=== PATIENT | female | born 1950 | race African-American/Black ===

== ENCOUNTER 2017-03-14 07:26 | Day surgery (SDC) | payer MEDICARE ==
--- NOTE | 2017-03-07 22:51 | HP ---
CC: Umang Marr MD; Melissa Bernard MD; Jas Butler MD; Kiel Nguyen MD ADMISSION HISTORY AND PHYSICAL: DATE OF ADMISSION: 03/14/17 ATTENDING SURGEON: Lianne Charles MD CHIEF COMPLAINT: Right breast cancer. HISTORY OF PRESENT ILLNESS: This is a 67-year-old female with multiple medical pro blems who noted a right breast mass, maybe in the mid summer last year. This was located in the lat eral portion of the breast and she states has not really changed much since she first noticed it. S he did undergo a mammogram in June which was apparently unremarkable, but with recommendation for followup in 6 months. A followup mammogram with ultrasound on 01/29/17 showed a new right upper out er quadrant mass in the right breast. By ultrasound, there were noted to be 2 lesions at the 10 o'c lock position of the right breast, one measuring 8 x 11 x 9 mm, the other 6 x 7 x 6 mm, the first lo cated 10 cm from the nipple, the other 8 cm. In addition, there were 2 lesions located at the 9 o'c lock position, one measuring 8 x 4 x 7 mm, the other 12 x 8 x 9 mm, the former being consistent with a lymph node and the latter being consistent with a cyst. A biopsy was performed on 02/10/17 of th e suspicious lesions at the 10 o'clock position with pathology revealing invasive ductal carcinoma w ith DCIS (see separate report), ER and NE were positive, and HER-2/neil was equivocal. The patient w as apparently sent for an MRI, but this was technically not feasible based on her body habitus. She has seen Dr. Bernard in consult. She was seen in our office by Dr. Charles on 02/27/17 (see below for exam). Her family history is positive for 2 maternal cousins with breast cancer, one diagnosed in her 60s, the other of a disease in her 70s. There is no family history of ovarian cancer. Dr. Charles has discussed with her the options for surgery. After review of the indications, risks, benefits, and alternatives including the potential need for additional surgery, the patient would li ke to proceed as scheduled with excision of right breast cancer (after needle localization) and sent inel node biopsy. PAST MEDICAL HISTORY: 1. Morbid obesity. 2. Type 2 diabetes. 3. Chronic atrial fibrillation (on chronic anticoagulation). 4. Obstructive sleep apnea (uses CPAP). 5. Rheumatic mitral stenosis with regurgitation (see below). 6. Peripheral edema. 7. Hypertension. 8. Congestive heart failure. 9. Pulmonary hypertension. 10. Systemic lupus erythematosus. 11. Nephrolithiasis. 12. Depression. 13. Qhgo-os-gotriqpz renal insufficiency. PREVIOUS SURGERIES: Include: 1. Total abdominal hysterectomy with BSO for benign disease. 2. ORIF of the right ankle fracture. 3. x2. 4. Tubal ligation. 5. Tonsillectomy. No report of surgical or anesthesia problems. CURRENT MEDICATIONS: 1. Carvedilol 12.5 mg b.i.d. 2. Klor-Con 20 mEq t.i.d. 3. Torsemide 10 mg 1 to 2 tablets every other day as needed for peripheral edema or weight increase . 4. Metolazone 5 mg 30 minutes prior to torsemide if weight is up 5 pounds over previous 24 to 48 ho urs. 5. Vitamin C 500 mg once daily. 6. Coumadin 6 mg once daily (the patient instructed to hold after her 03/08/17 dose). 7. Diltiazem ER 120 mg once daily. 8. Allopurinol 300 mg every day (takes for her hyperuricemia and kidney stones). 9. Loratadine 10 mg once daily p.r.n. 10. Valacyclovir 1 g 2 tablets q.12 hours p.r.n. for onset of cold sores. 11. Lantus 35 units once daily in the morning. 12. Vitamin B12 1000 mcg once daily. 13. Magnesium oxide 400 mg once daily. 14. Vitamin D3 10,000 IU once daily during winter months. 15. Albuterol MDI 90 mcg per activation 2 puffs p.r.n. (uses infrequently). DRUG ALLERGIES: None known (her record lists ATENOLOL with side effect of fatigue, DIGOXIN with eff ect of myalgias, and LISINOPRIL with GI cramps). MYCOPHENOLATE was also listed with renal insuffici ency. FAMILY HISTORY: Breast cancer as noted above. No known family history of anesthesia problems, blee ding, or clotting disorders. SOCIAL HISTORY: The patient is . 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 She is a former smok er of up to one-half pack per day for 30 years, but quit about 25 years ago. She drinks on an avera ge 1 drink each day in the evening, usually beer. She denies use of other recreational drugs. REVIEW OF SYSTEMS: General: No recent constitutional symptoms or acute illnesses. Cardiovascular: She underwent echocardiogram on 02/26/17, which was notable for normal left ventricular function wi th an EF of 55% to 60%. She had biatrial dilation and low normal right ventricular function. Alyssa l valve was noted to have moderate stenosis with bawb-tv-ewjcenny regurgitation. Because of some te chnical difficulties, she is scheduled for a repeat transthoracic echo on 03/11/17. Respiratory: No recent exacerbations of her asthma. She uses CPAP for RAJNI. GI: No problems reported. Colonoscopy done within the past 5 years, normal by her report. : She is followed by Dr. Stanton for her kidn ey stone, which is apparently stable and nonobstructing. She has clhd-pl-mdoqyjeg renal insufficien cy, but this is apparently stable over the past couple of years. Endocrine: Diabetes. She states t hat her morning fingersticks run between 90s and 120 and that her last A1c was around 6. Musculoske letal: She manifested lupus in terms of muscle and joint aches. She was on hydroxychloroquine for a period of time, but stopped it because of visual changes. She has not yet discussed that with her tank maker wood in [place]. PHYSICAL EXAMINATION GENERAL: A well-nourished, morbidly obese female, in no acute distress. VITAL SIGNS: Height 67 inches, weight 349 pounds, BMI 54.7, blood pressure 128/80, pulse 80, and re spirations 18. HEENT: Pupils equal, round, and reactive. EOMs intact. No conjunctival pallor. Oropharynx: She h as partial upper and lower dentures. Remaining teeth in good repair. No intraoral lesions. NECK: No lymphadenopathy, thyromegaly, or masses. LUNGS: Clear to auscultation. No rales or wheezes. HEART: Distant heart sounds. Irregularly irregular consistent with known atrial fibrillation. I d id not appreciate any murmur. BREASTS: Not reexamined today. Per Dr. Charles's exam, left breast is diffusely nodular, but withou t dominant masses. Right breast is notable for nodularity in the upper inner quadrant and post biop sy changes in the lateral breast. No palpable axillary, supraclavicular, or cervical adenopathy. ABDOMEN: Soft and nontender to palpation. No palpable masses or organomegaly though exam is limite d by body habitus. EXTREMITIES: She has skin thickening and some hyperpigmentation consistent with chronic venous insu fficiency. There were no open lesions or evidence of infection. I did not check peripheral pulses t luis. GENITALIA AND RECTAL: Not done. BACK: No spinous process or CVA tenderness. NEUROLOGICAL: Grossly intact. SKIN: Warm and dry. No suspicious rashes or lesions noted. IMPRESSION: Right breast cancer. PLAN: Excision, right breast cancer (after needle localization); sentinel lymph node biopsy. DIANA POWELL [id number]/[facility] #: [id number]
[~2017-03-14 07:26] MED LIST: Buffered Lidocaine 1% SYRIN* 3 ML/SYR SYRINGE INTRADERM ONE; Famotidine IV* 10 MG/ML 2 ML (20 mg) IV ONE; Lidocaine 2.5%/Prilocain 2.5%* 5 GM TUBE ONE; Metoclopramide IV* 5 MG/ML 2 ML VIAL IV SLOW PU ONE
--- NOTE | 2017-03-14 09:04 | RAD ---
INDICATION: Right breast needle localization. COMPARISON: Correlation is made with prior mammograms and a right breast ultrasound from January 29, 2017. TECHNIQUE: The benefits and risks of the procedure were explained to the patient. The patient consented to the exam. A timeout was performed before beginning the procedure. Multiple images of the right breast were obtained. Again note is made of a 2 solid masses in the upper outer quadrant of the right breast approximately at the 10:00 position. The patient was prepped and draped in the usual sterile fashion. The right breast was anesthetized with 1% lidocaine. Using ultrasound guidance a needle was placed extending through both lesions. This was exchanged for a Gorman type wire. A postprocedure ultrasound demonstrates that the wire extending through both lesions. A postprocedure mammogram was obtained including craniocaudad and mediolateral views of the right breast. The wire is noted adjacent to both tissue marking clips extending through the smaller lesion along the superior aspect of the larger lesion. The patient tolerated procedure well without incident. IMPRESSION: SUCCESSFUL ULTRASOUND-GUIDED RIGHT BREAST NEEDLE LOCALIZATION.
[2017-03-14] MEDS ORDERED: Methylene Blue 0.5 %* 50 MG/10 ML AMP IV ONE (09:07)
[2017-03-14] MEDS ORDERED: Bupivacaine 0.25% SDV* 30 ML ONE (09:07)
[2017-03-14] MEDS ORDERED: Bupivacaine 0.5% SDV PF* 30 ML VIAL ONE (09:07)
[2017-03-14] MEDS ORDERED: Bupivacaine 0.5% W/EPI SDV* 30 ML VIAL ONE (09:07)
[2017-03-14] MEDS ORDERED: Bupivacaine 0.25% EPI 200,000* 30 ML SDV ONE (09:07)
[2017-03-14] MEDS ORDERED: Lidocaine 1% INJ* 10 MG/ML 30 ML SDV ONE (09:07)
[2017-03-14] MEDS ORDERED: Heparin VIAL(*) 5000 UNITS/ML VIAL (FIVE THOUSAND) ONE (10:25)
[2017-03-14] MEDS ORDERED: ceFAZolin 2 GM PREMIX(*) 2 GM/50 ML BAG IVPB ONE (10:25)
[2017-03-14] MEDS ORDERED: ceFAZolin 1 GM in Dextrose (*) 1 GM/50 ML BAG IVPB ONE (10:25)
[2017-03-14] MEDS ORDERED: Metoclopramide IV* 5 MG/ML 2 ML VIAL ONE (10:30)
[2017-03-14] MEDS ORDERED: Famotidine IV* 10 MG/ML 2 ML (20 mg) ONE (10:30)
--- NOTE | 2017-03-14 10:32 | RAD ---
INDICATION: Right breast carcinoma. Comparison: Correlation is made with prior mammograms and a right breast ultrasound from January 29, 2017. Technique: The benefits and risks of the procedure were explained to the patient. The patient consented to the exam. A timeout was performed before beginning the procedure. 0.3 mCi of technetium 99m filtered sulfur colloid were injected in a nathan-areolar location. Four intradermal injections were made. The patient tolerated the procedure well without incident. Multiple images of the chest and right axilla were obtained in the frontal, oblique and lateral projections. FINDINGS: The images demonstrate 3 sentinel lymph nodes nodes. One is located in the right breast approximately at the 9 to 10:00 position and appears to correlate with an intramammary lymph node noted on the prior ultrasound study. This lymph node has the most activity. In addition there are 2 sentinel nodes located immediately adjacent to each other in the right axilla. The location of the nodes were marked on the patient's skin. IMPRESSION: 3 SENTINEL NODES DESCRIBED.
[2017-03-14] MEDS ORDERED: Dextrose 50% Syringe 50 ML* 25 GM/50 ML SYRINGE ONE (11:25)
[2017-03-14] MEDS ORDERED: fentaNYL* 50 MCG/ML 2 ML VIAL (100 MCG VIAL) ONE ×3 (11:41→14:02)
[2017-03-14] MEDS ORDERED: Midazolam* 1 MG/ML 5 ML VIAL (5 MG) ONE (11:41)
[2017-03-14] MEDS ORDERED: Midazolam* 1 MG/ML 2 ML VIAL (2 MG) ONE ×3 (12:24→13:48)
[2017-03-14] MEDS ORDERED: KETAMINE HCL* 50 MG/ML 10 ML VIAL ONE (12:27)
[2017-03-14] MEDS ORDERED: Ondansetron INJ* 2 MG/ML VIAL ONE (13:41)
[2017-03-14] MEDS ORDERED: HYDROcodone/ACETAMIN 5-325 MG* 1 TAB PO PRN (14:32)
--- NOTE | 2017-03-14 14:39 | SURGPN ---
Brief Operative Note - Surgery Procedures: Procedures COLONOSCOPY (12/23/13) DX ULTRASOUND-HEART (12/16/14) OTHER ESOPHAGOSCOPY (06/24/01) OTHER SLEEP DISORDER FUNCTION TESTS (08/17/01) POLYSOMNOGRAM (06/07/01) 03/14/17 Op Note Pre-op dx: right breast cancer Post-op dx: same Procedure: needle localization excision of right breast cancer and sentinel lymph node biopsy Surgeon: Melvin Asst: Pepper Holden Anesth: local-MAC EBL: 25 cc Complications: none SCDs on during surgery Abx: given pre-op Pt. tolerated procedure well and was transferred to in a stable condition. CLFoster
[2017-03-14 15:01] VITALS: BP 102/71
--- NOTE | 2017-03-15 07:46 | OP ---
DATE OF OPERATION: 03/14/17 [facility] DATE OF : 48 SURGEON: Lianne Charles MD. ASSISTANTS: DIANA Marcelo, and MS Ara. PRE-OP DIAGNOSIS: Right breast cancer. POST-OP DIAGNOSIS: Right breast cancer. OPERATIVE PROCEDURES: Needle localization, excision of right breast cancer, and sentinel lymph node biopsy. INDICATIONS: Ms. Anand is a 67-year-old female who presented to the office with a recent diagnosis of breast cancer, prompting the plan for surgical intervention. DESCRIPTION OF PROCEDURE: On the morning of the surgery, she underwent needle localization without difficulty and sentinel lymph node localization, which identified three sentinel nodes, one in the breast itself. She was then brought to the operating room, placed on the OR table in a supine position and given IV sedation. The right breast was prepped and draped in usual sterile fashion, taking care not to dislodge the localizing wire. After infiltrating local anesthetic, a curvilinear elliptical incision encompassing the wire was made. Subcutaneous tissue was divided with electrocautery to excise the massive tissue from around the wire. In the process of doing this, it was recognized that a firm mass had been transected, so once the specimen was marked and handed off and sent to Radiology, a second specimen was removed from posterolateral to the first. This was also marked and handed off as a specimen. Both specimens sent to Radiology where the report eventually confirmed that the two specimens contained the two known abnormalities of the breast. Hemostasis was assured with electrocautery and then closure was accomplished. Prior to completing the closure, clips were placed in the cavity to orquidea its confines. It should be mentioned that the cavity was irrigated with water on account of transecting the tumor. In addition, prior to closing, a re-search was made for sentinel nodes through the breast incision; however, it was recognized that it was too deep to pursue satisfactory localization of the sentinel nodes, so this incision was closed with 3-0 Polysorb in the subcutaneous layer. The skin was closed with 4-0 Surgipro in subcuticular fashion and then a curvilinear incision was made in the axilla. Subcutaneous tissue was divided with electrocautery down to the level of the axillary fat pad and then using the navigator, three sentinel nodes were identified. It was initially thought that the first one was an axillary node, but when two axillary nodes were later identified, it was recognized that the first specimen was most likely a mammary node. The initial counts for the first specimen were 434 in situ and ex vivo 432. The first axillary sentinel node had in situ counts of 2006 and ex vivo counts of 3663. The second axillary sentinel node had in situ counts of 1970 and ex vivo counts of 2183. Because of the difficulty in isolating especially the third sentinel node, there were some additional axillary contents which were sent and identified as such. Once the hemostasis was adequate in the axillary bed, closure was accomplished. This was done with 3-0 Polysorb in a subcutaneous layer and the skin was closed with 4-0 Surgipro in a subcuticular fashion. Steri-Strips and dry sterile dressings were placed on both incisions. All sponge and instrument counts were correct. The patient tolerated the procedure well and was transferred to Recovery in a stable condition. CC: [facility]; Umang Marr MD; [facility]; Dr. Silas Everett* [id number]/[facility] [place] #: [id number] [facility] HOSPITALIssa
== END 2017-03-14 15:28 | disposition home or self-care (01) ==
LOC: SDS 07:26
PROVIDERS: ATTEND Surgery
DX: C50.411 Malignant neoplasm of upper-outer quadrant of right female breast (principal); C77.3 Secondary and unspecified malignant neoplasm of axilla and upper limb lymph nodes; E11.8 Type 2 diabetes mellitus with unspecified complications; Z79.4 Long term (current) use of insulin; Z79.01 Long term (current) use of anticoagulants; I48.2 Chronic atrial fibrillation; G47.33 Obstructive sleep apnea (adult) (pediatric); I05.2 Rheumatic mitral stenosis with insufficiency; I50.9 Heart failure, unspecified; I27.2 Other secondary pulmonary hypertension; N18.9 Chronic kidney disease, unspecified
CPT/HCPCS: 19286; 78195; 88305; 88307; 88341; 88342; A9270-GY; A9541; G0206-RT; J0690; J1644; J2001; J2250; J2405; J3010

== ENCOUNTER 2017-03-24 14:00 | Emergency (ER) | payer MEDICARE ==
[2017-03-24] MEDS ORDERED: NS 0.9% 1000 ML* 1,000 ML IV ONE (16:53)
[2017-03-24 18:08] LABS: Hematocrit 41 % (35-47); Hemoglobin 12.8 g/dl (12.0-16.0); Mean Corpuscular HGB Conc 31 g/dl (31-36); Mean Corpuscular Hemoglobin 28 pg (27-31); Mean Corpuscular Volume 91 fL (80-97); Mean Platelet Volume 9 um3 (7.4-10.4); Red Blood Count 4.53 10^6/ul (4.0-5.4); Red Cell Distribution Width 17 % (10.5-15); White Blood Count 12.4 10^3/ul (3.5-10.8)
--- NOTE | 2017-03-24 18:08 | RAD ---
HISTORY: Right leg swelling COMPARISONS: None relevant TECHNIQUE: Multiple transverse and longitudinal ultrasound images were obtained of the right lower extremity from the level of the common femoral vein inferiorly through to the infrapopliteal veins using grayscale, color Doppler, and spectral Doppler imaging with and without compression and with augmentation. Comparison images were obtained of the contralateral common femoral vein. FINDINGS: The study is limited by patient body habitus. VEINS: One of the branches of the right peroneal vein is not well visualized which may be an artifact of body habitus. The remainder of the venous system of the right lower extremity is compressible throughout its course, with normal flow on color Doppler imaging and normal response to augmentation on spectral Doppler imaging. SOFT TISSUES: Unremarkable. OTHER FINDINGS: None. IMPRESSION: THERE IS NONVISUALIZATION OF ONE CALF VEIN WHICH MAY BE AN ARTIFACT OF BODY HABITUS. THERE IS NO RIGHT POPLITEAL OR SUPRAPOPLITEIAL DEEP VEIN THROMBOSIS
[2017-03-24 18:25] LABS: ALT 32 U/L (7-52); Albumin 4.1 g/dL (3.2-5.2); Alkaline Phosphatase 72 U/L (34-104); Blood Urea Nitrogen 24 mg/dL (6-24); CO2 Carbon Dioxide 28 mmol/L (22-32); Calcium 11.3 mg/dL (8.6-10.3); Chloride 100 mmol/L (101-111); EGFR Non-African American 39.7 (>60); Globulin 3.6 g/dL (2-4); Glucose 80 mg/dL (70-100); Sodium 136 mmol/L (133-145); Total Protein 7.7 g/dL (6.4-8.9)
[2017-03-24 18:26] LABS: Troponin I 0.01 ng/mL (<0.04)
[2017-03-24] MEDS ORDERED: Iodixanol* (CONTRAST) 320 MG/ML 100 ML SDV IV ONE (18:30)
--- NOTE | 2017-03-24 19:21 | RAD ---
HISTORY: Shortness of breath, recent surgery COMPARISONS: None TECHNIQUE: Multiple contiguous axial CT scans of the chest were obtained after the administration of nonionic intravenous contrast, timed to the pulmonary arterial phase of contrast enhancement.. Coronal and sagittal multiplanar reformations are also submitted for review. FINDINGS: Evaluation is limited by suboptimal contrast opacification of the main pulmonary artery, which measures less than 250 Hounsfield units. This study is considered a borderline but diagnostic quality. Evaluation is also limited by patient breathing motion artifact NECK AND THYROID: The lower neck and thyroid are unremarkable. CHEST WALL: There is post surgical change to the right breast HEART AND PERICARDIUM: The heart is unremarkable. AORTA AND PULMONARY VASCULATURE: There is no pulmonary arterial filling defect to suggest pulmonary embolism. There is no linear filling defect within the aorta to suggest aortic dissection. MEDIASTINUM: There is no mediastinal lymphadenopathy by size criteria. ROSENDO: There is no hilar lymphadenopathy by size criteria. AIRWAY AND ESOPHAGUS: The airway is unremarkable, without endobronchial filling defect. The esophagus is grossly normal. LUNG PARENCHYMA: The lungs are clear. PLEURA: There is a small left pleural effusion UPPER ABDOMEN: The upper abdomen is unremarkable. BONES AND SOFT TISSUES: Degenerative changes are noted of the spine OTHER: None. IMPRESSION: 1. LIMITED STUDY. 2. NO PULMONARY ARTERIAL FILLING DEFECT TO SUGGEST PULMONARY EMBOLISM. 3. SMALL LEFT PLEURAL EFFUSION
[2017-03-24 19:26] VITALS: BP 113/79
--- NOTE | 2017-03-24 20:49 | ED ---
Lula Villeda Auryana, scribed for Ozzy Valderrama MD on 03/24/17 at 1805 . Shortness of Breath - HPI Summary HPI Summary: 67 year old female presents to the ED with worsening SOB s/p lumpectomy Friday ( 04/20/16) by Dr. Charles. She reports that she has had lower right leg spasms with muscle soreness and increase edema in the RLE (more than normal). She states that the SOB is improved with rest and the edema is improved with elevation of the leg. She denies chest pressure with SOB, cough, N/V, diaphoresis, or any pain with inspiration. Patient is on Coumadin (recent bridging with Lovanox s/p surgery) and states recent weight loss. PMHx is significant for SLE, A-FIB, DM II-well controlled with Lantis- chronic SOB, breast cancer with recent lumpectomy - Dr. Charles- on potassium replacement, and rheumatic fever. No formal Dx of CHF but states "leaky valve". She denies thrombosis, any cardiac catherization in the past, or any recent stress test. She cardiologists are Dr. Nguyen and Dr. Arellano - recent Echo with Dr. Nguyen prior to surgery Friday. No FMHx of breast CA. - History of Current Complaint Chief Complaint: EDShortnessOfBreath Time Seen by Provider: 03/24/17 16:13 Hx Obtained From: Patient Onset/Duration: Gradual Onset - s/p surgery, Still Present Timing: Constant Current Severity: Mild Dyspnea At: Rest Aggrevating Factors: Movement Alleviating Factors: Upright Position - rest Associated Signs & Symptoms: Calf Pain/Swelling, Edema Related History: Similar Episode - SEE HPI - Allergy/Home Medications Allergies/Adverse Reactions: Allergies Allergy/AdvReac Type Severity Reaction Status Date / Time No Known Allergies Allergy Verified 03/14/17 07:56 PMH/Surg Hx/FS Hx/Imm Hx Endocrine/Hematology History: Reports: Hx Diabetes - TYPE II- ON INSULIN FOR Cardiovascular History: Reports: Hx Rheumatic Fever - A CHILD, Hx Valvular Heart Disease - MITRAL VALVE- DR. NGUYEN FOLLOWS, Other Cardiovascular Problems/ Disorders - IRREGULAR HEART BEAT Denies: Hx Hypertension, Hx Pacemaker/ICD Respiratory History: Reports: Hx Sleep Apnea History: Reports: Hx Kidney Stones - KIDNEY STONE CURRENTLY Denies: Hx Renal Disease - KIDNEY STONE AT PRESENT TIME Sensory History: Reports: Hx Contacts or Glasses - GLASSES Denies: Hx Hearing Aid Opthamlomology History: Reports: Hx Contacts or Glasses - GLASSES Psychiatric History: Denies: Hx Panic Disorder - Cancer History Cancer Type, Location and Year: RIGHT BREAST Hx Chemotherapy: No Hx Radiation Therapy: No - Surgical History Surgery Procedure, Year, and Place: 2 C-SECTIONS. HYSTERECTOMY. TUBAL LIGATION. REPAIR OF FRACTURED ANKLE. ALL DONE AT [facility] – [place] Hx Anesthesia Reactions: Yes - [id number]- VERY SLEEPY FOR DAYS Infectious Disease History: No Infectious Disease History: Denies: Traveled Outside the [place] in Last 30 Days - Family History Known Family History: Positive: Other - no family history of breast cancer - Social History Occupation: Retired Lives: With Family Alcohol Use: Daily Alcohol Amount: 1 /day Substance Use Type: Reports: None Smoking Status (MU): Former Smoker Amount Used/How Often: 1/2 PPD X 30 YEARS Have You Smoked in the Last Year: No Review of Systems Constitutional: Negative Eyes: Negative ENT: Negative Cardiovascular: Negative Positive: Shortness Of Breath Gastrointestinal: Negative Genitourinary: Negative Positive: Myalgia - calf pain, Edema Skin: Negative Neurological: Negative Psychological: Normal All Other Systems Reviewed And Are Negative: Yes Physical Exam - Summary Physical Exam Summary: The patient is well-nourished, obese, in no acute distress and in no acute pain. The skin is warm and dry and skin color reflects adequate perfusion. HEENT: The head is normocephalic and atraumatic. The pupils are equal and reactive. The conjunctivae are clear and without drainage. Nares are patent and without drainage. Mouth reveals moist mucous membranes and the throat is without erythema and exudate. The external ears are intact. The ear canals are patent and without drainage. The tympanic membranes are intact. Neck is supple with full range of motion and non-tender. There are no carotid bruits. There is no neck vein distension. Respiratory: Chest is non-tender. Lungs are clear to auscultation. Breathe sounds diminished in the right base. No wheezing. Cardiovascular: Heart has an irregular rate and rhythm. There is no murmur or rub auscultated. pulses are symmetrical and equal. Brachycardia. Abdomen: The abdomen is soft and non-tender. There are normal bowel sounds heard in all four quadrants and there is no organomegaly palpated. Musculoskeletal: There is no back pain noted. Extremities are with full range of motion. There is good capillary refill and good pulses. There is marked swelling in the bilateral lower extremities, L>R. There is right calf tenderness elicited. Neurological: Patient is alert and oriented to person, place and time. The patient has symmetrical motor strength in all four extremities. Cranial nerves are grossly intact. Deep tendon reflexes are symmetrical and equal in all four extremities. Psychiatric: The patient has an appropriate affect and does not exhibit any anxiety or depression. Triage Information Reviewed: Yes Vital Signs On Initial Exam: Initial Vitals Temp Pulse Resp BP Pulse Ox 97.4 F 56 20 131/58 98 03/24/17 14:18 03/24/17 14:18 03/24/17 14:18 03/24/17 14:18 03/24/17 14:18 Vital Signs Reviewed: Yes - [place] Coma Scale Coma Scale Total: 15 Diagnostics - Vital Signs Vital Signs Temp Pulse Resp BP Pulse Ox 03/24/17 16:07 63 17 97 03/24/17 16:05 122/69 03/24/17 14:21 97.8 F 95 20 131/58 98 03/24/17 14:18 97.4 F 56 20 131/58 98 - Laboratory Lab Results: Lab Results 03/24/17 03/24/17 03/24/17 Range/Units 18:00 18:00 18:00 WBC 12.4 H (3.5-10.8) 10^3/ul RBC 4.53 (4.0-5.4) 10^6/ul Hgb 12.8 (12.0-16.0) g/dl Hct 41 (35-47) % MCV 91 (80-97) fL MCH 28 (27-31) pg MCHC 31 (31-36) g/dl RDW 17 H (10.5-15) % Plt Count 290 (150-450) 10^3/ul MPV 9 (7.4-10.4) um3 Neut % (Auto) 68.5 (38-83) % Lymph % (Auto) 21.3 L (25-47) % [place] % (Auto) 7.7 (1-9) % Eos % (Auto) 1.7 (0-6) % Baso % (Auto) 0.8 (0-2) % Absolute Neuts (auto) 8.5 H (1.5-7.7) 10^3/ul Absolute Lymphs (auto) 2.6 (1.0-4.8) 10^3/ul Absolute Monos (auto) 0.9 H (0-0.8) 10^3/ul Absolute Eos (auto) 0.2 (0-0.6) 10^3/ul Absolute Basos (auto) 0.1 (0-0.2) 10^3/ul Absolute Nucleated RBC 0 10^3/ul Nucleated RBC % 0 Sodium 136 (133-145) mmol/L Potassium TNP Chloride 100 L (101-111) mmol/L Carbon Dioxide 28 (22-32) mmol/L Anion Gap TNP BUN 24 (6-24) mg/dL Creatinine 1.33 H (0.51-0.95) mg/dL Est GFR ( Amer) 51.0 (>60) Est GFR (Non-Af Amer) 39.7 (>60) BUN/Creatinine Ratio 18.0 (8-20) Glucose 80 (70-100) mg/dL Lactic Acid 1.9 (0.5-2.0) mmol/L Calcium 11.3 H (8.6-10.3) mg/dL Total Bilirubin 0.60 (0.2-1.0) mg/dL AST TNP ALT 32 (7-52) U/L Alkaline Phosphatase 72 (34-104) U/L Troponin I 0.01 (<0.04) ng/mL B-Natriuretic Peptide ( - 100) pg/mL Total Protein 7.7 (6.4-8.9) g/dL Albumin 4.1 (3.2-5.2) g/dL Globulin 3.6 (2-4) g/dL Albumin/Globulin Ratio 1.1 (1-3) 03/24/17 03/24/17 Range/Units 18:00 18:40 WBC (3.5-10.8) 10^3/ul RBC (4.0-5.4) 10^6/ul Hgb (12.0-16.0) g/dl Hct (35-47) % MCV (80-97) fL MCH (27-31) pg MCHC (31-36) g/dl RDW (10.5-15) % Plt Count (150-450) 10^3/ul MPV (7.4-10.4) um3 Neut % (Auto) (38-83) % Lymph % (Auto) (25-47) % [place] % (Auto) (1-9) % Eos % (Auto) (0-6) % Baso % (Auto) (0-2) % Absolute Neuts (auto) (1.5-7.7) 10^3/ul Absolute Lymphs (auto) (1.0-4.8) 10^3/ul Absolute Monos (auto) (0-0.8) 10^3/ul Absolute Eos (auto) (0-0.6) 10^3/ul Absolute Basos (auto) (0-0.2) 10^3/ul Absolute Nucleated RBC 10^3/ul Nucleated RBC % Sodium (133-145) mmol/L Potassium 4.4 Chloride (101-111) mmol/L Carbon Dioxide (22-32) mmol/L Anion Gap BUN (6-24) mg/dL Creatinine (0.51-0.95) mg/dL Est GFR ( Amer) (>60) Est GFR (Non-Af Amer) (>60) BUN/Creatinine Ratio (8-20) Glucose (70-100) mg/dL Lactic Acid (0.5-2.0) mmol/L Calcium (8.6-10.3) mg/dL Total Bilirubin (0.2-1.0) mg/dL AST 21 ALT (7-52) U/L Alkaline Phosphatase (34-104) U/L Troponin I (<0.04) ng/mL B-Natriuretic Peptide 73 ( - 100) pg/mL Total Protein (6.4-8.9) g/dL Albumin (3.2-5.2) g/dL Globulin (2-4) g/dL Albumin/Globulin Ratio (1-3) Result Diagrams: 03/24/17 18:00 03/24/17 18:40 Lab Statement: Any lab studies that have been ordered have been reviewed, and results considered in the medical decision making process. - CT CTA CHEST CT Interpretation: No Acute Changes - IMPRESSION: 1. LIMITED STUDY. 2. NO PULMONARY ARTERIAL FILLING DEFECT TO SUGGEST PULMONARY EMBOLISM. 3. SMALL LEFT PLEURAL EFFUSION CT Interpretation Completed By: Radiologist - EKG 14:27 EKG Interpretation: A-fib, bradycardia, No ST elevation, NML axis - Additional Comments Diagnostic Additional Comments: Right lower EXT - venous doppler US: IMPRESSION: THERE IS NONVISUALIZATION OF ONE CALF VEIN WHICH MAY BE AN ARTIFACT OF BODY HABITUS. THERE IS NO RIGHT POPLITEAL OR SUPRAPOPLITEIAL DEEP VEIN THROMBOSIS Re-Evaluation - Re-Evaluation First Eval Re-Evaluation Time: 19:25 - discussed labs, imaging, and Change: Improved Comment: discharge with follow and outpatient stress test Course/Dx - Diagnoses Differential Diagnosis/HQI/PQRI: Positive: CHF, RI, Pulmonary Embolism, Other - dvt,angina, deconditioning, obesity, Provider Diagnoses: Dyspnea on exertion Discharge - Discharge Plan Condition: Stable Disposition: HOME Patient Education Materials: Dyspnea (ED) Referrals: Umang Marr MD [Primary Care Provider] - Kiel Nguyen MD [Medical Doctor] - 2 Days The documentation as recorded by the Lula dias Auryana accurately reflects the service I personally performed and the decisions made by me, Ozzy Valderrama MD.
== END 2017-03-24 19:57 | disposition home or self-care (01) ==
LOC: ED 14:00
DX: R06.00 Dyspnea, unspecified (principal)
CPT/HCPCS: 36415; 71275; 80053; 83605; 83880; 84484; 85025; 93005; 99283; Q9967

== ENCOUNTER 2017-04-18 07:31 | Observation (INO) | payer MEDICARE ==
[~2017-04-18 07:31] MED LIST changes: -Buffered Lidocaine 1% SYRIN* 3 ML/SYR SYRINGE INTRADERM ONE; +Buffered Lidocaine 1% SYRIN* 5 ML/SYR SYRINGE ONE; -Famotidine IV* 10 MG/ML 2 ML (20 mg) IV ONE; +Heparin VIAL(*) 5000 UNITS/ML VIAL (FIVE THOUSAND) ONE; -Lidocaine 2.5%/Prilocain 2.5%* 5 GM TUBE ONE; -Metoclopramide IV* 5 MG/ML 2 ML VIAL IV SLOW PU ONE; +NS 0.9% 1000 ML* 1,000 ML IV SCH; +ceFAZolin 2 GM PREMIX(*) 2 GM/50 ML BAG IVPB ONE
[2017-04-18] MEDS ORDERED: Midazolam* 1 MG/ML 2 ML VIAL (2 MG) ONE (08:20)
[2017-04-18 08:43] LABS: Hematocrit 40 % (35-47); Mean Corpuscular HGB Conc 32 g/dl (31-36); Mean Corpuscular Hemoglobin 29 pg (27-31); Mean Corpuscular Volume 90 fL (80-97); Mean Platelet Volume 9 um3 (7.4-10.4); Red Cell Distribution Width 17 % (10.5-15); White Blood Count 10.8 10^3/ul (3.5-10.8)
[2017-04-18] MEDS ORDERED: Lidocaine 2% PF * 5 ML VIAL ONE (09:15)
[2017-04-18] MEDS ORDERED: Famotidine IV* 10 MG/ML 2 ML (20 mg) ONE (09:15)
[2017-04-18] MEDS ORDERED: Propofol* 10 MG/ML 20 ML BTL IV PUSH ONE (09:15)
[2017-04-18] MEDS ORDERED: Dexamethasone IV* 4 MG/ML 1 ML (4 MG) ONE (09:15)
[2017-04-18] MEDS ORDERED: Rocuronium* 10 MG/ML VIAL ONE (09:15)
[2017-04-18] MEDS ORDERED: Succinylcholine* 20 MG/ML 10 ML VIAL ONE (09:15)
[2017-04-18] MEDS ORDERED: Midazolam* 1 MG/ML 5 ML VIAL (5 MG) ONE (09:16)
[2017-04-18] MEDS ORDERED: KETAMINE HCL* 50 MG/ML 10 ML VIAL ONE (09:27)
[2017-04-18] MEDS ORDERED: EPHEDrine (Pressors)* 50 MG/ML VIAL ONE (09:43)
[2017-04-18] MEDS ORDERED: fentaNYL* 50 MCG/ML 2 ML VIAL (100 MCG VIAL) ONE (09:46)
[2017-04-18] MEDS ORDERED: Bupivacaine 0.5% W/EPI SDV* 30 ML VIAL ONE (10:16)
[2017-04-18] MEDS ORDERED: HYDROmorphone* 1 MG/ML 1 ML SYR ONE (10:43)
[2017-04-18] MEDS ORDERED: Ondansetron INJ* 2 MG/ML VIAL ONE (10:59)
[2017-04-18] MEDS ORDERED: Acetaminophen TAB* 325 MG PO PRN ×2 (11:14→11:41)
[2017-04-18] MEDS ORDERED: Docusate CAP* 100 MG PO PRN (11:14)
[2017-04-18] MEDS ORDERED: HYDROmorphone* 1 MG/ML 1 ML SYR IV PRN ×2 (11:14→11:41)
[2017-04-18] MEDS ORDERED: Ondansetron INJ* 2 MG/ML VIAL IV PRN (11:14)
[2017-04-18] MEDS ORDERED: oxyCODONE/Acetamin 5/325 MG* TAB PO PRN (11:17)
[2017-04-18] MEDS ORDERED: Torsemide TAB* 20 MG PO PRN (11:18)
[2017-04-18] MEDS ORDERED: Albuterol HFA INHALER* 8 gm MDI INH PRN (11:18)
[2017-04-18] MEDS ORDERED: Dextrose 50% Syringe 50 ML* 25 GM/50 ML SYRINGE IV PUSH PRN (11:22)
--- NOTE | 2017-04-18 11:30 | PN ---
Progress Note - Progress Note Note: Brief surgical note: Pre-op: Right breast CA Post-op; same Procedure: Right mastectomy Surgeon: Lianne Charles MD Data Security Analyst: Vernon Maria Zoey: HOANG EBL: 100 cc Fluids: LR 2000 cc Drains: AARON vac to self suction Catheters: none Specimen: Right breast Findings: See dictated op note
[2017-04-18] MEDS ORDERED: PROCHLORPERAZINE INJ 5 MG/ML 2 ML VIAL IV PRN (11:41)
[2017-04-18] MEDS ORDERED: DiMENhydriNATE IV* 50 MG/ML VIAL IV PUSH PRN (11:41)
[2017-04-18] MEDS: Insulin LISPRO* 1 UNITS UNIT SUBCUT SCH ×3 (14:06→21:16)
[2017-04-18] MEDS: Heparin VIAL(*) 5000 UNITS/ML VIAL (FIVE THOUSAND) SUBCUT SCH ×2 (16:15→23:23)
[2017-04-18] MEDS: Potassium Chlor TAB* 20 MEQ TAB.ER PO SCH ×2 (16:16→21:17)
[2017-04-18] MEDS ORDERED: Carvedilol TAB* 6.25 MG PO SCH (21:00)
[2017-04-18] MEDS ORDERED: Magnesium Oxide TAB* 400 MG PO SCH (21:00)
[2017-04-18] MEDS ORDERED: Diltiazem CD CAP* 120 MG PO SCH (21:00)
--- NOTE | 2017-04-19 03:04 | OP ---
CC: [facility], Melissa Bernard MD; Umang Marr MD OPERATIVE REPORT: DATE OF PROCEDURE: 04/18/17 DATE OF : 48 SURGEON: Lianne Charles MD ASSISTANTS: Yasemin and Roberto Holden. PRE-OP DIAGNOSIS: Right breast cancer. POST-OP DIAGNOSIS: Right breast cancer. PROCEDURE: Right mastectomy. INDICATIONS: Ms. Anand is a 67-year-old woman with a known diagnosis of breast cancer, who has undergone a lumpectomy, which showed extensive DCIS prompting the plan for wider excision through a mastectomy. DESCRIPTION OF PROCEDURE: She was brought to the operating room and placed on the OR table in a supine position and given general anesthesia. The breast was prepped and draped in the usual sterile fashion. Then, an incision was made in the superior aspect of the breast following alignment had been marked preoperatively. Subcutaneous tissue was divided with electrocautery to create flap that extended from the sternum medially to the clavicle superiorly to the latissimus dorsi muscle laterally. Then, another incision was made in the inferior breast creating an ellipse around the nipple areolar complex in the 2 previous scars. Subcutaneous tissue was divided with electrocautery to create flaps, again that extended from the sternum medially to the rectus muscle inferiorly and the latissimus dorsi muscle laterally. The breast was then elevated off the chest wall using electrocautery and electrocautery was used to maintain hemostasis during this procedure. Once the breast was off the chest wall, it was marked in usual fashion and handed off as a specimen. The wound was inspected for hemostasis, which was achieved with electrocautery, the wound was irrigated copiously with saline and then AARON drain was placed through a small stab wound and anterior axillary line inferiorly and that was done after infiltrating with local anesthetic, drain was placed under the mastectomy flaps and then closure of the incision was accomplished with 2-0 Polysorb interrupted tissues in the subcutaneous layer and the skin was closed with 4-0 Polysorb in a subcuticular fashion. Steri- Strips and a dry fluffy dressings were applied. All sponge and instrument counts were correct, the patient tolerated the procedure well and was transferred to Recovery in a stable condition. [id number]/[facility] #: [id number] [facility]
--- NOTE | 2017-04-19 07:34 | PN ---
Progress Note - Progress Note Note: Surgery Ms. Anand reports she feels "great". She has "little twinges" of pain, but nothing unmanageable. Vital Signs 04/18/17 04/18/17 04/18/17 08:36 11:24 11:30 Temperature 97.5 F 96.8 F Pulse Rate 73 79 68 Respiratory 16 20 14 Rate Blood Pressure 104/45 120/73 106/78 (mmHg) O2 Sat by Pulse 97 94 94 Oximetry 04/18/17 04/18/17 04/18/17 11:35 11:45 12:00 Temperature Pulse Rate 67 68 71 Respiratory 14 16 16 Rate Blood Pressure 101/65 111/71 116/68 (mmHg) O2 Sat by Pulse 94 96 96 Oximetry 04/18/17 04/18/17 04/18/17 12:15 12:30 12:45 Temperature 96.8 F Pulse Rate 65 62 62 Respiratory 16 18 18 Rate Blood Pressure 105/44 120/73 115/72 (mmHg) O2 Sat by Pulse 96 97 96 Oximetry 04/18/17 04/18/17 04/18/17 13:00 13:15 13:39 Temperature 96.4 F Pulse Rate 66 64 51 Respiratory 14 16 16 Rate Blood Pressure 116/76 127/75 122/64 (mmHg) O2 Sat by Pulse 94 93 93 Oximetry 04/18/17 04/18/17 04/18/17 13:54 14:00 15:06 Temperature 96.3 F Pulse Rate 59 57 Respiratory 16 16 20 Rate Blood Pressure 122/64 109/54 (mmHg) O2 Sat by Pulse 93 96 Oximetry 04/18/17 04/18/17 04/18/17 16:10 16:21 16:27 Temperature 95.7 F Pulse Rate 63 Respiratory 18 Rate Blood Pressure 99/36 (mmHg) O2 Sat by Pulse 97 97 Oximetry 04/18/17 04/18/17 04/18/17 18:12 19:25 19:43 Temperature 97.6 F 97.7 F Pulse Rate 65 68 Respiratory 18 20 18 Rate Blood Pressure 110/57 108/66 (mmHg) O2 Sat by Pulse 98 97 Oximetry 04/18/17 04/18/17 04/19/17 21:14 23:21 03:17 Temperature 97.5 F 97.2 F 98.3 F Pulse Rate 62 52 71 Respiratory 18 18 16 Rate Blood Pressure 131/60 123/57 118/63 (mmHg) O2 Sat by Pulse 99 95 98 Oximetry Mastectomy site: clean and dry, no signs infection, flaps viable. There is an extra dogear medially that may require trimming at some point in the future. AARON: serosanguinous fluid Intake & Output 04/18/17 04/19/17 04/19/17 22:59 06:59 14:59 Intake Total 1000 909 Output Total 830 405 Balance 170 504 Intake: IV Fluids 909 LR 909 Oral 1000 Output: AARON #1 130 55 Urine 700 350 Other: # Bowel Movements 0 POD#1 s/p right mastectomy; doing well. Can go home with drain. CLFoster
[2017-04-19] MEDS: Insulin LISPRO* 1 UNITS UNIT SUBCUT SCH (08:03)
[2017-04-19] MEDS: Heparin VIAL(*) 5000 UNITS/ML VIAL (FIVE THOUSAND) SUBCUT SCH (08:04)
[2017-04-19 08:12] VITALS: BP 122/67
[2017-04-19] MEDS ORDERED: Allopurinol TAB* 300 MG PO SCH (09:00)
[2017-04-20] MEDS ORDERED: Spironolactone TAB* 25 MG PO SCH (09:00)
== END 2017-04-19 09:30 | disposition home or self-care (01) ==
LOC: OR 07:31 → SSU 15:23
PROVIDERS: ADMIT Surgery; ATTEND Surgery
PROC: 0HTT0ZZ Resection of Right Breast, Open Approach (ICD-10-PCS; principal; 2017-04-18 08:45)
DX: C50.411 Malignant neoplasm of upper-outer quadrant of right female breast (principal); I48.91 Unspecified atrial fibrillation; Z87.891 Personal history of nicotine dependence; Z79.899 Other long term (current) drug therapy
CPT/HCPCS: 36415; 85025; 85610; 88307; 88341; 88342; 96374; A9270-GY; G0378; J0330; J0690; J1100; J1170; J1644; J2250; J2405; J2704; J3010

== ENCOUNTER 2017-05-12 16:23 | Inpatient (IN) | payer MEDICARE ==
[2017-05-12 18:44] LABS: Hematocrit 41 % (35-47); Hemoglobin 12.9 g/dl (12.0-16.0); Mean Corpuscular HGB Conc 32 g/dl (31-36); Mean Corpuscular Hemoglobin 29 pg (27-31); Mean Corpuscular Volume 90 fL (80-97); Mean Platelet Volume 10 um3 (7.4-10.4); Red Blood Count 4.51 10^6/ul (4.0-5.4); Red Cell Distribution Width 17 % (10.5-15); White Blood Count 14.4 10^3/ul (3.5-10.8)
[2017-05-12 18:55] LABS: Albumin 3.9 g/dL (3.2-5.2); BUN/Creatinine Ratio 18.5 (8-20); Calcium 10.3 mg/dL (8.6-10.3); EGFR African American 44.1 (>60); EGFR Non-African American 34.3 (>60); Globulin 3.1 g/dL (2-4); Potassium 3.9 mmol/L (3.5-5.0); Total Bilirubin 0.8 mg/dL (0.2-1.0)
[2017-05-12 19:01] LABS: Urine Bacteria 3+ (Absent); Urine Bilirubin Negative (Negative); Urine Glucose Negative (Negative); Urine Nitrite Negative (Negative)
[2017-05-12] MEDS ORDERED: Ondansetron INJ* 2 MG/ML VIAL IV ONE (19:50)
[2017-05-12] MEDS ORDERED: NS 0.9% 1000 ML* 2,000 ML IV ONE (19:50)
[2017-05-12] MEDS ORDERED: NS 0.9% 1000 ML* 1,000 ML IV ONE (20:11)
[2017-05-12] MEDS ORDERED: Piperacillin/Tazobac (*) 3.375 GM ADDV.VIAL ONE (21:01)
[2017-05-12] MEDS ORDERED: Albuterol 2.5 MG/3 ML NEB.SOL* (0.083%) INH PRN (21:07)
[2017-05-12] MEDS ORDERED: Acetaminophen TAB* 325 MG PO PRN (21:07)
[2017-05-12] MEDS ORDERED: Ondansetron INJ* 2 MG/ML VIAL IV PRN (21:08)
[2017-05-12] MEDS ORDERED: Melatonin (NF) 3 MG TAB PO PRN (21:08)
--- NOTE | 2017-05-12 21:12 | ED ---
Alexander Villeda Rebecca, scribed for Leigh Melgar MD on 05/12/17 at 1917 . Abdominal Pain/Female - HPI Summary HPI Summary: Pt is a 67 y/o F who presents to ED c/o abd pain. Pain began 1 week ago and has been intermittent since onset. Reports she "hears a gurgling," then experiences a sharp, cramping pain in the LLQ. Currently, she is not in any pain. Sx aggravated and alleviated by nothing. Additionally c/o dark brown urine, vomiting and fever. Unsure how long her fever has been present. Denies dysuria and flank pain. Pt was referred to the ED today by her oncologist, Dr. Bernard , who sent her after a CT of the abdomen. Recent Dx of breast CA, for which she had both a lumpectomy, then a mastectomy on April 18 of this year. She has not undergone any chemotherapy or radiation therapy. - History of Current Complaint Chief Complaint: EDAbdPain Stated Complaint: BROWN URINE,HIGH FEVER Hx Obtained From: Patient Timing: Intermittent Episode Lasting Severity Currently: None Pain Intensity: 0 Pain Scale Used: 0-10 Numeric Location: Discrete At: LLQ Radiates: No Character: Sharp, Cramping Aggravating Factor(s): Nothing Alleviating Factor(s): Nothing Associated Signs and Symptoms: Positive: Fever, Urinary Symptoms - Dark brown urine; Denies dysuria and flank pain, Vomiting Allergies/Adverse Reactions: Allergies Allergy/AdvReac Type Severity Reaction Status Date / Time No Known Allergies Allergy Verified 04/18/17 07:55 PMH/Surg Hx/FS Hx/Imm Hx Endocrine/Hematology History: Reports: Hx Diabetes - TYPE II- ON INSULIN FOR Cardiovascular History: Reports: Hx Congestive Heart Failure, Hx Rheumatic Fever - A CHILD, Hx Valvular Heart Disease - MITRAL VALVE- DR. ZAMORA FOLLOWS , Other Cardiovascular Problems/Disorders - IRREGULAR HEART BEAT Denies: Hx Hypertension, Hx Pacemaker/ICD Respiratory History: Reports: Hx Sleep Apnea GI History: Denies: Other GI Disorders History: Reports: Hx Kidney Stones - KIDNEY STONE CURRENTLY Denies: Hx Renal Disease - KIDNEY STONE AT PRESENT TIME, Other Problems/ Disorders Musculoskeletal History: Reports: Other Musculoskeletal History - joint pain with lupus Sensory History: Reports: Hx Contacts or Glasses - GLASSES Denies: Hx Hearing Aid Opthamlomology History: Reports: Hx Contacts or Glasses - GLASSES Neurological History: Denies: Other Neuro Impairments/Disorders Psychiatric History: Denies: Hx Panic Disorder - Cancer History Cancer Type, Location and Year: RIGHT BREAST Hx Chemotherapy: No Hx Radiation Therapy: No - Surgical History Surgery Procedure, Year, and Place: 2 C-SECTIONS. HYSTERECTOMY. TUBAL LIGATION. REPAIR OF FRACTUR[place] [facility] [place] Anesthesia Reactions: Yes - [id number]- VERY SLEEPY FOR DAYS Infectious Disease History: No Infectious Disease History: Denies: Traveled Outside the [place] in Last 30 Days - Family History Known Family History: Positive: Other - no family history of breast cancer - Social History Lives: With Family Alcohol Use: Daily Alcohol Amount: 1 /day Substance Use Type: Reports: None Smoking Status (MU): Former Smoker Amount Used/How Often: 1/2 PPD X 30 YEARS Have You Smoked in the Last Year: No Review of Systems Positive: Fever Positive: Abdominal Pain - LLQ, Vomiting Positive: other - Darn brown urine. Negative: dysuria, flank pain All Other Systems Reviewed And Are Negative: Yes Physical Exam - Summary Physical Exam Summary: General: Well appearing, no pain distress Skin: Warm, Skin Color Reflects Adequate Perfusion, Dry. Her wound is clean, dry and intact but has fluid fluctuance to it. Eyes: EOMI, JOSE ENT: Pharynx normal, TMs normal Neck: Supple, nontender Respiratory: CTA, breath sounds present, no rhonchi, no wheezes, no rales Cardiovascular: RRR, no murmur, no rub, no gallop Abdomen: Soft, Non-distended, no guarding, no rebound. Tender to palpation in the LLQ. Bowel: Hypreactive. Musculoskeletal: EM, No edema Neuro: Sensory/motor intact, A&Ox3, CN intact 2-12 Psych: Affect/mood appropriate Triage Information Reviewed: Yes Vital Signs On Initial Exam: Initial Vitals Temp Pulse Resp BP Pulse Ox 97.5 F 95 19 103/54 96 05/12/17 16:50 05/12/17 16:50 05/12/17 16:50 05/12/17 16:50 05/12/17 16:50 Vital Signs Reviewed: Yes - [place] Coma Scale Coma Scale Total: 15 Diagnostics - Vital Signs Vital Signs Temp Pulse Resp BP Pulse Ox 05/12/17 18:44 104 134/68 88 05/12/17 17:45 98 F 91 17 112/58 100 05/12/17 16:50 97.5 F 95 19 103/54 96 - Laboratory Lab Results: Lab Results 05/12/17 05/12/17 05/12/17 Range/Units 18:39 18:39 18:40 WBC 14.4 H (3.5-10.8) 10^3/ul RBC 4.51 (4.0-5.4) 10^6/ul Hgb 12.9 (12.0-16.0) g/dl Hct 41 (35-47) % MCV 90 (80-97) fL MCH 29 (27-31) pg MCHC 32 (31-36) g/dl RDW 17 H (10.5-15) % Plt Count 213 (150-450) 10^3/ul MPV 10 (7.4-10.4) um3 Neut % (Auto) 69.7 (38-83) % Lymph % (Auto) 19.9 L (25-47) % [place] % (Auto) 8.9 (1-9) % Eos % (Auto) 0.9 (0-6) % Baso % (Auto) 0.6 (0-2) % Absolute Neuts (auto) 10.0 H (1.5-7.7) 10^3/ul Absolute Lymphs (auto) 2.9 (1.0-4.8) 10^3/ul Absolute Monos (auto) 1.3 H (0-0.8) 10^3/ul Absolute Eos (auto) 0.1 (0-0.6) 10^3/ul Absolute Basos (auto) 0.1 (0-0.2) 10^3/ul Absolute Nucleated RBC 0 10^3/ul Nucleated RBC % 0 Sodium 131 L (133-145) mmol/L Potassium 3.9 (3.5-5.0) mmol/L Chloride 97 L (101-111) mmol/L Carbon Dioxide 25 (22-32) mmol/L Anion Gap 9 (2-11) mmol/L BUN 28 H (6-24) mg/dL Creatinine 1.51 H (0.51-0.95) mg/dL Est GFR ( Amer) 44.1 (>60) Est GFR (Non-Af Amer) 34.3 (>60) BUN/Creatinine Ratio 18.5 (8-20) Glucose 83 (70-100) mg/dL Calcium 10.3 (8.6-10.3) mg/dL Total Bilirubin 0.80 (0.2-1.0) mg/dL AST 19 (13-39) U/L ALT 17 (7-52) U/L Alkaline Phosphatase 61 (34-104) U/L Total Protein 7.0 (6.4-8.9) g/dL Albumin 3.9 (3.2-5.2) g/dL Globulin 3.1 (2-4) g/dL Albumin/Globulin Ratio 1.3 (1-3) Urine Color Yellow Urine Appearance Cloudy Urine pH 5.0 (5-9) Ur Specific [place] 1.032 H (1.010-1.030) Urine Protein Negative (Negative) Urine Ketones Trace H (Negative) Urine Blood 2+ H (Negative) Urine Nitrate Negative (Negative) Urine Bilirubin Negative (Negative) Urine Urobilinogen Positive H (Negative) Ur Leukocyte Esterase 3+ H (Negative) Urine WBC (Auto) 3+(>20/hpf) H (Absent) Urine RBC (Auto) 2+(6-10/hpf) H (Absent) Ur Squamous Epith Cells Present H (Absent) Urine Bacteria 3+ H (Absent) Urine Glucose Negative (Negative) Result Diagrams: 05/12/17 18:39 05/12/17 18:39 Lab Statement: Any lab studies that have been ordered have been reviewed, and results considered in the medical decision making process. Re-Evaluation - Re-Evaluation First Eval Re-Evaluation Time: 19:58 Change: Unchanged Comment: Discussed current plan to talk to the hospitalist about admission. Second Eval Re-Evaluation Time: 20:57 Change: Improved Comment: Patient is doing well, put in IV access. Abdominal Pain Fem Course/Dx - Course Course Of Treatment: Medical Recards reveal that the CT Abd/Pel/Chest from earlier today had the impression of: 1. NO EVIDENCE FOR METASTATIC DISEASE. 2. STATUS POST RIGHT LUMPECTOMY LARGE SEROMA WITHIN THE RIGHT BREAST. 3. FINDINGS SUGGESTIVE OF AN EVOLVING INFARCT IN THE MEDIAL SUPERIOR ASPECT OF THE SPLEEN. 4. INFLAMMATORY CHANGE IN THE DISTAL DESCENDING AND PROXIMAL SIGMOID COLON MOST CONSISTENT. 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 5. NONOBSTRUCTING RIGHT RENAL CALCULUS. 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 Pt being started on zosyn case discussed with both Dr. Hankins and Dr. Wong, with Dr. Hankins is admitting the patient - Diagnoses Provider Diagnoses: UTI (urinary tract infection), Diverticulitis, Splenic infarct, Enterovascular fistula - Provider Notifications Discussed Care Of Patient With: Damon Sy Time Discussed With Above Provider: 20:00 Instructed by Provider To: Other - Advised a consult with Dr. Wong to see if the pt is more appropriate as a surgical admission. Discussed care of patient with Dr. Valeriy Wong at 2007 who stated he would consult with Dr. Sy. Discussed care of patient with Dr. Sy again at 2039 who accepts the patient for admission. Discharge - Discharge Plan Condition: Good Disposition: ADMITTED TO [facility] Referrals: Umang Marr MD [Primary Care Provider] - The documentation as recorded by the Alexander dias Rebecca accurately reflects the service I personally performed and the decisions made by me, Leigh Melgar MD.
--- NOTE | 2017-05-12 23:40 | CONS ---
CONSULTATION REPORT: DATE OF CONSULT: 05/12/17 LOCATION: The patient was seen in the emergency room. REFERRING PROVIDERS: Dr. Leigh Melgar, emergency room physician; Dr. Damon Sy, hospitalist. REASON FOR CONSULT: Lower quadrant abdominal pain. HISTORY OF PRESENT ILLNESS: Ms. Silvia Anand is a very pleasant 67-year-old woman with multiple medical issues, recently diagnosed with a right-sided breast cancer, who had undergone initially a lumpectomy with subsequent mastectomy by Dr. Lianne Charles about a month and half ago for a newly diagnosed right-sided breast cancer. She is under the care of Dr. Melissa Bernard and plans are for chemotherapy. Ms. Anand says that over the past several weeks, she has had some lower abdominal discomfort as well as constipation. Her bowels have been working every couple of days but she had not been eating as well. She has had no fevers , shakes, or chills. Several days ago, she noted that her urine was somewhat more cloudy and darker, although she has been passing no air per her bladder. She has had no bleeding, bright red or melenic stools. She has known diverticular disease, having had a colonoscopy in the past. Coincidentally, Dr. Bernard sent her for both a chest, abdomen, and pelvis for workup of her malignancy and this showed an evolving but known splenic infarct. 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 In the emergency room, she was noted to be afebrile with a heart rate of 81, blood pressure of 122/77. Laboratory workup showed a white blood cell count of 14,000. Her lactic acid was 0.6, and a BUN and creatinine of 28 and 1.51 which are slightly elevated from recent studies. Urinalysis showed 3+ urobilinogen and 3+ leukocyte esterase with white blood cells and red cells as well as bacteria noted in the specimen. Cultures are pending. I did review the images of the CAT scan as above. There does appear to be a significant amount of air in the bladder, although the bladder does not appear to have a thickened wall. There is appearance of some mild stranding in the sigmoid colon area as well as descending colon. There appears to be no extraluminal abscess or air or fluid or other acute findings other than the subacute finding of the resolving splenic infarct. She will be admitted to the hospitalist service with surgical consultation. PAST MEDICAL HISTORY: 1. Morbid obesity. 2. Type 2 diabetes. 3. Chronic atrial fibrillation. 4. Obstructive sleep apnea. 5. Rheumatic mitral stenosis. 6. Peripheral edema. 7. Hypertension. 8. Congestive heart failure. 9. Pulmonary hypertension. 10. Lupus. 11. History of nephrolithiasis. 12. Depression. 13. Mild renal insufficiency. PAST SURGICAL HISTORY: 1. Total abdominal hysterectomy with bilateral ovary removal. 2. ORIF of the right ankle fracture. 3. section x2. 4. Tubal ligation. 5. Tonsillectomy. MEDICATIONS: On admission included: 1. Warfarin. 2. Carvedilol. 3. Allopurinol. 4. Albuterol. 5. Diltiazem. 6. Insulin. 7. Torsemide. 8. Spironolactone. 9. Potassium. 10. Magnesium oxide. 11. Oxycodone. ALLERGIES: To ATENOLOL, DIGOXIN, LISINOPRIL, and MYCOPHENOLATE. SOCIAL HISTORY: She is . 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 She is a former smoker, but quit about 25 years ago. She drinks a small amount of alcohol each day and denies other use of recreational drugs. PHYSICAL EXAM: She is afebrile, pulse 81, blood pressure 122/70. In general, she is a morbidly obese female who is very pleasant, awake, and alert, in no apparent distress. Oral mucosa is slightly dry. Her lungs with diminished breath sounds throughout. She has a well-healing right mastectomy scar. Heart is irregularly irregular. Her abdomen is obese, but soft. She had diminished bowel sounds throughout. She has a well-healed low transverse incision from her hysterectomy. She has some mild tenderness in her lower abdomen without rebound, guarding, or peritoneal irritation. IMPRESSION: 1. Lower quadrant abdominal pain for several weeks with known diverticular disease and findings on the CT scan done today worrisome for a colovesical fistula. This includes air in the bladder with some pericolonic stranding. There is no bladder wall thickening, abscess, or extraluminal air. Urinalysis is very worrisome for urinary tract infection and her urine has been described as cloudy and somewhat brown in the last several days. 2. Recently diagnosed right-sided breast cancer. According to her, the plan will be to be starting chemotherapy, although this has not been started yet. 3. Multiple medical issues as described above. PLAN: 1. The patient will be admitted to the medical service, started on IV Zosyn, and continued on IV fluids. 2. There will be consultation with oncology service, Dr. Bernard, regarding optimal management of both her colovesical fistula as well as her breast cancer. She is obviously at high risk for any surgical intervention with her medical issues as well as her size, but this possible fistula will probably require attention prior to any consideration of any chemotherapy. 3. I discussed her care with Dr. Lianne Charles, her breast surgeon, who will become involved with her care and we will follow Cheng closely with you. [id number]/CPS #: [id number]
[2017-05-13] MEDS ORDERED: Torsemide TAB* 20 MG PO PRN (03:08)
--- NOTE | 2017-05-13 03:16 | HP ---
H&P (Free Text) History and Physical: PCP: Dee Marr MD Date/Time of Evaluation: 05/13/2017 2100 CC: abdominal pain HPI: Mrs Anand is a 67YO female HX breast CA, AFIB, DM2, CHF, pHTN, & SLE who presents with 2 weeks of mild intermittent abdominal pain without F/C, but occasionally having sweats. 2 days ago she developed brown colored urine without B/U/F. She denies changes in bowels, SOB, or other issues. She recently underwent mastectomy for breast CA with plans to start chemo-/radio-TX soon. Maria T Wong MD surgery evaluated her in ED & will follow. PMedHx super morbid obesity DM2 AFIB, chronic RAJNI on CPAP rheumatic mitral disease w/ mod MR/mod MS chronic peripheral edema HTN pHTN CHF SLE CKD stg 3a urolithiasis Ambulatory Orders Allopurinol TAB* [Zyloprim TAB*] 300 mg PO DAILY 12/21/13 Ascorbic Acid TAB* [Vitamin C TAB*] 500 mg PO DAILY 12/21/13 Carvedilol TAB* [Coreg TAB*] 12.5 mg PO BID 12/21/13 Magnesium Oxide TAB* [MagOx 400 TAB*] 400 mg PO BID 12/21/13 Potassium Chlor TAB* [Klor Con ER TAB*] 20 meq PO TID 12/21/13 Torsemide TAB* [Demadex*] 20 mg PO DAILY PRN 12/21/13 Warfarin TAB(*) [Coumadin TAB(*)] 6 mg PO 1700 12/21/13 Cholecalciferol [Vitamin D] 5,000 mg PO DAILY 12/16/14 Spironolactone TAB* [Aldactone TAB 25 MG*] 25 mg PO EVERY OTHER DAY 12/16/14 Cyanocobalamin [B12] 600 mcg PO DAILY 01/30/17 Diltiazem HCl [Diltiazem HCl ER] 120 mg PO BID 01/30/17 Insulin GLARGINE(*) [Lantus(*)] 35 units SUBCUT QAM 02/10/17 Albuterol HFA INHALER* [Ventolin HFA Inhaler*] 2 puff INH QID PRN 03/10/17 oxyCODONE/Acetamin 5/325 MG* [Percocet 5/325 TAB*] 1 tab PO Q4H PRN #30 tab MDD 10 04/19/17 Allergies No Known Allergies Allergy (Verified 04/18/17 07:55) PSurgHx R mastectomy hysterectomy section x2 tonsilectomy SocHx: former light smoker, 1 alcoholic drink daily, no recreational drugs; lives with her ; full code status FamHx: positive for breast CA ROS: as above, otherwise reviewed and all were negative Constitutional: NAD, normally developed, super morbidly obese black female vitals: Vital Signs Temp 36.9 C 05/12/17 23:59 Pulse 92 05/12/17 23:59 Resp 20 05/12/17 23:59 BP 110/41 05/12/17 23:59 Pulse Ox 100 05/12/17 23:59 Intake & Output 05/12/17 05/12/17 05/13/17 11:59 23:59 11:59 Intake Total 100 100 Output Total 500 350 Balance -400 -250 Weight 150.593 kg Intake: IV Fluids 100 Oral 100 Output: Urine 500 350 HEENM: atraumatic; sclera/conjunctiva: non-icteric/clear ; hearing: clinically intact; oropharynx: clear, mucosa moist Neck: soft tissue: non-tender; thyroid: normal Pulmonary: clear to auscultation bilaterally, good aeration, no accessory muscle use CV: RR/RR, normal S1S2, no carotid bruit, no jugular venous distention, 2+ B DP/ PT, 3+ BLE chronic appearing edema Abdominal: soft, non-distended, non-tender, no rebound/guarding/rigidity, normoactive bowel sounds, no hepatosplenomegaly or masses, no costovertebral angle tenderness Musculoskeletal: general: grossly intact; gait: stable Integumental: ichthyosis BLE Psychiatric orientation: AA&O to PPS affect: calm mood: cooperative eye contact: good content: reliable responses: timely insight: good Testing: Lab Results 05/12/17 05/12/17 05/12/17 Range/Units 18:00 18:39 18:39 WBC 14.4 H (3.5-10.8) 10^3/ul RBC 4.51 (4.0-5.4) 10^6/ul Hgb 12.9 (12.0-16.0) g/dl Hct 41 (35-47) % MCV 90 (80-97) fL MCH 29 (27-31) pg MCHC 32 (31-36) g/dl RDW 17 H (10.5-15) % Plt Count 213 (150-450) 10^3/ul MPV 10 (7.4-10.4) um3 Neut % (Auto) 69.7 (38-83) % Lymph % (Auto) 19.9 L (25-47) % [place] % (Auto) 8.9 (1-9) % Eos % (Auto) 0.9 (0-6) % Baso % (Auto) 0.6 (0-2) % Absolute Neuts (auto) 10.0 H (1.5-7.7) 10^3/ul Absolute Lymphs (auto) 2.9 (1.0-4.8) 10^3/ul Absolute Monos (auto) 1.3 H (0-0.8) 10^3/ul Absolute Eos (auto) 0.1 (0-0.6) 10^3/ul Absolute Basos (auto) 0.1 (0-0.2) 10^3/ul Absolute Nucleated RBC 0 10^3/ul Nucleated RBC % 0 INR (Anticoag Therapy) 2.81 H (0.89-1.11) Sodium 131 L (133-145) mmol/L Potassium 3.9 (3.5-5.0) mmol/L Chloride 97 L (101-111) mmol/L Carbon Dioxide 25 (22-32) mmol/L Anion Gap 9 (2-11) mmol/L BUN 28 H (6-24) mg/dL Creatinine 1.51 H (0.51-0.95) mg/dL Est GFR ( Amer) 44.1 (>60) Est GFR (Non-Af Amer) 34.3 (>60) BUN/Creatinine Ratio 18.5 (8-20) Glucose 83 (70-100) mg/dL Lactic Acid (0.5-2.0) mmol/L Calcium 10.3 (8.6-10.3) mg/dL Total Bilirubin 0.80 (0.2-1.0) mg/dL AST 19 (13-39) U/L ALT 17 (7-52) U/L Alkaline Phosphatase 61 (34-104) U/L Total Protein 7.0 (6.4-8.9) g/dL Albumin 3.9 (3.2-5.2) g/dL Globulin 3.1 (2-4) g/dL Albumin/Globulin Ratio 1.3 (1-3) Urine Color Urine Appearance Urine pH (5-9) Ur Specific [place] (1.010-1.030) Urine Protein (Negative) Urine Ketones (Negative) Urine Blood (Negative) Urine Nitrate (Negative) Urine Bilirubin (Negative) Urine Urobilinogen (Negative) Ur Leukocyte Esterase (Negative) Urine WBC (Auto) (Absent) Urine RBC (Auto) (Absent) Ur Squamous Epith Cells (Absent) Urine Bacteria (Absent) Urine Glucose (Negative) 05/12/17 05/12/17 Range/Units 18:40 21:20 WBC (3.5-10.8) 10^3/ul RBC (4.0-5.4) 10^6/ul Hgb (12.0-16.0) g/dl Hct (35-47) % MCV (80-97) fL MCH (27-31) pg MCHC (31-36) g/dl RDW (10.5-15) % Plt Count (150-450) 10^3/ul MPV (7.4-10.4) um3 Neut % (Auto) (38-83) % Lymph % (Auto) (25-47) % [place] % (Auto) (1-9) % Eos % (Auto) (0-6) % Baso % (Auto) (0-2) % Absolute Neuts (auto) (1.5-7.7) 10^3/ul Absolute Lymphs (auto) (1.0-4.8) 10^3/ul Absolute Monos (auto) (0-0.8) 10^3/ul Absolute Eos (auto) (0-0.6) 10^3/ul Absolute Basos (auto) (0-0.2) 10^3/ul Absolute Nucleated RBC 10^3/ul Nucleated RBC % INR (Anticoag Therapy) (0.89-1.11) Sodium (133-145) mmol/L Potassium (3.5-5.0) mmol/L Chloride (101-111) mmol/L Carbon Dioxide (22-32) mmol/L Anion Gap (2-11) mmol/L BUN (6-24) mg/dL Creatinine (0.51-0.95) mg/dL Est GFR ( Amer) (>60) Est GFR (Non-Af Amer) (>60) BUN/Creatinine Ratio (8-20) Glucose (70-100) mg/dL Lactic Acid 0.6 (0.5-2.0) mmol/L Calcium (8.6-10.3) mg/dL Total Bilirubin (0.2-1.0) mg/dL AST (13-39) U/L ALT (7-52) U/L Alkaline Phosphatase (34-104) U/L Total Protein (6.4-8.9) g/dL Albumin (3.2-5.2) g/dL Globulin (2-4) g/dL Albumin/Globulin Ratio (1-3) Urine Color Yellow Urine Appearance Cloudy Urine pH 5.0 (5-9) Ur Specific [place] 1.032 H (1.010-1.030) Urine Protein Negative (Negative) Urine Ketones Trace H (Negative) Urine Blood 2+ H (Negative) Urine Nitrate Negative (Negative) Urine Bilirubin Negative (Negative) Urine Urobilinogen Positive H (Negative) Ur Leukocyte Esterase 3+ H (Negative) Urine WBC (Auto) 3+(>20/hpf) H (Absent) Urine RBC (Auto) 2+(6-10/hpf) H (Absent) Ur Squamous Epith Cells Present H (Absent) Urine Bacteria 3+ H (Absent) Urine Glucose Negative (Negative) CT c/a/p W, personally reviewed: IMPRESSION: 1. NO EVIDENCE FOR METASTATIC DISEASE. 2. STATUS POST RIGHT LUMPECTOMY LARGE SEROMA WITHIN THE RIGHT BREAST. 3. FINDINGS SUGGESTIVE OF AN EVOLVING INFARCT IN THE MEDIAL SUPERIOR ASPECT OF THE SPLEEN. 4. INFLAMMATORY CHANGE IN THE DISTAL DESCENDING AND PROXIMAL SIGMOID COLON MOST CONSISTENT WITH SUBACUTE DIVERTICULITIS WITH A LIKELY FISTULA TO THE URINARY BLADDER. 5. NONOBSTRUCTING RIGHT RENAL CALCULUS. bone scan: IMPRESSION: No scintigraphic evidence for bone metastasis. 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 : IV piperacillin/tazobactam : blood & urine CXs : Maria T Wong MD surgery evaluated in ED, will arrange to have followed : supportive care breast CA : per oncology Secondary super morbid obesity : no acute issues DM2 : insulin carb ratio diet : basal/bolus/correctional insulin : check A1c AFIB, chronic : hold warfarin for now anticipating possible surgical need : start heparin GTT once INR is <1.6 RAJNI : continue CPAP rheumatic mitral disease w/ mod MR/mod MS : no acute issues HTN : review meds once reconciled pHTN : review meds once reconciled CHF : review meds once reconciled SLE : review meds once reconciled CKD stg 3a : no acute issues gout : continue allopurinol once reconciled Admission Rational: inpatient for IV ABX & IVFs & surgical evaluation and management of suspected colo-vessicle fistula DVTp: warfarin currently, transition to heparin GTT once INR <1.6 Code Status: full HCP:
[2017-05-13] MEDS: NS 0.9% 1000 ML* 1,000 ML IV SCH ×2 (05:42→16:01)
[2017-05-13] MEDS: Omeprazole CAP* 20 MG PO SCH (05:49)
[2017-05-13 07:31] LABS: Hematocrit 37 % (35-47); Hemoglobin 11.7 g/dl (12.0-16.0); Mean Corpuscular HGB Conc 32 g/dl (31-36); Mean Corpuscular Hemoglobin 29 pg (27-31); Mean Corpuscular Volume 90 fL (80-97); Mean Platelet Volume 9 um3 (7.4-10.4); Red Blood Count 4.07 10^6/ul (4.0-5.4); Red Cell Distribution Width 16 % (10.5-15); White Blood Count 11.1 10^3/ul (3.5-10.8)
[2017-05-13 08:00] LABS: BUN/Creatinine Ratio 19.2 (8-20); Calcium 9.4 mg/dL (8.6-10.3); EGFR African American 54.8 (>60); EGFR Non-African American 42.6 (>60); Potassium 3.4 mmol/L (3.5-5.0)
[2017-05-13] MEDS: Insulin LISPRO* 1 UNITS UNIT SUBCUT SCH ×7 (08:37→21:15)
[2017-05-13] MEDS ORDERED: Spironolactone TAB* 25 MG PO SCH (09:00)
--- NOTE | 2017-05-13 09:02 | PN ---
Progress Note - Progress Note Note: Surgery Ms. Anand is sitting up eating. I did not examine. She has had a CT scan showing probable colovesical fistula, confirmed with report of symptoms including brown urine. Ideally she will require surgery to divert then to resect and repair the fistula. However given her medical problems she will need optimization and clearance before even considering operative intervention. For now agree with abx and decompression of bladder. All
[2017-05-13] MEDS: Allopurinol TAB* 300 MG PO SCH (10:12)
[2017-05-13] MEDS: Magnesium Oxide TAB* 400 MG PO SCH ×2 (10:12→21:11)
[2017-05-13] MEDS: Carvedilol TAB* 6.25 MG PO SCH ×2 (10:12→21:10)
[2017-05-13] MEDS: Docusate CAP* 100 MG PO SCH ×2 (10:12→21:10)
[2017-05-13] MEDS: Potassium Chlor TAB* 20 MEQ TAB.ER PO SCH ×3 (10:12→21:10)
[2017-05-13] MEDS: Diltiazem CD CAP* 120 MG PO SCH ×2 (10:13→21:11)
--- NOTE | 2017-05-13 14:07 | PN ---
Subjective Date of Service: 05/13/17 Interval History: HOSPITALIST PROGRESS NOTE Patient seen and examined at bedside. She feels better this AM, denies abdominal pain, N/V, chills. Family History: Unchanged from Admission Social History: Unchanged from Admission Past Medical History: Unchanged from Admission Objective Active Medications: Acetaminophen (Tylenol Tab*) 650 mg PO Q6H PRN PRN Reason: FEVER/PAIN Albuterol (Ventolin 2.5 Mg/3 Ml Neb.Nicolette*) 2.5 mg INH Q2H PRN PRN Reason: SOB/WHEEZING Allopurinol (Zyloprim Tab*) 300 mg PO DAILY [facility] Last Admin: 05/13/17 10:12 Dose: 300 mg Carvedilol (Coreg Tab*) 12.5 mg PO BID [facility] Last Admin: 05/13/17 10:12 Dose: 12.5 mg Diltiazem HCl (Cardizem Cd Cap*) 120 mg PO BID [facility] Last Admin: 05/13/17 10:13 Dose: 120 mg Docusate Sodium (Colace Cap*) 200 mg PO BID [facility] Last Admin: 05/13/17 10:12 Dose: 200 mg Sodium Chloride (Ns 0.9% 1000 Ml*) 1,000 mls @ 100 mls/hr IV PER RATE [facility] Last Admin: 05/13/17 05:42 Dose: 100 mls/hr Piperacillin Sod/Tazobactam (Sod 3.375 gm/ Sodium Chloride) 100 mls @ 25 mls/ hr IVPB Q8H [facility] Last Admin: 05/13/17 10:41 Dose: 25 mls/hr Insulin Glargine (Lantus(*)) 36 units SUBCUT 2100 [facility] Stop: 05/14/17 20:00 Insulin Human Lispro (Humalog*) 0 units SUBCUT AC [facility] PRN Reason: Protocol Last Admin: 05/13/17 13:47 Dose: 1 unit Insulin Human Lispro (Humalog*) 0 units SUBCUT ACHS [facility] PRN Reason: Protocol Last Admin: 05/13/17 13:48 Dose: Not Given Magnesium Oxide (Magox 400 Tab*) 400 mg PO BID [facility] Last Admin: 05/13/17 10:12 Dose: 400 mg Melatonin (Melatonin (Nf)) 3 mg PO BEDTIME PRN; Protocol PRN Reason: Sleep Omeprazole (Prilosec Cap*) 20 mg PO DAILY@0600 [facility] Last Admin: 05/13/17 05:49 Dose: 20 mg Ondansetron HCl (Zofran Inj*) 4 mg IV Q6H PRN PRN Reason: NAUSEA Potassium Chloride (Klor Con Er Tab*) 20 meq PO TID [facility] Last Admin: 05/13/17 13:46 Dose: 20 meq Spironolactone (Aldactone Tab*) 25 mg PO EVERY OTHER DAY [facility] Last Admin: 05/13/17 10:12 Dose: 25 mg Torsemide (Demadex*) 20 mg PO DAILY PRN PRN Reason: ANKLE SWELLING Warfarin Sodium (Coumadin Tab(*)) 6 mg PO DAILY@1700 [facility] PRN Reason: Protocol Vital Signs 05/13/17 11:40 Temperature 98.0 F Pulse Rate 81 Respiratory 21 Rate Blood Pressure 103/56 (mmHg) O2 Sat by Pulse 98 Oximetry Oxygen Devices in Use Now: None Appearance: Morbid obese lady lying in bed in [facility]. Eyes: No Scleral Icterus Ears/Nose/Mouth/Throat: Mucous Membranes Moist Neck: Trachea Midline Respiratory: Symmetrical Chest Expansion and Respiratory Effort, Clear to Auscultation Cardiovascular: RRR - Normal S1 and S2 Abdominal: - - Obese, soft, NT, BS+ Skin: - - Dry skin Neurological: Alert and Oriented x 3, NL Muscle Strength and Tone Lines/Tubes/Other Access: Clean, Dry and Intact Peripheral IV Nutrition: Taking PO's Result Diagrams: 05/13/17 06:55 05/13/17 06:55 Assess/Plan/Problems-Billing Assessment: Mrs. Anand is a 67yo F with PMH of morbid obesity with BMI 51, breast CA s/p right mastectomy 04/09, type 2 DM, Afib, RAJNI on CPAP, HTN, pulmonary HTN, diastolic CHF, SLE, CKD stage 3, admitted with abdominal pain, fever, sweats, found to have an UTI and colovesical fistula. - Patient Problems (1) Diverticulitis Comment: - CT abdome showed inflammatory changes to descending and proximal sigmoid colon suggestive of subacute diverticulitis with likely colo-vesical fistula. - Continue Zosyn. - Surgery follow up. - Plan to treat infection at this time, but she's a very poor surgical candidate due to multiple comorbidities. (2) E. coli UTI Comment: - Likely associated with colo-vesical fistula. - Continue Zosyn. (3) Afib Comment: - Continue Warfarin, Diltiazem and Coreg. (4) Type 2 diabetes mellitus Comment: - Continue Lantus and Lispro SS. (5) HTN (hypertension) Comment: - Controlled. - Continue Diltiazem and Coreg. (6) CKD stage 3 secondary to diabetes Comment: - Renal function is stable. (7) DVT prophylaxis Comment: - Warfarin. (8) Full code status Status and Disposition: Inpatient.
[2017-05-13] MEDS: Warfarin TAB(*) 6 MG PO SCH (17:36)
[2017-05-13] MEDS ORDERED: Insulin GLARGINE(*) 1 UNITS UNIT SUBCUT SCH (21:00)
[2017-05-14] MEDS: NS 0.9% 1000 ML* 1,000 ML IV SCH (00:07)
[2017-05-14] MEDS: Omeprazole CAP* 20 MG PO SCH (05:59)
[2017-05-14 06:04] LABS: Hematocrit 35 % (35-47); Hemoglobin 11.1 g/dl (12.0-16.0); Mean Corpuscular HGB Conc 32 g/dl (31-36); Mean Corpuscular Hemoglobin 29 pg (27-31); Mean Corpuscular Volume 89 fL (80-97); Mean Platelet Volume 9 um3 (7.4-10.4); Red Blood Count 3.88 10^6/ul (4.0-5.4); Red Cell Distribution Width 17 % (10.5-15); White Blood Count 11.2 10^3/ul (3.5-10.8)
[2017-05-14 06:28] LABS: BUN/Creatinine Ratio 17.3 (8-20); C Reactive Protein 98.03 mg/L (< 5.00); Calcium 9.2 mg/dL (8.6-10.3); EGFR Non-African American 39.7 (>60); Potassium 3.7 mmol/L (3.5-5.0)
[2017-05-14 06:57] LABS: Erythrocyte Sed Rate 60 mm/Hr (0-40)
[2017-05-14] MEDS: Insulin LISPRO* 1 UNITS UNIT SUBCUT SCH ×6 (07:31→18:15)
--- NOTE | 2017-05-14 08:20 | PN ---
Subjective Date of Service: 05/14/17 Interval History: HOSPITALIST PROGRESS NOTE Patient seen and examined at bedside. She feels better today. Only "twinges" of abdominal pain. Appetite is good, tolerating diet well, no N/V. She thinks she's passing gas after she urinates. She denies CP, palpitations, any changes on her usual DOUGLASS. Seen by Dr. Nguyen last week and told "everything is okay". Family History: Unchanged from Admission Social History: Unchanged from Admission Past Medical History: Unchanged from Admission Objective Active Medications: Acetaminophen (Tylenol Tab*) 650 mg PO Q6H PRN PRN Reason: FEVER/PAIN Last Admin: 05/14/17 00:10 Dose: 650 mg Albuterol (Ventolin 2.5 Mg/3 Ml Neb.Nicolette*) 2.5 mg INH Q2H PRN PRN Reason: SOB/WHEEZING Allopurinol (Zyloprim Tab*) 300 mg PO DAILY COUNTS INCLUDE 234 BEDS AT THE [facility] Last Admin: 05/13/17 10:12 Dose: 300 mg Carvedilol (Coreg Tab*) 12.5 mg PO BID COUNTS INCLUDE 234 BEDS AT THE [facility] Last Admin: 05/13/17 21:10 Dose: 12.5 mg Diltiazem HCl (Cardizem Cd Cap*) 120 mg PO BID COUNTS INCLUDE 234 BEDS AT THE [facility] Last Admin: 05/13/17 21:11 Dose: 120 mg Docusate Sodium (Colace Cap*) 200 mg PO BID COUNTS INCLUDE 234 BEDS AT THE [facility] Last Admin: 05/13/17 21:10 Dose: 200 mg Sodium Chloride (Ns 0.9% 1000 Ml*) 1,000 mls @ 100 mls/hr IV PER RATE COUNTS INCLUDE 234 BEDS AT THE [facility] Last Admin: 05/14/17 00:07 Dose: 100 mls/hr Piperacillin Sod/Tazobactam (Sod 3.375 gm/ Sodium Chloride) 100 mls @ 25 mls/ hr IVPB Q8H COUNTS INCLUDE 234 BEDS AT THE [facility] Last Admin: 05/14/17 01:06 Dose: 25 mls/hr Insulin Glargine (Lantus(*)) 36 units SUBCUT 2100 COUNTS INCLUDE 234 BEDS AT THE [facility] Stop: 05/14/17 20:00 Last Admin: 05/13/17 21:18 Dose: 36 units Insulin Human Lispro (Humalog*) 0 units SUBCUT AC ROSSY PRN Reason: Protocol Last Admin: 05/13/17 18:15 Dose: 4 unit Insulin Human Lispro (Humalog*) 0 units SUBCUT ACHS COUNTS INCLUDE 234 BEDS AT THE [facility] PRN Reason: Protocol Last Admin: 05/14/17 07:31 Dose: Not Given Magnesium Oxide (Magox 400 Tab*) 400 mg PO BID COUNTS INCLUDE 234 BEDS AT THE [facility] Last Admin: 05/13/17 21:11 Dose: 400 mg Melatonin (Melatonin (Nf)) 3 mg PO BEDTIME PRN; Protocol PRN Reason: Sleep Omeprazole (Prilosec Cap*) 20 mg PO DAILY@0600 COUNTS INCLUDE 234 BEDS AT THE [facility] Last Admin: 05/14/17 05:59 Dose: 20 mg Ondansetron HCl (Zofran Inj*) 4 mg IV Q6H PRN PRN Reason: NAUSEA Potassium Chloride (Klor Con Er Tab*) 20 meq PO TID COUNTS INCLUDE 234 BEDS AT THE [facility] Last Admin: 05/13/17 21:10 Dose: 20 meq Spironolactone (Aldactone Tab*) 25 mg PO EVERY OTHER DAY COUNTS INCLUDE 234 BEDS AT THE [facility] Last Admin: 05/13/17 10:12 Dose: 25 mg Torsemide (Demadex*) 20 mg PO DAILY PRN PRN Reason: ANKLE SWELLING Warfarin Sodium (Coumadin Tab(*)) 6 mg PO DAILY@1700 COUNTS INCLUDE 234 BEDS AT THE [facility] PRN Reason: Protocol Last Admin: 05/13/17 17:36 Dose: 6 mg Vital Signs 05/13/17 05/13/17 05/13/17 08:40 09:26 11:40 Temperature 98.1 F 98.0 F Pulse Rate 88 81 Respiratory 16 21 Rate Blood Pressure 103/56 (mmHg) O2 Sat by Pulse 97 98 Oximetry 05/13/17 05/13/17 05/13/17 15:37 16:50 16:51 Temperature 97.8 F Pulse Rate 74 74 Respiratory 16 16 Rate Blood Pressure 99/53 (mmHg) O2 Sat by Pulse 100 100 100 Oximetry 05/13/17 05/13/17 05/13/17 19:28 19:30 19:52 Temperature 97.5 F Pulse Rate 79 Respiratory 16 16 17 Rate Blood Pressure 109/54 (mmHg) O2 Sat by Pulse 99 Oximetry 05/13/17 05/14/17 05/14/17 23:40 03:53 07:32 Temperature 98.2 F 97.6 F Pulse Rate 71 77 Respiratory 18 18 18 Rate Blood Pressure 129/60 94/79 (mmHg) O2 Sat by Pulse 95 97 Oximetry Oxygen Devices in Use Now: None Result Diagrams: 05/14/17 05:25 05/14/17 05:25 Additional Lab and Data: Lab Results 05/12/17 05/12/17 05/12/17 Range/Units 18:39 18:39 18:40 WBC 14.4 H (3.5-10.8) 10^3/ul RBC 4.51 (4.0-5.4) 10^6/ul Hgb 12.9 (12.0-16.0) g/dl Hct 41 (35-47) % MCV 90 (80-97) fL MCH 29 (27-31) pg MCHC 32 (31-36) g/dl RDW 17 H (10.5-15) % Plt Count 213 (150-450) 10^3/ul MPV 10 (7.4-10.4) um3 Neut % (Auto) 69.7 (38-83) % Lymph % (Auto) 19.9 L (25-47) % [place] % (Auto) 8.9 (1-9) % Eos % (Auto) 0.9 (0-6) % Baso % (Auto) 0.6 (0-2) % Absolute Neuts (auto) 10.0 H (1.5-7.7) 10^3/ul Absolute Lymphs (auto) 2.9 (1.0-4.8) 10^3/ul Absolute Monos (auto) 1.3 H (0-0.8) 10^3/ul Absolute Eos (auto) 0.1 (0-0.6) 10^3/ul Absolute Basos (auto) 0.1 (0-0.2) 10^3/ul Absolute Nucleated RBC 0 10^3/ul Nucleated RBC % 0 Sodium 131 L (133-145) mmol/L Potassium 3.9 (3.5-5.0) mmol/L Chloride 97 L (101-111) mmol/L Carbon Dioxide 25 (22-32) mmol/L Anion Gap 9 (2-11) mmol/L BUN 28 H (6-24) mg/dL Creatinine 1.51 H (0.51-0.95) mg/dL Est GFR ( Amer) 44.1 (>60) Est GFR (Non-Af Amer) 34.3 (>60) BUN/Creatinine Ratio 18.5 (8-20) Glucose 83 (70-100) mg/dL Calcium 10.3 (8.6-10.3) mg/dL Total Bilirubin 0.80 (0.2-1.0) mg/dL AST 19 (13-39) U/L ALT 17 (7-52) U/L Alkaline Phosphatase 61 (34-104) U/L Total Protein 7.0 (6.4-8.9) g/dL Albumin 3.9 (3.2-5.2) g/dL Globulin 3.1 (2-4) g/dL Albumin/Globulin Ratio 1.3 (1-3) Urine Color Yellow Urine Appearance Cloudy Urine pH 5.0 (5-9) Ur Specific [place] 1.032 H (1.010-1.030) Urine Protein Negative (Negative) Urine Ketones Trace H (Negative) Urine Blood 2+ H (Negative) Urine Nitrate Negative (Negative) Urine Bilirubin Negative (Negative) Urine Urobilinogen Positive H (Negative) Ur Leukocyte Esterase 3+ H (Negative) Urine WBC (Auto) 3+(>20/hpf) H (Absent) Urine RBC (Auto) 2+(6-10/hpf) H (Absent) Ur Squamous Epith Cells Present H (Absent) Urine Bacteria 3+ H (Absent) Urine Glucose Negative (Negative) Microbiology and Other Data: Microbiology 05/12/17 21:20 Aerobic Blood Culture - Preliminary Blood Line No Growth Day 1 Anaerobic Blood Culture - Preliminary No Growth Day 1 Assess/Plan/Problems-Billing Assessment: Mrs. Anand is a 67yo F with PMH of morbid obesity with BMI 51, breast CA s/p right mastectomy 04/09, type 2 DM, Afib, RAJNI on CPAP, HTN, pulmonary HTN, diastolic CHF, SLE, CKD stage 3, admitted with abdominal pain, fever, sweats, found to have an UTI and colovesical fistula. - Patient Problems (1) Diverticulitis Comment: - CT abdome showed inflammatory changes to descending and proximal sigmoid colon suggestive of subacute diverticulitis with likely colo-vesical fistula. - Continue Zosyn. - Surgery follow up. - Plan to treat infection at this time, but she's a very poor surgical candidate due to multiple comorbidities. (2) E. coli UTI Comment: - Likely associated with colo-vesical fistula. - Continue Zosyn. (3) Afib Comment: - Continue Warfarin, Diltiazem and Coreg. (4) Type 2 diabetes mellitus Comment: - Continue Lantus and Lispro SS. (5) HTN (hypertension) Comment: - Controlled. - Continue Diltiazem and Coreg. (6) CKD stage 3 secondary to diabetes Comment: - Renal function is stable. (7) DVT prophylaxis Comment: - Warfarin. (8) Full code status Status and Disposition: Inpatient.
[2017-05-14] MEDS: Docusate CAP* 100 MG PO SCH (08:37)
[2017-05-14] MEDS: Magnesium Oxide TAB* 400 MG PO SCH (08:38)
[2017-05-14] MEDS: Potassium Chlor TAB* 20 MEQ TAB.ER PO SCH ×2 (08:38→14:11)
[2017-05-14] MEDS: Allopurinol TAB* 300 MG PO SCH (08:38)
[2017-05-14] MEDS: Diltiazem CD CAP* 120 MG PO SCH (08:38)
[2017-05-14] MEDS: Carvedilol TAB* 6.25 MG PO SCH (08:38)
[2017-05-14] MEDS ORDERED: Polyethylene Glycol 3350* 17 GM PACKET PO SCH (09:00)
--- NOTE | 2017-05-14 09:07 | PN ---
Progress Note - Progress Note Note: Surgery Ms. 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 Then she would return for any therapy needed. Once clear from cardiac and pulmonary standpoint, could consider diverting loop or end transverse colostomy. From a surgical standpoint, as long as infection is controlled, i.e. bladder decompressed, surgery could happen in a semi- elective fashion. However, any surgical intervention depends on medical clearance. All
--- NOTE | 2017-05-14 11:56 | PN ---
Progress Note - Progress Note SOAP: imaging reviewed extensively with radiology and with Silvia. Fortunately there is no evidence of metastatic disease, however there IS a new colono- vesicular fistula. She is having fevers, abdominal discomfort, constipation and brown, stool like, urine. We discussed that I can NOT proceed with adjuvant chemotherapy with this underlying infection risk. If she will be delayed significantly I would start an aromatase inhibitor. 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 I would not start the AI until postop and taking POs. If she heals in a reasonable time course we will stop this and start TC chemotherapy. She and her express understanding of this.
[2017-05-14] MEDS ORDERED: metroNIDAZOLE IV 500 MG/100ML* 500 MG/100 ML BAG IVPB SCH (13:00)
--- NOTE | 2017-05-14 13:04 | CONS ---
CONSULTATION REPORT: DATE OF CONSULTATION: 05/14/17 REQUESTING PHYSICIAN: Janet Bettencourt MD. CONSULTING SERVICE: Infectious Disease. REASON FOR CONSULTATION: Colovesicular fistula. IMPRESSION: 1. Incidental finding of diverticulitis and colovesicular fistula on a cancer staging CT scan from the . She does report left lower quadrant crampiness for the past 10 days as well as constipation, but is passing gas. She has noticed a darker urine and was collected in the hat here, she notices fiber strands and sediment there. She is not clear if she passes air when she urinates. CT scan was done that showed air in the bladder, no recent instrumentation and inflammatory change of the distal, descending, and proximal sigmoid colon. 2. CT scan that shows a splenic infarct, no left upper quadrant pain. 3. Morbid obesity. 4. Breast cancer, status post right lumpectomy with impending chemotherapy. RECOMMENDATIONS: We will change her Zosyn to ceftriaxone and Flagyl. She can continue that while she is here. She is going to have surgical repair of the fistula by Dr. Charles and be discharged to get her affairs in order before coming back for that. When she goes, she could go on ciprofloxacin and Flagyl. We will obviously need to hold on chemotherapy pending resolution of her fistula. HISTORY OF PRESENT ILLNESS: This is a 67-year-old woman with obesity and right - sided breast cancer, recent lumpectomy, admitted with abnormal CT findings as stated above. She has noted left lower quadrant pain for 10 days, she has had constipation during that time and indeed while she has been there, though, she is passing gas. Her last bowel movement was Friday. She has had no blood in the stool. She does endorse sediment in the urine and brownish discoloration of the urine for the past few days. She is seen by General Surgery and initially Dr. Wong and then Dr. Charles saw her today and is planning on repair of the fistula. No fevers, chills or sweats. She is tolerating antibiotics well. She has not had hospitalization for infection in the past. PAST MEDICAL HISTORY: 1. Obesity. 2. Right breast cancer, status post lumpectomy, staging did not reveal distant disease. 3. Diabetes. 4. Atrial fibrillation. 5. Obstructive sleep apnea. 6. Hypertension. 7. Congestive heart failure. 8. Pulmonary hypertension. 9. Lupus. 10. Stage 3 chronic kidney disease. 11. Urolithiasis. 12. Rheumatic heart disease, moderate mitral regurg, moderate mitral stenosis. 13. Status post right mastectomy. 14. Status post hysterectomy. 15. Status post x2. 16. Status post tonsillectomy. ALLERGIES: No known drug allergies. MEDICATIONS: 1. Tylenol. 2. Albuterol. 3. Allopurinol. 4. Diltiazem. 5. Carvedilol. 6. Insulin glargine. 7. Magnesium oxide. 8. Melatonin. 9. Omeprazole. 10. Zosyn 3.375 g IV every 8 hours by extended infusion. 11. Spironolactone. 12. Torsemide. 13. Warfarin. SOCIAL HISTORY: She lives in [place] with her . 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 FAMILY HISTORY: No recurrent infection. There is a history of breast cancer. REVIEW OF SYSTEMS: All negative to full review of systems except as noted above. PHYSICAL EXAMINATION: Vital Signs: Temperature is 36.7, heart rate 70, respiratory rate 16, blood pressure 101/52, O2 sat 99% on room air. In general , she is awake, not in distress. HEENT: There is no conjunctival hemorrhage. Oropharynx without lesions. Neck is supple without nuchal rigidity. Lymph Nodes: There is no cervical, supraclavicular, or epitrochlear lymphadenopathy. Heart has regular rate and rhythm without murmurs, rubs, or gallops. Lungs are clear to auscultation bilaterally. Abdomen is soft, obese, nontender, nondistended. There are bowel sounds. Skin: There is no rash or splinter hemorrhages. Musculoskeletal: There is no spine tenderness to palpation. Chest : There is a right breast incision, which is intact without erythema or drainage. DIAGNOSTIC STUDIES/LAB DATA: White blood cell count is 11, down from 14, hemoglobin 11, platelets 228. Creatinine is 1.3. Urinalysis showed ketones, blood, urobilinogen, leukocyte esterase, white cells, red cells, and bacteria. Please see impressions and recommendations as outlined above, which I have discussed with Dr. Bernard and Dr. Bettencourt. Thanks for asking me to see Ms. Anand in consultation. [id number]/[facility] #: [id number] [facility]
[2017-05-14 15:45] VITALS: BP 107/49
[2017-05-14] MEDS: Warfarin TAB(*) 6 MG PO SCH (16:38)
--- NOTE | 2017-05-15 09:04 | DS ---
DISCHARGE SUMMARY:* ADDENDUM: DISCHARGE DIAGNOSIS: Incidental finding of spleen infarct. MEDICATION LIST: Warfarin 6 mg p.o. daily, to be discontinued on May 15 ( last dose on May 15) in preparation for surgery on May 20. HOSPITAL COURSE: Ms. Anand is a 67-year-old lady with a past medical history as stated above that presented to the emergency room on May 12 with complaints of abdominal pain, fever, and sweats. For more details about her presentation, I refer you to her history and physical. As outpatient, the patient had a CT of the chest, abdomen, and pelvis that showed inflammatory change in the distal descending and proximal sigmoid colon most consistent with subacute diverticulitis with a likely fistula to the urinary bladder and incidental finding of an involving infarct in the medial superior aspect of the spleen. No evidence of metastatic disease. The patient was admitted and started on antibiotics therapy. She was also found to have an E. coli urinary tract infection. She was seen in consultation by General Surgery (Dr. Wong and Dr. Charles) and their recommendation was to keep her bladder decompressed with a Kulkarni catheter, to continue antibiotics, and to optimize the patient for surgical procedure. Dr. Charles is considering a diverting loop or/and transverse colostomy. She failed from a surgical standpoint. As long as the patient's infection is controlled, her bladder is decompressed, surgery could happen in a semi- elective fashion. So, the patient will be discharged home today and the plan is for her to return on May 20 for her procedure. As the patient has a complex cardiac history, she will be seen in consultation by Cardiology (Dr. Orozco) before her discharge to make sure she is optimized from a cardiological point of view. The patient was advised to stop her warfarin with the last dose on May 15 in preparation for surgery on May 20. The operating room nurse will call her on May 14 to tell her when to stop eating and drinking and when the patient is admitted on May 20, the hospitalist service should be consulted as this patient has a very complex medical history. As per Dr. Bernard's note, she reviewed the patient's CAT scan with Radiology and there is no evidence of metastatic disease and she cannot proceed with adjuvant chemotherapy with this underlying infection risk. Her plan is to start on aromatase inhibitor if the patient's surgery will be delayed significantly, but otherwise if she heals in a reasonable time course, she would pursue chemotherapy. The patient remains afebrile with stable vital signs. She is tolerating an oral diet well and had improvement of her abdominal pain. She was seen in consultation by Infectious Disease (Dr. Flores) and his recommendation was for the patient to be discharged on ciprofloxacin and metronidazole to be continued until her surgery is performed. The patient is medically stable for discharge today. She will return for admission on May 20. PHYSICAL EXAMINATION: Vital Signs: Temperature 97.7, heart rate is 78, respiratory rate is 18, oxygen saturation is 100% on room air, blood pressure is 105/61. General: The patient is a morbidly obese lady, sitting up in bed in no acute distress. CVS: Normal S1, S2. Irregularly irregular with a systolic murmur. Chest: Breath sounds present bilaterally with no added sounds. Abdomen: Soft, nontender, nondistended. Bowel sounds are present. Extremities: There is bilateral chronic lymphedema. The patient is status post right mastectomy. Neuro: She is alert, awake, oriented x3. Able to move all 4 extremities. DIET: Heart-healthy, consistent carb diet. ACTIVITY: As tolerated. DISPOSITION: To home. STATUS WHILE IN THE HOSPITAL: Inpatient. The patient is aware of her diagnosis of atrial fibrillation and she understands that stopping her warfarin will increase her risk of an embolic phenomenon, but considering that she needs to have this surgery performed not only for the fistula per se, but also the infection and the fact that she needs to have her chemotherapy for her breast cancer. So, she is willing to accept the risk of blood clots but knowing the benefit of having the surgery performed. All her questions were answered. Please keep in mind that this is a summarized version of this patient's hospital stay. If you need more information, please feel free to call me at or please obtain the full medical record. TIME SPENT: Approximately 50 minutes was spent to complete this discharge. [id number]/[facility] #: [id number] MTDD
--- NOTE | 2017-05-15 09:04 | DS ---
CONTINUATION ADDENDUM NOW INCLUDED ON THIS REPORT CC: Dr. Marr; Dr. Orozco; Dr. Bernard; Dr. Charles * DISCHARGE SUMMARY: DATE OF ADMISSION: 05/12/17 DATE OF DISCHARGE: 05/14/17 PRIMARY CARE PROVIDER: Dr. Marr. CONSULTING CHIEF LIBRARIAN WORK WITH BLIND: Dr. Orozco. ONCOLOGIST: Dr. Bernard. SURGEON: Dr. Charles. DISCHARGE DIAGNOSES: 1. Diverticulitis. 2. Colovesical fistula. 3. Escherichia coli urinary tract infection. 4. Incidental finding of spleen infarct. SECONDARY DIAGNOSES: 1. Morbid obesity with a BMI of 53. 2. Type 2 diabetes. 3. Atrial fibrillation. 4. Obstructive sleep apnea, on CPAP. 5. Rheumatic valve disease with moderate mitral stenosis. 6. Chronic lymphedema. 7. Hypertension. 8. Pulmonary hypertension. 9. Diastolic congestive heart failure. 10. Lupus. 11. Chronic kidney disease, stage 3. 12. Nephrolithiasis. 13. Breast cancer, status post right mastectomy, March 2017. MEDICATION LIST: 1. Albuterol HFA 2 puffs inhaled 4 times a day as needed for shortness of breath. 2. Allopurinol 300 mg p.o. daily. 3. Vitamin C 500 mg p.o. daily. 4. Coreg 12.5 mg p.o. b.i.d. 5. Cholecalciferol 5000 mg p.o. daily. 6. Cyanocobalamin 600 mcg p.o. daily. 7. Cardizem ER 120 mg p.o. b.i.d. 8. Lantus 35 units subcutaneously q.a.m. 9. Magnesium oxide 400 mg p.o. b.i.d. 10. Oxycodone 5/325 one tablet p.o. q.4 hours p.r.n. pain. 11. Potassium chloride 20 mEq p.o. t.i.d. 12. Aldactone 25 mg p.o. every other day. 13. Torsemide 10 mg p.o. daily as needed for edema. 14. Warfarin 6 mg p.o. daily, last dose on May 15. NEW MEDICATIONS: 1. Ciprofloxacin 500 mg p.o. b.i.d. 2. Metronidazole 500 mg p.o. t.i.d. 3. Colace 200 mg p.o. b.i.d. 4. MiraLAX 17 g p.o. b.i.d. HOSPITAL COURSE: Ms. Anand is a 67-year-old lady with a past medical history as stated above that presented to the emergency room on May 12 with complaints of abdominal pain, fever, and sweats. For more details about her presentation, I refer you to her history and physical. As outpatient, the patient had a CT of the chest, abdomen, and pelvis that showed inflammatory change in the distal descending and proximal sigmoid colon most consistent with subacute diverticulitis with a likely fistula to the urinary bladder and incidental finding of an involving infarct in the medial superior aspect of the spleen. No evidence of metastatic disease. The patient was admitted and started on antibiotics therapy. She was also found to have an E. coli urinary tract infection. She was seen in consultation by General Surgery (Dr. Wong and Dr. Charles) and their recommendation was to keep her bladder decompressed with a Kulkarni catheter, to continue antibiotics, and to optimize the patient for surgical procedure. Dr. Charles is considering a diverting loop or/and transverse colostomy. She failed from a surgical standpoint. As long as the patient's infection is controlled, her bladder is decompressed, surgery could happen in a semi- elective fashion. So, the patient will be discharged home today and the plan is for her to return on May 20 for her procedure. As the patient has a complex cardiac history, she will be seen in consultation by Cardiology (Dr. Orozco) before her discharge to make sure she is optimized from a cardiological point of view. The patient was advised to stop her warfarin with the last dose on May 15 in preparation for surgery on May 20. The operating room nurse will call her on May 14 to tell her when to stop eating and drinking and when the patient is admitted on May 20, the hospitalist service should be consulted as this patient has a very complex medical history. As per Dr. Bernard's note, she reviewed the patient's CAT scan with Radiology and there is no evidence of metastatic disease and she cannot proceed with adjuvant chemotherapy with this underlying infection risk. Her plan is to start on aromatase inhibitor if the patient's surgery will be delayed significantly, but otherwise if she heals in a reasonable time course, she would pursue chemotherapy. The patient remains afebrile with stable vital signs. She is tolerating an oral diet well and had improvement of her abdominal pain. She was seen in consultation by Infectious Disease (Dr. Flores) and his recommendation was for the patient to be discharged on ciprofloxacin and metronidazole to be continued until her surgery is performed. The patient is medically stable for discharge today. She will return for admission on May 20. PHYSICAL EXAMINATION: Vital Signs: Temperature 97.7, heart rate is 78, respiratory rate is 18, oxygen saturation is 100% on room air, blood pressure is 105/61. General: The patient is a morbidly obese lady, sitting up in bed in no acute distress. CVS: Normal S1, S2. Irregularly irregular with a systolic murmur. Chest: Breath sounds present bilaterally with no added sounds. Abdomen: Soft, nontender, nondistended. Bowel sounds are present. Extremities: There is bilateral chronic lymphedema. The patient is status post right mastectomy. Neuro: She is alert, awake, oriented x3. Able to move all 4 extremities. DIET: Heart-healthy, consistent carb diet. ACTIVITY: As tolerated. DISPOSITION: To home. STATUS WHILE IN THE HOSPITAL: Inpatient. The patient is aware of her diagnosis of atrial fibrillation and she understands that stopping her warfarin will increase her risk of an embolic phenomenon, but considering that she needs to have this surgery performed not only for the fistula per se, but also the infection and the fact that she needs to have her chemotherapy for her breast cancer. So, she is willing to accept the risk of blood clots but knowing the benefit of having the surgery performed. All her questions were answered. Please keep in mind that this is a summarized version of this patient's hospital stay. If you need more information, please feel free to call me at [phone] or please obtain the full medical record. TIME SPENT: Approximately 50 minutes was spent to complete this discharge. [id number]/[facility] #: [id number] #: [id number]
--- NOTE | 2017-05-16 09:55 | CONS ---
CC: Dr. Lianne Charles; Dr. Kiel Nguyen; Dr. Melissa Bernard; Dr. Umang Marr CARDIOLOGY CONSULTATION: DATE OF CONSULT: 05/14/17 REASON FOR CONSULT: Preoperative evaluation for anticipated abdominal surgery for diverticulitis. HISTORY OF PRESENT ILLNESS: Silvia Anand is a very pleasant 67-year-old woman followed by Dr. Jovita Nguyen for rheumatic mitral valve disease and atrial fibrillation. The patient presented to the emergency department, May 12, with history of progressive abdominal discomfort and constipation that has been progressive. She had been anorexic, had trouble with cons tipation. Her urine was getting cloudy and dark. This progressed to the point where her stomach wa s gurgling a lot. She developed abdominal discomfort and fevers. In the emergency department, her urine was suggestive of urinary tract infection and she subsequently grew E. coli. CT scan revealed air in the bladder and stranding in the sigmoid and descending colon suggestive of diverticulitis. The combined picture was suggestive of colovesical fistula and surgery was recommen ded in addition to medical management with antibiotics. The CT scan also revealed evidence of a spl enic infarct. The patient received IV antibiotics with improvement of her symptoms and at the time I saw her, she was able to eat again and she had a bowel movement. Dr. Wong and Dr. Charles had seen the patient and felt that she would ideally be getting a diverted loop or transverse colostomy . The patient had preferred to be discharged home and return for elective surgery after additional oral antibiotics and this was felt to be safe. I saw the patient prior to discharge. As above, she said her symptoms have improved. Appetite has improved. She has had one bowel movement and pain s ignificantly improved and the gurgling she described improved. PAST MEDICAL HISTORY: Includes rheumatic heart disease as a young child with mitral stenosis and mi tral insufficiency (echocardiogram from February of 2017 shows ejection fraction of 55% to 60%, moderat e left atrial enlargement, poec-[id number] mitral insufficiency, moderate mitral stenosis, normal r ight ventricular function. PA pressure estimated at 34 mmHg). She has a history of coronary artery disease, cardiac catheterization at [facility], 2007, showed 30% occlusion of LAD and 30% occ lusion of the right coronary artery with lkhdrdkj-qf-zbllhb mitral stenosis, ejection fraction at at time 45%. Paroxysmal atrial fibrillation, diabetes, lupus, obstructive sleep apnea, morbid obesi ty, asthma, distant smoking stopped 1996, congestive heart failure, nephrolithiasis, venous insuffic iency, breast cancer recently diagnosed followed by Dr. Bernard. Right breast invasive ductal carc inoma, the patient now stage II, ER positive, CO positive, HER equivocal, status post lumpectomy and mastectomy, April 17, with plans for adjuvant chemotherapy prior to her recent diverticulitis and f istula diagnosis. Type 2 diabetes and obstructive sleep apnea. PAST SURGICAL HISTORY: Includes mastectomy, March 2017; hysterectomy, 1982; ankle surgery for fractur e in 1978; section, 1996 and 1980; tubal ligation, 1981; tonsillectomy, age 11. MEDICATIONS AT DISCHARGE: Include: 1. Albuterol inhaler 2 puffs four times a day. 2. Allopurinol 300 mg a day. 3. Vitamin C. 4. Coreg 12.5 mg b.i.d. 5. Cholecalciferol 5000 mg a day. 6. Cyanocobalamin 600 mcg a day. 7. Cardizem ER 120 mg a day. 8. Lantus insulin 35 units subcu q.a.m. 9. Magnesium oxide 400 mg b.i.d. 10. Oxycodone 5/325 one tablet q.4 hours p.r.n. 11. Potassium chloride 60 mEq a day. 12. Aldactone 25 mg every other day. 13. Torsemide 10 mg a day (p.r.n.). 14. Coumadin 6 mg a day, stopped May 15. 15. Ciprofloxacin 500 mg b.i.d. 16. Flagyl 500 mg t.i.d. 17. Colace 400 mg a day. 18. MiraLAX 17 g b.i.d. ALLERGIES: She has no known drug allergies. FAMILY HISTORY: Positive for breast cancer. SOCIAL HISTORY: The patient works as a seamstress. Lives with her , has a son in the area. Distant smoker. Active within her house, climbs stairs, does her job as a seamstress without juárez e in exercise ability over the last year. REVIEW OF SYSTEMS: As above, recent constipation; anorexia; gurgling in the stomach; abdominal pain , improved with antibiotics and hydration; stable exercise ability. She denies orthopnea, PND, ches t pain, pressure, heaviness. Other review of systems is unremarkable. PHYSICAL EXAM: The patient's blood pressure was 107/49, pulse was 66, respiratory rate was 18, oxyg en saturation on room air 99% to 100%. She was afebrile at the time I saw her. T-max over the last 24 hours 98.5 temperature and no documented fever during admission. The patient is a morbidly obes e woman, seated dressed, waiting to leave, in no acute distress. Psychologically, calm, cooperative , pleasant. Neurologically, smiling, awake, alert, and oriented to person, place and time. Cranial nerves II through XII intact. Grossly normal sensory and motor function appropriate for her growth and age. HEENT: Pupils are equal and round. Mucous membranes moist. Tongue midline. Neck withou t increased JVP appreciated, although her neck is thick. Breath sounds were clear with good effort. No wheezes, rales, or rhonchi. Coronary: S1, S2. Regular with soft systolic murmur, but no ceron tolic murmurs appreciated in any position including the apex. Abdomen: Overweight and firm, active bowel sounds noted. Nominal discomfort with mild palpation, full comprehensive abdominal exam was n ot done. Lower extremities showed evidence of chronic venous stasis but only mild edema at the time I saw her. DIAGNOSTIC STUDIES/LAB DATA: White count on admission, May 12, 14.4, on May 14 was 11.2; hemo globin 11.1; hematocrit 35; platelets 228; increased monos. Sed rate of 60. INR on admission 2.81, at the time of discharge, May 14, 2.33. Sodium 135, potassium 3.7, chloride 103, bicarb 24, BUN 23, creatinine 1.33, glucose ranging 79 to 128. C-reactive protein 98. Urinalysis: Specific gravi ty 1.032, trace ketones, 2+ blood, urobilinogen positive, 3+ leukocyte esterase, nitrite negative. Microbiology: Blood cultures no growth. Urine culture: Positive for E. coli. CT of the abdomen and pelvis from 05/12/17 showed no evidence of metastatic disease, status post rig ht lumpectomy with large seroma of the right breast, evolving infarct in the spleen, inflammatory ch anges in the distal and proximal sigmoid colon consistent with subacute diverticulosis and likely fi stula to the urinary bladder. Renal calculi non-obstruction noted. Bone scan from 05/12/17 showed no bony mets. The most recent ECG at [facility] is from 03/24/17 showing atrial fibrillation with ventr icular rate of 63 beats per minute, QRS axis +30, normal intraventricular conduction times and oswald l STs. The most recent ECG from Dr. Nguyen was 05/01/17, also showing atrial fibrillation with vent ricular rate of 61 beats per minute, QRS axis +45, normal intraventricular conduction times, normal STs. The patient's most recent stress test was 12/29/14, which was nondiagnostic. Stress echo, target hea rt rate not achieved. IMPRESSION AND PLAN: In summary, Silvia Anand is a very nice 67-year-old woman with rheumatic he art disease involving the mitral valve with moderate mitral insufficiency and moderate mitral stenos is as per her echo above with preserved left ventricular systolic function, normal PA pressure, and stable functionality. The patient also has chronic atrial fibrillation, on chronic anticoagulation, stable functionality. Recently, she has been diagnosed with breast cancer on the right breast as above status post mastect tiffanie and tolerated the mastectomy surgery well from hemodynamic since. 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 The patient is clinically improved with antibiotics but does need surgery. The patient is going to be discharged to home and brought in electively in a week. In terms of the patient's surgery, I do not feel she needs additional cardiac testing. Her function al ability has been stable over the last year, so although the patient does have coronary disease, s o I do not feel she needs an updated stress test. In terms of her rheumatic valvular disease, this puts her at risk for congestive heart failure and t he mitral stenosis combined with atrial fibrillation does put her at increased risk for embolic phen omena and the splenic infarct on anticoagulation certainly illustrates at this point and points to i ncreased embolic risk currently. I recommend the patient to undergo Lovenox bridging unless contraindicated with her diverticular dis ease and this can be held 24 hours prior to her scheduled surgery. I would continue the patient on her outpatient medications but her diuretics could be held periopera tively if preferred by Surgery and the Anesthesia to allow for optimal expected blood pressure drop with anesthesia. Silvia is at high risk for congestive heart failure and has some risk for perioperative ischemia, a lthough again she did well with recent mastectomy. I would continue the patient's rate lowering age nts if able perioperatively to minimize the risk of rapid ventricular response perioperatively but h er diltiazem is needed to be held. She could recently receive p.r.n. calcium channel blockers or be ta blockers. Postoperatively, I would place Silvia in a situation where her hemodynamics can be monitored carefu lly and Cardiology can follow her with Surgery if contacted the day of surgery. I would minimize the patient's time off anticoagulants as her embolic risk is much higher with combi nation of mitral stenosis and atrial fibrillation, that would be for atrial fibrillation alone. Thank you for allowing me to assist in this very pleasant woman's care. [id number]/[facility] #: [id number]
== END 2017-05-14 19:45 | disposition home or self-care (01) | DRG 690 ==
LOC: ED 16:23 → SSU 21:06
PROVIDERS: ADMIT Hospitalist; ATTEND Internal Medicine
DX: N39.0 Urinary tract infection, site not specified (principal); M32.9 Systemic lupus erythematosus, unspecified; E11.22 Type 2 diabetes mellitus with diabetic chronic kidney disease; I09.81 Rheumatic heart failure; K57.32 Diverticulitis of large intestine without perforation or abscess without bleeding; I27.2 Other secondary pulmonary hypertension; N18.3 Chronic kidney disease, stage 3 (moderate); I50.32 Chronic diastolic (congestive) heart failure; N32.1 Vesicointestinal fistula; I13.0 Hypertensive heart and chronic kidney disease with heart failure and stage 1 through stage 4 chronic kidney disease, or unspecified chronic kidney disease; Z68.43 Body mass index [BMI] 50.0-59.9, adult; Z85.3 Personal history of malignant neoplasm of breast; Z98.51 Tubal ligation status; Z87.891 Personal history of nicotine dependence; R40.2412 Glasgow coma scale score 13-15, at arrival to emergency department; D73.5 Infarction of spleen; E66.01 Morbid (severe) obesity due to excess calories; G47.33 Obstructive sleep apnea (adult) (pediatric); I05.9 Rheumatic mitral valve disease, unspecified; R60.9 Edema, unspecified; Z80.3 Family history of malignant neoplasm of breast; I48.2 Chronic atrial fibrillation; M10.9 Gout, unspecified; B96.20 Unspecified Escherichia coli [E. coli] as the cause of diseases classified elsewhere; K59.00 Constipation, unspecified; J45.909 Unspecified asthma, uncomplicated; F32.9 Major depressive disorder, single episode, unspecified; Z88.8 Allergy status to other drugs, medicaments and biological substances; N20.0 Calculus of kidney
CPT/HCPCS: 36415; 71260; 74177; 78306; 80048; 80053; 81003; 81015; 83036; 83605; 85025; 85610; 85652; 86140; 87040; 87077; 87086; 87186; 94760; A9270-GY; A9503; J0696; J2405; J2543; Q9967

== ENCOUNTER 2017-05-20 14:31 | Inpatient (IN) | payer MEDICARE ==
[~2017-05-20 14:31] MED LIST changes: +Buffered Lidocaine 0.9% SYRIN* 5 ML/SYR SYRINGE INTRADERM ONE; +Buffered Lidocaine 0.9% SYRIN* 5 ML/SYR SYRINGE ONE; -Buffered Lidocaine 1% SYRIN* 5 ML/SYR SYRINGE ONE; +Dexamethasone IV* 4 MG/ML 1 ML (4 MG) IV SLOW PU SCH; +Famotidine IV* 10 MG/ML 2 ML (20 mg) IV ONE; +Famotidine IV* 10 MG/ML 2 ML (20 mg) ONE; -Heparin VIAL(*) 5000 UNITS/ML VIAL (FIVE THOUSAND) ONE; +Metoclopramide TAB* 10 MG ONE; +Metoclopramide TAB* 10 MG PO ONE; -NS 0.9% 1000 ML* 1,000 ML IV SCH; -ceFAZolin 2 GM PREMIX(*) 2 GM/50 ML BAG IVPB ONE; +fentaNYL* 50 MCG/ML 2 ML VIAL (100 MCG VIAL) IV SCH
[2017-05-20] MEDS ORDERED: Ertapenem* 1 GM in NS 0.9% 50 ML* 50 ML IVPB ONE (16:00)
[2017-05-20] MEDS ORDERED: Lidocaine 1% INJ* 10 MG/ML 30 ML SDV ONE (16:36)
--- NOTE | 2017-05-20 17:24 | PN ---
Progress Note - Progress Note Date of Service: 05/20/17 Note: Surgery Procedure note Under sterile conditions, using 1% Lidocaine, multiple attempts at left IJ and left subclavian central line were made without success. Pt. tolerated procedure well, CXR pnd. Without line pt. cannot have surgery. Will admit overnight for planned surgery tomorrow after PICC placement. I explained to Ms. Anand and family. They understand and agree with the plan.
--- NOTE | 2017-05-20 18:18 | RAD ---
Indication: Post attempted central line placement. Assess for pneumothorax. Atrial fibrillation. Pulmonary hypertension, mitral valve insufficiency. Obstructive lung disease. Comparison: May 12, 2017 CT. Technique: Upright AP 1743 hours Report: Negative for pneumothorax. Mild prominence of the interstitial markings. Grossly clear pleural spaces. Cardiomegaly. Mild cephalization of the central pulmonary vasculature. IMPRESSION: 1. Negative for pneumothorax. 2. Mild pulmonary vascular congestion and interstitial edema.
[2017-05-20] MEDS ORDERED: Torsemide TAB* 20 MG PO PRN (18:56)
[2017-05-20] MEDS ORDERED: Albuterol HFA INHALER* 8 gm MDI INH PRN (19:00)
[2017-05-20] MEDS ORDERED: Dextrose 50% Syringe 50 ML* 25 GM/50 ML SYRINGE IV PUSH PRN (19:55)
[2017-05-20] MEDS ORDERED: Insulin GLARGINE(*) 1 UNITS UNIT SUBCUT SCH (20:00)
[2017-05-20] MEDS: Polyethylene Glycol 3350* 17 GM PACKET PO SCH (21:17)
[2017-05-20] MEDS: Carvedilol TAB* 6.25 MG PO SCH (21:18)
[2017-05-20] MEDS: metroNIDAZOLE TAB* 250 MG PO SCH (21:18)
[2017-05-20] MEDS: Potassium Chlor TAB* 20 MEQ TAB.ER PO SCH (21:19)
[2017-05-20] MEDS: Ciprofloxacin TAB* 500 MG PO SCH (21:19)
[2017-05-20] MEDS: Spironolactone TAB* 25 MG PO SCH (21:19)
[2017-05-20] MEDS: Docusate CAP* 100 MG PO SCH (21:19)
[2017-05-21] MEDS: Magnesium Oxide TAB* 400 MG PO SCH ×3 (01:27→21:54)
--- NOTE | 2017-05-21 05:32 | CONS ---
CC: Dr. Charles; Dr. Marr * CONSULTATION REPORT: DATE OF CONSULT: 05/20/17 REQUESTING PHYSICIAN FOR CONSULT: Dr. Lianne Charles. PRIMARY CARE PROVIDER: Dr. Marr. REASON FOR MEDICAL CONSULT: Medical evaluation and management of comorbid medical conditions. HISTORY OF PRESENT ILLNESS: Ms. Anand is a 67-year-old female patient with multiple medical problems. She has a history of breast cancer, AFib, diabetes, CHF, hypertension, lupus, RAJNI. She has a history of moderate mitral regurgitation, moderate mitral stenosis, rheumatic heart disease. She has a history of a colovesical fistula and a history of a recent splenic infarct. She comes to surgical services today after she was here about a week ago. She was admitted for diverticulitis and UTI, and ultimately found to have colovesical fistula. She came back today, was supposed to undergo surgery. Unfortunately, they were unable to obtain IV access. Despite Dr. Charles trying for a central access, she could not obtain. So, surgery was canceled for tomorrow and she was planning on getting it fixed. However, the patient has multiple medical problems and we were asked to evaluate in consult. On evaluation, the patient says that she currently is not having any chest pain or shortness of breath, says she is able to walk up a flight of stairs. She has 14 steps to get into her house and she does this with ease usually with no chest pain or shortness of breath. She denies any abdominal pain. Currently, she did state that when she came in, she was having left lower quadrant abdominal pain. She is still complaining of having some dysuria at times. She denies having any recent fevers or chills, but she does admit to having some sweats at night. She denied any nausea or vomiting and she does state that she has been having some diarrhea. She presented to surgical services today for a colostomy. Again, the case was unfortunately unable to proceed because of lack of vascular access. Because of this, we were asked to evaluate in consult because of her medical problems. PAST MEDICAL HISTORY: Significant for: 1. Breast cancer. 2. AFib. 3. Diabetes. 4. CHF. 5. Hypertension. 6. Lupus. 7. RAJNI. 8. Moderate mitral regurg. 9. Moderate mitral stenosis. 10. Rheumatic heart disease. 11. Colovesical fistula. 12. Splenic infarct. PAST SURGICAL HISTORY: She has had: 1. Mastectomy. 2. x2. 3. Hysterectomy. 4. Tonsillectomy. 5. Ankle ORIF. MEDICATIONS: Her home medications include: 1. Percocet 1 tablet every 4 hours as needed. 2. Warfarin 6 mg p.o. daily. 3. Demadex 20 mg daily as needed. 4. Aldactone 25 mg p.o. every other day. 5. Potassium chloride 20 mEq p.o. t.i.d. 6. MiraLAX 17 g p.o. twice a day. 7. Flagyl 500 mg p.o. t.i.d. 8. Magnesium 400 mg p.o. b.i.d. 9. Lantus 35 units subcu in the morning. 10. Colace 200mg p.o. b.i.d. 12. Diltiazem 120 mg p.o. twice a day. 13. B12 600 mcg daily. 14. Cipro 500 mg p.o. b.i.d. 15. Vitamin D 5000 units p.o. daily. 16. Coreg 12.5 mg p.o. b.i.d. 17. Vitamin C 500 mg p.o. daily. 18. Allopurinol 300 mg p.o. q.a.m. 19. Ventolin 2 puffs inhaled four times a day as needed. 20. Tylenol 650 mg every 6 hours as needed. ALLERGIES TO MEDICATIONS: SEASONAL allergies. FAMILY HISTORY: Father had a history of lung cancer. Mother had a history of lupus and she had intracranial hemorrhage. SOCIAL HISTORY: She is a former smoker. She does drink a beer with dinner. Surrogate decision maker is her . REVIEW OF SYSTEMS: There is no documented fever. She denied having any significant weight change. There was no double vision. She denies having any ear discharge. There was no rhinorrhea. No sore throat. No thyroid enlargement. She denied having any chest pain. There was no orthopnea. No nocturnal dyspnea. There was no abdominal pain. There was no diarrhea. No nausea, no vomiting. There was dysuria. There is no frequency. No seizure, no loss of consciousness. No pruritus and no skin ulcerations. Review of 14 systems completed, all others negative. PHYSICAL EXAM: Reveals vital signs, blood pressure 115/65, pulse 76, respirations 18, and temperature 97.9. General, at this time, Ms. Anand is a 67-year-old female patient. She is morbidly obese. She is sitting in the hospital bed and does not appear to be in any acute distress. HEENT: Head: Atraumatic and normocephalic. Eyes: EOMs are intact. Sclerae anicteric and not pale. Throat: Oral mucosa appears to be moist. No oropharyngeal erythema. Neck: Supple. Heart: Sounds S1, S2. Regular rate and rhythm. No murmurs, rubs, or gallops. Lungs: Clear to auscultation bilaterally. No wheezes, rales , or rhonchi. Abdomen: Soft, flat, nontender. At this point, bowel sounds present. Extremities: Pulses 2+ throughout. She is able to move all 4 extremities with 5/5 strength. Neurologically, the patient is awake, she is alert, she is oriented x3. No gross focal deficits. The skin is grossly intact. DIAGNOSTIC STUDIES/LAB DATA: From revealed WBC of 11.2, RBC of 3.8, hemoglobin 11.1, hematocrit of 35, and a platelet count of 228. INR was 2.33 on the . Her sodium 135, potassium 3.7, chloride 103, bicarb 23, BUN 23, creatinine of 1.33. She did have a chest x-ray obtained today which revealed negative for pneumothorax, mild pulmonary vascular congestion, and interstitial edema. Old medical records were reviewed. ASSESSMENT AND PLAN: Ms. Anand is a 67-year-old female patient coming in to the surgical services today for a colostomy secondary to a colovesical fistula. Unfortunately, IV access was unable to be obtained. The case was delayed until tomorrow where she can have a PICC line. We were asked to evaluate in consult. Recommendations at this point are: 1. Colovesical fistula: Defer the management to Dr. Charles and her team. The patient underwent Cardiology evaluation for risk stratification and at this point, there is no further cardiac testing needed according to that consult, I refer you to that, it was dictated on . 2. Atrial fibrillation: I will try to get her back on as soon as possible anticoagulation as she certainly has risk for infarction. She has already shown as a splenic infarct and I did explain to the patient that she is at high risk for cerebrovascular accident. When deemed safe by Surgery, I would restart her anticoagulation. 3. Diabetes: I will continue her Lantus. I am going to give her half dose tonight depending on her blood sugar. We will go ahead and put her on sliding scale. 4. Congestive heart failure: We will diurese her as needed. She certainly at this point appears to be euvolemic. She is not complaining of any shortness of breath. We will again diurese as needed. 5. Hypertension: Continue meds as prescribed. 6. Lupus: Can follow with her primary. 7. Breast cancer: Again, follow with Dr. Garcia. 8. Obstructive sleep apnea: Her CPAP has been ordered. 9. Moderate mitral regurgitation and moderate mitral stenosis: At this point, they appear to be stable. She is asymptomatic. We will follow and again, we will diurese as needed. 10. History of splenic infarct: Again, supportive care currently and we will try to get her back on her blood thinners as soon as possible. I would recommend postoperatively heparin as the safest choice and then bridging her back on to Coumadin when that is deemed appropriate with Surgery. 12. Fluids, electrolytes, and nutrition: I would recommend a consistent carb diet postop when she is able to take p.o. for surgery. 13. Code status: Full code. TIME SPENT: On the consult was 60 minutes; greater than half the time was spent [id number] with the patient obtaining my history and physical, other half the time spent going over the plan of care with the patient and implementing plan of care. I did discuss the plan of care with my attending, Dr. Parker; he is in agreement. RAJANI AMBROSE, LOIDA [id number]/[facility] #: [id number] LYNDSEY
[2017-05-21] MEDS ORDERED: Famotidine IV* 10 MG/ML 2 ML (20 mg) IV SLOW PU ONE (06:00)
[2017-05-21 07:23] LABS: Hematocrit 37 % (35-47); Hemoglobin 11.9 g/dl (12.0-16.0); Mean Corpuscular HGB Conc 32 g/dl (31-36); Mean Corpuscular Hemoglobin 30 pg (27-31); Mean Corpuscular Volume 92 fL (80-97); Mean Platelet Volume 8 um3 (7.4-10.4); Red Blood Count 3.98 10^6/ul (4.0-5.4); Red Cell Distribution Width 17 % (10.5-15)
[2017-05-21 07:34] LABS: BUN/Creatinine Ratio 11.7 (8-20); Calcium 9.5 mg/dL (8.6-10.3); EGFR African American 62.9 (>60); EGFR Non-African American 48.9 (>60); Potassium 3.8 mmol/L (3.5-5.0)
[2017-05-21] MEDS: Carvedilol TAB* 6.25 MG PO SCH ×2 (07:45→21:52)
[2017-05-21] MEDS ORDERED: Famotidine IV* 10 MG/ML 2 ML (20 mg) ONE (08:22)
[2017-05-21] MEDS ORDERED: Ertapenem* 1 GM in NS 0.9% 50 ML* 50 ML IVPB ONE (09:00)
[2017-05-21] MEDS ORDERED: Midazolam* 1 MG/ML 5 ML VIAL (5 MG) ONE (09:17)
[2017-05-21] MEDS ORDERED: KETAMINE HCL* 50 MG/ML 10 ML VIAL ONE (09:17)
[2017-05-21] MEDS ORDERED: fentaNYL* 50 MCG/ML 5 ML VIAL (250 MCG VIAL) ONE (09:17)
[2017-05-21] MEDS ORDERED: Bupivacaine 0.25% EPI 200,000* 30 ML SDV ONE (10:52)
[2017-05-21] MEDS ORDERED: Phenylephrine INJ* 10 MG/ML 1 ML VIAL (10 MG) ONE (10:56)
[2017-05-21] MEDS ORDERED: PROCHLORPERAZINE INJ 5 MG/ML 2 ML VIAL ONE (11:02)
[2017-05-21] MEDS ORDERED: Glycopyrrolate IV* 0.2 MG/ML 1 ML VIAL ONE (11:02)
[2017-05-21] MEDS ORDERED: Neostigmine Methylsulfate* 2 MG/2 ML SYRINGE ONE (11:02)
[2017-05-21] MEDS ORDERED: Propofol* 10 MG/ML 20 ML BTL IV PUSH ONE (11:02)
[2017-05-21] MEDS ORDERED: Ondansetron INJ* 2 MG/ML VIAL ONE (11:02)
[2017-05-21] MEDS ORDERED: Lidocaine 2% PF * 5 ML VIAL ONE (11:02)
[2017-05-21] MEDS ORDERED: Morphine INJ* 10 MG/ML 1 ML SYRINGE ONE ×2 (11:44→13:27)
[2017-05-21] MEDS ORDERED: Metoprolol Tartrate IV* 1 MG/ML 5 ML VIAL ONE (11:53)
[2017-05-21] MEDS ORDERED: Morphine INJ* 2 MG/ML 1 ML SYRINGE IV PRN (12:44)
[2017-05-21] MEDS ORDERED: fentaNYL* 50 MCG/ML 2 ML VIAL (100 MCG VIAL) IV PRN (12:44)
[2017-05-21] MEDS ORDERED: PROCHLORPERAZINE INJ 5 MG/ML 2 ML VIAL IV PRN (12:44)
[2017-05-21] MEDS ORDERED: hydrALAZINE IV* 20 MG/ML VIAL ONE (13:02)
--- NOTE | 2017-05-21 13:14 | SURGPN ---
Brief Operative Note - Surgery Procedures: Procedures COLONOSCOPY (12/23/13) DX ULTRASOUND-HEART (12/16/14) OTHER ESOPHAGOSCOPY (06/24/01) OTHER SLEEP DISORDER FUNCTION TESTS (08/17/01) POLYSOMNOGRAM (06/07/01) RESECTION OF RIGHT BREAST, OPEN APPROACH (04/18/17) 05/21/2017 Op Note Pre-op dx: diverticulitis with colovesical fistula; mastectomy site seroma Post-op dx: same Procedure: diverting loop transverse colostomy;aspiration of mastectomy site seroma Surgeon: Melvin Asst: Tricia EBL: 50 cc Complications: none Abx: given pre-op SCDs: on during surgery Pt. tolerated procedure well and was transferred to in a stable condition. CLFoster
[2017-05-21] MEDS: Insulin LISPRO* 1 UNITS UNIT SUBCUT SCH ×2 (16:20→17:04)
[2017-05-21] MEDS: Cholecalciferol TAB* 1000 UNITS PO SCH (16:21)
[2017-05-21] MEDS: Diltiazem CD CAP* 240 MG PO SCH (16:21)
[2017-05-21] MEDS: Ascorbic Acid TAB* 500 MG PO SCH (16:21)
[2017-05-21] MEDS: Docusate CAP* 100 MG PO SCH ×2 (16:21→21:52)
[2017-05-21] MEDS: Allopurinol TAB* 300 MG PO SCH (16:21)
[2017-05-21] MEDS: Polyethylene Glycol 3350* 17 GM PACKET PO SCH ×2 (16:21→21:51)
[2017-05-21] MEDS: Ciprofloxacin TAB* 500 MG PO SCH ×2 (16:21→21:54)
[2017-05-21] MEDS: metroNIDAZOLE TAB* 250 MG PO SCH ×2 (16:22→21:51)
[2017-05-21] MEDS: Potassium Chlor TAB* 20 MEQ TAB.ER PO SCH ×2 (16:22→21:52)
[2017-05-21] MEDS: CYANOCOBALAMIN PO SCH (16:22)
--- NOTE | 2017-05-21 18:09 | CONSULT ---
Subjective Date of Service: 05/21/17 Interval History: Seen and examined after procedure Has no complaints Review of Systems - Measurements Intake and Output: Intake and Output Last 24 Hours 05/19/17 05/20/17 05/21/17 05/22/17 11:59 11:59 11:59 11:59 Intake Total 1010 1500 Output Total 1075 250 Balance -65 1250 Weight 151.953 kg 155.537 kg Intake: IV Fluids 50 1500 D5LR 500 ERTAPENEM 1 GM 50 LR 1000 Oral 960 Output: Kulkarni 625 100 Liquid Stool 450 Colostomy 150 Other: Date of Last Bowel 05/21/17 Movement # Bowel Movements 1 Objective Active Medications: Acetaminophen (Tylenol Tab*) 650 mg PO Q6H PRN PRN Reason: PAIN Albuterol (Ventolin Hfa Inhaler*) 2 puff INH QID PRN PRN Reason: SOB/WHEEZING Allopurinol (Zyloprim Tab*) 300 mg PO QAM [facility] Last Admin: 05/21/17 16:21 Dose: Not Given Ascorbic Acid (Vitamin C Tab*) 500 mg PO DAILY [facility] Last Admin: 05/21/17 16:21 Dose: Not Given Carvedilol (Coreg Tab*) 12.5 mg PO BID [facility] Last Admin: 05/21/17 07:45 Dose: 12.5 mg Cholecalciferol (Vitamin D Tab*) 5,000 units PO QAM [facility] Last Admin: 05/21/17 16:21 Dose: Not Given Ciprofloxacin (Cipro Tab*) 500 mg PO BID [facility] Last Admin: 05/21/17 16:21 Dose: Not Given Dextrose (D50w Syringe 50 Ml*) 12.5 gm IV PUSH .FOR FS < 60 - SS PRN PRN Reason: FS < 60 Diltiazem HCl (Cardizem Cd Cap*) 240 mg PO DAILY [facility] Last Admin: 05/21/17 16:21 Dose: Not Given Docusate Sodium (Colace Cap*) 200 mg PO BID [facility] Last Admin: 05/21/17 16:21 Dose: Not Given Heparin Sodium (Porcine) (Heparin Flush Picc/Ml/Cvc(*)) 0 ml IV FLUSH 0600, 1800 [facility] PRN Reason: Protocol Lactated Ringer's (Lactated Ringers 1000 Ml Bag*) 1,000 mls @ 60 mls/hr IV PER RATE [facility] Last Admin: 05/21/17 08:32 Dose: 60 mls/hr Insulin Glargine (Lantus(*)) 15 units SUBCUT Q24H [facility] Last Admin: 05/20/17 21:25 Dose: 15 units Insulin Human Lispro (Humalog*) 0 units SUBCUT AC [facility] PRN Reason: Protocol Last Admin: 05/21/17 17:04 Dose: Not Given Magnesium Oxide (Magox 400 Tab*) 400 mg PO 1100,2300 [facility] Last Admin: 05/21/17 16:22 Dose: Not Given Metronidazole (Flagyl Tab*) 500 mg PO TID [facility] Last Admin: 05/21/17 16:22 Dose: Not Given Non-Formulary Medication (Non Formulary Med(Nf)) 1 dose PO QAM [facility] Last Admin: 05/21/17 16:22 Dose: Not Given Oxycodone/Acetaminophen (Percocet 5/325 Tab*) 1 tab PO Q4H PRN PRN Reason: PAIN Polyethylene Glycol/Electrolytes (Miralax*) 17 gm PO 0800,2100 [facility] Last Admin: 05/21/17 16:21 Dose: Not Given Potassium Chloride (Klor Con Er Tab*) 20 meq PO TID [facility] Last Admin: 05/21/17 16:22 Dose: Not Given Spironolactone (Aldactone Tab*) 25 mg PO Q48HR [facility] Last Admin: 05/20/17 21:19 Dose: 25 mg Torsemide (Demadex*) 20 mg PO DAILY PRN PRN Reason: ANKLE SWELLING Vital Signs 05/20/17 05/20/17 05/20/17 18:24 18:25 18:29 Temperature 97.9 F 97.9 F Pulse Rate 76 76 Respiratory 18 18 18 Rate Blood Pressure 115/60 115/60 (mmHg) O2 Sat by Pulse 96 96 Oximetry 05/20/17 05/20/17 05/20/17 20:19 21:40 23:33 Temperature 97.3 F 97.6 F Pulse Rate 77 67 Respiratory 18 18 14 Rate Blood Pressure 116/49 113/65 (mmHg) O2 Sat by Pulse 98 90 Oximetry 05/21/17 05/21/17 05/21/17 03:48 07:30 07:32 Temperature 97.8 F 97.3 F Pulse Rate 67 91 Respiratory 14 18 18 Rate Blood Pressure 130/70 135/87 (mmHg) O2 Sat by Pulse 100 100 Oximetry 05/21/17 05/21/17 05/21/17 12:43 12:45 12:50 Temperature 97.2 F Pulse Rate 73 100 78 Respiratory 18 18 18 Rate Blood Pressure 138/111 138/111 145/99 (mmHg) O2 Sat by Pulse 95 100 98 Oximetry 05/21/17 05/21/17 05/21/17 12:55 13:00 13:15 Temperature Pulse Rate 97 94 87 Respiratory 18 16 16 Rate Blood Pressure 147/100 142/99 134/90 (mmHg) O2 Sat by Pulse 97 99 96 Oximetry 05/21/17 05/21/17 05/21/17 13:30 13:45 14:00 Temperature Pulse Rate 76 84 81 Respiratory 16 16 16 Rate Blood Pressure 135/92 123/83 115/79 (mmHg) O2 Sat by Pulse 98 99 99 Oximetry 05/21/17 05/21/17 05/21/17 14:15 14:30 14:45 Temperature Pulse Rate 76 83 82 Respiratory 16 16 16 Rate Blood Pressure 120/83 124/86 (mmHg) O2 Sat by Pulse 98 99 98 Oximetry 05/21/17 05/21/17 05/21/17 15:00 15:15 15:49 Temperature 97.4 F Pulse Rate 82 82 120 Respiratory 16 16 20 Rate Blood Pressure 129/73 126/89 126/84 (mmHg) O2 Sat by Pulse 99 100 93 Oximetry 05/21/17 05/21/17 16:48 17:36 Temperature 97.9 F 97.8 F Pulse Rate 112 99 Respiratory 20 17 Rate Blood Pressure 128/63 118/71 (mmHg) O2 Sat by Pulse 95 95 Oximetry Oxygen Devices in Use Now: Nasal Cannula Appearance: sitting in chair, NAD Eyes: No Scleral Icterus, PERRLA Ears/Nose/Mouth/Throat: Clear Oropharnyx, Mucous Membranes Moist Neck: NL Appearance and Movements; NL JVP, Trachea Midline Respiratory: Symmetrical Chest Expansion and Respiratory Effort, Clear to Auscultation Cardiovascular: RRR, - - 2/6 EMRE Abdominal: NL Sounds; No Tenderness; No Distention, No Hepatosplenomegaly Lymphatic: No Cervical Adenopathy Extremities: No Edema Neurological: Alert and Oriented x 3 Result Diagrams: 05/21/17 07:05 05/21/17 07:05 Assessment/Plan - Billing 67 F POD 0 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
[2017-05-21] MEDS: oxyCODONE/Acetamin 5/325 MG* TAB PO PRN (21:53)
[2017-05-21] MEDS: Insulin GLARGINE(*) 1 UNITS UNIT SUBCUT SCH (22:01)
[2017-05-22] MEDS: Acetaminophen TAB* 325 MG PO PRN ×2 (01:12→10:13)
[2017-05-22] MEDS: oxyCODONE/Acetamin 5/325 MG* TAB PO PRN ×4 (06:04→18:02)
--- NOTE | 2017-05-22 07:09 | PN ---
Progress Note - Progress Note Date of Service: 05/22/17 Note: Surgery Appreciate hospitalist input. Ms. Anand is now s/p diverting loop colostomy. Ms. Anand c/o pain in abd. when getting out of bed, but does ok with walking and sitting. She is tolerating clear sips, and denies nausea. Vital Signs 05/21/17 05/21/17 05/21/17 07:30 07:32 12:43 Temperature 97.3 F 97.2 F Pulse Rate 91 73 Respiratory 18 18 18 Rate Blood Pressure 135/87 138/111 (mmHg) O2 Sat by Pulse 100 95 Oximetry 05/21/17 05/21/17 05/21/17 12:45 12:50 12:55 Temperature Pulse Rate 100 78 97 Respiratory 18 18 18 Rate Blood Pressure 138/111 145/99 147/100 (mmHg) O2 Sat by Pulse 100 98 97 Oximetry 05/21/17 05/21/17 05/21/17 13:00 13:15 13:30 Temperature Pulse Rate 94 87 76 Respiratory 16 16 16 Rate Blood Pressure 142/99 134/90 135/92 (mmHg) O2 Sat by Pulse 99 96 98 Oximetry 05/21/17 05/21/17 05/21/17 13:45 14:00 14:15 Temperature Pulse Rate 84 81 76 Respiratory 16 16 16 Rate Blood Pressure 123/83 115/79 120/83 (mmHg) O2 Sat by Pulse 99 99 98 Oximetry 05/21/17 05/21/17 05/21/17 14:30 14:45 15:00 Temperature Pulse Rate 83 82 82 Respiratory 16 16 16 Rate Blood Pressure 124/86 129/73 (mmHg) O2 Sat by Pulse 99 98 99 Oximetry 05/21/17 05/21/17 05/21/17 15:15 15:49 16:48 Temperature 97.4 F 97.9 F Pulse Rate 82 120 112 Respiratory 16 20 20 Rate Blood Pressure 126/89 126/84 128/63 (mmHg) O2 Sat by Pulse 100 93 95 Oximetry 05/21/17 05/21/17 05/21/17 17:36 19:32 20:26 Temperature 97.8 F 98.2 F Pulse Rate 99 103 Respiratory 17 18 Rate Blood Pressure 118/71 111/66 (mmHg) O2 Sat by Pulse 95 100 96 Oximetry 05/21/17 05/21/17 05/21/17 21:40 21:45 21:53 Temperature 98.8 F Pulse Rate 114 Respiratory 20 12 18 Rate Blood Pressure 126/72 (mmHg) O2 Sat by Pulse 99 Oximetry 05/21/17 05/21/17 05/22/17 23:34 23:53 03:35 Temperature 98.0 F 98.1 F Pulse Rate 102 100 Respiratory 16 14 16 Rate Blood Pressure 124/62 110/54 (mmHg) O2 Sat by Pulse 100 100 Oximetry 05/22/17 06:04 Temperature Pulse Rate Respiratory 22 Rate Blood Pressure (mmHg) O2 Sat by Pulse Oximetry Abd: good BS, soft, tender near incision. Incision: dressing intact with small amt. of serosanguinous drainage on dressing. Stoma: viable, functioning. Intake & Output 05/21/17 05/22/17 05/22/17 22:59 06:59 14:59 Intake Total 560 200 Output Total 750 650 Balance -190 -450 Weight 338 lb 1.6 oz Intake: IV Fluids 500 LR 500 Oral 60 200 Output: Cisneros 400 500 Colostomy 350 150 Ileostomy 0 Other: Date of Last Bowel 05/22/17 Movement Laboratory Results - last 24 hr 05/21/17 05/21/17 05/21/17 07:05 07:05 07:05 WBC 10.0 RBC 3.98 L Hgb 11.9 L Hct 37 MCV 92 MCH 30 MCHC 32 RDW 17 H Plt Count 287 MPV 8 Neut % (Auto) 66.9 Lymph % (Auto) 21.7 L Jay % (Auto) 8.4 Eos % (Auto) 2.0 Baso % (Auto) 1.0 Absolute Neuts (auto) 6.7 Absolute Lymphs (auto) 2.2 Absolute Monos (auto) 0.8 Absolute Eos (auto) 0.2 Absolute Basos (auto) 0.1 Absolute Nucleated RBC 0 Nucleated RBC % 0 INR (Anticoag Therapy) 1.75 H Sodium 135 Potassium 3.8 Chloride 109 Carbon Dioxide 22 Anion Gap 4 BUN 13 Creatinine 1.11 H Est GFR ( Amer) 62.9 Est GFR (Non-Af Amer) 48.9 BUN/Creatinine Ratio 11.7 Glucose 90 POC Glucose (mg/dL) Calcium 9.5 Blood Type Antibody Screen 05/21/17 05/21/17 05/21/17 07:05 08:30 11:11 WBC RBC Hgb Hct MCV MCH MCHC RDW Plt Count MPV Neut % (Auto) Lymph % (Auto) Jay % (Auto) Eos % (Auto) Baso % (Auto) Absolute Neuts (auto) Absolute Lymphs (auto) Absolute Monos (auto) Absolute Eos (auto) Absolute Basos (auto) Absolute Nucleated RBC Nucleated RBC % INR (Anticoag Therapy) Sodium Potassium Chloride Carbon Dioxide Anion Gap BUN Creatinine Est GFR ( Amer) Est GFR (Non-Af Amer) BUN/Creatinine Ratio Glucose POC Glucose (mg/dL) 79 144 H Calcium Blood Type O Positive Antibody Screen Negative 05/21/17 05/21/17 12:49 16:52 WBC RBC Hgb Hct MCV MCH MCHC RDW Plt Count MPV Neut % (Auto) Lymph % (Auto) Jay % (Auto) Eos % (Auto) Baso % (Auto) Absolute Neuts (auto) Absolute Lymphs (auto) Absolute Monos (auto) Absolute Eos (auto) Absolute Basos (auto) Absolute Nucleated RBC Nucleated RBC % INR (Anticoag Therapy) Sodium Potassium Chloride Carbon Dioxide Anion Gap BUN Creatinine Est GFR ( Amer) Est GFR (Non-Af Amer) BUN/Creatinine Ratio Glucose POC Glucose (mg/dL) 109 H 110 H Calcium Blood Type Antibody Screen A/P: POD#1 s/p diverting loop colostomy. Will advance to full liquids as tolerated. Will check labs and urine. Once signs of infection gone and urine cleared, will be safe for removing cisneros and considering start of chemo. CLFoster
[2017-05-22] MEDS: Polyethylene Glycol 3350* 17 GM PACKET PO SCH ×2 (08:11→20:54)
[2017-05-22] MEDS: Docusate CAP* 100 MG PO SCH ×2 (08:12→20:49)
[2017-05-22] MEDS: CYANOCOBALAMIN PO SCH (08:14)
[2017-05-22] MEDS: metroNIDAZOLE TAB* 250 MG PO SCH ×3 (08:26→20:49)
[2017-05-22] MEDS: Potassium Chlor TAB* 20 MEQ TAB.ER PO SCH ×3 (08:26→20:49)
[2017-05-22] MEDS: Ciprofloxacin TAB* 500 MG PO SCH ×2 (08:26→20:49)
[2017-05-22] MEDS: Allopurinol TAB* 300 MG PO SCH (08:26)
[2017-05-22] MEDS: Ascorbic Acid TAB* 500 MG PO SCH (08:27)
[2017-05-22] MEDS: Cholecalciferol TAB* 1000 UNITS PO SCH (08:27)
[2017-05-22] MEDS: Carvedilol TAB* 6.25 MG PO SCH ×2 (08:28→20:50)
[2017-05-22] MEDS: Spironolactone TAB* 25 MG PO SCH (08:28)
[2017-05-22] MEDS: Diltiazem CD CAP* 240 MG PO SCH (08:28)
[2017-05-22 08:31] LABS: Comments Flag Yes; Hematocrit 40 % (35-47); Hemoglobin 12.4 g/dl (12.0-16.0); Mean Corpuscular HGB Conc 31 g/dl (31-36); Mean Corpuscular Hemoglobin 29 pg (27-31); Mean Corpuscular Volume 93 fL (80-97); Mean Platelet Volume 9 um3 (7.4-10.4); Red Blood Count 4.28 10^6/ul (4.0-5.4); Red Cell Distribution Width 17 % (10.5-15); White Blood Count 17.7 10^3/ul (3.5-10.8)
[2017-05-22 08:46] LABS: C Reactive Protein 102.83 mg/L (< 5.00)
[2017-05-22] MEDS: Insulin LISPRO* 1 UNITS UNIT SUBCUT SCH ×3 (08:56→17:05)
--- NOTE | 2017-05-22 09:14 | OP ---
CC: Dr. Melissa Bernard; Dr. Umang Marr * DATE OF OPERATION: 05/21/17 - ROOM #338 DATE OF : 48 SURGEON: Lianne Charles MD ELECTRICAL POWER STATION TECHNICIAN: Silas Clarke MD ANESTHESIOLOGIST: Marquis Vasquez MD ANESTHESIA: General PRE-OP DIAGNOSIS: Diverticulitis with colovesical fistula. POST-OP DIAGNOSIS: Diverticulitis with colovesical fistula. OPERATIVE PROCEDURE: Diverting loop colostomy. INDICATIONS: Ms. Anand is a 67-year-old woman with recent diagnosis of breast cancer who was also found to have a colovesical fistula associated with diverticular disease. It was recommended that she would need diverting loop colostomy before beginning chemotherapy. In addition, she had developed large seroma of the right mastectomy site at the same time as the diverting loop colostomy was planned and aspiration of the seroma was planned. DESCRIPTION OF PROCEDURE: She was brought to the operating room, placed on the OR table in the supine and given general anesthesia. The abdomen and the right breast were prepped and draped in the usual sterile fashion. First step was to drain the seroma and a large-guage needle was inserted into the seroma cavity and approximately 1800 cc of primarily serous fluid was drained. She tolerated that well. Then following the images and location of the transverse colon on her anterior abdominal wall based on the images, an incision was made in the upper midline. Subcutaneous tissue was divided with electrocautery down to the level of the fascia, which was incised. It should be mentioned that during this procedure, the incision had to be extended slightly inferiorly. The transverse colon was identified and noted to be densely adherent to the anterior abdominal wall along the low midline and in the pelvis. Blunt manual dissection was used to separate the adhesions and then ultimately this mobilized the transverse colon adequately to be able to bring somehow to the anterior abdominal wall site that had been marked preoperatively. The site chosen was a right mid abdominal site and disc of skin was excised from this area and subcutaneous tissue was taken along with a disc of skin down to the level of the fascia. A cruciate incision was made in the fascia and the abdomen was entered with some difficulty. The colon was brought out to the anterior abdominal wall through the colostomy site and this in fact was accomplished by placing the bridge consisting of a red rubber catheter through the mesentery of the colon at the chosen site. This allowed traction on the colon to be used to pull it up to the anterior abdominal wall. The abdomen was then copiously irrigated with saline and then closed, #1 Biosyn was used to close the midline incision, and then the skin was closed with javier. A dry sterile dressing was applied here. The colostomy was then matured using 2-0 Polysorb stitches to lorraine the edges after cautery was used to make an opening in the colostomy. It should be mentioned there was moderate amount of stool that was suctioned out of both limbs of the colon. The appliance was placed and all sponge and instrument counts were correct. The patient tolerated the procedure well and was transferred to Recovery in a stable condition. [id number]/CPS #: [id number] MTDD
[2017-05-22 09:46] LABS: Urine Bacteria Absent (Absent); Urine Bilirubin Negative (Negative); Urine Glucose Negative (Negative); Urine Nitrite Negative (Negative)
[2017-05-22] MEDS: Magnesium Oxide TAB* 400 MG PO SCH ×2 (10:17→23:01)
--- NOTE | 2017-05-22 11:54 | PN ---
Subjective Date of Service: 05/22/17 Interval History: Pt is feeling ok. She states her pain is under fair control. She just finished doing 2 laps around the floor. She denies any CP or SOB. She is having output into her colostomy. Objective Active Medications: Acetaminophen (Tylenol Tab*) 650 mg PO Q6H PRN PRN Reason: PAIN Last Admin: 05/22/17 10:13 Dose: 325 mg Albuterol (Ventolin Hfa Inhaler*) 2 puff INH QID PRN PRN Reason: SOB/WHEEZING Allopurinol (Zyloprim Tab*) 300 mg PO QAM [facility] Last Admin: 05/22/17 08:26 Dose: 300 mg Ascorbic Acid (Vitamin C Tab*) 500 mg PO DAILY [facility] Last Admin: 05/22/17 08:27 Dose: 500 mg Carvedilol (Coreg Tab*) 12.5 mg PO BID [facility] Last Admin: 05/22/17 08:28 Dose: 12.5 mg Cholecalciferol (Vitamin D Tab*) 5,000 units PO QAM [facility] Last Admin: 05/22/17 08:27 Dose: 5,000 units Ciprofloxacin (Cipro Tab*) 500 mg PO BID [facility] Last Admin: 05/22/17 08:26 Dose: 500 mg Dextrose (D50w Syringe 50 Ml*) 12.5 gm IV PUSH .FOR FS < 60 - SS PRN PRN Reason: FS < 60 Diltiazem HCl (Cardizem Cd Cap*) 240 mg PO DAILY [facility] Last Admin: 05/22/17 08:28 Dose: 240 mg Docusate Sodium (Colace Cap*) 200 mg PO BID [facility] Last Admin: 05/22/17 08:12 Dose: Not Given Heparin Sodium (Porcine) (Heparin Flush Picc/Ml/Cvc(*)) 0 ml IV FLUSH 0600, 1800 [facility] PRN Reason: Protocol Last Admin: 05/22/17 05:47 Dose: Not Given Lactated Ringer's (Lactated Ringers 1000 Ml Bag*) 1,000 mls @ 60 mls/hr IV PER RATE [facility] Last Admin: 05/22/17 11:08 Dose: 60 mls/hr Insulin Glargine (Lantus(*)) 10 units SUBCUT Q24H [facility] Last Admin: 05/21/17 22:01 Dose: 10 units Insulin Human Lispro (Humalog*) 0 units SUBCUT AC [facility] PRN Reason: Protocol Last Admin: 05/22/17 08:56 Dose: Not Given Magnesium Oxide (Magox 400 Tab*) 400 mg PO 1100,2300 [facility] Last Admin: 05/22/17 10:17 Dose: 400 mg Metronidazole (Flagyl Tab*) 500 mg PO TID [facility] Last Admin: 05/22/17 08:26 Dose: 500 mg Non-Formulary Medication (Non Formulary Med(Nf)) 1 dose PO QAM [facility] Last Admin: 05/22/17 08:14 Dose: Not Given Oxycodone/Acetaminophen (Percocet 5/325 Tab*) 1 tab PO Q4H PRN PRN Reason: PAIN Last Admin: 05/22/17 10:13 Dose: 1 tab Polyethylene Glycol/Electrolytes (Miralax*) 17 gm PO 0800,2100 [facility] Last Admin: 05/22/17 08:11 Dose: Not Given Potassium Chloride (Klor Con Er Tab*) 20 meq PO TID [facility] Last Admin: 05/22/17 08:26 Dose: 20 meq Spironolactone (Aldactone Tab*) 25 mg PO Q48HR [facility] Last Admin: 05/22/17 08:28 Dose: 25 mg Torsemide (Demadex*) 20 mg PO DAILY PRN PRN Reason: ANKLE SWELLING Vital Signs 05/21/17 05/21/17 05/21/17 12:43 12:45 12:50 Temperature 97.2 F Pulse Rate 73 100 78 Respiratory 18 18 18 Rate Blood Pressure 138/111 138/111 145/99 (mmHg) O2 Sat by Pulse 95 100 98 Oximetry 05/21/17 05/21/17 05/21/17 12:55 13:00 13:15 Temperature Pulse Rate 97 94 87 Respiratory 18 16 16 Rate Blood Pressure 147/100 142/99 134/90 (mmHg) O2 Sat by Pulse 97 99 96 Oximetry 05/21/17 05/21/17 05/21/17 13:30 13:45 14:00 Temperature Pulse Rate 76 84 81 Respiratory 16 16 16 Rate Blood Pressure 135/92 123/83 115/79 (mmHg) O2 Sat by Pulse 98 99 99 Oximetry 05/21/17 05/21/17 05/21/17 14:15 14:30 14:45 Temperature Pulse Rate 76 83 82 Respiratory 16 16 16 Rate Blood Pressure 120/83 124/86 (mmHg) O2 Sat by Pulse 98 99 98 Oximetry 05/21/17 05/21/17 05/21/17 15:00 15:15 15:49 Temperature 97.4 F Pulse Rate 82 82 120 Respiratory 16 16 20 Rate Blood Pressure 129/73 126/89 126/84 (mmHg) O2 Sat by Pulse 99 100 93 Oximetry 05/21/17 05/21/17 05/21/17 16:48 17:36 19:32 Temperature 97.9 F 97.8 F 98.2 F Pulse Rate 112 99 103 Respiratory 20 17 18 Rate Blood Pressure 128/63 118/71 111/66 (mmHg) O2 Sat by Pulse 95 95 100 Oximetry 05/21/17 05/21/17 05/21/17 20:26 21:40 21:45 Temperature 98.8 F Pulse Rate 114 Respiratory 20 12 Rate Blood Pressure 126/72 (mmHg) O2 Sat by Pulse 96 99 Oximetry 05/21/17 05/21/17 05/21/17 21:53 23:34 23:53 Temperature 98.0 F Pulse Rate 102 Respiratory 18 16 14 Rate Blood Pressure 124/62 (mmHg) O2 Sat by Pulse 100 Oximetry 05/22/17 05/22/17 05/22/17 03:35 06:04 07:33 Temperature 98.1 F 98.6 F Pulse Rate 100 109 Respiratory 16 22 Rate Blood Pressure 110/54 109/57 (mmHg) O2 Sat by Pulse 100 97 Oximetry 05/22/17 05/22/17 05/22/17 07:39 08:00 08:04 Temperature Pulse Rate Respiratory 16 16 16 Rate Blood Pressure (mmHg) O2 Sat by Pulse Oximetry 05/22/17 05/22/17 10:13 11:43 Temperature 98.2 F Pulse Rate 83 Respiratory 16 18 Rate Blood Pressure 101/54 (mmHg) O2 Sat by Pulse 87 Oximetry Oxygen Devices in Use Now: None Appearance: Middle aged morbidly obese female sitting in a chair, NAD Eyes: No Scleral Icterus Ears/Nose/Mouth/Throat: Mucous Membranes Moist Respiratory: Symmetrical Chest Expansion and Respiratory Effort, Clear to Auscultation Cardiovascular: NL Sounds; No Murmurs; No JVD, RRR, No Edema Abdominal: NL Sounds; No Tenderness; No Distention, - - colostomy on R side of abdomen Extremities: No Clubbing, Cyanosis Skin: No Rash or Ulcers, No Nodules or Sclerosis Neurological: Alert and Oriented x 3 Result Diagrams: 05/22/17 08:08 05/21/17 07:05 Assess/Plan/Problems-Billing Ms Anand is a 67yo F who has a h/o breast cancer, type II DM, afib, CHF, HTN, lupus and RAJNI who is now diverting loop colectomy secondary to colovesicular fistula. - Patient Problems (1) Colovesical fistula Current Visit: Yes Status: Acute Code(s): N32.1 - VESICOINTESTINAL FISTULA SNOMED Code(s): 98319918 Comment: Post op day #1. Pt is doing well. Management per general surgery. (2) Type 2 diabetes mellitus Current Visit: Yes Status: Acute Comment: Sugars have fluctuated quite a bit. Continue 10 units of lantus for now as her sugars have been low intermittently. As she starts to eat more will increase the lantus as needed. (3) Afib Current Visit: Yes Status: Acute Code(s): I48.91 - UNSPECIFIED ATRIAL FIBRILLATION SNOMED Code(s): 02634583 Comment: Pt is currently off her anticoagulation. Will check with surgery about when she can be restarted on her coumadin with bridging with lovenox. Continue diltiazem CD-HR is controlled. (4) HTN (hypertension) Current Visit: Yes Status: Acute Code(s): I10 - ESSENTIAL (PRIMARY) HYPERTENSION SNOMED Code(s): 03223057 Comment: BP is under good control on current regimen. Continue to monitor. (5) CKD stage 3 secondary to diabetes Current Visit: Yes Status: Acute Code(s): E11.22 - TYPE 2 DIABETES MELLITUS W DIABETIC CHRONIC KIDNEY DISEASE; N18.3 - CHRONIC KIDNEY DISEASE, STAGE 3 ( MODERATE) SNOMED Code(s): 172805822 Comment: Creatinine is at baseline. Continue to follow intermittently. (6) DVT prophylaxis Current Visit: Yes Status: Acute Code(s): OPH1203 - SNOMED Code(s): 034142480 Comment: SCDs (hopeful to start lovenox tonight) (7) Full code status Current Visit: Yes Status: Acute Code(s): Z78.9 - OTHER SPECIFIED HEALTH STATUS SNOMED Code(s): 909077457
[2017-05-22] MEDS: Insulin GLARGINE(*) 1 UNITS UNIT SUBCUT SCH (20:51)
[2017-05-23] MEDS: oxyCODONE/Acetamin 5/325 MG* TAB PO PRN ×4 (06:26→21:31)
[2017-05-23] MEDS ORDERED: Heparin VIAL(*) 5000 UNITS/ML VIAL (FIVE THOUSAND) IV SCH (08:00)
[2017-05-23] MEDS ORDERED: Heparin DRIP 25,000 UNITS(*) 25,000 UNITS/500 ML BAG IVPB SCH (08:00)
[2017-05-23] MEDS: Insulin LISPRO* 1 UNITS UNIT SUBCUT SCH ×3 (08:24→17:09)
[2017-05-23] MEDS: Docusate CAP* 100 MG PO SCH ×2 (08:48→21:29)
[2017-05-23] MEDS: Polyethylene Glycol 3350* 17 GM PACKET PO SCH ×2 (08:48→21:25)
[2017-05-23] MEDS: Ascorbic Acid TAB* 500 MG PO SCH (08:48)
[2017-05-23] MEDS: Carvedilol TAB* 6.25 MG PO SCH ×2 (08:48→21:30)
[2017-05-23] MEDS: metroNIDAZOLE TAB* 250 MG PO SCH ×3 (08:48→21:30)
[2017-05-23] MEDS: Potassium Chlor TAB* 20 MEQ TAB.ER PO SCH ×3 (08:49→21:30)
[2017-05-23] MEDS: Cholecalciferol TAB* 1000 UNITS PO SCH (08:49)
[2017-05-23] MEDS: Diltiazem CD CAP* 240 MG PO SCH (08:50)
[2017-05-23] MEDS: Allopurinol TAB* 300 MG PO SCH (08:51)
[2017-05-23] MEDS: Ciprofloxacin TAB* 500 MG PO SCH ×2 (08:59→21:30)
--- NOTE | 2017-05-23 09:09 | PN ---
Progress Note - Progress Note Date of Service: 05/23/17 Note: Surgery Ms. Anand says pain is better, she still has some trouble getting out of the chair. She tolerated full liquids without problems. Vital Signs 05/22/17 05/22/17 05/22/17 10:13 11:43 12:02 Temperature 98.2 F Pulse Rate 83 Respiratory 16 18 Rate Blood Pressure 101/54 (mmHg) O2 Sat by Pulse 87 96 Oximetry 05/22/17 05/22/17 05/22/17 12:13 14:02 15:20 Temperature 98.1 F Pulse Rate 83 Respiratory 16 16 18 Rate Blood Pressure 116/48 (mmHg) O2 Sat by Pulse 92 Oximetry 05/22/17 05/22/17 05/22/17 15:34 16:00 18:02 Temperature Pulse Rate Respiratory 16 16 Rate Blood Pressure (mmHg) O2 Sat by Pulse 92 Oximetry 05/22/17 05/22/17 05/22/17 20:00 20:02 23:20 Temperature 98.1 F Pulse Rate 85 Respiratory 17 17 16 Rate Blood Pressure 100/56 (mmHg) O2 Sat by Pulse 93 Oximetry 05/23/17 05/23/17 05/23/17 03:21 05:28 06:26 Temperature 98.1 F 97.8 F Pulse Rate 80 86 Respiratory 16 16 16 Rate Blood Pressure 102/63 116/76 (mmHg) O2 Sat by Pulse 93 97 Oximetry 05/23/17 05/23/17 07:15 08:24 Temperature 98.1 F Pulse Rate 84 Respiratory 16 Rate Blood Pressure 109/59 (mmHg) O2 Sat by Pulse 98 Oximetry Abd: good BS, soft, mildly tender near incision Incision: clean and dry Stoma: viable, functioning. Intake & Output 05/22/17 05/23/17 05/23/17 22:59 06:59 14:59 Intake Total 3322 1088 Output Total 300 900 Balance 3022 188 Intake: IV Fluids 1832 428 LR 1832 428 Oral 1490 660 Output: Cisneros 650 Ileostomy 300 250 Laboratory Results - last 24 hr 05/22/17 05/22/17 05/22/17 09:00 12:33 17:04 POC Glucose (mg/dL) 123 H 114 H Urine Color Rupal Urine Appearance Cloudy Urine pH 5.0 Ur Specific Greer 1.019 Urine Protein 1+(30 mg/dl) H Urine Ketones Negative Urine Blood 3+ H Urine Nitrate Negative Urine Bilirubin Negative Urine Urobilinogen Negative Ur Leukocyte Esterase 3+ H Urine WBC (Auto) 3+(>20/hpf) H Urine RBC (Auto) 3+(>10/hpf) H Ur Squamous Epith Cells Present H Urine Bacteria Absent Hyaline Casts Present H Urine Glucose Negative 05/23/ 07:44 POC Glucose (mg/dL) 110 H Urine Color Urine Appearance Urine pH Ur Specific Greer Urine Protein Urine Ketones Urine Blood Urine Nitrate Urine Bilirubin Urine Urobilinogen Ur Leukocyte Esterase Urine WBC (Auto) Urine RBC (Auto) Ur Squamous Epith Cells Urine Bacteria Hyaline Casts Urine Glucose POD#2 s/p diverting loop colostomy, still with signs inflammation. Continue bladder drainage with cisneros and abx for now. She may go home with cisneros.
--- NOTE | 2017-05-23 10:37 | PN ---
Subjective Date of Service: 05/23/17 Interval History: Pt is feeling well. Mild abdominal tenderness. She has been having stool in her colostomy. No SOB or CP. She ate regular food for breakfast. Objective Active Medications: Acetaminophen (Tylenol Tab*) 650 mg PO Q6H PRN PRN Reason: PAIN Last Admin: 05/22/17 10:13 Dose: 325 mg Albuterol (Ventolin Hfa Inhaler*) 2 puff INH QID PRN PRN Reason: SOB/WHEEZING Allopurinol (Zyloprim Tab*) 300 mg PO QAM [facility] Last Admin: 05/23/17 08:51 Dose: 300 mg Ascorbic Acid (Vitamin C Tab*) 500 mg PO DAILY [facility] Last Admin: 05/23/17 08:48 Dose: 500 mg Carvedilol (Coreg Tab*) 12.5 mg PO BID [facility] Last Admin: 05/23/17 08:48 Dose: 12.5 mg Cholecalciferol (Vitamin D Tab*) 5,000 units PO QAM [facility] Last Admin: 05/23/17 08:49 Dose: 5,000 units Ciprofloxacin (Cipro Tab*) 500 mg PO BID [facility] Last Admin: 05/23/17 08:59 Dose: 500 mg Dextrose (D50w Syringe 50 Ml*) 12.5 gm IV PUSH .FOR FS < 60 - SS PRN PRN Reason: FS < 60 Diltiazem HCl (Cardizem Cd Cap*) 240 mg PO DAILY [facility] Last Admin: 05/23/17 08:50 Dose: 240 mg Docusate Sodium (Colace Cap*) 200 mg PO BID [facility] Last Admin: 05/23/17 08:48 Dose: 200 mg Enoxaparin Sodium (Lovenox(*)) 150 mg SUBCUT BID [facility] Heparin Sodium (Porcine) (Heparin Flush Picc/Ml/Cvc(*)) 0 ml IV FLUSH 0600, 1800 [facility] PRN Reason: Protocol Last Admin: 05/23/17 05:31 Dose: Not Given Lactated Ringer's (Lactated Ringers 1000 Ml Bag*) 1,000 mls @ 60 mls/hr IV PER RATE [facility] Last Admin: 05/23/17 03:20 Dose: 60 mls/hr Insulin Glargine (Lantus(*)) 10 units SUBCUT Q24H [facility] Last Admin: 05/22/17 20:51 Dose: 10 units Insulin Human Lispro (Humalog*) 0 units SUBCUT AC [facility] PRN Reason: Protocol Last Admin: 05/23/17 08:24 Dose: Not Given Magnesium Oxide (Magox 400 Tab*) 400 mg PO 1100,2300 [facility] Last Admin: 05/22/17 23:01 Dose: 400 mg Metronidazole (Flagyl Tab*) 500 mg PO TID [facility] Last Admin: 05/23/17 08:48 Dose: 500 mg Oxycodone/Acetaminophen (Percocet 5/325 Tab*) 1 tab PO Q4H PRN PRN Reason: PAIN Last Admin: 05/23/17 06:26 Dose: 1 tab Polyethylene Glycol/Electrolytes (Miralax*) 17 gm PO 0800,2100 [facility] Last Admin: 05/23/17 08:48 Dose: 17 gm Potassium Chloride (Klor Con Er Tab*) 20 meq PO TID [facility] Last Admin: 05/23/17 08:49 Dose: 20 meq Spironolactone (Aldactone Tab*) 25 mg PO Q48HR [facility] Last Admin: 05/22/17 08:28 Dose: 25 mg Torsemide (Demadex*) 20 mg PO DAILY PRN PRN Reason: ANKLE SWELLING Warfarin Sodium (Coumadin Tab(*)) 6 mg PO DAILY@1700 [facility] PRN Reason: Protocol Vital Signs 05/22/17 05/22/17 05/22/17 11:43 12:02 12:13 Temperature 98.2 F Pulse Rate 83 Respiratory 18 16 Rate Blood Pressure 101/54 (mmHg) O2 Sat by Pulse 87 96 Oximetry 05/22/17 05/22/17 05/22/17 14:02 15:20 15:34 Temperature 98.1 F Pulse Rate 83 Respiratory 16 18 16 Rate Blood Pressure 116/48 (mmHg) O2 Sat by Pulse 92 Oximetry 05/22/17 05/22/17 05/22/17 16:00 18:02 20:00 Temperature Pulse Rate Respiratory 16 17 Rate Blood Pressure (mmHg) O2 Sat by Pulse 92 Oximetry 05/22/17 05/22/17 05/23/17 20:02 23:20 03:21 Temperature 98.1 F 98.1 F Pulse Rate 85 80 Respiratory 17 16 16 Rate Blood Pressure 100/56 102/63 (mmHg) O2 Sat by Pulse 93 93 Oximetry 05/23/17 05/23/17 05/23/17 05:28 06:26 07:15 Temperature 97.8 F 98.1 F Pulse Rate 86 84 Respiratory 16 16 Rate Blood Pressure 116/76 109/59 (mmHg) O2 Sat by Pulse 97 98 Oximetry 05/23/17 08:24 Temperature Pulse Rate Respiratory 16 Rate Blood Pressure (mmHg) O2 Sat by Pulse Oximetry Oxygen Devices in Use Now: None Appearance: Middle aged obese female sitting on the edge of the bed, NAD Eyes: No Scleral Icterus Ears/Nose/Mouth/Throat: Mucous Membranes Moist Respiratory: Symmetrical Chest Expansion and Respiratory Effort, Clear to Auscultation Cardiovascular: NL Sounds; No Murmurs; No JVD, RRR, - - 2+LE edema-unchanged from prior Abdominal: NL Sounds; No Tenderness; No Distention, - - + ostomy on R side of abdomen Extremities: No Clubbing, Cyanosis Skin: No Rash or Ulcers, No Nodules or Sclerosis Neurological: Alert and Oriented x 3 Result Diagrams: 05/22/17 08:08 05/21/17 07:05 Assess/Plan/Problems-Billing Ms Anand is a 67yo F who has a h/o breast cancer, type II DM, afib, CHF, HTN, lupus and RAJNI who is now diverting loop colectomy secondary to colovesicular fistula. - Patient Problems (1) Colovesical fistula Status: Acute Code(s): N32.1 - VESICOINTESTINAL FISTULA SNOMED Code(s): 20328836 Comment: Post op day #2. Pt is doing well. Management per general surgery. (2) Type 2 diabetes mellitus Status: Acute Comment: Sugars appear to be under good control on 10 units of lantus. As she eats more she will need more lantus. (3) Afib Status: Acute Code(s): I48.91 - UNSPECIFIED ATRIAL FIBRILLATION SNOMED Code( s): 10181400 Comment: Resume coumadin and bridge with lovenox to a therapeutic INR. Continue diltiazem CD. (4) HTN (hypertension) Status: Acute Code(s): I10 - ESSENTIAL (PRIMARY) HYPERTENSION SNOMED Code(s) : 17425483 Comment: BP is under good control on current regimen. Continue to monitor. (5) CKD stage 3 secondary to diabetes Status: Acute Code(s): E11.22 - TYPE 2 DIABETES MELLITUS W DIABETIC CHRONIC KIDNEY DISEASE; N18.3 - CHRONIC KIDNEY DISEASE, STAGE 3 (MODERATE) SNOMED Code (s): 808539926 Comment: Creatinine is at baseline. Continue to follow intermittently. (6) DVT prophylaxis Status: Acute Code(s): KZY0501 - SNOMED Code(s): 381295154 Comment: SCDs/lovenox (7) Full code status Status: Acute Code(s): Z78.9 - OTHER SPECIFIED HEALTH STATUS SNOMED Code(s) : 932921560
[2017-05-23] MEDS: Magnesium Oxide TAB* 400 MG PO SCH ×2 (11:41→22:35)
[2017-05-23] MEDS: Enoxaparin(*) 150 MG/ML 1 ML SYRINGE SUBCUT SCH ×2 (12:00→21:20)
[2017-05-23] MEDS: Calcium Carbonate CHEW TAB* 500 MG (TUMS) PO PRN ×2 (14:18→21:31)
[2017-05-23] MEDS ORDERED: Warfarin TAB(*) 6 MG PO SCH (17:00)
[2017-05-23] MEDS: Insulin GLARGINE(*) 1 UNITS UNIT SUBCUT SCH (21:23)
[2017-05-24 08:15] VITALS: BP 109/49
--- NOTE | 2017-05-24 08:15 | PN ---
Progress Note - Progress Note Date of Service: 05/24/17 Note: Surgery Ms. Anand is feeling ready to go home; she is willing to go home with a leg bag for her urine. She reports she is tolerating some food. She is comfortable with managing the bag. Vital Signs 05/23/17 05/23/17 05/23/17 08:24 11:41 12:32 Temperature 98.0 F Pulse Rate 88 Respiratory 16 16 15 Rate Blood Pressure 133/81 (mmHg) O2 Sat by Pulse 97 Oximetry 05/23/17 05/23/17 05/23/17 13:41 15:53 16:00 Temperature 97.7 F Pulse Rate 89 Respiratory 18 16 Rate Blood Pressure 126/62 (mmHg) O2 Sat by Pulse 99 99 Oximetry 05/23/17 05/23/17 05/23/17 17:30 19:30 19:39 Temperature Pulse Rate Respiratory 20 16 16 Rate Blood Pressure (mmHg) O2 Sat by Pulse Oximetry 05/23/17 05/23/17 05/23/17 19:44 20:01 21:31 Temperature 98.0 F Pulse Rate 82 Respiratory 16 20 16 Rate Blood Pressure 123/75 (mmHg) O2 Sat by Pulse 97 Oximetry 05/23/17 05/23/17 05/24/17 23:26 23:31 00:00 Temperature 99.2 F Pulse Rate 87 Respiratory 16 18 Rate Blood Pressure 121/69 (mmHg) O2 Sat by Pulse 98 98 Oximetry 05/24/17 05/24/17 03:23 07:45 Temperature 99.7 F 98.6 F Pulse Rate 70 85 Respiratory 16 18 Rate Blood Pressure 112/56 109/49 (mmHg) O2 Sat by Pulse 97 100 Oximetry Sitting up in bed without difficulty. Intake & Output 05/23/17 05/24/17 05/24/17 22:59 06:59 14:59 Intake Total 2685 500 Output Total 825 575 Balance 1860 -75 Weight 348 lb Intake: Oral 2685 500 Output: Urine 250 Cisneros 425 Colostomy 575 150 Laboratory Results - last 24 hr 05/23/17 05/23/17 05/23/17 08:35 11:27 16:41 INR (Anticoag Therapy) APTT 33.5 POC Glucose (mg/dL) 124 H 118 H 05/24/17 06:50 INR (Anticoag Therapy) 1.52 H APTT POC Glucose (mg/dL) A/P: POD#3 s/p diverting loop colostomy; doing well. Can go home; will d/c cisneros cath when urine somewhat clearer.
[2017-05-24] MEDS: Insulin LISPRO* 1 UNITS UNIT SUBCUT SCH (08:59)
[2017-05-24] MEDS: Polyethylene Glycol 3350* 17 GM PACKET PO SCH (09:05)
[2017-05-24] MEDS: Cholecalciferol TAB* 1000 UNITS PO SCH (09:06)
[2017-05-24] MEDS: metroNIDAZOLE TAB* 250 MG PO SCH (09:06)
[2017-05-24] MEDS: Carvedilol TAB* 6.25 MG PO SCH (09:06)
[2017-05-24] MEDS: Potassium Chlor TAB* 20 MEQ TAB.ER PO SCH (09:06)
[2017-05-24] MEDS: Spironolactone TAB* 25 MG PO SCH (09:06)
[2017-05-24] MEDS: Diltiazem CD CAP* 240 MG PO SCH (09:07)
[2017-05-24] MEDS: Docusate CAP* 100 MG PO SCH (09:07)
[2017-05-24] MEDS: Allopurinol TAB* 300 MG PO SCH (09:07)
[2017-05-24] MEDS: Ciprofloxacin TAB* 500 MG PO SCH (09:07)
[2017-05-24] MEDS: Ascorbic Acid TAB* 500 MG PO SCH (09:07)
[2017-05-24] MEDS: Enoxaparin(*) 150 MG/ML 1 ML SYRINGE SUBCUT SCH (09:08)
[2017-05-24] MEDS: oxyCODONE/Acetamin 5/325 MG* TAB PO PRN (11:28)
[2017-05-24] MEDS: Magnesium Oxide TAB* 400 MG PO SCH (11:28)
--- NOTE | 2017-05-25 08:57 | DS ---
CC: [facility] DISCHARGE SUMMARY: DATE OF ADMISSION: 05/20/17 DATE OF DISCHARGE: 05/24/17 ADMISSION DIAGNOSIS: Colovesical fistula. DISCHARGE DIAGNOSIS: Colovesical fistula. PROCEDURE: Diverting loop colostomy done on 05/21/17. HOSPITAL COURSE: Ms. Anand is a 67-year-old woman admitted to the hospital on the day of the originally planned surgery, which was 05/20. After many unsuccessful attempts at placing an IV the surgery was canceled and she was admitted. The next day, she was able to have a PICC line placed and surgery proceeded as planned. She underwent diverting loop colostomy without difficulty. Postoperatively, she had a routine course marked by steady progression to tolerating a diet and early function of the colostomy. The colostomy was noted to be viable. At the time of discharge, she is able to ambulate, tolerating a diet, and will go home with the colostomy and urinary leg bag, which will be discontinued when her urine is a little more clear. She is also to continue antibiotics as well as her other usual medications. She is discharged to home with instructions to followup as an outpatient. [id number]/[facility] #: [id number] MTDD
== END 2017-05-24 12:25 | disposition home or self-care (01) | DRG 330 ==
LOC: AA 14:31 → SSU 17:15
PROVIDERS: ADMIT Surgery; ATTEND Surgery
PROC: 0H95XZX Drainage of Chest Skin, External Approach, Diagnostic (ICD-10-PCS; 2017-05-21)
PROC: 0D1L0Z4 Bypass Transverse Colon to Cutaneous, Open Approach (ICD-10-PCS; principal; 2017-05-21 09:45)
DX: K57.32 Diverticulitis of large intestine without perforation or abscess without bleeding (principal); N32.1 Vesicointestinal fistula; M32.9 Systemic lupus erythematosus, unspecified; I27.2 Other secondary pulmonary hypertension; E11.22 Type 2 diabetes mellitus with diabetic chronic kidney disease; I13.0 Hypertensive heart and chronic kidney disease with heart failure and stage 1 through stage 4 chronic kidney disease, or unspecified chronic kidney disease; I50.9 Heart failure, unspecified; N18.3 Chronic kidney disease, stage 3 (moderate); L76.34 Postprocedural seroma of skin and subcutaneous tissue following other procedure; C50.911 Malignant neoplasm of unspecified site of right female breast; K59.00 Constipation, unspecified; D73.5 Infarction of spleen; E66.01 Morbid (severe) obesity due to excess calories; I48.2 Chronic atrial fibrillation; G47.33 Obstructive sleep apnea (adult) (pediatric); F32.9 Major depressive disorder, single episode, unspecified; Z90.710 Acquired absence of both cervix and uterus; Z98.51 Tubal ligation status; Z88.8 Allergy status to other drugs, medicaments and biological substances; Z87.891 Personal history of nicotine dependence; Z72.89 Other problems related to lifestyle; Z80.1 Family history of malignant neoplasm of trachea, bronchus and lung; I34.0 Nonrheumatic mitral (valve) insufficiency; Y83.6 Removal of other organ (partial) (total) as the cause of abnormal reaction of the patient, or of later complication, without mention of misadventure at the time of the procedure
CPT/HCPCS: 36415; 71010; 80048; 81003; 81015; 82947; 85025; 85610; 85730; 86140; 86850; 86900; 86901; 87086; 94760; A9270-GY; J0360; J0780; J1100; J1335; J1650; J2001; J2250; J2270; J2405; J2704; J3010

== ENCOUNTER 2017-05-27 17:07 | Emergency (ER) | payer MEDICARE ==
[2017-05-27] MEDS ORDERED: NS 0.9% 1000 ML* 1,000 ML IV SCH (18:15)
--- NOTE | 2017-05-27 19:35 | ED ---
Alexander Villeda Rebecca, scribed for David Mckeon MD on 05/27/17 at 1827 . GI/ HPI - HPI Summary HPI Summary: Pt is a 67 y/o F who presents to ED c/o ostomy bag leaking. Pt reports that she did not have an ostomy bag to replace her current one, so now it is leaking and needs to be changed. Associated pain is currently moderate, ranked 4/10. Sx aggravated and alleviated by nothing. - History of Current Complaint Chief Complaint: EDGIBleed Time Seen by Provider: 05/27/17 18:21 Stated Complaint: LEAKING COLOSPY BAG Hx Obtained From: Patient Onset/Duration: Still Present Current Severity: Moderate Pain Intensity: 4 - Ostomy bag Associated Signs and Symptoms: Positive: Other: - Leaking ostomy bag Aggravating Factor(s): Nothing Alleviating Factor(s): Nothing - Additional Pertinent History Primary Care Physician: DAVY - Allergy/Home Medications Allergies/Adverse Reactions: Allergies Allergy/AdvReac Type Severity Reaction Status Date / Time No Known Drug Allergy Allergy See Comment Verified 05/23/17 14:12 SEASONAL Allergy Sneezing Uncoded 05/20/17 14:41 PMH/Surg Hx/FS Hx/Imm Hx Endocrine/Hematology History: Reports: Hx Diabetes - TYPE II, CONTROLLED WITH MEDICAITON/DIET, Hx Systemic Lupus Erythematosus Denies: Hx Blood Disorders, Hx Blood Transfusions, Hx Bone Marrow Disease, Hx Sickle Cell Disease, Hx Thyroid Disease, Hx Anemia, Hx Unexplained Bleeding Cardiovascular History: Reports: Hx Congestive Heart Failure, Hx Rheumatic Fever - A CHILD, Hx Valvular Heart Disease - mitral valve prolaspe, taking medication, Other Cardiovascular Problems/Disorders - A-fib; PULMONARY HTN; LEAKING MITRAL VALVE. Denies: Hx Aneurysm, Hx Angina, Hx Angioplasty, Hx Auto Implanted Cardiovert Defib, Hx Cardiac Arrest, Hx Deep Vein Thrombosis, Hx Embolism, Hx Hypotension, Hx Hypertension, Hx Pacemaker/ICD, Hx Syncope Respiratory History: Reports: Hx Asthma - COLD RELATED, Hx Pneumonia, Hx Seasonal Allergies, Hx Sleep Apnea Denies: Hx Chronic Obstructive Pulmonary Disease (COPD), Hx Cystic Fibrosis, Hx Lung Cancer, Hx Pleural Effusion, Hx Pulmonary Edema, Hx Pulmonary Embolism GI History: Reports: Hx Diverticulosis Denies: Hx Cirrhosis, Hx Crohn's Disease, Hx Gall Bladder Disease, Hx Gastroesophageal Reflux Disease, Hx Gastrointestinal Bleed, Hx Hiatal Hernia, Hx Irritable Bowel, Hx Jaundice, Hx Obstructive Bowel, Hx Ileostomy, Hx Pyloric Stenosis, Hx Ulcer, Other GI Disorders History: Reports: Hx Kidney Stones - KIDNEY STONE CURRENTLY Denies: Hx Acute Renal Failure, Hx Benign Prostatic Hyperplasia, Hx Chronic Renal Failure, Hx Dialysis, Hx Renal Disease - KIDNEY STONE AT PRESENT TIME, Other Problems/Disorders Musculoskeletal History: Reports: Hx Arthritis, Hx Scoliosis, Other Musculoskeletal History - joint pain with lupus Denies: Hx Fibromyalgia, Hx Gout, Hx Orthopedic Injury, Hx Osteoporosis, Hx Tendonitis Sensory History: Reports: Hx Contacts or Glasses - WEARS GLASSES Denies: Hx Legally Blind, Hx Hearing Aid Opthamlomology History: Reports: Hx Contacts or Glasses - WEARS GLASSES Denies: Hx Legally Blind Neurological History: Denies: Hx Dementia, Hx Developmental Delay, Hx Headaches, Hx Migraine, Hx Nerve Disease, Hx Seizures, Hx Spinal Cord Injury, Hx Transient Ischemic Attacks (TIA), Other Neuro Impairments/Disorders Psychiatric History: Denies: Hx Anxiety, Hx Attention Deficit Hyperactivity Disorder, Hx Eating Disorder, Hx Depression, Hx Panic Disorder, Hx Post Traumatic Stress Disorder, Hx Community Mental Health Tx, Hx Schizophrenia, Hx Bipolar Disorder, Hx Suicide Attempt, Hx of Violent Episodes Against Others, Hx Substance Abuse, Other Psychiatric Issues/Disorders - Cancer History Cancer Type, Location and Year: RIGHT BREAST Hx Chemotherapy: No - has not started yet Hx Radiation Therapy: No - Surgical History Surgery Procedure, Year, and Place: 2 C-SECTIONS. HYSTERECTOMY. TUBAL LIGATION. [place]PA[place]RACT[place] [facility] [place] Anesthesia Reactions: Yes - [id number]- VERY SLEEPY FOR DAYS Infectious Disease History: No Infectious Disease History: Denies: Hx Hepatitis, Hx Tuberculosis, Traveled Outside the [place] in Last 30 Days - Family History Known Family History: Positive: Other - no family history of breast cancer - Social History Alcohol Use: None Substance Use Type: Reports: None Smoking Status (MU): Former Smoker Amount Used/How Often: ON/OFF 25 YEARS, 1/2 PPD Have You Smoked in the Last Year: No Review of Systems Negative: Fever Positive: other - Leaking ostomy bag All Other Systems Reviewed And Are Negative: Yes Physical Exam - Summary Physical Exam Summary: General: well-appearing, no pain distress Skin: warm, skin color reflects adequate perfusion, dry Head: normal Eyes: EOMI, JOSE ENT: normal Neck: supple, nontender Respiratory: CTA, breath sounds present Cardiovascular: RRR Abdomen: soft, nontender. Ostomy bag with some blood and debris in it that is leaking around the bottom part. Bowel: present Musculoskeletal: normal, strength/ROM intact Neuro: normal, sensory/motor intact, A&O x3 Psych: affect/mood appropriate Triage Information Reviewed: Yes Vital Signs On Initial Exam: Initial Vitals Temp Pulse Resp BP Pulse Ox 97.7 F 97 18 140/88 98 05/27/17 17:11 05/27/17 17:11 05/27/17 17:11 05/27/17 17:11 05/27/17 17:11 Vital Signs Reviewed: Yes Diagnostics - Vital Signs Vital Signs Temp Pulse Resp BP Pulse Ox 05/27/17 17:11 97.7 F 97 18 140/88 98 - Laboratory Lab Statement: Any lab studies that have been ordered have been reviewed, and results considered in the medical decision making process. GIGU Course/Dx - Course Course Of Treatment: NO CRITICAL CARE TIME. COLOSTOMY BAG CHANGED IN THE ED. DISCHARGE HOME STABLE. - Diagnoses Provider Diagnoses: Colostomy malfunction Discharge - Discharge Plan Condition: Stable Disposition: HOME Patient Education Materials: Colostomy Care (ED) Referrals: Umang Marr MD [Primary Care Provider] - Additional Instructions: FOLLOW UP WITH YOUR DOCTOR. RETURN TO THE EMERGENCY DEPARTMENT FOR ANY WORSENING OF YOUR CONDITION OR QUESTIONS OR CONCERNS. The documentation as recorded by the Alexander dias Rebecca accurately reflects the service I personally performed and the decisions made by me, David Mckeon MD.
[2017-05-27 19:42] VITALS: BP 103/70
== END 2017-05-27 19:44 | disposition home or self-care (01) ==
LOC: ED 17:07
DX: K94.03 Colostomy malfunction (principal); Y83.3 Surgical operation with formation of external stoma as the cause of abnormal reaction of the patient, or of later complication, without mention of misadventure at the time of the procedure; I34.1 Nonrheumatic mitral (valve) prolapse; I48.91 Unspecified atrial fibrillation; I27.2 Other secondary pulmonary hypertension; Z87.891 Personal history of nicotine dependence; E11.9 Type 2 diabetes mellitus without complications
CPT/HCPCS: 99282

== ENCOUNTER 2017-06-15 09:56 | Inpatient (IN) | payer MEDICARE ==
[2017-06-15 10:49] LABS: Urine Bacteria Absent (Absent); Urine Bilirubin Negative (Negative); Urine Glucose Negative (Negative); Urine Nitrite Negative (Negative)
[2017-06-15] MEDS ORDERED: Morphine INJ* 2 MG/ML 1 ML SYRINGE IV ONE (11:48)
[2017-06-15] MEDS ORDERED: NS 0.9% 1000 ML* 1,000 ML IV ONE (12:03)
--- NOTE | 2017-06-15 12:33 | RAD ---
INDICATION: Right flank pain with fever. COMPARISON: Comparison is made with a prior CT of the abdomen and pelvis from May 12, 2017. TECHNIQUE: A CT scan of the abdomen and pelvis was performed without intravenous or oral contrast. Contiguous axial sections were obtained from the lung bases through the symphysis pubis. Images were reconstructed in the coronal and sagittal planes. FINDINGS: The lung bases are clear. No pleural effusion is present. The liver is normal in size. There is a small fluid density lesion present in the superior portion of the right left hepatic lobe measuring 0.7 cm in size unchanged from the prior CT study likely representing a small cyst. No calcified gallstones are seen. The spleen and pancreas appear to be within normal limits on this noncontrast study. The adrenal glands appear to be within normal limits. The right kidney is enlarged with perinephric stranding. There is dilatation of the right renal calyces and pelvis to the level of a calculus at the ureteropelvic junction. This measures 1.0 cm in size and is causing moderate to severe hydronephrosis. No additional ureteral or bladder calculi are seen. The left kidney appears to be within normal limits. The aorta is normal in caliber with mild calcific plaque present. No significant enlarged retroperitoneal lymph nodes are seen. There is a colostomy in the right upper quadrant. There is mild stranding in the adjacent subcutaneous and mesenteric fat adjacent to the colostomy suggesting localized inflammatory change. The stomach, small and large bowel appear nondistended. There is stranding adjacent to the proximal sigmoid colon which is improved from the prior exam most consistent with a resolving diverticulitis. There is a soft tissue tract extending from the sigmoid colon to the top of the urinary bladder on the left side with tethering to the adjacent bladder. The air noted in the urinary bladder on the prior study is no longer present. The patient is status post hysterectomy. No free intraperitoneal air or fluid is seen. No significant focal osseous abnormality is seen. There are superficial subcutaneous nodule in the lower anterior abdominal wall on the left side possibly representing injection sites although nonspecific. IMPRESSION: 1. THERE IS A 1 CM CALCULUS AT THE RIGHT URETEROPELVIC JUNCTION CAUSING MODERATE TO SEVERE RIGHT HYDRONEPHROSIS. 2. THERE IS A COLOSTOMY IN THE RIGHT UPPER QUADRANT. THERE IS STRANDING AROUND THE BOWEL AT THE COLOSTOMY SITE SUGGESTING LOCALIZED INFLAMMATION. 3. RESOLVING INFLAMMATORY CHANGE SURROUNDING THE PROXIMAL SIGMOID COLON. THERE IS TETHERING OF THE ADJACENT URINARY BLADDER WITH THE SIGMOID COLON POSSIBLY REPRESENTING A FISTULA. THE AIR NOTED WITHIN THE URINARY BLADDER ON THE PRIOR STUDY IS NO LONGER PRESENT POSSIBLY INDICATING HEALING OF THE FISTULA. 4. SMALL SUBCUTANEOUS NODULES IN THE LOWER ANTERIOR ABDOMINAL WALL ON THE LEFT SIDE NEW FROM THE PRIOR EXAM POSSIBLY REPRESENTING INJECTION SITES ALTHOUGH NONSPECIFIC. RECOMMEND CLINICAL CORRELATION.
[2017-06-15 13:15] LABS: Hematocrit 40 % (35-47); Hemoglobin 12.7 g/dl (12.0-16.0); Mean Corpuscular HGB Conc 32 g/dl (31-36); Mean Corpuscular Hemoglobin 29 pg (27-31); Mean Corpuscular Volume 92 fL (80-97); Mean Platelet Volume 9 um3 (7.4-10.4); Red Blood Count 4.35 10^6/ul (4.0-5.4); Red Cell Distribution Width 17 % (10.5-15); White Blood Count 18.5 10^3/ul (3.5-10.8)
[2017-06-15 13:16] LABS: Add Diff/Slide Review? Manual Diff Added; Comments Flag Yes
[2017-06-15 13:17] LABS: Add Path Review? YES
[2017-06-15 13:31] LABS: ALT 11 U/L (7-52); AST 13 U/L (13-39); Albumin 3.7 g/dL (3.2-5.2); Alkaline Phosphatase 56 U/L (34-104); Anion Gap 8 mmol/L (2-11); BUN/Creatinine Ratio 7.9 (8-20); Blood Urea Nitrogen 14 mg/dL (6-24); C Reactive Protein 140.62 mg/L (< 5.00); CO2 Carbon Dioxide 23 mmol/L (22-32); Calcium 10.2 mg/dL (8.6-10.3); Chloride 101 mmol/L (101-111); Creatine Kinase 102 U/L (10-223); EGFR African American 36.5 (>60); EGFR Non-African American 28.3 (>60); Globulin 2.8 g/dL (2-4); Glucose 108 mg/dL (70-100); Lipase < 10 U/L (11.0-82.0); Magnesium 1.1 mg/dL (1.9-2.7); Potassium 3.9 mmol/L (3.5-5.0); Sodium 132 mmol/L (133-145); Total Protein 6.5 g/dL (6.4-8.9)
[2017-06-15] MEDS ORDERED: Iohexol 180 (CONTRAST) 10 ML SDV IV ONE (14:17)
[2017-06-15 14:26] LABS: Immature Granulocytes 1 % (0-9); Neutrophil % 83 % (38-83)
[2017-06-15 14:27] LABS: RBC Morphology Normal (Normal)
[2017-06-15] MEDS ORDERED: fentaNYL* 50 MCG/ML 2 ML VIAL (100 MCG VIAL) ONE (15:01)
[2017-06-15] MEDS ORDERED: KETAMINE HCL* 50 MG/ML 10 ML VIAL ONE (15:01)
[2017-06-15] MEDS ORDERED: Midazolam* 1 MG/ML 5 ML VIAL (5 MG) ONE (15:02)
[2017-06-15] MEDS ORDERED: Gentamicin ADULT (*) 40 MG/ML VIAL ONE (15:12)
[2017-06-15] MEDS ORDERED: Phenylephrine INJ* 10 MG/ML 1 ML VIAL (10 MG) ONE (15:57)
[2017-06-15] MEDS ORDERED: Diltiazem IV* 5 MG/ML 5 ML VIAL (for loading dose/IV Push) (25 MG) ONE (15:57)
[2017-06-15] MEDS ORDERED: Metoprolol Tartrate IV* 1 MG/ML 5 ML VIAL ONE (15:57)
[2017-06-15] MEDS ORDERED: Famotidine IV* 10 MG/ML 2 ML (20 mg) ONE (15:57)
[2017-06-15] MEDS ORDERED: Lidocaine 2% PF * 5 ML VIAL ONE (15:57)
[2017-06-15] MEDS ORDERED: Flumazenil* 0.1 MG/ML 5 ML MDV ONE (15:59)
[2017-06-15] MEDS ORDERED: fentaNYL* 50 MCG/ML 2 ML VIAL (100 MCG VIAL) IV PRN (16:23)
[2017-06-15] MEDS ORDERED: PROCHLORPERAZINE INJ 5 MG/ML 2 ML VIAL IV PRN (16:23)
[2017-06-15] MEDS ORDERED: Ondansetron INJ* 2 MG/ML VIAL IV PRN ×2 (16:23→17:11)
--- NOTE | 2017-06-15 16:31 | RAD ---
INDICATION: Ureteral stent placement. COMPARISON: Comparison is made with a prior CT of the abdomen and pelvis from June 15, 2017. TECHNIQUE: 26 seconds of intermittent fluoroscopic guidance were provided and 6 spot films of the abdomen were centered on the right side. FINDINGS: There is partial opacification of the right renal collecting system. Subsequently there is placement of a double-J stent catheter on the right side. IMPRESSION: INTRAOPERATIVE CONTROL FILMS. CPT II Codes: 6045F
[2017-06-15] MEDS ORDERED: oxyCODONE/Acetamin 5/325 MG* TAB PO PRN (17:11)
[2017-06-15] MEDS ORDERED: Acetaminophen TAB* 325 MG PO PRN (17:11)
[2017-06-15] MEDS ORDERED: Morphine INJ* 2 MG/ML 1 ML SYRINGE IV PRN (17:11)
[2017-06-15] MEDS ORDERED: Dextrose 50% Syringe 50 ML* 25 GM/50 ML SYRINGE IV PUSH PRN (17:16)
[2017-06-15] MEDS ORDERED: Albuterol HFA INHALER* 8 gm MDI INH PRN (17:46)
--- NOTE | 2017-06-15 17:47 | ED ---
Abdominal Pain/Female - HPI Summary HPI Summary: Patient with a complicated history presents to ED with CC of right flank pain, fevers, chills and sweats. She denies fever currently. Pain is 8/10, discretely located over the right flank and radiates to the right lower quadrant and right groin. Denies urinary symptoms. She is followed by Dr. Stanton. She is also followed by Dr. 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 She has been seen here before for sepsis and has been inpatient several times. She is obese, diabetic , a-fib is currently on blood thinners and multiple medications. Denies chest pain, SOB. Denies abdominal pain, but endorses distension. She has a colostomy placement from surgery for diverticulitis. Vitals are stable at arrival. - History of Current Complaint Chief Complaint: EDFlankPain Stated Complaint: RIGHT FLANK PAIN,FEVER Time Seen by Provider: 06/15/17 11:16 Hx Obtained From: Patient ?: No Onset/Duration: Sudden Onset Timing: Constant Severity Initially: Moderate Severity Currently: Moderate Pain Intensity: 8 Pain Scale Used: 0-10 Numeric Location: Discrete At: LLQ, Flank Radiates: Yes Radiates to: Inguinal Character: Cramping, Colicy Aggravating Factor(s): Nothing Alleviating Factor(s): Position Associated Signs and Symptoms: Positive: Negative - Risk Factors Ectopic Risk Factor: Negative Ovarian Torsion Risk Factor: Negative Allergies/Adverse Reactions: Allergies Allergy/AdvReac Type Severity Reaction Status Date / Time No Known Drug Allergy Allergy See Comment Verified 05/23/17 14:12 SEASONAL Allergy Sneezing Uncoded 05/20/17 14:41 Home Medications: Home Medications Anastrozole [Anastrozole] 1 mg PO DAILY 06/15/17 [History Confirmed 06/15/17] PMH/Surg Hx/FS Hx/Imm Hx Previously Healthy: No - see below Endocrine/Hematology History: Reports: Hx Diabetes - TYPE II, CONTROLLED WITH MEDICAITON/DIET, Hx Systemic Lupus Erythematosus Denies: Hx Blood Disorders, Hx Blood Transfusions, Hx Bone Marrow Disease, Hx Sickle Cell Disease, Hx Thyroid Disease, Hx Anemia, Hx Unexplained Bleeding Cardiovascular History: Reports: Hx Congestive Heart Failure, Hx Rheumatic Fever - A CHILD, Hx Valvular Heart Disease - mitral valve prolaspe, taking medication, Other Cardiovascular Problems/Disorders - A-fib; PULMONARY HTN; LEAKING MITRAL VALVE. Denies: Hx Aneurysm, Hx Angina, Hx Angioplasty, Hx Auto Implanted Cardiovert Defib, Hx Cardiac Arrest, Hx Deep Vein Thrombosis, Hx Embolism, Hx Hypotension, Hx Hypertension, Hx Pacemaker/ICD, Hx Syncope Respiratory History: Reports: Hx Asthma - COLD RELATED, Hx Pneumonia, Hx Seasonal Allergies, Hx Sleep Apnea Denies: Hx Chronic Obstructive Pulmonary Disease (COPD), Hx Cystic Fibrosis, Hx Lung Cancer, Hx Pleural Effusion, Hx Pulmonary Edema, Hx Pulmonary Embolism GI History: Reports: Hx Diverticulosis Denies: Hx Cirrhosis, Hx Crohn's Disease, Hx Gall Bladder Disease, Hx Gastroesophageal Reflux Disease, Hx Gastrointestinal Bleed, Hx Hiatal Hernia, Hx Irritable Bowel, Hx Jaundice, Hx Obstructive Bowel, Hx Ileostomy, Hx Pyloric Stenosis, Hx Ulcer, Other GI Disorders History: Reports: Hx Kidney Stones Denies: Hx Acute Renal Failure, Hx Benign Prostatic Hyperplasia, Hx Chronic Renal Failure, Hx Dialysis, Hx Renal Disease - KIDNEY STONE AT PRESENT TIME, Other Problems/Disorders Musculoskeletal History: Reports: Hx Arthritis, Hx Scoliosis, Other Musculoskeletal History - joint pain with lupus Denies: Hx Fibromyalgia, Hx Gout, Hx Orthopedic Injury, Hx Osteoporosis, Hx Tendonitis Sensory History: Reports: Hx Contacts or Glasses - WEARS GLASSES Denies: Hx Legally Blind, Hx Hearing Aid Opthamlomology History: Reports: Hx Contacts or Glasses - WEARS GLASSES Denies: Hx Legally Blind Neurological History: Denies: Hx Dementia, Hx Developmental Delay, Hx Headaches, Hx Migraine, Hx Nerve Disease, Hx Seizures, Hx Spinal Cord Injury, Hx Transient Ischemic Attacks (TIA), Other Neuro Impairments/Disorders Psychiatric History: Denies: Hx Anxiety, Hx Attention Deficit Hyperactivity Disorder, Hx Eating Disorder, Hx Depression, Hx Panic Disorder, Hx Post Traumatic Stress Disorder, Hx Community Mental Health Tx, Hx Schizophrenia, Hx Bipolar Disorder, Hx Suicide Attempt, Hx of Violent Episodes Against Others, Hx Substance Abuse, Other Psychiatric Issues/Disorders - Cancer History Cancer Type, Location and Year: RIGHT BREAST Hx Chemotherapy: No - has not started yet Hx Radiation Therapy: No - Surgical History Surgery Procedure, Year, and Place: 2 C-SECTIONS. HYSTERECTOMY. TUBAL LIGATION. REPAIR OF FRACTURED ANKLE. ALL DONE AT [facility] [place] Anesthesia Reactions: Yes - [id number]- VERY SLEEPY FOR DAYS - Immunization History Hx Pertussis Vaccination: No Immunizations Up to Date: Unable to Obtain/Confirm Infectious Disease History: No Infectious Disease History: Denies: Hx Hepatitis, Hx Tuberculosis, Traveled Outside the [place] in Last 30 Days - Family History Known Family History: Positive: Other - no family history of breast cancer - Social History Occupation: Unemployed Lives: With Family Alcohol Use: None Alcohol Amount: NOT CURRENTLY, BUT IN THE PAST, HAS HAD A BEER A NIGHT Hx Substance Use: No Substance Use Type: Reports: None Hx Tobacco Use: No Smoking Status (MU): Former Smoker Amount Used/How Often: ON/OFF 25 YEARS, 1/2 PPD Have You Smoked in the Last Year: No Review of Systems Positive: Fever, Skin Diaphoresis Eyes: Negative ENT: Negative Cardiovascular: Negative Respiratory: Negative Positive: Abdominal Pain Positive: flank pain Positive: Arthralgia, Myalgia Skin: Negative Neurological: Negative Psychological: Normal All Other Systems Reviewed And Are Negative: Yes Physical Exam Triage Information Reviewed: Yes Vital Signs On Initial Exam: Initial Vitals Temp Pulse Resp BP Pulse Ox 98.3 F 100 19 114/87 96 06/15/17 09:57 06/15/17 09:57 06/15/17 09:57 06/15/17 09:57 06/15/17 09:57 Vital Signs Reviewed: Yes Appearance: Positive: Well-Appearing, Well-Nourished Skin: Positive: Warm, Skin Color Reflects Adequate Perfusion Head/Face: Positive: Normal Head/Face Inspection Eyes: Positive: EOMI, JOSE, Conjunctiva Clear Neck: Positive: Supple, No Lymphadenopathy Respiratory/Lung Sounds: Positive: Breath Sounds Present Cardiovascular: Positive: Normal, Pulses are Symmetrical in both Upper and Lower Extremities, IRR Musculoskeletal: Positive: Strength/ROM Intact, Pain @ - right flank pain Neurological: Positive: Sensory/Motor Intact, Alert, Oriented to Person Place, Time Psychiatric: Positive: Normal AVPU Assessment: Alert - [place] Coma Scale Coma Scale Total: 15 Diagnostics - Vital Signs Vital Signs Temp Pulse Resp BP Pulse Ox 06/15/17 17:00 98.6 F 100 20 138/79 100 06/15/17 16:45 109 22 142/74 98 06/15/17 16:30 99 24 132/72 99 06/15/17 16:15 104 24 151/88 97 06/15/17 16:10 104 22 136/72 97 06/15/17 16:05 104 20 136/72 96 07/23/17 16:03 99.3 F 106 28 138/82 94 06/15/17 14:11 74 18 151/77 98 06/15/17 13:30 99.1 F 112 18 143/59 98 06/15/17 13:18 18 06/15/17 09:57 98.3 F 100 19 114/87 96 - Laboratory Lab Results: Lab Results 06/15/17 06/15/17 06/15/17 Range/Units 10:17 13:00 13:00 WBC 18.5 H (3.5-10.8) 10^3/ul RBC 4.35 (4.0-5.4) 10^6/ul Hgb 12.7 (12.0-16.0) g/dl Hct 40 (35-47) % MCV 92 (80-97) fL MCH 29 (27-31) pg MCHC 32 (31-36) g/dl RDW 17 H (10.5-15) % Plt Count 208 (150-450) 10^3/ul MPV 9 (7.4-10.4) um3 Immature Gran % (Auto) 1 (0-9) % Absolute Neuts (auto) 16.4 H (1.5-7.7) 10^3/ul Absolute Lymphs (auto) 0.8 L (1.0-4.8) 10^3/ul Absolute Monos (auto) 1.2 H (0-0.8) 10^3/ul Absolute Eos (auto) 0 (0-0.6) 10^3/ul Absolute Basos (auto) 0.1 (0-0.2) 10^3/ul Absolute Nucleated RBC 0 10^3/ul Neutrophils % 83 (38-83) % Band Neutrophils % 1 (0-8) % Lymphocytes % 7 L (25-47) % Monocytes % 9 (0-13) % Normal RBC Morphology Normal (Normal) Hem Pathologist Commnt Pending Sodium 132 L (133-145) mmol/L Potassium 3.9 (3.5-5.0) mmol/L Chloride 101 (101-111) mmol/L Carbon Dioxide 23 (22-32) mmol/L Anion Gap 8 (2-11) mmol/L BUN 14 (6-24) mg/dL Creatinine 1.78 H (0.51-0.95) mg/dL Est GFR ( Amer) 36.5 (>60) Est GFR (Non-Af Amer) 28.3 (>60) BUN/Creatinine Ratio 7.9 L (8-20) Glucose 108 H (70-100) mg/dL POC Glucose (mg/dL) (74-106) mg/dL Lactic Acid (0.5-2.0) mmol/L Calcium 10.2 (8.6-10.3) mg/dL Magnesium 1.1 L (1.9-2.7) mg/dL Total Bilirubin 1.00 (0.2-1.0) mg/dL AST 13 (13-39) U/L ALT 11 (7-52) U/L Alkaline Phosphatase 56 (34-104) U/L Total Creatine Kinase 102 (10-223) U/L C-Reactive Protein 140.62 H (< 5.00) mg/L Total Protein 6.5 (6.4-8.9) g/dL Albumin 3.7 (3.2-5.2) g/dL Globulin 2.8 (2-4) g/dL Albumin/Globulin Ratio 1.3 (1-3) Lipase < 10 L (11.0-82.0) U/L Urine Color Yellow Urine Appearance Cloudy Urine pH 5.0 (5-9) Ur Specific [place] 1.019 (1.010-1.030) Urine Protein Negative (Negative) Urine Ketones Negative (Negative) Urine Blood 1+ H (Negative) Urine Nitrate Negative (Negative) Urine Bilirubin Negative (Negative) Urine Urobilinogen Negative (Negative) Ur Leukocyte Esterase 3+ H (Negative) Urine WBC (Auto) 3+(>20/hpf) H (Absent) Urine RBC (Auto) 3+(>10/hpf) H (Absent) Ur Squamous Epith Cells Present H (Absent) Urine Bacteria Absent (Absent) Urine Glucose Negative (Negative) 06/15/17 06/15/17 Range/Units 13:00 16:11 WBC (3.5-10.8) 10^3/ul RBC (4.0-5.4) 10^6/ul Hgb (12.0-16.0) g/dl Hct (35-47) % MCV (80-97) fL MCH (27-31) pg MCHC (31-36) g/dl RDW (10.5-15) % Plt Count (150-450) 10^3/ul MPV (7.4-10.4) um3 Immature Gran % (Auto) (0-9) % Absolute Neuts (auto) (1.5-7.7) 10^3/ul Absolute Lymphs (auto) (1.0-4.8) 10^3/ul Absolute Monos (auto) (0-0.8) 10^3/ul Absolute Eos (auto) (0-0.6) 10^3/ul Absolute Basos (auto) (0-0.2) 10^3/ul Absolute Nucleated RBC 10^3/ul Neutrophils % (38-83) % Band Neutrophils % (0-8) % Lymphocytes % (25-47) % Monocytes % (0-13) % Normal RBC Morphology (Normal) Hem Pathologist Commnt Sodium (133-145) mmol/L Potassium (3.5-5.0) mmol/L Chloride (101-111) mmol/L Carbon Dioxide (22-32) mmol/L Anion Gap (2-11) mmol/L BUN (6-24) mg/dL Creatinine (0.51-0.95) mg/dL Est GFR ( Amer) (>60) Est GFR (Non-Af Amer) (>60) BUN/Creatinine Ratio (8-20) Glucose (70-100) mg/dL POC Glucose (mg/dL) 69 L (74-106) mg/dL Lactic Acid 1.3 (0.5-2.0) mmol/L Calcium (8.6-10.3) mg/dL Magnesium (1.9-2.7) mg/dL Total Bilirubin (0.2-1.0) mg/dL AST (13-39) U/L ALT (7-52) U/L Alkaline Phosphatase (34-104) U/L Total Creatine Kinase (10-223) U/L C-Reactive Protein (< 5.00) mg/L Total Protein (6.4-8.9) g/dL Albumin (3.2-5.2) g/dL Globulin (2-4) g/dL Albumin/Globulin Ratio (1-3) Lipase (11.0-82.0) U/L Urine Color Urine Appearance Urine pH (5-9) Ur Specific [place] (1.010-1.030) Urine Protein (Negative) Urine Ketones (Negative) Urine Blood (Negative) Urine Nitrate (Negative) Urine Bilirubin (Negative) Urine Urobilinogen (Negative) Ur Leukocyte Esterase (Negative) Urine WBC (Auto) (Absent) Urine RBC (Auto) (Absent) Ur Squamous Epith Cells (Absent) Urine Bacteria (Absent) Urine Glucose (Negative) Result Diagrams: 06/15/17 13:00 06/15/17 13:00 Lab Statement: Any lab studies that have been ordered have been reviewed, and results considered in the medical decision making process. Abdominal Pain Fem Course/Dx - Course Course Of Treatment: Patient given IV fluids, CT scan of abdomen shows: IMPRESSION: 1. THERE IS A 1 CM CALCULUS AT THE RIGHT URETEROPELVIC JUNCTION CAUSING MODERATE TO SEVERE. RIGHT HYDRONEPHROSIS. 2. THERE IS A COLOSTOMY IN THE RIGHT UPPER QUADRANT. THERE IS STRANDING AROUND THE BOWEL. AT THE COLOSTOMY SITE SUGGESTING LOCALIZED INFLAMMATION. 3. RESOLVING INFLAMMATORY CHANGE SURROUNDING THE PROXIMAL SIGMOID COLON. THERE IS. TETHERING OF THE ADJACENT URINARY BLADDER WITH THE SIGMOID COLON POSSIBLY REPRESENTING A. FISTULA. THE AIR NOTED WITHIN THE URINARY BLADDER ON THE PRIOR STUDY IS NO LONGER PRESENT. POSSIBLY INDICATING HEALING OF THE FISTULA. 4. SMALL SUBCUTANEOUS NODULES IN THE LOWER ANTERIOR ABDOMINAL WALL ON THE LEFT SIDE NEW. FROM THE PRIOR EXAM POSSIBLY REPRESENTING INJECTION SITES ALTHOUGH NONSPECIFIC. RECOMMEND. CLINICAL CORRELATION. Called Dr. South who accepted patient for stent placement. Attempted to call Dr. Stanton but no answer. Taken to OR. Gentamycin 160mg and Rocephin 2mg given prior to arrival. Blood cultures and urine cultures sent prior to abx start. WBC 18.5. - Diagnoses Differential Diagnosis: Positive: Bowel Obstruction, Diverticulitis, Renal Colic Provider Diagnoses: Ureteral stone with hydronephrosis Discharge - Discharge Plan Condition: Stable Disposition: ADMITTED TO [facility]
--- NOTE | 2017-06-15 18:44 | RAD ---
INDICATION: Right kidney stone evaluate ureteral stent placement. COMPARISON: Comparison is made with a prior CT of the abdomen and pelvis of the same day from approximately 6 hours earlier. TECHNIQUE: A CT scan of the abdomen and pelvis was performed without intravenous or oral contrast. Contiguous axial sections were obtained from the lung bases through the symphysis pubis. Images were reconstructed in the coronal and sagittal planes. FINDINGS: There are small patchy infiltrates at both lung bases which appear new from the prior exam. No pleural effusion is seen. There is a seroma present within the right breast which is partially visualized on this study. This was more completely evaluated on the prior CT study from May 12, 2017. The patient is status post placement of a ureteral stent on the right side. The proximal portion of the stent catheter appears to be in an upper pole calyx and the distal portion of the stent is within the urinary bladder. The calculus which was located at the ureteropelvic junction has been pushed back into the renal pelvis and measures 1.2 x 0.8 cm in size. There has been interval resolution of the previously noted hydronephrosis. There is a Kulkarni catheter and air within the urinary bladder. There is otherwise no change from the prior CT of the abdomen and pelvis obtained earlier today. See that report for more comprehensive information. No free intraperitoneal air or fluid is seen. IMPRESSION: 1. THERE ARE PATCHY INFILTRATES AT BOTH LUNG BASES WHICH ARE NEW FROM THE PRIOR STUDY. 2. STATUS POST PLACEMENT OF A URETERAL STENT CATHETER ON THE RIGHT SIDE AND INTERVAL RESOLUTION OF THE PREVIOUSLY NOTED HYDRONEPHROSIS. THERE IS A CALCULUS WITHIN THE RIGHT RENAL PELVIS DESCRIBED. THERE IS OTHERWISE NO SIGNIFICANT CHANGE FROM THE PRIOR CT OBTAINED EARLIER TODAY.
[2017-06-15] MEDS: NS 0.9% 1000 ML* 1,000 ML IV SCH ×2 (18:58→21:22)
[2017-06-15] MEDS ORDERED: D5W 1/2 NS 1000 ML BAG* 1,000 ML IV SCH (19:00)
[2017-06-15] MEDS: Carvedilol TAB* 6.25 MG PO SCH ×2 (19:05→21:00)
[2017-06-15] MEDS: Diltiazem CD CAP* 240 MG PO SCH (19:05)
[2017-06-15] MEDS: Insulin LISPRO* 1 UNITS UNIT SUBCUT SCH (21:23)
[2017-06-15] MEDS: Docusate CAP* 100 MG PO SCH (21:25)
[2017-06-15] MEDS: Polyethylene Glycol 3350* 17 GM PACKET PO SCH (21:25)
[2017-06-15] MEDS: Potassium Chlor TAB* 20 MEQ TAB.ER PO SCH (21:25)
[2017-06-15] MEDS: Insulin GLARGINE(*) 1 UNITS UNIT SUBCUT SCH (21:28)
[2017-06-15] MEDS: Magnesium Oxide TAB* 400 MG PO SCH (22:27)
--- NOTE | 2017-06-16 05:14 | HP ---
CC: Dr. Marr; Dr. Bernard; Dr. South * ADMISSION HISTORY AND PHYSICAL: DATE OF ADMISSION: 06/15/17 PRIMARY CARE PROVIDER: Dr. Marr. CONSULTING UROLOGIST: Dr. South. PRIMARY ONCOLOGIST: Dr. Bernard. ADMITTING PROVIDER: DIANA Olmstead SUPERVISING PHYSICIAN: Apolinar Guzman MD * (dictated by DIANA Olmstead) CHIEF COMPLAINT: Right flank pain with fever and chills. HISTORY OF PRESENT ILLNESS: This is a 67-year-old female, who has had a complicated and unfortunate last couple of months including rather recent diagnosis of breast cancer as well as diverticulitis with a colovesicular fistula, status post colostomy, who presented to the emergency department with complaints of right flank pain today. The patient was evaluated status post retrograde pyelogram with stent placement in the PACU and she is still fairly sedated from her general anesthesia, so her history is gleaned mostly from emergency department provider and record review. CT of the abdomen and pelvis completed in the emergency department demonstrated a 1 cm stone at the level of the UPJ with [id number] hydronephrosis. Urinalysis was suggestive of infection. The patient's urologist, Dr. South was contacted, who came into the hospital to perform retrograde pyelogram with stent placement. The patient had a leukocytosis and significantly elevated CRP as well as mild tachycardia in the emergency department. No measured fevers. Dr. South stated that he had some difficulty with stent placement due to a tortuous ureter and radiolucency of the stone and for that reason is requested a repeat CT scan later this evening. Hospitalist group has been asked to admit due to her multiple medical problems for further observation overnight. In regards to her medical history as mentioned above, the patient had a relatively recent diagnosis of breast cancer and is now status post mastectomy. She has had a port placed, but chemotherapy has been delayed due to multiple hospitalizations and complications surrounding diverticulitis with colovesicular fistula. The patient underwent diverting loop colostomy on with Dr. Charles for treatment of her colovesicular fistula and previous to that had been treated with prolonged antibiotics for her diverticulitis. The patient was discharged with the Kulkarni catheter in place on 05/24/17 with plans to remove when her urine appeared to be more clear. Per surgical nurse, the patient did not arrive with the catheter in place, unsure of when that was removed. The patient has been started on an aromatase inhibitor by Oncology due to the delay in her chemotherapy. Unsure of what future oncologic plans look like for her. The patient is able to state that she did not take any of her home medications this morning before reaching the emergency department. PAST MEDICAL HISTORY: 1. Recent diverticulitis with colovesicular fistula, now status post diverting loop colostomy. 2. Atrial fibrillation - anticoagulated with Coumadin. 3. Insulin dependent diabetes. 4. Breast cancer, status post mastectomy awaiting chemotherapy. 5. Hypertension. 6. Lupus - unsure of whether her Plaquenil seen on previous medication list is active. 7. Obstructive sleep apnea with CPAP at home and intermittent use. 8. Rheumatic heart disease with mitral stenosis and mitral insufficiency. 9. Recent splenic infarct. 10. Morbid obesity with a BMI of 49. 11. Stage 3 chronic kidney disease. PAST SURGICAL HISTORY: 1. Mastectomy. 2. . 3. Hysterectomy. 4. Tonsillectomy. 5. Ankle ORIF. HOME MEDICATIONS: (The patient is unable to confirm her medication list at this time and this list is based on her discharge from earlier this month). 1. Acetaminophen 650 mg p.o. q.6 hours p.r.n. pain or fever. 2. Albuterol inhaler 2 puffs inhaled 4 times a day as needed for shortness of breath. 3. Allopurinol 300 mg p.o. daily. 4. Anastrozole 1 mg p.o. daily. 5. Vitamin C 500 mg p.o. daily. 6. Carvedilol 12.5 mg p.o. b.i.d. 7. Vitamin D 5000 units p.o. daily. 8. Diltiazem 240 mg p.o. daily. 9. Docusate 200 mg p.o. b.i.d. 10. Lantus 10 units subcu daily. 11. Humalog on a sliding scale with meal time. 12. Mag oxide 400 mg p.o. twice daily. 13. MiraLAX 17g p.o. twice daily. 14. Potassium chloride 20 mEq p.o. 3 times daily. 15. Spironolactone 25 mg p.o. every other day. 16. Torsemide 20 mg p.o. daily. 17. Coumadin 6 mg p.o. daily. 18. Percocet 5/325 mg one tablet p.o. q.4 hours as needed for pain. SOCIAL HISTORY: The patient quit smoking in 1996 and lives at home with her . REVIEW OF SYSTEMS: Unable to obtain full review of systems due to patient's lethargy, please see HPI for details. PHYSICAL EXAMINATION VITAL SIGNS: Temperature 98.4 degrees Fahrenheit, pulse 105 beats per minute, respiratory rate 20 per minute, oxygen saturation 99% on 3 L, and blood pressure 131/78 mmHg. General: Lethargic obese female in NAD. Opens eyes with conversation, but falls asleep easily. Smiles, in NAD. Examined in PACU HEENT: Head NCAT, MMM CV: Heart has a RRR, no m/r/g Resp: Lung clear to auscultation, no w/c/r Abd: Abd soft, NTTP, colostomy in place with minimal drainage Extremities: Limited edema Skin: No concerning rashes or lesions DIAGNOSTIC STUDIES/LAB DATA: CBC shows a white blood cell count of 18,500, hemoglobin of 12.7 g/dL, and platelet count of 208,000. Comprehensive metabolic panel shows sodium of 132 mmol/L, potassium 3.9, BUN 14, creatinine 1.78, random glucose of 108 mg/dL. Lactic acid 1.3. Transaminases and total bilirubin within normal limits. CRP 140. Lipase is negative, listed as less than 10. Urinalysis shows 1+ blood, 3+ leuk esterase, nitrates negative, 3+ red blood cells. IMAGIN. CT of the abdomen and pelvis shows right UPJ stone measuring 1 cm with [id number] right hydronephrosis and a colostomy in place. 2. Rhythm strip demonstrates atrial fibrillation with rate in the low 100s. ASSESSMENT AND PLAN: This is a 67-year-old female with a complicated medical history including recent diagnosis of breast cancer, status post mastectomy following admission for diverticulitis with colovesicular fistula, now status post colostomy with atrial fibrillation, insulin dependent diabetes, stage 3 chronic kidney disease, hypertension, lupus, obstructive sleep apnea, rheumatic heart disease, recent splenic infarct and morbid obesity who presents with an obstructing right ureteral stone in the setting of infected urine now status post retrograde pyelogram with right ureteral stent placement by Dr. South earlier today. 1. Obstructing right ureteral stone with associated infection - the patient is status post retrograde pyelogram with ureteral stent placement. Dr. South reported that he had some difficulty confirming stent placement during the procedure due to radiolucency of the stone and for this reason, a repeat CT scan has been ordered for later today to confirm appropriate placement and improvement in her hydronephrosis. She remains afebrile at this time. She is mildly tachycardic, but appears to be atrial fibrillation and she did not take her rate control medications earlier today, so doubt that this represents a true sign of sepsis. She remains normotensive otherwise. Plan to treat with ceftriaxone. She also received the dose of gentamicin in the emergency department and urine cultures are pending at this time. 2. Colostomy in place secondary to colovesicular fistula as a result of diverticulitis. Colostomy site appears well healed without evidence of associated infection. 3. Atrial fibrillation - the patient is chronically anticoagulated with Coumadin. INR studies were not completed in the emergency department that has been ordered and are pending at this time. We will plan to continue her listed dose of Coumadin depending on her INR value. She is mildly tachycardic at this time, but did not take her diltiazem or carvedilol this morning. We will give her both of these medications at this time and continue to monitor her heart rate. 4. Insulin dependent diabetes - continue her home dose of Lantus with sliding scale Humalog for additional glycemic control. Her postoperative fingerstick was 69 mg/dL. 5. Hypertension - plan to continue her home antihypertensives. She has been normotensive to slightly hypertensive throughout the day today. 6. Breast cancer - status post mastectomy, currently maintained on an aromatase inhibitor with port in place for initiation of adjuvant chemotherapy, which has been on hold due to multiple infectious complications. She is followed by Dr. Melissa Bernard for oncology care. 7. Lupus - I do not see any disease modifying agents on her home medication list at this time, perhaps they have been held due to complications with diverticulitis, but unable to confirm this at this time. 8. Obstructive sleep apnea - reports intermittent compliance with CPAP at home , but this will be ordered for use during her hospital stay. 9. Rheumatic heart disease with mitral stenosis and mitral insufficiency, but preserved ejection fraction per echocardiogram earlier this year - we will plan to continue home medications, but hold diuretics at this time. 10. Recent splenic infarcts - continue anticoagulation with Coumadin. 11. Morbid obesity with a BMI of 49. 12. Code status: The patient is a full code. 13. DVT prophylaxis: The patient is anticoagulated with Coumadin. 14. Healthcare proxy is the patient's , Norberto. DISPOSITION: The patient is being admitted under observation status at this time with pending repeat CT for later this evening, anticipate possible discharge for tomorrow. DIANA OLMSTEAD [id number]/CPS #: [id number]
[2017-06-16 06:29] LABS: Hematocrit 37 % (35-47); Hemoglobin 11.9 g/dl (12.0-16.0); Mean Corpuscular HGB Conc 32 g/dl (31-36); Mean Corpuscular Hemoglobin 29 pg (27-31); Mean Corpuscular Volume 92 fL (80-97); Mean Platelet Volume 9 um3 (7.4-10.4); Red Blood Count 4.09 10^6/ul (4.0-5.4); Red Cell Distribution Width 17 % (10.5-15); White Blood Count 12.5 10^3/ul (3.5-10.8)
[2017-06-16 06:37] LABS: BUN/Creatinine Ratio 10.4 (8-20); Calcium 9.2 mg/dL (8.6-10.3); EGFR African American 46.6 (>60); EGFR Non-African American 36.2 (>60); Potassium 3.4 mmol/L (3.5-5.0)
[2017-06-16] MEDS: Insulin LISPRO* 1 UNITS UNIT SUBCUT SCH ×4 (09:02→21:20)
[2017-06-16] MEDS: Polyethylene Glycol 3350* 17 GM PACKET PO SCH ×2 (10:10→21:26)
[2017-06-16] MEDS: Diltiazem CD CAP* 240 MG PO SCH (10:15)
[2017-06-16] MEDS: Potassium Chlor TAB* 20 MEQ TAB.ER PO SCH ×3 (10:15→21:25)
[2017-06-16] MEDS: Docusate CAP* 100 MG PO SCH ×2 (10:15→21:26)
[2017-06-16] MEDS: CMC:Anastrozole (NF) 1 MG TAB PO SCH (10:15)
[2017-06-16] MEDS: Carvedilol TAB* 6.25 MG PO SCH ×2 (10:15→21:25)
[2017-06-16] MEDS: Magnesium Oxide TAB* 400 MG PO SCH ×2 (10:15→23:22)
[2017-06-16] MEDS: Allopurinol TAB* 300 MG PO SCH (10:15)
[2017-06-16] MEDS: cefTRIAXone VIAL(*) 1,000 MG in NS 0.9% 50 ML* 50 ML IVPB SCH (14:02)
--- NOTE | 2017-06-16 15:22 | PN ---
Subjective Date of Service: 06/16/17 Interval History: HOSPITALIST PROGRESS NOTE Patient seen and examined at bedside. She denies pain, but feels very cold today. Family History: Unchanged from Admission Social History: Unchanged from Admission Past Medical History: Unchanged from Admission Objective Active Medications: Acetaminophen (Tylenol Tab*) 650 mg PO Q4H PRN PRN Reason: FEVER/PAIN Last Admin: 06/16/17 03:42 Dose: 650 mg Albuterol (Ventolin Hfa Inhaler*) 2 puff INH QID PRN PRN Reason: SOB/WHEEZING Allopurinol (Zyloprim Tab*) 300 mg PO QAM [facility] Last Admin: 06/16/17 10:15 Dose: 300 mg Anastrozole (Arimidex (Nf)) 1 mg PO DAILY [facility] Last Admin: 06/16/17 10:15 Dose: Not Given Carvedilol (Coreg Tab*) 12.5 mg PO BID [facility] Last Admin: 06/16/17 10:15 Dose: 12.5 mg Dextrose (D50w Syringe 50 Ml*) 12.5 gm IV PUSH .FOR FS < 60 - SS PRN PRN Reason: FS < 60 Diltiazem HCl (Cardizem Cd Cap*) 240 mg PO DAILY [facility] Last Admin: 06/16/17 10:15 Dose: 240 mg Docusate Sodium (Colace Cap*) 200 mg PO BID [facility] Last Admin: 06/16/17 10:15 Dose: Not Given Ceftriaxone Sodium 1,000 mg/ (Sodium Chloride) 50 mls @ 200 mls/hr IVPB Q24H [facility] Last Admin: 06/16/17 14:02 Dose: 200 mls/hr Insulin Glargine (Lantus(*)) 10 units SUBCUT Q24H [facility] Last Admin: 06/15/17 21:28 Dose: 10 units Insulin Human Lispro (Humalog*) 0 units SUBCUT ACHS [facility] PRN Reason: Protocol Last Admin: 06/16/17 12:43 Dose: Not Given Magnesium Oxide (Magox 400 Tab*) 400 mg PO 1100,2300 [facility] Last Admin: 06/16/17 10:15 Dose: 400 mg Morphine Sulfate (Morphine Inj (Syringe)*) 2 mg IV Q4H PRN PRN Reason: PAIN Ondansetron HCl (Zofran Inj*) 4 mg IV Q4H PRN PRN Reason: NAUSEA/VOMITING Last Admin: 06/16/17 10:22 Dose: 4 mg Oxycodone/Acetaminophen (Percocet 5/325 Tab*) 1 tab PO Q4H PRN PRN Reason: Pain Polyethylene Glycol/Electrolytes (Miralax*) 17 gm PO 0800,2100 [facility] Last Admin: 06/16/17 10:10 Dose: Not Given Potassium Chloride (Klor Con Er Tab*) 20 meq PO TID [facility] Last Admin: 06/16/17 14:02 Dose: 20 meq Warfarin Sodium (Coumadin Tab(*)) 6 mg PO DAILY@1700 [facility] PRN Reason: Protocol Vital Signs 06/16/17 11:07 Temperature 100.2 F Pulse Rate 93 Respiratory 16 Rate Blood Pressure 131/49 (mmHg) O2 Sat by Pulse 95 Oximetry Oxygen Devices in Use Now: Nasal Cannula Appearance: Morbid obese lady lying in bed in NAD. Eyes: No Scleral Icterus Ears/Nose/Mouth/Throat: Mucous Membranes Moist Neck: Trachea Midline Respiratory: Symmetrical Chest Expansion and Respiratory Effort, Clear to Auscultation Cardiovascular: RRR - Normal S1 and S2, +SM Abdominal: NL Sounds; No Tenderness; No Distention - obese, working ostomy Neurological: Alert and Oriented x 3, NL Muscle Strength and Tone Lines/Tubes/Other Access: Clean, Dry and Intact Peripheral IV Nutrition: Taking PO's Result Diagrams: 06/16/17 06:10 06/16/17 06:10 Assess/Plan/Problems-Billing Assessment: Mrs. 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 - Patient Problems (1) Sepsis Comment: - Patient met sepsis criteria with fever, tachycardia, and leukocytosis. - Source is pyelonephritis. (2) Pyelonephritis Comment: - UA was positive. - Follow urine culture. - Continue Ceftriaxone. (3) Nephrolithiasis Comment: - CT abdome showed moderate to severe hydronephrosis secondary to stone at right UPJ. - S/p cystoscopy with stent placement. - Management as per Urology. - Keep Kulkarni catheter. (4) Breast CA Comment: - Continue Anastrozole. (5) Afib Comment: - Continue Caverdilol, Cardizem, Warfarin. (6) Type 2 diabetes mellitus Comment: - Continue Lantus and Lispro SS. (7) DVT prophylaxis Comment: - Warfarin. (8) Full code status Status and Disposition: Inpatient.
[2017-06-16] MEDS: Warfarin TAB(*) 6 MG PO SCH (17:06)
[2017-06-16] MEDS: Insulin GLARGINE(*) 1 UNITS UNIT SUBCUT SCH (21:24)
--- NOTE | 2017-06-17 00:18 | OP ---
DATE OF OPERATION: 06/15/17 - ROOM #349 DATE OF : 48 SURGEON: Sp South MD ANESTHESIOLOGIST: Dr. Marquis Vasquez. ANESTHESIA: IV sedation with MAC. PRE-OP DIAGNOSES: 1. Obstructing right UPJ calculus (1 cm.) 2. Right hydronephrosis due to above. 3. Right pyelonephritis due to above. POST-OP DIAGNOSES: 1. Obstructing right UPJ calculus (1 cm) 2. Right hydronephrosis due to above. 3. Right pyelonephritis due to above. 4. Tortuous right ureter. OPERATIVE PROCEDURE: 1. Cystoscopy. 2. Right retrograde pyelography and placement of right ureteral stent. INDICATION FOR PROCEDURE: Ms. Anand is a 67-year-old female who has history of uric acid nephrolithiasis and has been maintained on allopurinol. She is known to have a 1 cm radiolucent calculus in the lower pole calyx of the right kidney. The patient had acute diverticulitis with a colovesical fistula and had a diverting colostomy done by Dr Charles at [facility] about 3 weeks ago. The patient presented to the emergency room today with a 2 to 3 days history of right flank pain and some chilliness. In the emergency room, [place] [id number] with a shift, serum creatinine was 1.8. Urinalysis was positive for infection. Temperature was 100. Noncontrast CT of the abdomen and pelvis showed 1 cm calculus at the right ureteropelvic junction with significant degree of right hydronephrosis and stranding around the right kidney. The patient had blood and urine cultures obtained, she was started on IV Rocephin and IV gentamicin. Because the patient is on Coumadin for atrial fibrillation, she is not a candidate for percutaneous nephrostomy tube placement and decision was made to proceed with urgent placement of right ureteral stent. PATHOLOGY AT CYSTOSCOPY: The bladder mucosa showed diffuse hyperemia consistent with cystitis. The ureteral orifices looked normal. There was a single orifice on each side. More hyperemia and distortion of the left anterior bladder wall was noted consistent with the history of colovesical fistula. At fluoroscopy, no abnormal calcifications were noted in the area of the right kidney confirming that the stone is in most likelihood uric acid in composition. There was medial deviation of the distal third of the right ureter and rather acute angulation of the mid ureter making intubating the ureter difficult. DESCRIPTION OF PROCEDURE: Under IV sedation with anesthesia monitoring, the patient was placed in the lithotomy position and prepped and draped for cystoscopy. Cystoscopy was performed. The bladder was inspected and the above findings were noted. A glidewire was then introduced into the right orifice and there was significant degree of difficulty bypassing the above curvatures and angulation of the ureter. After several attempts, the glidewire was successfully introduced in the area consistent with the renal pelvis. An open-ended catheter was then fed on top of the glidewire and with some difficulty was positioned in the proximal ureter , but could not be introduced into the area consistent with the renal pelvis. I did not want to pull the glidewire out to perform a retrograde pyelography for concern that the glidewire could not be reintroduced and the kidney cannot be drained. The open-ended catheter was removed without performing a retrograde pyelography. A size 6-Tajik stent was then placed with the proximal end coiling in what looked like an upper pole calyx and the distal end coiling inside the bladder. There seemed to be prompt drainage of urine around the stent. A size 18-Tajik Kulkarni catheter was placed. The patient tolerated the procedure well and left the operating room in good condition. The plan is to obtain a postoperative CT of the abdomen and pelvis to check on the position of the stent and to confirm that it is in the collecting system proximal to the stone. [id number]/[facility] #: [id number] MTDD
[2017-06-17 06:07] LABS: Hematocrit 34 % (35-47); Hemoglobin 11.2 g/dl (12.0-16.0); Mean Corpuscular HGB Conc 33 g/dl (31-36); Mean Corpuscular Hemoglobin 29 pg (27-31); Mean Corpuscular Volume 90 fL (80-97); Mean Platelet Volume 9 um3 (7.4-10.4); Red Blood Count 3.82 10^6/ul (4.0-5.4); Red Cell Distribution Width 17 % (10.5-15); White Blood Count 8.8 10^3/ul (3.5-10.8)
[2017-06-17 06:24] LABS: BUN/Creatinine Ratio 12.3 (8-20); Calcium 9.1 mg/dL (8.6-10.3); EGFR African American 56.4 (>60); EGFR Non-African American 43.8 (>60); Potassium 3.6 mmol/L (3.5-5.0)
[2017-06-17] MEDS: Insulin LISPRO* 1 UNITS UNIT SUBCUT SCH ×4 (07:38→21:18)
[2017-06-17] MEDS: Docusate CAP* 100 MG PO SCH ×2 (08:48→21:18)
[2017-06-17] MEDS: Polyethylene Glycol 3350* 17 GM PACKET PO SCH ×2 (08:48→21:18)
[2017-06-17] MEDS: Allopurinol TAB* 300 MG PO SCH (08:52)
[2017-06-17] MEDS: Diltiazem CD CAP* 240 MG PO SCH (08:52)
[2017-06-17] MEDS: Potassium Chlor TAB* 20 MEQ TAB.ER PO SCH ×3 (08:52→21:13)
[2017-06-17] MEDS: Carvedilol TAB* 6.25 MG PO SCH ×2 (08:52→21:13)
[2017-06-17] MEDS: CMC:Anastrozole (NF) 1 MG TAB PO SCH (08:54)
[2017-06-17] MEDS: Magnesium Oxide TAB* 400 MG PO SCH ×2 (11:07→22:35)
[2017-06-17] MEDS: cefTRIAXone VIAL(*) 1,000 MG in NS 0.9% 50 ML* 50 ML IVPB SCH (13:48)
--- NOTE | 2017-06-17 15:36 | PN ---
Subjective Date of Service: 06/17/17 Interval History: HOSPITALIST PROGRESS NOTE Patient seen and examined at bedside. She feels better today. Still has mild right flank pain, but it's relieved by changing positions in bed. Family History: Unchanged from Admission Social History: Unchanged from Admission Past Medical History: Unchanged from Admission Objective Active Medications: Acetaminophen (Tylenol Tab*) 650 mg PO Q4H PRN PRN Reason: FEVER/PAIN Last Admin: 06/16/17 03:42 Dose: 650 mg Albuterol (Ventolin Hfa Inhaler*) 2 puff INH QID PRN PRN Reason: SOB/WHEEZING Allopurinol (Zyloprim Tab*) 300 mg PO QAM [facility] Last Admin: 06/17/17 08:52 Dose: 300 mg Anastrozole (Arimidex (Nf)) 1 mg PO DAILY [facility] Last Admin: 06/17/17 08:54 Dose: Not Given Carvedilol (Coreg Tab*) 12.5 mg PO BID [facility] Last Admin: 06/17/17 08:52 Dose: 12.5 mg Dextrose (D50w Syringe 50 Ml*) 12.5 gm IV PUSH .FOR FS < 60 - SS PRN PRN Reason: FS < 60 Diltiazem HCl (Cardizem Cd Cap*) 240 mg PO DAILY [facility] Last Admin: 06/17/17 08:52 Dose: 240 mg Docusate Sodium (Colace Cap*) 200 mg PO BID [facility] Last Admin: 06/17/17 08:48 Dose: Not Given Ceftriaxone Sodium 1,000 mg/ (Sodium Chloride) 50 mls @ 200 mls/hr IVPB Q24H [facility] Last Admin: 06/17/17 13:48 Dose: 200 mls/hr Insulin Glargine (Lantus(*)) 10 units SUBCUT Q24H [facility] Last Admin: 06/16/17 21:24 Dose: 10 units Insulin Human Lispro (Humalog*) 0 units SUBCUT ACHS [facility] PRN Reason: Protocol Last Admin: 06/17/17 12:21 Dose: Not Given Magnesium Oxide (Magox 400 Tab*) 400 mg PO 1100,2300 [facility] Last Admin: 06/17/17 11:07 Dose: 400 mg Morphine Sulfate (Morphine Inj (Syringe)*) 2 mg IV Q4H PRN PRN Reason: PAIN Ondansetron HCl (Zofran Inj*) 4 mg IV Q4H PRN PRN Reason: NAUSEA/VOMITING Last Admin: 06/16/17 10:22 Dose: 4 mg Oxycodone/Acetaminophen (Percocet 5/325 Tab*) 1 tab PO Q4H PRN PRN Reason: Pain Polyethylene Glycol/Electrolytes (Miralax*) 17 gm PO 0800,2100 [facility] Last Admin: 06/17/17 08:48 Dose: Not Given Potassium Chloride (Klor Con Er Tab*) 20 meq PO TID [facility] Last Admin: 06/17/17 13:48 Dose: 20 meq Warfarin Sodium (Coumadin Tab(*)) 6 mg PO DAILY@1700 [facility] PRN Reason: Protocol Last Admin: 06/16/17 17:06 Dose: 6 mg Vital Signs 06/17/17 06/17/17 07:52 11:40 Temperature 98.6 F Pulse Rate 90 Respiratory 16 16 Rate Blood Pressure 123/40 (mmHg) O2 Sat by Pulse 98 100 Oximetry Oxygen Devices in Use Now: Nasal Cannula Appearance: Morbid obese lady lying in bed in [employer]. Eyes: No Scleral Icterus Ears/Nose/Mouth/Throat: Mucous Membranes Moist Neck: Trachea Midline Respiratory: Symmetrical Chest Expansion and Respiratory Effort, Clear to Auscultation Cardiovascular: RRR - Normal S1 and S2 Abdominal: NL Sounds; No Tenderness; No Distention, - - working ostomy on LLQ Neurological: Alert and Oriented x 3, NL Muscle Strength and Tone Lines/Tubes/Other Access: Clean, Dry and Intact Peripheral IV Nutrition: Taking PO's Result Diagrams: 06/17/17 05:59 06/17/17 05:59 Assess/Plan/Problems-Billing Assessment: Mrs. 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 - Patient Problems (1) Sepsis Comment: - Patient met sepsis criteria with fever, tachycardia, and leukocytosis. - Source is pyelonephritis. (2) Pyelonephritis Comment: - UA was positive and urine culture shows no growth so far. - Continue Ceftriaxone. (3) Nephrolithiasis Comment: - CT abdome showed moderate to severe hydronephrosis secondary to stone at right UPJ. - S/p cystoscopy with stent placement. - Management as per Urology. - Kulkarni catheter d/c. (4) Breast CA Comment: - Continue Anastrozole. (5) Afib Comment: - Continue Caverdilol, Cardizem, Warfarin. (6) Type 2 diabetes mellitus Comment: - Continue Lantus and Lispro SS. (7) DVT prophylaxis Comment: - Warfarin. (8) Full code status Status and Disposition: Inpatient. Anticipate d/c in AM if she remains afebrile.
[2017-06-17] MEDS: Warfarin TAB(*) 6 MG PO SCH (16:53)
[2017-06-17] MEDS: Insulin GLARGINE(*) 1 UNITS UNIT SUBCUT SCH (21:14)
[2017-06-18] MEDS: Polyethylene Glycol 3350* 17 GM PACKET PO SCH (08:51)
[2017-06-18] MEDS: Diltiazem CD CAP* 240 MG PO SCH (08:59)
[2017-06-18] MEDS: Potassium Chlor TAB* 20 MEQ TAB.ER PO SCH ×2 (09:00→14:23)
[2017-06-18] MEDS: Allopurinol TAB* 300 MG PO SCH (09:00)
[2017-06-18] MEDS: Carvedilol TAB* 6.25 MG PO SCH (09:00)
[2017-06-18] MEDS: Docusate CAP* 100 MG PO SCH (09:01)
[2017-06-18] MEDS: CMC:Anastrozole (NF) 1 MG TAB PO SCH (09:01)
[2017-06-18] MEDS: Insulin LISPRO* 1 UNITS UNIT SUBCUT SCH ×2 (09:02→13:34)
[2017-06-18] MEDS ORDERED: Fluconazole 100 MG TAB* TAB PO ONE (10:33)
[2017-06-18] MEDS: Magnesium Oxide TAB* 400 MG PO SCH (11:25)
[2017-06-18 12:10] VITALS: BP 112/62
[2017-06-18] MEDS ORDERED: ceFUROXime TAB(*) 250 MG PO ONE (13:34)
--- NOTE | 2017-06-18 16:02 | CONS ---
CONSULTATION REPORT: DATE OF CONSULT: 06/18/17 REQUESTING PHYSICIAN: Dr. Bettencourt. CONSULTING SERVICE: Infectious Disease. REASON FOR CONSULTATION: Candidemia. IMPRESSION: 1. Blood culture taken 06/15/17, one of two bottles growing yeast most likely Kelsey albicans. This is in the setting of right ureteral obstruction due to ureterolithiasis status post ureteral stent. I suspect this is related to backup of urine in the ureter and spread to the bloodstream of kelsey. As far as other site of infection, she has no intravascular devices and no prosthetic device or heart valves. She does have transfer for upcoming port placement for chemotherapy. 2. Recent colovesicular fistula, status post diverting colostomy. 3. Breast cancer, status post mastectomy. 4. Lupus. 5. Insulin dependent diabetes. 6. Morbid obesity. 7. Chronic kidney disease. RECOMMENDATIONS: 1. Because of no intravascular device and she is otherwise feeling very well, has no visual field cuts and no reason to suspect an intravascular infection, we will treat her with fluconazole 400 mg by mouth daily for 14 days. We will repeat her blood cultures today to ensure clearance and we will also follow the previous blood cultures for speciation. 2. She will need to delay her port placement until the antifungal therapy is completed. 3. Fluconazole will increase her INR. She will need to have closer monitoring and consider decreasing her dose to prevent supratherapeutic INR. 4. Oral cephalosporin to cover gram-negative, which did not grow, which happened sometime at the time of ureteral obstruction. HISTORY OF PRESENT ILLNESS: This 67-year-old woman with a recent diverting colostomy for colovesicular fistula, admitted with right flank pain and fevers on . She was found to have hydronephrosis due to obstructing stones. She was taken to the OR the night of the for stent placement. She had fever, last one was 38.3 on the night of . She has been on ceftriaxone. Urine cultures negative. Blood culture 1 of 2 bottles growing yeast. She is hemodynamically stable. She had no vision changes. She is feeling much better. Her flank pain is resolved. She is urinating freely. She has no urinary symptoms. She has no prosthetic material present. She is to have a port placement for chemotherapy in about 10 days. PAST MEDICAL HISTORY: 1. Breast cancer, status post right mastectomy March 2017, awaiting chemotherapy. 2. Colovesicular fistula, status post diverting colostomy, April 2017. 3. Lupus. 4. Chronic kidney disease. 5. Morbid obesity. 6. Insulin dependent diabetes. 7. Atrial fibrillation, on Coumadin. 8. Hypertension. 9. Obstructive sleep apnea, uses CPAP. 10. Rheumatic heart disease with mitral stenosis, mitral insufficiency. 11. History of splenic infarct. 12. Status post . 13. Status post hysterectomy. 14. Status post tonsillectomy. 15. Status post ankle open reduction internal fixation. MEDICATIONS: 1. Tylenol. 2. Albuterol. 3. Allopurinol. 4. Anastrozole. 5. Diltiazem. 6. Docusate. 7. Glargine. 8. Potassium. 9. Ceftriaxone 1 g daily. 10. Warfarin 6 mg a day. ALLERGIES: No known drug allergies. FAMILY HISTORY: No recurrent infections. SOCIAL HISTORY: She lives in [place] with her . She is a past smoker. REVIEW OF SYSTEMS: All negative to full review of systems except as noted above. PHYSICAL EXAM: Vital Signs: Temperature is 36.7, heart rate 70, respiratory rate 15, blood pressure 100/60, O2 sat 100% on room air. General: She is awake , not in distress. HEENT: There is no conjunctival hemorrhage. Neurologic: There is gross field cuts. Cranial nerves II through XII are intact. Answers all questions. Moves all extremities. Neck: Supple. There is no visible or palpable regional lymphadenopathy. Heart: Regular rate and rhythm without rubs, murmurs, or gallops. Lungs: Clear to auscultation bilaterally. Abdomen: Soft , nontender, nondistended. There is ostomy with air and liquid stool. Musculoskeletal: No spine tenderness to palpation. There is no joint synovitis. Skin: There is no rash or splinter hemorrhages. DIAGNOSTIC STUDIES/LAB DATA: White blood cell count 8, hemoglobin 11, platelets 167. Creatinine is 1.2. Urinalysis from admission showed blood, leukocyte esterase. Please see impressions and recommendations outlined above, which I have discussed with Dr. Bettencourt. Thank you for asking me to see Ms. Anand in consultation. [id number]/[facility] #: [id number] [facility]
--- NOTE | 2017-06-19 02:43 | DS ---
CC: Dr. Marr; Dr. South; Dr. Stanton; Dr. Flores * DISCHARGE SUMMARY: DATE OF ADMISSION: 06/15/17 DATE OF DISCHARGE: 06/18/17 PRIMARY CARE PROVIDER: Dr. Marr. UROLOGISTS: Dr. South and Dr. Stanton. INFECTIOUS DISEASE SPECIALIST: Dr. Flores. DISCHARGE DIAGNOSES: 1. Sepsis. 2. Pyelonephritis. 3. Fungemia. 4. Nephrolithiasis with obstructing right UPJ calculus and right hydronephrosis , status post right retrograde pyelography and placement of right ureteral stent. SECONDARY DIAGNOSES: 1. Morbid obesity. 2. Breast cancer, status post right mastectomy in March 2017, now on aromatase inhibitors. 3. Type 2 diabetes. 4. Atrial fibrillation. 5. Obstructive sleep apnea, on CPAP. 6. Hypertension. 7. Pulmonary hypertension. 8. Diastolic congestive heart failure. 9. Systemic lupus erythematosus. 10. Chronic kidney disease, stage 3. 11. 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 MEDICATION LIST: 1. Torsemide 20 mg p.o. daily as needed for ankle swelling. 2. Spironolactone 25 mg p.o. every other day. 3. Anastrozole 1 mg p.o. daily. 4. MiraLAX 17g p.o. b.i.d. 5. Magnesium oxide 400 mg p.o. b.i.d. 6. Lispro sliding scale as you were doing before. 7. Lantus 10 units subcutaneously at bedtime. 8. Colace 200 mg p.o. b.i.d. 9. Cardizem CD 240 mg p.o. daily. 10. Cholecalciferol 5000 units p.o. in the morning. 11. Vitamin C 500 mg p.o. daily. 12. Allopurinol 300 mg p.o. q.a.m. 13. Albuterol HFA 2 puffs inhaled q.i.d. as needed for shortness of breath. 14. Acetaminophen 650 mg p.o. q.6 hours p.r.n. pain or fever. 15. Carvedilol 12.5 mg p.o. b.i.d. 16. Oxycodone/acetaminophen 5/325 mg one tablet p.o. q.4 hours p.r.n. pain. New medications: 1. Potassium citrate 20 mEq p.o. b.i.d. 2. Fluconazole 400 mg p.o. daily for 14 days. 3. Cefuroxime 500 mg p.o. b.i.d. for 14 days. Medication change: The patient's warfarin was changed from 6 mg daily to 4 mg daily. She also received prescriptions for urinary pH strips. HOSPITAL COURSE: Mrs. Anand is a 67-year-old lady with a complicated past medical history as stated above that has had a very complicated summer with multiple diagnoses and medical procedures. She presented to the emergency room on June 15 with complaints of right flank pain with fever and chills. A CT of the abdomen and pelvis showed a 1-cm stone at the level of the UPJ with moderate to severe hydronephrosis. Urinalysis was suggestive of infection. She was taken to the OR by Dr. South on the same day and he performed a right retrograde pyelography and placement of a right ureteral stent. She was kept for further observation in this hospital. After the procedure, she developed a fever with a temperature of 101.5. She met sepsis criteria with leukocytosis, fever and tachycardia. She was started on ceftriaxone and her urine culture yielded no growth but one of her blood cultures is growing yeast. She was seen in consultation by infectious disease specialist (Dr. Flores) and his impression was that this yeast is most likely Kelsey albicans. This is in the setting of right ureteral obstruction due to ureterolithiasis, status post ureteral stent. Dr. Flores suspects that this is related to backup of urine in the ureter and spread through the blood stream of Kelsey. As far as the other site of the infection, she has no intravascular devices and no prosthetic device of the heart valves. She had an upcoming appointment for port placement for chemotherapy and that will be canceled for now. She will need to see Dr. Flores to make sure her candidemia is resolved before having the procedure. Dr. Flores felt that as the patient has no intravascular device and she is otherwise feeling very well, has no visual field cuts and no reason to suspect an intravascular infection, his recommendation was to treat her with fluconazole 400 mg p.o. daily for 14 days. She had a repeat blood culture sent on the day of discharge and those will need to be followed as outpatient to ensure clearance. As stated above, she will need to delay her port placement until the antifungal therapy is completed. He also recommended an oral cephalosporin to cover Gram-negative in the urine. He also recommended decreasing her Warfarin as fluconazole will increase her INR. She will take 4 mg now and she will have an INR checked on 06/20/17. I did contact Dr. Marr' s office and talked to his nurse Tricia, and she is aware that the patient will have an INR done on that date. The result needs to be followed to adjust her warfarin dose accordingly. I also discussed the case with Dr. South. He is planning to alkalinize her urine as her stones are believed to be uric acid stones. His recommendation was for potassium citrate 20 mEq p.o. b.i.d. and for the patient to check her urinary pH. The goal is a pH greater than 6.5. She will follow up with him in the next 1 to 2 weeks. The patient was feeling much improved and was felt to be stable to be discharged home today. PHYSICAL EXAMINATION: Vital Signs: Temperature 97.6, heart rate 52, respiratory rate is 16, oxygen saturation is 100% on room air, blood pressure is 112/62. General: The patient is a pleasant, morbidly obese lady sitting up in bed, in no acute distress. CVS: Normal S1, S2. Regular rate and rhythm. Chest : Breath sounds bilaterally with no added sounds. Abdomen is obese, soft, nontender and nondistended. Bowel sounds are present. Extremities: There is chronic lymphedema with chronic skin changes. Neuro: She is alert and oriented x3. Able to move all 4 extremities. DIET: Heart healthy, consistent carb diet. ACTIVITIES: As tolerated. DISPOSITION: To home. STATUS WHILE IN THE HOSPITAL: Inpatient. Please keep in mind this a summarized version of the patient's hospital stay. If you need more information, please do not hesitate to call me at [phone] or please obtain full medical records. TIME SPENT: Approximately 45 minutes was spent to complete this discharge. [id number]/[facility] #: [id number] MTDD
== END 2017-06-18 15:00 | disposition home or self-care (01) | DRG 872 ==
LOC: ED 09:56 → OR 15:21 → SSU 17:11 → OBSVTOIN 06-16 11:16
PROVIDERS: ADMIT Urology; ATTEND Internal Medicine
PROC: 0T768DZ Dilation of Right Ureter with Intraluminal Device, Via Natural or Artificial Opening Endoscopic (ICD-10-PCS; principal; 2017-06-16)
PROC: BT1DZZZ Fluoroscopy of Right Kidney, Ureter and Bladder (ICD-10-PCS; 2017-06-16)
DX: A41.9 Sepsis, unspecified organism (principal); M32.9 Systemic lupus erythematosus, unspecified; E11.22 Type 2 diabetes mellitus with diabetic chronic kidney disease; B49 Unspecified mycosis; I27.2 Other secondary pulmonary hypertension; N18.3 Chronic kidney disease, stage 3 (moderate); I13.0 Hypertensive heart and chronic kidney disease with heart failure and stage 1 through stage 4 chronic kidney disease, or unspecified chronic kidney disease; I50.32 Chronic diastolic (congestive) heart failure; N13.6 Pyonephrosis; N13.8 Other obstructive and reflux uropathy; Z68.42 Body mass index [BMI] 45.0-49.9, adult; I48.91 Unspecified atrial fibrillation; J45.909 Unspecified asthma, uncomplicated; K57.90 Diverticulosis of intestine, part unspecified, without perforation or abscess without bleeding; M19.90 Unspecified osteoarthritis, unspecified site; M41.9 Scoliosis, unspecified; C50.911 Malignant neoplasm of unspecified site of right female breast; R40.2412 Glasgow coma scale score 13-15, at arrival to emergency department; G47.33 Obstructive sleep apnea (adult) (pediatric); E66.01 Morbid (severe) obesity due to excess calories; I05.1 Rheumatic mitral insufficiency; I25.10 Atherosclerotic heart disease of native coronary artery without angina pectoris; Z93.3 Colostomy status; Z87.01 Personal history of pneumonia (recurrent); Z87.442 Personal history of urinary calculi; Z90.710 Acquired absence of both cervix and uterus; Z98.51 Tubal ligation status; Z87.891 Personal history of nicotine dependence; Z90.11 Acquired absence of right breast and nipple; Z90.722 Acquired absence of ovaries, bilateral; Z79.4 Long term (current) use of insulin; Z79.01 Long term (current) use of anticoagulants
CPT/HCPCS: 36415; 74176; 74420; 80048; 80053; 81003; 81015; 82550; 83605; 83690; 83735; 85025; 85060; 85610; 86140; 87040; 87086; 87106; 87205; 94660; 94760; A9270-GY; C1876; G0378; J0696; J1580; J2250; J2270; J2405; J3010

== ENCOUNTER 2017-07-04 11:55 | Inpatient (IN) | payer MEDICARE ==
[2017-07-04 12:56] LABS: Hematocrit 38 % (35-47); Hemoglobin 11.9 g/dl (12.0-16.0); Mean Corpuscular HGB Conc 32 g/dl (31-36); Mean Corpuscular Hemoglobin 29 pg (27-31); Mean Corpuscular Volume 92 fL (80-97); Mean Platelet Volume 9 um3 (7.4-10.4); Red Blood Count 4.14 10^6/ul (4.0-5.4); Red Cell Distribution Width 17 % (10.5-15); White Blood Count 9.3 10^3/ul (3.5-10.8)
[2017-07-04] MEDS ORDERED: Docusate CAP* 100 MG PO PRN (13:05)
[2017-07-04] MEDS ORDERED: Albuterol HFA INHALER* 8 gm MDI INH PRN (13:05)
[2017-07-04] MEDS ORDERED: Polyethylene Glycol 3350* 17 GM PACKET PO PRN (13:05)
[2017-07-04] MEDS ORDERED: Dextrose 50% Syringe 50 ML* 25 GM/50 ML SYRINGE IV PUSH PRN (13:07)
[2017-07-04 13:12] LABS: Albumin 3.7 g/dL (3.2-5.2); BUN/Creatinine Ratio 16.3 (8-20); Calcium 10.2 mg/dL (8.6-10.3); EGFR African American 67.8 (>60); EGFR Non-African American 52.7 (>60); Globulin 2.8 g/dL (2-4); Potassium 4.5 mmol/L (3.5-5.0); Total Bilirubin 0.6 mg/dL (0.2-1.0); Total Protein 6.5 g/dL (6.4-8.9)
[2017-07-04] MEDS ORDERED: Hydroxychloroquine TAB* 200 MG PO PRN (17:42)
[2017-07-04] MEDS: Insulin LISPRO* 1 UNITS UNIT SUBCUT SCH (18:41)
[2017-07-04] MEDS: Carvedilol TAB* 6.25 MG PO SCH (20:52)
[2017-07-04] MEDS: Diltiazem CD CAP* 120 MG PO SCH (20:52)
[2017-07-04] MEDS ORDERED: Diltiazem CD CAP* 240 MG PO SCH (21:00)
--- NOTE | 2017-07-04 22:21 | CONS ---
HOSPITAL MEDICINE CONSULTATION REPORT: DATE OF CONSULTATION: 07/04/17 PRIMARY CARE PHYSICIAN: Dr. Marr. ATTENDING PHYSICIAN: Lianne Charles MD (dictation provided by Gerri Suarez NP ). REASON FOR CONSULTATION: Medical comanagement in the patient admitted with hypercoagulability and hematuria with need for port placement for chemotherapy for breast cancer. HISTORY OF PRESENT ILLNESS: Ms. Anand is a 67-year-old female with a past medical history of breast cancer, status post lumpectomy and mastectomy, now with planned chemo and radiation, following Dr. Bernard. She also has a history of admission to our hospital with discharge on 06/18/17 for UTI with nephrolithiasis and stent placement, from which she developed fungemia and has now completed 2 weeks of antifungals under the direction of Dr. Flores. 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 In the more distant past, she has had atrial fibrillation and is on chronic warfarin therapy, type 2 diabetes insulin dependent, obstructive sleep apnea on CPAP, hypertension, systemic lupus erythematosus, diastolic heart failure on chronic diuretics, and CKD stage 3. She presented to the hospital today at the request of Dr. Charles for a planned port placement for chemotherapy to begin next week. For the port placement, the patient was taken off her warfarin and put on Lovenox 150 mg subcutaneously twice daily. The patient states she took this on Friday and shortly thereafter developed hematuria. She stopped taking the medication on Friday out of concern for this hematuria. She has had no lightheadedness or dizziness. She states when she discontinued the Lovenox, the hematuria went away. She presents to the hospital today for planned port placement, but there is concern that the patient is in a hypercoagulable state and is high risk for bleeding for the procedure and therefore, plan is for her to be admitted to the hospital for further diagnostics and consideration of initiation of heparin intravenously prior to planned port placement on Friday. PAST MEDICAL HISTORY: 1. Recent diagnosis of breast cancer, on anastrazole therapy, status post mastectomy with plans for a chemo and radiation under the care of Dr. Bernard. 2. Admission in May 2017 for urinary tract infection related to nephrolithiasis, status post stent placement with concomitant fungemia, now status post 2 weeks antifungal treatment under the care of Dr. Flores. 3. Colovesicular fistula with colostomy, April 2017. 4. Splenic infarct, April 2017. 5. Atrial fibrillation, on chronic Coumadin therapy. 6. Type 2 diabetes, insulin dependent. 7. Obstructive sleep apnea, on CPAP. 8. Hypertension. 9. Systemic lupus erythematosus. 10. Diastolic congestive heart failure. 11. CKD stage 3. PAST SURGICAL HISTORY: 1. Hysterectomy. 2. Right mastectomy. 3. x2. 4. Tonsillectomy. 5. Colectomy with colostomy placement in April 2017. MEDICATIONS: 1. Enoxaparin 150 mg subcutaneously b.i.d. 2. Potassium citrate 20 mEq p.o. b.i.d. 3. Torsemide 10-20 mg p.o. daily p.r.n. lower extremity swelling. 4. Tylenol p.r.n. 5. Albuterol inhaler p.r.n. 6. Anastrozole 1 mg p.o. q.a.m. 7. Ascorbic acid 500 mg p.o. q.a.m. 8. Carvedilol 12.5 mg p.o. b.i.d. 9. Diltiazem CD 120 mg p.o. b.i.d. 10. Docusate 200 mg p.o. b.i.d. 11. Hydroxychloroquine 200 mg p.o. daily p.r.n. 12. Lantus insulin 35 units subcutaneously q.a.m. 13. Magnesium oxide 400 mg twice daily. 14. Polyethylene glycol 17 g p.o. q.p.m. p.r.n. 15. Spironolactone 25 mg p.o. every other day. 16. Oxycodone/acetaminophen 5/325 mg 1 tab p.o. q.4 hours p.r.n. ALLERGIES: No known drug allergies. FAMILY HISTORY: The patient reports her mother had a vasculitis and dementia and at 67. Father had cancer. REVIEW OF SYSTEMS: A 14-point review of systems was completed with Ms. Anand and all those not mentioned above were negative. PHYSICAL EXAMINATION: Vital Signs: Temperature 97.6, heart rate 59, respiratory rate 18, O2 saturation 100% on room air, blood pressure 125/66. General: Ms. Anand is sitting up in the bed. She is in good spirits and in no acute distress. Neuro: She is alert. She is oriented x3. She moves all extremities equally. There is no facial asymmetry or focal weakness. Extraocular movements are intact. Heart: S1, S2. No murmur, rub, or gallop and regular. Lungs are clear to auscultation bilaterally with no accessory muscle use and good aeration. The abdomen is soft, nontender with bowel sounds positive x4. Extremities: No cyanosis. Positive for 1-2+ edema. Skin is intact. LABORATORY DATA: WBC 9.3, hemoglobin 11.9, hematocrit 38, platelet count 210, 000. INR is 2.18. The PTT is 39.7. Sodium 136, potassium 4.5, chloride 105, serum bicarbonate 26, BUN 17, creatinine 1.04, glucose 100. ASSESSMENT: Ms. Anand is a 67-year-old female with a complicated past medical history including breast cancer, recent fungemia after a urinary tract infection with pyelonephritis and stent placement as well as colovesicular fistula with colostomy placement. Her more distant history includes atrial fibrillation, type 2 diabetes, obstructive sleep apnea, hypertension, systemic lupus erythematosus, diastolic heart failure, and chronic kidney disease stage 3. She presents to the hospital with plan for port placement for initiation of chemotherapy for her breast cancer. Unfortunately, she has been found to be hypercoagulable. Our recommendations are as follows: 1. Hypercoagulable state: The patient states she has been on 150 mg b.i.d. of Lovenox in the past when she has had to hold her warfarin. She has never had bleeding before related to that. I question whether or not the hematuria that she has is related to the stent placement that was done just a couple of weeks ago for her infected kidney stone. Regardless, the hematuria has resolved now that she is off the Lovenox. I note that her INR remains elevated at 2.18. I suspect this is secondary to the Lovenox. Her INR on 06/25/17 was 3.09. The patient states she has not had any warfarin this week. Regardless, given her high INR, plan to monitor today. She will have an INR rechecked in the a.m. and we will start a heparin drip when her INR is less than 2. She will be monitored through the weekend on a heparin drip as indicated and she will go on for port placement on Friday. 2. History of breast cancer. Plan to continue anastrozole. 3. History of hypertension. Plan to continue carvedilol, diltiazem and spironolactone as well as torsemide. 4. Lower extremity swelling. The patient states she takes the torsemide p.r.n. depending on the swelling in her lower extremities. I note that she has 1-2+ swelling today. Plan for torsemide and spironolactone. 5. Atrial fibrillation. Plan to continue Cardizem and carvedilol. The patient 's warfarin is on hold and plan is for this procedure on Friday and we will start a heparin drip when indicated. 6. Type 2 diabetes. The patient will continue on Lantus 35 units in the a.m. She will have blood glucoses q.a.c. with a lispro sliding scale. 7. Obstructive sleep apnea. The patient will continue on her home CPAP. 8. Systemic lupus. The patient will have her hydroxychloroquine as needed for pain. 9. Chronic kidney disease stage 3. The patient's creatinine is at baseline. 10. DVT prophylaxis with therapeutic INR as well as SCDs. 11. Code status is full code. TIME SPENT: Approximately 90 minutes were spent on the consultation of this patient, more than half the time was spent with the patient at the bedside reviewing the events leading up to this hospitalization, performing the physical examination, and reviewing the plan of care. GERRI SUAREZ NP [id number]/[facility] #: [id number] LYNDSEY
[2017-07-04] MEDS: Magnesium Oxide TAB* 400 MG PO SCH (22:38)
[2017-07-05 05:57] LABS: Hematocrit 36 % (35-47); Hemoglobin 11.5 g/dl (12.0-16.0); Mean Corpuscular HGB Conc 32 g/dl (31-36); Mean Corpuscular Hemoglobin 29 pg (27-31); Mean Corpuscular Volume 91 fL (80-97); Mean Platelet Volume 9 um3 (7.4-10.4); Red Blood Count 3.96 10^6/ul (4.0-5.4); Red Cell Distribution Width 17 % (10.5-15); White Blood Count 8.7 10^3/ul (3.5-10.8)
--- NOTE | 2017-07-05 08:00 | PN ---
Progress Note - Progress Note Date of Service: 07/05/17 Note: Surgery Ms. Anand admitted for management of anticoagulation; appreciate Hospitalist input. Today she denies problems except for discomfort from the bridge in the colostomy. Vital Signs 07/04/17 07/04/17 07/04/17 13:39 14:37 15:12 Temperature 97.6 F 97.6 F Pulse Rate 50 50 Respiratory 15 16 15 Rate Blood Pressure 115/60 115/60 (mmHg) O2 Sat by Pulse 96 96 Oximetry 07/04/17 07/04/17 07/04/17 15:41 19:25 19:46 Temperature 97.6 F 97.9 F Pulse Rate 59 58 Respiratory 18 18 14 Rate Blood Pressure 125/66 122/63 (mmHg) O2 Sat by Pulse 100 100 Oximetry 07/04/17 07/05/17 07/05/17 23:30 00:03 00:09 Temperature 97.7 F Pulse Rate 57 Respiratory 17 18 18 Rate Blood Pressure 125/71 (mmHg) O2 Sat by Pulse 100 Oximetry 07/05/17 07/05/17 04:35 07:29 Temperature 97.7 F 97.6 F Pulse Rate 55 63 Respiratory 18 14 Rate Blood Pressure 130/84 118/68 (mmHg) O2 Sat by Pulse 100 100 Oximetry Colostomy site: well-healed with healthy pink mucosa Intake & Output 07/04/17 07/05/17 07/05/17 22:59 06:59 14:59 Intake Total 1830 100 Output Total 800 250 350 Balance 1030 -250 -250 Intake: Oral 1830 100 Output: Urine 800 250 300 Colostomy 50 Other: # Bowel Movements 1 Estimated Stool Amount Medium 07/05/17 07/05/17 07/05/17 05:45 05:45 05:45 WBC 8.7 RBC 3.96 L Hgb 11.5 L Hct 36 MCV 91 MCH 29 MCHC 32 RDW 17 H Plt Count 182 MPV 9 Neut % (Auto) 56.7 Lymph % (Auto) 30.5 [place] % (Auto) 8.5 Eos % (Auto) 3.2 Baso % (Auto) 1.1 Absolute Neuts (auto) 4.9 Absolute Lymphs (auto) 2.6 Absolute Monos (auto) 0.7 Absolute Eos (auto) 0.3 Absolute Basos (auto) 0.1 Absolute Nucleated RBC 0 Nucleated RBC % 0 INR (Anticoag Therapy) 1.84 H APTT Sodium Potassium Chloride Carbon Dioxide Anion Gap BUN 18 Creatinine Est GFR ( Amer) Est GFR (Non-Af Amer) BUN/Creatinine Ratio Glucose POC Glucose (mg/dL) Calcium Total Bilirubin AST ALT Alkaline Phosphatase Total Protein Albumin Globulin Albumin/Globulin Ratio 07/05/17 07:33 WBC RBC Hgb Hct MCV MCH MCHC RDW Plt Count MPV Neut % (Auto) Lymph % (Auto) [place] % (Auto) Eos % (Auto) Baso % (Auto) Absolute Neuts (auto) Absolute Lymphs (auto) Absolute Monos (auto) Absolute Eos (auto) Absolute Basos (auto) Absolute Nucleated RBC Nucleated RBC % INR (Anticoag Therapy) APTT Sodium Potassium Chloride Carbon Dioxide Anion Gap BUN Creatinine Est GFR ( Amer) Est GFR (Non-Af Amer) BUN/Creatinine Ratio Glucose POC Glucose (mg/dL) 103 H Calcium Total Bilirubin AST ALT Alkaline Phosphatase Total Protein Albumin Globulin Albumin/Globulin Ratio A/P: INR now in range to start anticoagulation. Will discuss with hospitalist. I removed red rubber bridge of colostomy.
[2017-07-05] MEDS: Insulin LISPRO* 1 UNITS UNIT SUBCUT SCH ×3 (08:07→17:20)
[2017-07-05] MEDS: Ascorbic Acid TAB* 500 MG PO SCH (09:17)
[2017-07-05] MEDS: Carvedilol TAB* 6.25 MG PO SCH ×2 (09:17→21:17)
[2017-07-05] MEDS: Diltiazem CD CAP* 120 MG PO SCH ×2 (09:17→21:17)
[2017-07-05] MEDS: Heparin DRIP 25,000 UNITS(*) 25,000 UNITS/500 ML BAG IV SCH (09:21)
[2017-07-05] MEDS: Insulin GLARGINE(*) 1 UNITS UNIT SUBCUT SCH (09:27)
[2017-07-05] MEDS: Torsemide TAB* 20 MG PO SCH (09:27)
--- NOTE | 2017-07-05 11:35 | PN ---
Subjective Date of Service: 07/05/17 Interval History: Ms. Anand denies complaint today and states that she is feeling quite well. She notes that her heparin gtt was recently started and she has not yet voided. However, she will let nursing staff know if she has any hematuria. She denies chest pain, SOB, nausea, or abdominal pain. Objective Active Medications: Acetaminophen (Tylenol Tab*) 650 mg PO Q6H PRN Albuterol (Ventolin Hfa Inhaler*) 2 puff INH QID PRN Anastrozole (Arimidex (Nf)) 1 mg PO QAM ROSSY Ascorbic Acid (Vitamin C Tab*) 500 mg PO QAM ROSSY Carvedilol (Coreg Tab*) 12.5 mg PO BID ROSSY Dextrose (D50w Syringe 50 Ml*) 12.5 gm IV PUSH .FOR FS < 60 - SS PRN Diltiazem HCl (Cardizem Cd Cap*) 120 mg PO BID ROSSY Docusate Sodium (Colace Cap*) 200 mg PO BID PRN Heparin Sodium (Porcine) (Heparin Vial(*)) 0 units IV .PER PROTOCOL [facility] Hydroxychloroquine Sulfate (Plaquenil Tab*) 200 mg PO DAILY PRN Heparin Sodium/Dextrose (Heparin Drip 25,000 Units(*)) 25,000 units in 500 mls @ 0 mls/hr IV .NO INITIAL BOLUS ROSSY; As Directed Insulin Glargine (Lantus(*)) 35 units SUBCUT QAM ROSSY Insulin Human Lispro (Humalog*) 0 units SUBCUT AC ROSSY Magnesium Oxide (Magox 400 Tab*) 400 mg PO 1100,2300 ROSSY Oxycodone/Acetaminophen (Percocet 5/325 Tab*) 1 tab PO Q4H PRN Polyethylene Glycol/Electrolytes (Miralax*) 17 gm PO QPM PRN Spironolactone (Aldactone Tab*) 25 mg PO EVERY OTHER DAY ROSSY Torsemide (Demadex*) 20 mg PO DAILY ROSSY Vital Signs 07/04/17 07/04/17 07/04/17 13:39 14:37 15:12 Temperature 97.6 F 97.6 F Pulse Rate 50 50 Respiratory 15 16 15 Rate Blood Pressure 115/60 115/60 (mmHg) O2 Sat by Pulse 96 96 Oximetry 07/04/17 07/04/17 07/04/17 15:41 19:25 19:46 Temperature 97.6 F 97.9 F Pulse Rate 59 58 Respiratory 18 18 14 Rate Blood Pressure 125/66 122/63 (mmHg) O2 Sat by Pulse 100 100 Oximetry 07/04/17 07/05/17 07/05/17 23:30 00:03 00:09 Temperature 97.7 F Pulse Rate 57 Respiratory 17 18 18 Rate Blood Pressure 125/71 (mmHg) O2 Sat by Pulse 100 Oximetry 07/05/17 07/05/17 07/05/17 04:35 07:29 07:39 Temperature 97.7 F 97.6 F Pulse Rate 55 63 Respiratory 18 14 16 Rate Blood Pressure 130/84 118/68 (mmHg) O2 Sat by Pulse 100 100 Oximetry Oxygen Devices in Use Now: None Appearance: Female sitting up in chair in NAD Eyes: No Scleral Icterus Ears/Nose/Mouth/Throat: Mucous Membranes Moist Neck: Trachea Midline Respiratory: Symmetrical Chest Expansion and Respiratory Effort, Clear to Auscultation Cardiovascular: NL Sounds; No Murmurs; No JVD, No Edema Abdominal: NL Sounds; No Tenderness; No Distention Lymphatic: No Cervical Adenopathy Extremities: No Edema Skin: No Rash or Ulcers Neurological: Alert and Oriented x 3, NL Muscle Strength and Tone Nutrition: Taking PO's Result Diagrams: 07/05/17 05:45 07/05/17 05:45 Assess/Plan/Problems-Billing Assessment: Ms. Anand is a 67 yo female with a PMH of recent diagnosis of right breast cancer with mastectomy, recent ureteral stent for nephrolithiasis with pyelonephritis resulting in fungemia now s/p 2 weeks antifungal treatment, recent colovesicular fistula repair with colostomy, recent splenic infarct and more chronic history of afib on coumadin, diastolic CHF, IDDM, RAJNI on CPAP who was admitted on 07/04/17 due to hypercoagulable state with INR 2.18 before planned port placement for chemotherapy with need for monitoring and heparin bridge prior to rescheduled surgery for Friday07/07/17. - Patient Problems (1) Hypercoagulable state Comment: - Pt's INR has fallen to 1.84 today. - Its unclear why her INR was elevated given that she had been off coumadin for a week and lovenox for 48 hours. Regardless, it is falling now and she has no further evidence of hematuria or other bleeding. - Heparin gtt started, monitor for bleeding. (2) Afib Comment: - Case discussed with Dr. Nguyen. Though patient has never had a stroke she requires bridging when off coumadin due to low flow state in her left atrium with history of moderate mitral stenosis and dilated left atrium. - Rate controlled. Continue carvedilol and cardizem. (3) Breast CA Comment: - Port placement rescheduled for Friday. Dr. Charles and her team are following. - Will need to hold heparin ~ 8 hours prior to surgery. - Continue Anastrozole. (4) CKD stage 3 secondary to diabetes Comment: - Creatinine is at baseline. (5) Type 2 diabetes mellitus Comment: - BG well controlled. - Continue Lantus and Lispro SS. (6) RAJNI (obstructive sleep apnea) Comment: - Continue CPAP. (7) Diastolic CHF Comment: - Continue torsemide which patient takes prn for LE swelling and spironolactone. (8) DVT prophylaxis Comment: - Heparin gtt. (9) Full code status Status and Disposition: Inpatient with expected LOS > 2 days for bridging with heparin to port placement on Friday. Anticipate discharge to home when medically stable.
[2017-07-05] MEDS: Magnesium Oxide TAB* 400 MG PO SCH ×2 (11:42→22:50)
[2017-07-05] MEDS: PTO: Anastrozole (NF) 1 MG TAB PO SCH (14:05)
[2017-07-06] MEDS: Heparin DRIP 25,000 UNITS(*) 25,000 UNITS/500 ML BAG IV SCH (06:01)
[2017-07-06 07:11] LABS: Hematocrit 37 % (35-47); Hemoglobin 11.8 g/dl (12.0-16.0); Mean Corpuscular HGB Conc 32 g/dl (31-36); Mean Corpuscular Hemoglobin 29 pg (27-31); Mean Corpuscular Volume 91 fL (80-97); Mean Platelet Volume 9 um3 (7.4-10.4); Red Blood Count 4.12 10^6/ul (4.0-5.4); Red Cell Distribution Width 17 % (10.5-15); White Blood Count 7.2 10^3/ul (3.5-10.8)
[2017-07-06] MEDS: Insulin LISPRO* 1 UNITS UNIT SUBCUT SCH ×4 (08:11→23:40)
[2017-07-06] MEDS: Torsemide TAB* 20 MG PO SCH (08:51)
[2017-07-06] MEDS: Spironolactone TAB* 25 MG PO SCH (08:51)
[2017-07-06] MEDS: Diltiazem CD CAP* 120 MG PO SCH ×2 (08:51→20:55)
[2017-07-06] MEDS: Carvedilol TAB* 6.25 MG PO SCH ×2 (08:52→20:55)
[2017-07-06] MEDS: Insulin GLARGINE(*) 1 UNITS UNIT SUBCUT SCH (08:52)
[2017-07-06] MEDS: Ascorbic Acid TAB* 500 MG PO SCH (08:52)
[2017-07-06] MEDS: PTO: Anastrozole (NF) 1 MG TAB PO SCH (09:00)
--- NOTE | 2017-07-06 10:18 | PN ---
Progress Note - Progress Note Date of Service: 07/06/17 Note: Surgery Ms. Anand denies pain or SOB. She had episode of elevated PTT last night. AM PTT pnd. Will plan OR early in AM ~8AM, hopefully will be able to maintain chemo schedule Will stop heparin at midnight and make NPO after midnight.
[2017-07-06 10:25] LABS: EGFR African American 77.1 (>60)
[2017-07-06] MEDS: Heparin VIAL(*) 5000 UNITS/ML VIAL (FIVE THOUSAND) IV SCH ×2 (10:49→19:13)
[2017-07-06] MEDS ORDERED: ceFAZolin 2 GM PREMIX (*) 100 ML IVPB ONE (11:00)
[2017-07-06] MEDS ORDERED: ceFAZolin 2 GM PREMIX (*) 50 ML IVPB ONE (11:00)
[2017-07-06] MEDS: Magnesium Oxide TAB* 400 MG PO SCH ×2 (11:41→23:36)
--- NOTE | 2017-07-06 16:49 | PN ---
Subjective Date of Service: 07/06/17 Interval History: This is a 67 yo female with multiple medical problems admitted for heparin drip bridge to port placement Friday. Patient reports no complaints. No evidence of hematuria. No c/o abd pain, n/v, CP or SOB. Objective Active Medications: Acetaminophen (Tylenol Tab*) 650 mg PO Q6H PRN PRN Reason: PAIN Albuterol (Ventolin Hfa Inhaler*) 2 puff INH QID PRN PRN Reason: SOB/WHEEZING Anastrozole (Arimidex (Nf)) 1 mg PO QAM [facility] Last Admin: 07/06/17 09:00 Dose: 1 mg Ascorbic Acid (Vitamin C Tab*) 500 mg PO QAM [facility] Last Admin: 07/06/17 08:52 Dose: 500 mg Carvedilol (Coreg Tab*) 12.5 mg PO BID [facility] Last Admin: 07/06/17 08:52 Dose: 12.5 mg Dextrose (D50w Syringe 50 Ml*) 12.5 gm IV PUSH .FOR FS < 60 - SS PRN PRN Reason: FS < 60 Diltiazem HCl (Cardizem Cd Cap*) 120 mg PO BID [facility] Last Admin: 07/06/17 08:51 Dose: 120 mg Docusate Sodium (Colace Cap*) 200 mg PO BID PRN PRN Reason: CONSTIPATION Heparin Sodium (Porcine) (Heparin Vial(*)) 0 units IV .PER PROTOCOL ROSSY PRN Reason: Protocol Last Admin: 07/06/17 10:49 Dose: 3,800 units Hydroxychloroquine Sulfate (Plaquenil Tab*) 200 mg PO DAILY PRN PRN Reason: PAIN (RELATED TO LUPUS) Heparin Sodium/Dextrose (Heparin Drip 25,000 Units(*)) 25,000 units in 500 mls @ 0 mls/hr IV .NO INITIAL BOLUS [facility]; As Directed PRN Reason: Protocol Last Admin: 07/06/17 06:01 Dose: 21 mls/hr Cefazolin Sodium/Dextrose (Kefzol 2 Gm Premix(*)) 50 mls @ 100 mls/hr IVPB ONCE ONE Stop: 07/07/17 07:29 Insulin Glargine (Lantus(*)) [facility] [place] Last Admin: 07/06/17 08:52 Dose: 35 unit Insulin Human Lispro (Humalog*) 0 units SUBCUT AC [facility] PRN Reason: Protocol Last Admin: 07/06/17 11:21 Dose: Not Given Magnesium Oxide (Magox 400 Tab*) 400 mg PO 1100,2300 [facility] Last Admin: 07/06/17 11:41 Dose: 400 mg Oxycodone/Acetaminophen (Percocet 5/325 Tab*) 1 tab PO Q4H PRN PRN Reason: PAIN Polyethylene Glycol/Electrolytes (Miralax*) 17 gm PO QPM PRN PRN Reason: CONSTIPATION Spironolactone (Aldactone Tab*) 25 mg PO EVERY OTHER DAY [facility] Last Admin: 07/06/17 08:51 Dose: 25 mg Torsemide (Demadex*) 20 mg PO DAILY [facility] Last Admin: 07/06/17 08:51 Dose: Not Given Vital Signs: Temp Pulse Resp BP Pulse Ox 98.1 F 60 18 120/70 100 07/06/17 15:47 07/06/17 15:47 07/06/17 15:47 07/06/17 15:47 07/06/17 15:47 Oxygen Devices in Use Now: None Appearance: Well appearing middle aged female in NAD, accompanied by her sister. Respiratory: Symmetrical Chest Expansion and Respiratory Effort, Clear to Auscultation Cardiovascular: NL Sounds; No Murmurs; No JVD, RRR Abdominal: NL Sounds; No Tenderness; No Distention Extremities: - - nonpitting edema bilaterally Skin: No Rash or Ulcers Neurological: Alert and Oriented x 3 Result Diagrams: 07/06/17 06:57 07/06/17 06:57 Assess/Plan/Problems-Billing Assessment: Ms. Anand is a 67 yo female with a PMH of recent diagnosis of right breast cancer with mastectomy, recent ureteral stent for nephrolithiasis with pyelonephritis resulting in fungemia now s/p 2 weeks antifungal treatment, recent colovesicular fistula repair with colostomy, recent splenic infarct and more chronic history of afib on coumadin, diastolic CHF, IDDM, RAJNI on CPAP who was admitted on 07/04/17 due to hypercoagulable state with INR 2.18 before planned port placement for chemotherapy with need for monitoring and heparin bridge prior to rescheduled surgery for Friday07/07/17. - Patient Problems (1) Hypercoagulable state Comment: - Pt's INR has fallen to 1.59 today. - Its unclear why her INR was elevated at admission - She has no further evidence of hematuria or other bleeding. - Cont heparin gtt, monitor for bleeding. - Can likely resume Lovenox and Coumadin following procedure (2) Breast CA Comment: - Port placement rescheduled for Friday. Dr. Charles and her team are following. - Will need to hold heparin ~ 8 hours prior to surgery. - Continue Anastrozole. (3) Diastolic CHF Comment: - No acute exacerbation - Continue torsemide which patient takes prn for LE swelling and spironolactone. (4) RAJNI (obstructive sleep apnea) Comment: - Continue CPAP. (5) Afib Comment: - Case discussed with Dr. Nguyen at admission. Though patient has never had a stroke she requires bridging when off coumadin due to low flow state in her left atrium with history of moderate mitral stenosis and dilated left atrium as well as recent splenic infarct - Rate controlled. Continue carvedilol and cardizem. (6) CKD stage 3 secondary to diabetes Comment: - Creatinine is at baseline. (7) SLE (systemic lupus erythematosus) Comment: Cont Plaquenil (8) HTN (hypertension) Comment: - Normotensive - Cont home medications (9) Colostomy in place Comment: Secondary to colovesicular fistula as a complication of diverticulitis (10) Type 2 diabetes mellitus Comment: - BG well controlled. - Continue Lantus and Lispro SS. (11) DVT prophylaxis Comment: - Heparin gtt. (12) Full code status Status and Disposition: Inpatient, anticipate dc tomorrow following port placement.
[2017-07-06] MEDS: Acetaminophen TAB* 325 MG PO PRN (19:29)
[2017-07-07] MEDS: Acetaminophen TAB* 325 MG PO PRN ×2 (01:51→20:30)
[2017-07-07] MEDS: Insulin LISPRO* 1 UNITS UNIT SUBCUT SCH ×3 (06:08→17:42)
[2017-07-07] MEDS ORDERED: ceFAZolin 2 GM PREMIX (*) 50 ML IVPB ONE (07:00)
[2017-07-07 07:22] LABS: Hematocrit 37 % (35-47); Mean Corpuscular HGB Conc 33 g/dl (31-36); Mean Corpuscular Hemoglobin 29 pg (27-31); Mean Corpuscular Volume 90 fL (80-97); Mean Platelet Volume 9 um3 (7.4-10.4); Red Blood Count 4.11 10^6/ul (4.0-5.4); Red Cell Distribution Width 17 % (10.5-15); White Blood Count 7.6 10^3/ul (3.5-10.8)
[2017-07-07] MEDS ORDERED: Famotidine IV* 10 MG/ML 2 ML (20 mg) IV ONE (07:41)
[2017-07-07] MEDS ORDERED: Buffered Lidocaine 0.9% SYRIN* 5 ML/SYR SYRINGE INTRADERM ONE (07:41)
[2017-07-07] MEDS ORDERED: fentaNYL* 50 MCG/ML 2 ML VIAL (100 MCG VIAL) IV PRN (07:43)
[2017-07-07] MEDS ORDERED: PROCHLORPERAZINE INJ 5 MG/ML 2 ML VIAL IV PRN (07:43)
[2017-07-07] MEDS ORDERED: Famotidine IV* 10 MG/ML 2 ML (20 mg) ONE (07:46)
[2017-07-07] MEDS: Carvedilol TAB* 6.25 MG PO SCH ×2 (07:54→20:30)
--- NOTE | 2017-07-07 09:03 | SURGPN ---
Brief Operative Note - Surgery Procedures: Procedures BYPASS TRANSVERSE COLON TO CUTANEOUS, OPEN APPROACH (05/20/17) COLONOSCOPY (12/23/13) DILATION OF RIGHT URETER WITH INTRALUMINAL DEVICE, ENDO (06/16/17) DRAINAGE OF CHEST SKIN, EXTERNAL APPROACH, DIAGNOSTIC (05/20/17) DX ULTRASOUND-HEART (12/16/14) FLUOROSCOPY OF RIGHT KIDNEY, URETER AND BLADDER (06/16/17) OTHER ESOPHAGOSCOPY (06/24/01) OTHER SLEEP DISORDER FUNCTION TESTS (08/17/01) POLYSOMNOGRAM (06/07/01) RESECTION OF RIGHT BREAST, OPEN APPROACH (04/18/17) 07/07/17 Op Note Pre-op dx: right breast cancer Post-op dx: same Procedure: Power port placement Surgeon: Melvin Asst: None Anesth: local-MAC SCDs on during procedure Abx: given pre-op Complications: none Pt. tolerated procedure well and was transferred to in a stable condition. CLFoster
--- NOTE | 2017-07-07 09:20 | RAD ---
INDICATION: Power port insertion COMPARISONS: None relevant TECHNIQUE: Fluoroscopy was provided for a vascular access procedure. Total fluoroscopy time is: 40 seconds FINDINGS: Spot images demonstrate a right-sided chest port with the tip overlying the superior vena cava IMPRESSION: FLUOROSCOPY WAS PROVIDED FOR A VASCULAR ACCESS PROCEDURE CPT II Codes: 6045F
--- NOTE | 2017-07-07 09:40 | RAD ---
HISTORY: Status post line placement COMPARISONS: May 20, 2017 VIEWS:1: Single frontal portable view of the chest at 9:20 AM FINDINGS: LINES AND TUBES: There is a right-sided chest port from a subclavian approach with the tip overlying the superior vena cava CARDIOMEDIASTINAL SILHOUETTE: The cardiac silhouette is enlarged. The cardiomediastinal silhouette is otherwise normal for portable technique. PLEURA: The costophrenic angles are sharp. No pleural abnormalities are noted. There is no appreciable pneumothorax. LUNG PARENCHYMA: There is a diffuse reticular pattern with indistinct pulmonary vessels. ABDOMEN: The upper abdomen is clear. There is no subphrenic gas. BONES AND SOFT TISSUES: No bone or soft tissue abnormalities are noted. IMPRESSION: 1. LINES AND TUBES ABOVE. 2. CARDIOMEGALY WITH PULMONARY INTERSTITIAL EDEMA.
[2017-07-07] MEDS: Magnesium Oxide TAB* 400 MG PO SCH ×2 (11:53→23:06)
[2017-07-07] MEDS: Ascorbic Acid TAB* 500 MG PO SCH (11:54)
[2017-07-07] MEDS: Torsemide TAB* 20 MG PO SCH (11:54)
[2017-07-07] MEDS: Insulin GLARGINE(*) 1 UNITS UNIT SUBCUT SCH (12:00)
[2017-07-07] MEDS: PTO: Anastrozole (NF) 1 MG TAB PO SCH (12:00)
[2017-07-07] MEDS: Heparin DRIP 25,000 UNITS(*) 25,000 UNITS/500 ML BAG IV SCH (12:02)
[2017-07-07] MEDS: Diltiazem CD CAP* 120 MG PO SCH ×2 (12:32→20:31)
--- NOTE | 2017-07-07 15:23 | PN ---
Subjective Date of Service: 07/07/17 Interval History: Patient underwent successful placement of port in the R subclavian. Heparin drip has been resumed with plans to bridge back to therapeutic INR. Patient denies CP, SOB, abd pain, n/v. Objective Active Medications: Acetaminophen (Tylenol Tab*) 650 mg PO Q6H PRN PRN Reason: PAIN Last Admin: 07/07/17 01:51 Dose: 650 mg Albuterol (Ventolin Hfa Inhaler*) 2 puff INH QID PRN PRN Reason: SOB/WHEEZING Anastrozole (Arimidex (Nf)) 1 mg PO QAM [facility] Last Admin: 07/07/17 12:00 Dose: Not Given Ascorbic Acid (Vitamin C Tab*) 500 mg PO QAM [facility] [place] Last Admin: 07/07/17 11:54 Dose: 500 mg Carvedilol (Coreg Tab*) 12.5 mg PO BID [facility] [place] Last Admin: 07/07/17 07:54 Dose: 12.5 mg Dextrose (D50w Syringe 50 Ml*) 12.5 gm IV PUSH .FOR FS < 60 - SS PRN PRN Reason: FS < 60 Diltiazem HCl (Cardizem Cd Cap*) 120 mg PO BID ROSSY Docusate Sodium (Colace Cap*) 200 mg PO BID PRN PRN Reason: CONSTIPATION Heparin Sodium (Porcine) (Heparin Vial(*)) 0 units IV .PER PROTOCOL ROSSY PRN Reason: Protocol Last Admin: 07/06/17 19:13 Dose: 3,800 units Hydroxychloroquine Sulfate (Plaquenil Tab*) 200 mg PO DAILY PRN PRN Reason: PAIN (RELATED TO LUPUS) Heparin Sodium/Dextrose (Heparin Drip 25,000 Units(*)) 25,000 units in 500 mls @ 0 mls/hr IV .NO INITIAL BOLUS ROSSY; As Directed PRN Reason: Protocol Last Admin: 07/07/17 12:02 Dose: 21 mls/hr Lactated Ringer's (Lactated Ringers 1000 Ml Bag*) 1,000 mls @ 125 mls/hr IV PER RATE [facility] Insulin Glargine (Lantus(*)) 35 units SUBCUT QAM [facility] [place] Last Admin: 07/07/17 12:00 Dose: 35 unit Insulin Human Lispro (Humalog*) 0 units SUBCUT Q6H ROSSY PRN Reason: Protocol Last Admin: 07/07/17 12:32 Dose: Not Given Magnesium Oxide (Magox 400 Tab*) 400 mg PO 1100,2300 [facility] [place] Last Admin: 07/07/17 11:53 Dose: 400 mg Oxycodone/Acetaminophen (Percocet 5/325 Tab*) 1 tab PO Q4H PRN PRN Reason: PAIN Pharmacy Profile Note (Coumadin Daily Reminder*) 0 note FOLLOW UP 1700 [facility] Polyethylene Glycol/Electrolytes (Miralax*) 17 gm PO QPM PRN PRN Reason: CONSTIPATION Spironolactone (Aldactone Tab*) 25 mg PO EVERY OTHER DAY [facility] [place] Last Admin: 07/06/17 08:51 Dose: 25 mg Torsemide (Demadex*) 20 mg PO DAILY [facility] [place] Last Admin: 07/07/17 11:54 Dose: Not Given Warfarin Sodium (Coumadin Tab(*)) 6 mg PO DAILY@1700 ROSSY PRN Reason: Protocol Vital Signs: Temp Pulse Resp BP Pulse Ox 97.6 F 54 17 122/54 97 07/07/17 12:21 07/07/17 12:21 07/07/17 12:21 07/07/17 12:21 07/07/17 13:28 Oxygen Devices in Use Now: None Appearance: Well appearing middle aged female in NAD Respiratory: Symmetrical Chest Expansion and Respiratory Effort, Clear to Auscultation, - - port accessed in R upper chest Cardiovascular: NL Sounds; No Murmurs; No JVD, RRR Abdominal: NL Sounds; No Tenderness; No Distention Extremities: - - bilateral non-pitting edema in both lower extremities Neurological: Alert and Oriented x 3 Result Diagrams: 07/07/17 07:09 07/06/17 06:57 Assess/Plan/Problems-Billing Assessment: Ms. Anand is a 67 yo female with a PMH of recent diagnosis of right breast cancer with mastectomy, recent ureteral stent for nephrolithiasis with pyelonephritis resulting in fungemia now s/p 2 weeks antifungal treatment, recent colovesicular fistula repair with colostomy, recent splenic infarct and more chronic history of afib on coumadin, diastolic CHF, IDDM, RAJNI on CPAP who was admitted on 07/04/17 due to hypercoagulable state with INR 2.18 before planned port placement for chemotherapy with need for monitoring and heparin bridge prior to rescheduled surgery for Friday07/07/17. - Patient Problems (1) Hypercoagulable state Comment: - Port placed today, heparin drip has been resumed - Restart Coumadin this evening with repeat INR tomorrow. She will receive a loading dose of 8mg this evening after which she can resume her usual 6mg - She has no further evidence of hematuria or other bleeding. - Cont heparin gtt, monitor for bleeding. (2) Breast CA Comment: - Port has been successfully placed with plans to initiate chemotherapy at discharge - Continue Anastrozole. (3) Diastolic CHF Comment: - No acute exacerbation - Continue torsemide which patient takes prn for LE swelling and spironolactone. (4) RAJNI (obstructive sleep apnea) Comment: - Continue CPAP. (5) Afib Comment: - Case discussed with Dr. Nguyen at admission. Though patient has never had a stroke she requires bridging when off coumadin due to low flow state in her left atrium with history of moderate mitral stenosis and dilated left atrium as well as recent splenic infarct - Rate controlled. Continue carvedilol and cardizem. (6) CKD stage 3 secondary to diabetes Comment: - Creatinine is at baseline. (7) SLE (systemic lupus erythematosus) Comment: Cont Plaquenil (8) HTN (hypertension) Comment: - Normotensive - Cont home medications (9) Colostomy in place Comment: Secondary to colovesicular fistula as a complication of diverticulitis (10) Type 2 diabetes mellitus Comment: - BG well controlled. - Continue Lantus and Lispro SS. (11) DVT prophylaxis Comment: - Heparin gtt. (12) Full code status Status and Disposition: Inpatient, anticipate dc when INR is therapeutic per surgery
[2017-07-07] MEDS ORDERED: Warfarin TAB(*) 6 MG PO SCH (17:00)
[2017-07-07] MEDS: Warfarin TAB(*) 4 MG PO SCH (17:37)
[2017-07-07] MEDS: Heparin VIAL(*) 5000 UNITS/ML VIAL (FIVE THOUSAND) IV SCH (21:11)
--- NOTE | 2017-07-07 21:22 | OP ---
CC: [facility] * DATE OF OPERATION: 07/07/17 - ROOM #350 DATE OF : 48 SURGEON: Lianne Charles MD INDUSTRIAL PROPERTY APPRAISER: There was no speech pathology assistant for this case. ANESTHESIOLOGIST: Marquis Vasquez MD ANESTHESIA: MAC. PRE-OP DIAGNOSIS: Right breast cancer. POST-OP DIAGNOSIS: Right breast cancer. OPERATIVE PROCEDURE: PowerPort placement. DESCRIPTION OF PROCEDURE: Ms. Anand is a 67-year-old woman with a recent history of breast cancer who is being prepared for chemotherapy. She had an attempt at left-sided IV access in a previous surgery, which was unsuccessful due to being unable to advance the wire, so plans were made for PowerPort placement on the right side. She was brought to the operating room, placed on the OR table in a supine position and given IV sedation. The right chest was prepped and draped in the usual sterile fashion and after infiltrating with local anesthetic, using a Seldinger technique, a wire was placed into the right subclavian vein. This was done without difficulty and under fluoroscopic visualization. A port pocket was then created by infiltrating the skin at the chest wall with local anesthetic making an incision and elevating the flap inferiorly with electrocautery. Once the pocket was of a size to accommodate the port, the port itself was tunneled from the wire exit site to the port pocket site and then dilator and introducer were passed over the wire under fluoroscopic visualization. The wire and the dilator were removed. The catheter was advanced through the introducer to an appropriate depth and the introducer peeled away. Position of the catheter was confirmed and again it was drawn back to an appropriate level and then trimmed to an appropriate length. It was attached to the port and the port then was secured to the chest wall using 2-0 Surgipro stitches and the port pocket was closed with 3-0 Polysorb in the subcutaneous layer, the skin was closed with 4-0 Surgipro in a subcuticular fashion. The port was accessed several times during the procedure and found to have adequate blood return and was able to be flushed without difficulty. This was again confirmed when the needle was placed in the port and left in situ for chemo access. This was flushed and had blood return also. It was noted that there was a slight angle to the surface of the port but nonetheless it was easily accessible. Dry sterile dressing was applied. All sponge and instrument counts were correct. The patient tolerated the procedure well and was transferred to Recovery in stable condition. [id number]/[facility] #: [id number] [facility]ITAL[facility]
[2017-07-08] MEDS: Insulin LISPRO* 1 UNITS UNIT SUBCUT SCH ×5 (00:02→23:44)
[2017-07-08] MEDS: Acetaminophen TAB* 325 MG PO PRN (03:23)
[2017-07-08] MEDS: oxyCODONE/Acetamin 5/325 MG* TAB PO PRN ×4 (03:30→20:41)
[2017-07-08 04:48] LABS: Hematocrit 36 % (35-47); Hemoglobin 11.7 g/dl (12.0-16.0); Mean Corpuscular HGB Conc 33 g/dl (31-36); Mean Corpuscular Hemoglobin 29 pg (27-31); Mean Corpuscular Volume 89 fL (80-97); Mean Platelet Volume 9 um3 (7.4-10.4); Red Blood Count 3.99 10^6/ul (4.0-5.4); Red Cell Distribution Width 17 % (10.5-15); White Blood Count 8.7 10^3/ul (3.5-10.8)
[2017-07-08 07:49] LABS: EGFR African American 75.2 (>60); EGFR Non-African American 58.5 (>60)
[2017-07-08] MEDS: PTO: Anastrozole (NF) 1 MG TAB PO SCH (08:11)
[2017-07-08] MEDS: Ascorbic Acid TAB* 500 MG PO SCH (08:15)
[2017-07-08] MEDS: Carvedilol TAB* 6.25 MG PO SCH ×2 (08:15→20:40)
[2017-07-08] MEDS: Spironolactone TAB* 25 MG PO SCH (08:15)
[2017-07-08] MEDS: Diltiazem CD CAP* 120 MG PO SCH ×2 (08:15→20:41)
[2017-07-08] MEDS: Torsemide TAB* 20 MG PO SCH (08:16)
[2017-07-08] MEDS: Heparin DRIP 25,000 UNITS(*) 25,000 UNITS/500 ML BAG IV SCH (08:41)
--- NOTE | 2017-07-08 08:54 | PN ---
Progress Note - Progress Note Date of Service: 07/08/17 Note: Surgery Ms. Anand c/o severe pain in left upper arm. The pain has been present to a lesser degree for a couple of weeks but worsened with use of the left midline IV. It affects her ability to move her arm. It does subside. Vital Signs 07/07/17 07/07/17 07/07/17 09:00 09:05 09:10 Temperature 97.0 F Pulse Rate 72 69 65 Respiratory 16 14 18 Rate Blood Pressure 137/87 136/88 133/82 (mmHg) O2 Sat by Pulse 100 99 97 Oximetry 07/07/17 07/07/17 07/07/17 09:15 09:30 09:45 Temperature Pulse Rate 63 56 55 Respiratory 16 18 18 Rate Blood Pressure 132/84 115/86 125/81 (mmHg) O2 Sat by Pulse 98 98 98 Oximetry 07/07/17 07/07/17 07/07/17 10:00 10:15 10:30 Temperature Pulse Rate 51 53 54 Respiratory 16 16 16 Rate Blood Pressure 133/82 125/82 132/87 (mmHg) O2 Sat by Pulse 98 96 100 Oximetry 07/07/17 07/07/17 07/07/17 10:45 11:10 12:21 Temperature 97.5 F 97.6 F Pulse Rate 53 50 54 Respiratory 18 14 17 Rate Blood Pressure 109/69 137/80 122/54 (mmHg) O2 Sat by Pulse 99 95 100 Oximetry 07/07/17 07/07/17 07/07/17 13:11 13:28 15:07 Temperature 98.3 F 97.4 F Pulse Rate 54 59 Respiratory 15 16 Rate Blood Pressure 128/66 116/56 (mmHg) O2 Sat by Pulse 100 97 97 Oximetry 07/07/17 07/07/17 07/07/17 16:00 18:17 19:38 Temperature 98.6 F Pulse Rate 65 Respiratory 18 17 Rate Blood Pressure 139/76 (mmHg) O2 Sat by Pulse 97 94 Oximetry 07/07/17 07/07/17 07/08/17 19:46 23:09 03:30 Temperature 98.1 F 97.6 F Pulse Rate 65 63 Respiratory 16 16 16 Rate Blood Pressure 140/71 136/67 (mmHg) O2 Sat by Pulse 100 99 Oximetry 07/08/17 07/08/17 07/08/17 03:38 05:30 08:26 Temperature 98.4 F Pulse Rate 66 Respiratory 16 16 16 Rate Blood Pressure 133/78 (mmHg) O2 Sat by Pulse 100 Oximetry I do not appreciate arm swelling on the left. The port site on the right is intact. Intake & Output 07/07/17 07/08/17 07/08/17 22:59 06:59 14:59 Intake Total 1179 1082 Output Total 1200 400 Balance -21 682 Intake: Heparin 339 902 Oral 840 180 Output: Urine 1000 400 Colostomy 200 Laboratory Results - last 24 hr 07/07/17 07/07/17 07/07/17 12:15 17:39 20:30 WBC RBC Hgb Hct MCV MCH MCHC RDW Plt Count MPV Neut % (Auto) Lymph % (Auto) [place] % (Auto) Eos % (Auto) Baso % (Auto) Absolute Neuts (auto) Absolute Lymphs (auto) Absolute Monos (auto) Absolute Eos (auto) Absolute Basos (auto) Absolute Nucleated RBC Nucleated RBC % INR (Anticoag Therapy) APTT 35.6 BUN Creatinine Est GFR ( Amer) Est GFR (Non-Af Amer) POC Glucose (mg/dL) 120 H 68 L 07/07/17 07/08/17 07/08/17 23:52 04:30 04:30 WBC 8.7 RBC 3.99 L Hgb 11.7 L Hct 36 MCV 89 MCH 29 MCHC 33 RDW 17 H Plt Count 176 MPV 9 Neut % (Auto) 62.8 Lymph % (Auto) 24.0 L [place] % (Auto) 9.5 H Eos % (Auto) 2.9 Baso % (Auto) 0.8 Absolute Neuts (auto) 5.5 Absolute Lymphs (auto) 2.1 Absolute Monos (auto) 0.8 Absolute Eos (auto) 0.3 Absolute Basos (auto) 0.1 Absolute Nucleated RBC 0 Nucleated RBC % 0 INR (Anticoag Therapy) APTT BUN 18 Creatinine 0.95 Est GFR ( Amer) 75.2 Est GFR (Non-Af Amer) 58.5 POC Glucose (mg/dL) 122 H 07/08/17 07/08/17 04:30 05:43 WBC RBC Hgb Hct MCV MCH MCHC RDW Plt Count MPV Neut % (Auto) Lymph % (Auto) [place] % (Auto) Eos % (Auto) Baso % (Auto) Absolute Neuts (auto) Absolute Lymphs (auto) Absolute Monos (auto) Absolute Eos (auto) Absolute Basos (auto) Absolute Nucleated RBC Nucleated RBC % INR (Anticoag Therapy) 1.28 H APTT 83.8 H BUN Creatinine Est GFR ( Amer) Est GFR (Non-Af Amer) POC Glucose (mg/dL) 115 H POD#1 s/p port placement. Probably not related to port placement, but I am concerned about the left arm pain. Will check venous studies to r/o DVT.
[2017-07-08] MEDS: Insulin GLARGINE(*) 1 UNITS UNIT SUBCUT SCH (09:59)
--- NOTE | 2017-07-08 11:30 | RAD ---
HISTORY: Left arm pain COMPARISONS: None relevant TECHNIQUE: Multiple transverse and longitudinal ultrasound images were obtained of the left upper extremity from the level of the internal jugular vein inferiorly through to the infra-cubital veins using grayscale, color Doppler, and spectral Doppler imaging with and without compression and with augmentation. Comparison images were obtained of the contralateral internal jugular vein and subclavian vein. FINDINGS: VEINS: The venous system of the left upper extremity is compressible throughout its course, with normal flow on color Doppler imaging and normal response to augmentation on spectral Doppler imaging. The basilic vein is diminutive. SOFT TISSUES: Unremarkable. OTHER FINDINGS: None. IMPRESSION: NO LEFT UPPER EXTREMITY DEEP VEIN THROMBOSIS
[2017-07-08] MEDS: Magnesium Oxide TAB* 400 MG PO SCH ×2 (12:00→23:41)
--- NOTE | 2017-07-08 16:24 | PN ---
Hospitalist Progress Note Hospitalist group will sign off at this time. Surgery team is managing anticoagulation. INR remains subtherapeutic. Recommend an additional 8 mg of Coumadin today with repeat INR tomorrow.
[2017-07-08] MEDS: Warfarin TAB(*) 4 MG PO SCH (17:32)
[2017-07-09] MEDS: oxyCODONE/Acetamin 5/325 MG* TAB PO PRN ×3 (01:47→11:56)
[2017-07-09] MEDS: Heparin DRIP 25,000 UNITS(*) 25,000 UNITS/500 ML BAG IV SCH (04:59)
[2017-07-09 05:52] LABS: Hematocrit 37 % (35-47); Mean Corpuscular HGB Conc 33 g/dl (31-36); Mean Corpuscular Hemoglobin 29 pg (27-31); Mean Corpuscular Volume 89 fL (80-97); Mean Platelet Volume 9 um3 (7.4-10.4); Red Blood Count 4.14 10^6/ul (4.0-5.4); Red Cell Distribution Width 17 % (10.5-15); White Blood Count 10.8 10^3/ul (3.5-10.8)
[2017-07-09] MEDS: Insulin LISPRO* 1 UNITS UNIT SUBCUT SCH (05:54)
[2017-07-09] MEDS: Carvedilol TAB* 6.25 MG PO SCH ×2 (08:55→22:13)
[2017-07-09] MEDS: Diltiazem CD CAP* 120 MG PO SCH ×2 (08:55→22:13)
[2017-07-09] MEDS: Ascorbic Acid TAB* 500 MG PO SCH (08:55)
[2017-07-09] MEDS: Torsemide TAB* 20 MG PO SCH (08:56)
[2017-07-09] MEDS: Insulin GLARGINE(*) 1 UNITS UNIT SUBCUT SCH (08:56)
[2017-07-09] MEDS: PTO: Anastrozole (NF) 1 MG TAB PO SCH (08:57)
[2017-07-09] MEDS: Magnesium Oxide TAB* 400 MG PO SCH ×2 (11:55→22:13)
[2017-07-09] MEDS: Warfarin TAB(*) 4 MG PO SCH (17:27)
--- NOTE | 2017-07-09 19:16 | PN ---
Progress Note - Progress Note Date of Service: 07/09/17 Note: Surgery Progress: S: patient frustrated about not being able to go home. She understands that it can be at least 3-5 days before she might be therapeutic again on her coumadin. She still has some c/o of pain in the Left UE. O: Vital Signs - 8 hr 07/09/17 07/09/17 07/09/17 11:42 11:56 13:56 Temperature 98.2 F Pulse Rate 65 Respiratory 18 16 18 Rate Blood Pressure 140/74 (mmHg) O2 Sat by Pulse 99 Oximetry 07/09/17 07/09/17 15:34 16:00 Temperature 98.2 F Pulse Rate 67 Respiratory 18 Rate Blood Pressure 131/66 (mmHg) O2 Sat by Pulse 98 98 Oximetry PE: mild tenderness to palp of LUE; no discernable swelling (venous doppler was neg for DVT) Port site ok INR 1.5 A/P: discussed anticoagulation w/ Dr. Charles who discussed w/ cardiology; their rec was to cont Heparin gtt or resume previous Lovenox (same dosing) until INR therapeutic. I also spoke w/ pharmacy here; there is no adjustment for dosing based on her morbid obesity. She could use her remaining 3 doses of Lovenox 150 mg at home if needed and waste 10%, if her INR is not quite therapeutic in the am. Her Hgb has been stable, despite the hematuria she was experiencing on the 150 bid dosing.
[2017-07-09] MEDS: Acetaminophen TAB* 325 MG PO PRN (22:13)
[2017-07-10] MEDS: Heparin DRIP 25,000 UNITS(*) 25,000 UNITS/500 ML BAG IV SCH (00:30)
[2017-07-10] MEDS: Acetaminophen TAB* 325 MG PO PRN ×2 (04:23→11:47)
[2017-07-10 05:53] LABS: Hematocrit 33 % (35-47); Mean Corpuscular HGB Conc 33 g/dl (31-36); Mean Corpuscular Hemoglobin 29 pg (27-31); Mean Corpuscular Volume 89 fL (80-97); Mean Platelet Volume 9 um3 (7.4-10.4); Red Blood Count 3.73 10^6/ul (4.0-5.4); Red Cell Distribution Width 17 % (10.5-15)
[2017-07-10 06:27] LABS: EGFR African American 74.3 (>60); EGFR Non-African American 57.8 (>60)
[2017-07-10 08:23] VITALS: BP 120/65
[2017-07-10] MEDS: Ascorbic Acid TAB* 500 MG PO SCH (09:42)
[2017-07-10] MEDS: Carvedilol TAB* 6.25 MG PO SCH (09:42)
[2017-07-10] MEDS: Spironolactone TAB* 25 MG PO SCH (09:42)
[2017-07-10] MEDS: Diltiazem CD CAP* 120 MG PO SCH (09:42)
[2017-07-10] MEDS: Insulin GLARGINE(*) 1 UNITS UNIT SUBCUT SCH (09:43)
[2017-07-10] MEDS: Magnesium Oxide TAB* 400 MG PO SCH (09:43)
[2017-07-10] MEDS: PTO: Anastrozole (NF) 1 MG TAB PO SCH (09:44)
[2017-07-10] MEDS: Torsemide TAB* 20 MG PO SCH (09:45)
--- NOTE | 2017-07-10 10:50 | PN ---
Progress Note - Progress Note Date of Service: 07/10/17 Note: S: now w/ increased swelling/pain in L hand (she attributes to blood draws from the hand and BPs); she actually has less discomfort in the upper arm O: Vital Signs - 8 hr 07/10/17 07/10/17 07/10/17 04:10 07:37 08:32 Temperature 98.4 F 98.3 F Pulse Rate 70 78 Respiratory 16 18 16 Rate Blood Pressure 127/74 120/65 (mmHg) O2 Sat by Pulse 100 100 100 Oximetry Port site ok; dorsum of L hand swollen, tender; no erythema or increased temp; no sig prox forearm or upper arm swelling or tenderness. Labs: Laboratory Tests 07/10/17 05:35 INR (Anticoag Therapy) 1.78 H APTT 55.2 H A/P: s/p powerport placement for chemotx; still slightly subtherapeutic on Coumadin; if ok w/ Dr. Charles will d/c home on her usual Coumadin dosing with Lovenox (135 mg sc bid) and recheck of INR tomorrow a.m. She has three doses of Lovenox at home. Office f/u next week for suture removal.
--- NOTE | 2017-07-10 22:01 | DS ---
CC: Dr. Melissa Bernard; Dr. Umang Marr; Dr. Kiel Nguyen * DISCHARGE SUMMARY: DATE OF ADMISSION: 07/04/17 DATE OF DISCHARGE: 07/10/17 ATTENDING PHYSICIAN: Dr. Lianne Charles. * (DICTATED BY DIANA POWELL ) HOSPITAL COURSE: Please refer to admission history and physical for admission details. The patient was scheduled for PowerPort placement on 07/04/17, but because of hematuria it was concluded that she was over-anticoagulated on her bridging Lovenox. She was admitted for bridging with IV heparin and postponement of the PowerPort placement until 07/07/17, at which time it was performed by Dr. Charles. Surgery itself was uneventful. She was resumed on the heparin drip postoperatively with gradual increase in her INR after resumption of oral Coumadin dosing on 07/07/17 (she had initial dose of 6 mg with subsequent dosing of 8 mg on 07/08/17 and 07/09/17). PHYSICAL EXAMINATION: As of the morning of discharge, temperature 98.3, blood pressure 120/65, pulse 78, respirations 18. General: Well-nourished, well- developed, morbidly obese, in no acute distress. Her main complaint being that of left hand swelling and pain. Skin: Warm and dry. No issues at the port site, which is healing well under the Tegaderm dressing. The left hand is notable for swelling and tenderness on the dorsum that she relates to frequent blood draws. She also has some discomfort after blood pressure yesterday. The proximal forearm and upper arm are without significant tenderness or swelling. She did have an upper extremity venous Doppler on 07/08/17, which was negative for DVT. Her INR as of this morning was 1.78. PLAN: Home today on her usual Coumadin dosing (6 mg daily). She will continue to bridge with Lovenox at a reduced dose (135 mg subcutaneously b.i.d.) until her INR is greater than 2. She has 3 doses remaining at home and will have an INR repeated tomorrow. Further Coumadin adjustments per Dr. Marr's office. She will arrange a followup with Dr. Bernard's office. She has a followup scheduled in our office on 07/14/17 for wound check and suture removal. She was advised that her right upper extremity restriction is relative to the number of lymph nodes removed (6) and the potential for radiation therapy to the axilla in the future. For now, she may have blood draws done from the right hand if the left upper extremity is still symptomatic. She may also have blood draws done from her port following protocol per MEAGAN. DIANA POWELL [id number]/[facility] #: [id number] [facility]
== END 2017-07-10 12:35 | disposition home or self-care (01) | DRG 815 ==
LOC: SSU 12:04
PROVIDERS: ADMIT Surgery; ATTEND Surgery
PROC: 05H533Z Insertion of Infusion Device into Right Subclavian Vein, Percutaneous Approach (ICD-10-PCS; 2017-07-07)
PROC: B516ZZA Fluoroscopy of Right Subclavian Vein, Guidance (ICD-10-PCS; 2017-07-07)
PROC: 5A09457 Assistance with Respiratory Ventilation, 24-96 Consecutive Hours, Continuous Positive Airway Pressure (ICD-10-PCS; 2017-07-07)
PROC: 0JH60WZ Insertion of Totally Implantable Vascular Access Device into Chest Subcutaneous Tissue and Fascia, Open Approach (ICD-10-PCS; principal; 2017-07-07 08:15)
DX: D68.59 Other primary thrombophilia (principal); I50.32 Chronic diastolic (congestive) heart failure; E11.22 Type 2 diabetes mellitus with diabetic chronic kidney disease; M32.9 Systemic lupus erythematosus, unspecified; N18.3 Chronic kidney disease, stage 3 (moderate); I13.0 Hypertensive heart and chronic kidney disease with heart failure and stage 1 through stage 4 chronic kidney disease, or unspecified chronic kidney disease; Z68.42 Body mass index [BMI] 45.0-49.9, adult; T45.515A Adverse effect of anticoagulants, initial encounter; E66.01 Morbid (severe) obesity due to excess calories; I48.91 Unspecified atrial fibrillation; G47.33 Obstructive sleep apnea (adult) (pediatric); C50.911 Malignant neoplasm of unspecified site of right female breast; Z87.440 Personal history of urinary (tract) infections; Z87.442 Personal history of urinary calculi; Z90.710 Acquired absence of both cervix and uterus; Z90.11 Acquired absence of right breast and nipple; Z79.01 Long term (current) use of anticoagulants; Z93.3 Colostomy status; Z90.49 Acquired absence of other specified parts of digestive tract; Z82.0 Family history of epilepsy and other diseases of the nervous system
CPT/HCPCS: 36415; 71010; 80053; 82565; 84520; 85025; 85027; 85260; 85610; 85730; 94660; 94760; A9270-GY; J0690; J1642; J1644

== ENCOUNTER 2017-10-03 09:31 | Day surgery (SDC) | payer MEDICARE ==
--- NOTE | 2017-09-30 18:27 | HP ---
CC: Dr. Umang Marr; Dr. Melissa Bernard; Dr. Stanton * ADMITTING HISTORY AND PHYSICAL: DATE OF ADMISSION: 10/03/17 ADMITTING DIAGNOSES: 1. Right hydronephrosis. 2. Calculus right proximal ureter. 3. Recurrent urinary tract infections. PLANNED PROCEDURE: Right ureteroscopy, possible laser and right ureteral stent replacement. HISTORY OF PRESENT ILLNESS: Silvia Anand is a 67-year-old lady with history of renal calculi. She had undergone urgent right stent insertion on 06/15/17 and further treatment of the calculus had been deferred because of chemotherapy that she had been getting for the last several months for her breast cancer. She has now completed the chemotherapy and a recent ultrasound had revealed a 9- mm calculus in the proximal right ureter with persistent mild right hydronephrosis. In addition, she has had recurrent urinary tract infections and was also recently just started on Cipro 2 days ago and is now being brought in for right ureteroscopy, possible laser and stent replacement. At this point , I feel that the stent is probably colonized and she may not be able to get rid of her recurrent urinary tract infections until the stent has been replaced. PAST MEDICAL HISTORY: Significant for: 1. Recent breast cancer treated with the lumpectomy followed by chemotherapy. 2. Status post diverting loop colostomy for perforated diverticulitis. 3. Morbid obesity. 4. Atrial fibrillation. 5. Diabetes mellitus. MEDICATIONS ON ADMISSION: 1. Carvedilol 12.5 mg b.i.d. 2. Cipro 500 mg b.i.d. 3. Coumadin 6 mg daily. 4. Diltiazem 120 mg b.i.d. 5. Lantus 35 units subcutaneous daily. 6. Metolazone 5 mg p.r.n. 7. Torsemide 10 mg p.r.n. ALLERGIES AND INTOLERANCES: No known drug allergies. PHYSICAL EXAMINATION GENERAL: Reveals a pleasant, overweight -Dutch lady. VITAL SIGNS: Blood pressure is 134/90, pulse 96 per minute, oxygen saturation 97% on room air, temperature 95.1. LUNGS: Clear bilaterally. CARDIOVASCULAR EXAM: S1, S2. ABDOMEN: Soft with mild right flank tenderness. She has a loop colostomy in place. IMPRESSION: A 67-year-old lady with recurrent urinary tract infections with the stent that has been in for over 3 months and a calculus of the right proximal ureter. PLAN: Right ureteroscopy, possible laser and stent replacement. [id number]/[facility] #: [id number] [facility]ITALIss[facility]
[~2017-10-03 09:31] MED LIST changes: -Buffered Lidocaine 0.9% SYRIN* 5 ML/SYR SYRINGE ONE; -Dexamethasone IV* 4 MG/ML 1 ML (4 MG) IV SLOW PU SCH; +DiMENhydriNATE IV* 50 MG/ML VIAL IV PUSH PRN; -Famotidine IV* 10 MG/ML 2 ML (20 mg) ONE; +GENTAMICIN ADULT IVPB ONE; -Metoclopramide TAB* 10 MG ONE; -Metoclopramide TAB* 10 MG PO ONE; +Morphine INJ* 2 MG/ML 1 ML CARPUJECT IV PRN; +NS 0.9% IVPB ONE; +PROCHLORPERAZINE INJ 5 MG/ML 2 ML VIAL IV PRN; +Scopolamine 1.5 mg* PATCH TRANSDERM PRN; +cefTRIAXone(*) 2 GM in NS 0.9% 100 ML* 100 ML IVPB ONE; +fentaNYL* 50 MCG/ML 2 ML VIAL (100 MCG VIAL) IV PRN; -fentaNYL* 50 MCG/ML 2 ML VIAL (100 MCG VIAL) IV SCH; +oxyCODONE/Acetamin 5/325 MG* TAB PO PRN
[2017-10-03] MEDS ORDERED: Famotidine IV* 10 MG/ML 2 ML (20 mg) ONE (09:37)
[2017-10-03] MEDS ORDERED: cefTRIAXone(*) 2 GM ADDV.VIAL IVPB ONE (09:37)
[2017-10-03] MEDS ORDERED: Buffered Lidocaine 0.9% SYRIN* 5 ML/SYR SYRINGE ONE (09:37)
[2017-10-03] MEDS ORDERED: fentaNYL* 50 MCG/ML 2 ML VIAL (100 MCG VIAL) ONE (09:59)
[2017-10-03] MEDS ORDERED: KETAMINE HCL* 50 MG/ML 10 ML VIAL ONE (10:00)
[2017-10-03] MEDS ORDERED: Midazolam* 1 MG/ML 5 ML VIAL (5 MG) ONE (10:00)
[2017-10-03] MEDS ORDERED: Atracurium* 10 MG/ML 10 ML VIAL ONE (10:00)
[2017-10-03] MEDS ORDERED: Iohexol 180 (CONTRAST) 10 ML SDV IV ONE (10:37)
[2017-10-03] MEDS ORDERED: Lidocaine 2% PF * 5 ML VIAL ONE (11:35)
[2017-10-03] MEDS ORDERED: Metoprolol Tartrate IV* 1 MG/ML 5 ML VIAL ONE (11:35)
[2017-10-03] MEDS ORDERED: Ondansetron INJ* 2 MG/ML VIAL ONE (11:35)
[2017-10-03] MEDS ORDERED: PROCHLORPERAZINE INJ 5 MG/ML 2 ML VIAL ONE (11:35)
[2017-10-03] MEDS ORDERED: Phenylephrine INJ* 10 MG/ML 1 ML VIAL (10 MG) ONE (11:35)
[2017-10-03] MEDS ORDERED: Propofol* 10 MG/ML 20 ML BTL IV PUSH ONE (11:35)
[2017-10-03] MEDS ORDERED: Flumazenil* 0.1 MG/ML 5 ML MDV ONE (11:39)
--- NOTE | 2017-10-03 12:05 | RAD ---
INDICATION: Interval stent placement COMPARISONS: None relevant TECHNIQUE: Fluoroscopy was provided for a retrograde pyelogram and stent placement. Total fluoroscopy time is: 14 seconds FINDINGS: Spot images of the straight contrast within a dilated renal collecting system. A ureteral stent is noted. IMPRESSION: FLUOROSCOPY WAS PROVIDED FOR A RETROGRADE PYELOGRAM AND STENT PLACEMENT CPT II Codes: 6045F
[2017-10-03 12:45] VITALS: BP 125/69
--- NOTE | 2017-10-03 13:35 | RAD ---
INDICATION: Right stent insertion COMPARISON: Retrograde examination October 03, 2017 TECHNIQUE: A single view of the abdomen is submitted. FINDINGS: Bones: There are no acute bony findings. Soft tissues: The soft tissues appear normal. The psoas margins are sharp. Bowel gas pattern: Normal Calcifications: There is a 12 mm lower pole right renal calculus. Other: There is a stoma in the right lower quadrant. There is a right ureteral stent in expected position. IMPRESSION: RIGHT-SIDED NEPHROLITHIASIS. RIGHT URETERAL STENT.
--- NOTE | 2017-10-03 17:06 | OP ---
CC: Dr. Melissa Bernard; Dr. Umang Marr * DATE OF OPERATION: 10/03/17 - [facility] DATE OF : 48 SURGEON: Tremaine Stanton MD ANESTHESIOLOGIST: Dr. Vasquez. ANESTHESIA: General. PRE-OP DIAGNOSES: 1. Right hydronephrosis. 2. Calculus right proximal ureter. POST-OP DIAGNOSES: 1. Right hydronephrosis. 2. Possible urinary tract infection. OPERATIVE PROCEDURE: Cystoscopy, right stent removal, right retrograde pyelogram, right ureteroscopy, right pyeloscopy, and right stent insertion. COMPLICATIONS: None. POSTOPERATIVE CONDITION: Stable. STENT USED: An 8.5-[place]an 28-cm silicone stent, right ureter. OPERATIVE FINDINGS: 1. Right hydronephrosis and proximal hydroureter. 2. Cloudy urine noted (sent for culture and sensitivity), possible urinary tract infection. 3. No stone noted in proximal ureter or renal pelvis. INDICATIONS: Silvia Anand is a 67-year-old lady who had undergone urgent stent insertion about 3 months ago for an obstructing proximal right ureteral calculus. She has been on potassium citrate in an effort to try to alkalinize the urine and was noted on ultrasound to have a persistent 9 mm calculus in the proximal ureter. DESCRIPTION OF PROCEDURE: After induction of general anesthesia, the patient was placed in dorsal lithotomy position. Sequential compression devices were in place and functioning. Initial cystoscopy revealed some cloudy urine in the bladder and the previously placed stent was noted exiting from the right orifice. This was removed. Next, limited retrograde pyelogram was carried out , which revealed right hydronephrosis and proximal hydroureter. A 6-[place]an semi -rigid ureteroscope was introduced and advanced under direct vision. The procedure was technically a little bit more challenging because of the patient' s body habitus. The ureteroscope was carefully advanced under direct vision and in the proximal ureter, there was an area noted on the left side where there was some edema and inflammation, this may be the site where the calculus had previously been impacted. There was no calculus noted at that site and the ureteroscope was advanced into the renal pelvis. There was a fair amount of cloudy urine noted in the renal pelvis and this was sent for urine culture. Pyeloscopy was performed. I could not visualize any calculus within the renal pelvis and because of the cloudy urine, I did not want to proceed with doing a flexible ureteroscopy with the risk of increasing the chance of bacteremia. The ureteroscope was carefully withdrawn under direct vision. An 8.5-[place] 28- cm silicone stent was introduced and positioned under fluoroscopy with good proximal and distal positioning obtained. My plan is to obtain a postoperative x-ray and see if the calculus has migrated into a lower pole calyx in which case she may require lithotripsy in the near future. The bladder was emptied. The patient tolerated the procedure satisfactorily and was transferred back to the recovery area in stable condition. [id number]/CPS #: [id number] MTDD
[2017-10-06] MEDS ORDERED: Scopolamine PATCH Remove* 1 NOTE MISC PATCH OFF ONE (06:03)
== END 2017-10-03 12:55 | disposition home or self-care (01) ==
LOC: OR 09:31
PROVIDERS: ATTEND Urology
DX: N13.30 Unspecified hydronephrosis (principal); E11.9 Type 2 diabetes mellitus without complications; Z79.4 Long term (current) use of insulin; Z85.3 Personal history of malignant neoplasm of breast; I48.91 Unspecified atrial fibrillation; Z79.01 Long term (current) use of anticoagulants; E66.01 Morbid (severe) obesity due to excess calories; Z93.3 Colostomy status; N39.0 Urinary tract infection, site not specified
CPT/HCPCS: 36415; 74000; 74420; 85610; 87086; C1876; J0696; J0780; J1580; J1642; J2250; J2405; J2704; J3010; J3490

== ENCOUNTER 2017-10-13 09:27 | Day surgery (SDC) | payer MEDICARE ==
--- NOTE | 2017-10-08 13:37 | HP ---
ADMITTING HISTORY AND PHYSICAL: DATE OF ADMISSION: 10/13/17. ADMITTING DIAGNOSIS: Right renal calculus. PLANNED PROCEDURE: Shockwave lithotripsy, right renal calculus. ADMITTING HISTORY AND PHYSICAL: Silvia Anand is a 67-year-old diabetic who had previously undergo ne right stent insertion. She had undergone right ureteroscopy on 10/03/17. At that time, I did not visualize any calculus in the right ureter and stent was replaced. She was then imaged and was noted to have a calculus in the lower pole of the right kidney. She is now being brought in for shockwave lithotripsy. PAST MEDICAL HISTORY: Significant for: 1. Breast cancer. 2. Perforated diverticulitis. 3. Atrial fibrillation. 4. Diabetes. 5. Obesity. MEDICATIONS: 1. Coumadin 6 mg daily, currently on hold. 2. Carvedilol 12.5 mg b.i.d. 3. Diltiazem 120 mg b.i.d. 4. Lantus insulin 35 units subcutaneous daily. 5. Torsemide 10 mg p.r.n. ALLERGIES: No known drug allergies. PHYSICAL EXAMINATION GENERAL: Reveals a pleasant, middle-aged lady. VITAL SIGNS: Blood pressure is 140/92, pulse 94 per minute, oxygen saturation 96% on room air. LUNGS: Clear bilaterally. CARDIOVASCULAR EXAM: Regular rate and rhythm. S1, S2. ABDOMEN: Soft with mild right flank tenderness, a colostomy is in place. IMPRESSION: A 67-year-old lady with a calculus, which is now in the lower pole of the right kidney. PLAN: Planned procedure is shockwave lithotripsy, right renal calculus. [id number]/[facility] #: [id number]
[~2017-10-13 09:27] MED LIST changes: -DiMENhydriNATE IV* 50 MG/ML VIAL IV PUSH PRN; -GENTAMICIN ADULT IVPB ONE; +Metoclopramide TAB* 10 MG PO ONE; -Morphine INJ* 2 MG/ML 1 ML CARPUJECT IV PRN; -NS 0.9% IVPB ONE; -PROCHLORPERAZINE INJ 5 MG/ML 2 ML VIAL IV PRN; -Scopolamine 1.5 mg* PATCH TRANSDERM PRN; -cefTRIAXone(*) 2 GM in NS 0.9% 100 ML* 100 ML IVPB ONE; -fentaNYL* 50 MCG/ML 2 ML VIAL (100 MCG VIAL) IV PRN; -oxyCODONE/Acetamin 5/325 MG* TAB PO PRN
[2017-10-13] MEDS ORDERED: Famotidine IV* 10 MG/ML 2 ML (20 mg) ONE (10:08)
[2017-10-13] MEDS ORDERED: cefTRIAXone(*) 2 GM ADDV.VIAL IVPB ONE (10:08)
[2017-10-13] MEDS ORDERED: Metoclopramide TAB* 10 MG ONE (10:08)
--- NOTE | 2017-10-13 10:08 | RAD ---
HISTORY: Shock wave lithotripsy COMPARISONS: October 03, 2017 VIEWS: Frontal views of the abdomen. FINDINGS: BOWEL: There is a nonspecific bowel gas pattern, with nondilated small bowel gas noted. A stoma is noted over the right hemiabdomen. CALCULI: There is a stable 1.2 cm calculus of the right renal parenchymal shadow. A right ureteral stent is noted. BONES AND SOFT TISSUES: Mild degenerative changes are noted OTHER FINDINGS: The lung bases are clear. There is no subphrenic gas. IMPRESSION: STABLE RIGHT NEPHROLITHIASIS
[2017-10-13] MEDS ORDERED: Buffered Lidocaine 0.9% SYRIN* 5 ML/SYR SYRINGE ONE (10:09)
[2017-10-13] MEDS ORDERED: Propofol* 10 MG/ML 20 ML BTL IV PUSH ONE (11:35)
[2017-10-13] MEDS ORDERED: Ketorolac INJ* 30 MG/ML 1 ML VIAL ONE (11:35)
[2017-10-13] MEDS ORDERED: Lidocaine 2% PF * 5 ML VIAL ONE (11:35)
[2017-10-13] MEDS ORDERED: Dexamethasone IV* 4 MG/ML 1 ML (4 MG) ONE (11:35)
[2017-10-13] MEDS ORDERED: Ondansetron INJ* 2 MG/ML VIAL ONE (11:35)
[2017-10-13] MEDS ORDERED: KETAMINE HCL* 50 MG/ML 10 ML VIAL ONE (11:35)
[2017-10-13] MEDS ORDERED: fentaNYL* 50 MCG/ML 2 ML VIAL (100 MCG VIAL) ONE (11:35)
[2017-10-13] MEDS ORDERED: Midazolam* 1 MG/ML 5 ML VIAL (5 MG) ONE (11:35)
[2017-10-13] MEDS ORDERED: EPHEDrine (Pressors)* 50 MG/ML VIAL ONE (11:58)
[2017-10-13] MEDS ORDERED: oxyCODONE/Acetamin 5/325 MG* TAB PO PRN (12:14)
[2017-10-13] MEDS ORDERED: fentaNYL* 50 MCG/ML 2 ML VIAL (100 MCG VIAL) IV PRN (12:14)
[2017-10-13] MEDS ORDERED: Ondansetron INJ* 2 MG/ML VIAL IV PRN (12:14)
[2017-10-13] MEDS ORDERED: Phenylephrine INJ* 10 MG/ML 1 ML VIAL (10 MG) ONE (12:24)
[2017-10-13 13:29] VITALS: BP 106/68
--- NOTE | 2017-10-13 14:48 | RAD ---
Indication: Right renal calculi, status post lithotripsy. Single view of the abdomen demonstrates right ureteral stent in place. Persistent calcification is noted overlying the lower pole of the right kidney. IMPRESSION: Persistent calcification lower pole right unchanged from exam done earlier the same day.
--- NOTE | 2017-10-14 11:31 | OP ---
CC: Umang Marr MD * DATE OF OPERATION: 10/13/17 - [facility] DATE OF : 48 SURGEON: Tremaine Stanton MD ANESTHESIOLOGIST: Dr. Cagle ANESTHESIA: General. PRE-OP DIAGNOSIS: Right renal calculus. POST-OP DIAGNOSIS: Right renal calculus OPERATIVE PROCEDURE: Shock wave lithotripsy of right renal calculus. INDICATIONS: Silvia Anand is a 67-year-old diabetic who had undergone stent insertion in May for an obstructing calculus in the right proximal ureter. Recent evaluation had revealed that the calculus had migrated back into the right kidney and is now located in the lower pole of the right kidney. She is now being brought in for an attempted lithotripsy. This is somewhat challenging given the patient's body habitus, but because of the location and the calculus in the lower pole, it would not be easy to access with the ureteroscope and so she is now being brought in for an attempted lithotripsy. COMPLICATIONS: None. POSTOPERATIVE CONDITION: Stable. DESCRIPTION OF PROCEDURE: After induction of general anesthesia, the patient was placed on the lithotripsy table in supine position. The calculus in the lower pole was identified using fluoroscopy. Shock wave lithotripsy was commenced at a rate of 60 shocks per minute. After the initial 300 shocks, there was a pause in lithotripsy for several minutes in an effort to minimize any potential trauma to the kidney. Because of the patient's respiratory excursions, it was difficult to concentrate the shock waves on the calculus because she was moving so much with the breathing that I felt that the lithotripsy was not being as effective as it normally would. A total of 2400 shocks were administered. The plan is to repeat an imaging study and also to wait at least a week before resuming the Coumadin (to avoid risk of a perinephric hematoma) and then to decide whether she is going to need any followup treatment such as a repeat lithotripsy in the near future prior to stent removal. The patient tolerated the procedure satisfactorily and was transferred back to recovery area in stable condition. [id number]/[facility] #: [id number] MTDD
== END 2017-10-13 13:54 | disposition home or self-care (01) ==
LOC: OR 09:27
PROVIDERS: ATTEND Urology
DX: N20.0 Calculus of kidney (principal); E11.9 Type 2 diabetes mellitus without complications; Z79.4 Long term (current) use of insulin; I48.91 Unspecified atrial fibrillation; Z79.01 Long term (current) use of anticoagulants; Z85.3 Personal history of malignant neoplasm of breast; I05.1 Rheumatic mitral insufficiency; I42.9 Cardiomyopathy, unspecified; D64.9 Anemia, unspecified; G47.33 Obstructive sleep apnea (adult) (pediatric); I27.20 Pulmonary hypertension, unspecified; I25.10 Atherosclerotic heart disease of native coronary artery without angina pectoris
CPT/HCPCS: 36415; 74000; 85610; A9270-GY; J0696; J1100; J1642; J1885; J2250; J2405; J2704; J3010

== ENCOUNTER 2018-05-15 10:23 | Day surgery (SDC) | payer MEDICARE ==
[~2018-05-15 10:23] MED LIST changes: -Famotidine IV* 10 MG/ML 2 ML (20 mg) IV ONE; -Metoclopramide TAB* 10 MG PO ONE; +Sodium Citrate/Citric Acid* 15 ML UDC PO ONE
[2018-05-15] MEDS ORDERED: Sodium Citrate/Citric Acid* 15 ML UDC ONE (10:34)
[2018-05-15] MEDS ORDERED: fentaNYL* 50 MCG/ML 2 ML VIAL (100 MCG VIAL) ONE (13:07)
[2018-05-15] MEDS ORDERED: Etomidate* 2 MG/ML 10 ML VIAL ONE (13:32)
[2018-05-15] MEDS ORDERED: Lidocaine 2% PF* 10 ML AMP ONE (13:32)
[2018-05-15] MEDS ORDERED: Succinylcholine* 20 MG/ML 10 ML VIAL ONE (13:32)
[2018-05-15] MEDS ORDERED: Propofol* 10 MG/ML 20 ML BTL IV PUSH ONE (13:32)
[2018-05-15] MEDS ORDERED: Naloxone* 0.4 MG/ML 1 ML VIAL IV PRN (14:15)
[2018-05-15 14:53] VITALS: BP 121/72
--- NOTE | 2018-05-15 21:31 | CONS ---
CC: Dr. Charles; Dr. Marr CARDIOLOGY EVALUATION: DATE OF CONSULT: 05/15/18 REASON FOR EVALUATION: Mitral stenosis, preoperative evaluation. HISTORY OF PRESENT ILLNESS: Silvia is a very pleasant 68-year-old woman with a longstanding history of mild cardiomyopathy, AFib, and rheumatic mitral stenosis. She recently had an echocardiogram performed on 04/01/18, which was a suboptimal study that revealed an EF of 55% to 60%, abnormal septal motion due to right ventricular volume overload, severe left atrial enlargement, severe right atrial enlargement. RV was mildly dilated, mildly hypertrophied, mildly reduced RV function, trace AI, mildly restricted aortic leaflets and was felt to be mild aortic stenosis. There was mild MR. The leaflets were thickened with moderate calcification. There was doming of the mitral leaflets. It was felt to be [id number] by 2D. The mean gradient was estimated at 7.9. The peak velocity was 2.2 meters per second. The valve area was 0.9 cm squared by half time. Her PA pressure was 43, assuming a central venous pressure of 3. Because of the possibility of underestimated mitral stenosis and progression of her mitral stenosis, it was decided to have a stress echo performed on . At that time, she walked for 5 minutes and 27 seconds on a nonstandard protocol to 3.6 METs. She was limited by dyspnea. She had reduced exercise capacity with a blunted heart rate response. On medications, she achieved 80% of maximum predicted. She had mild resting hypertension and appropriate increase with effort. She had AFib with poor R-wave progression, no significant changes with stress. PA pressure was approximately 34 mmHg at rest and 45 mm in recovery. CVP was estimated at 8 mm. O2 sats were stable. Her EF was 50% to 55% at rest and she had a normal hyperdynamic response to exercise, increased to 70% to 75%. It was a nondiagnostic stress due to the low heart rate achieved. No evidence of ischemia at the low heart rate obtained. Reduced exercise capacity of uncertain etiology, consider deconditioning, obesity versus mitral stenosis. A ISABELLA was performed to better evaluate the mitral regurgitation. This was done in conjunction with Anesthesia under general anesthesia. Dr. Caruso administered the anesthesia and her airway was controlled with endotracheal tube. Her resting heart rate was approximately 60 during the test. A ISABELLA revealed what appeared to be mild mitral stenosis. There was rheumatic doming of the anterior leaflet; however, the mean gradient was a little over 3 mm. There was marked spontaneous contrast in the severely enlarged left atrium and left atrial appendage. She had moderate TR. See separate report for full details. IMPRESSION AND PLAN: My impression is that Silvia does have history of a mild cardiomyopathy, mitral stenosis, atrial fibrillation, probable cor pulmonale on the basis of sleep apnea and obesity. Based on her performance on the stress echo, her exercise limitation appears to be similar compared to 2015 when she also achieved 3.5 METs. I did review these findings with her at her request. I explained that the mitral stenosis does not appear to be limiting at rest however, her large body surface area and the increased ate with higher heart rates may be limiting her. I also explained that deconditioning and obesity are also contributing to her limitation. I do not see a need to intervene or pursue further cardiac evaluation at this point in time. I did suggest the followin. Would proceed with surgery as planned. 2. Would suggest bridging with heparin perioperatively given her increased risk for cardioembolic events on the basis of her atrial fibrillation, severely dilated left atrium and rheumatic heart disease and spontaneous contrast in the left atrium. 3. Would try to maintain her resting heart rate in the 60 to 70 range to avoid increased mitral valve greadient associated with increased heart rates. 4. She is at risk for congestive heart failure on the basis of her valvular heart disease, history of cardiomyopathy and RV dysfunction. Would monitor her volume status closely perioperatively. 5. I did explain to her the long-term need to reduce her weight and increase her conditioning slowly to try to improve her performance. Further recommendations will depend on her clinical course. We also discussed the need to keep her resting heart rate and exercise related heart rate controlled to avoid excessive filling pressures with increased gradient across the mitral valve with exercise. Possibilities include increasing her medicines may result in a resting bradycardia or placing a pacemaker and adding medications. At this point, we will proceed with continued medical therapy and an attempt at weight reduction and conditioning. [id number]/[facility] #: [id number] [facility] CENTERIssa
--- NOTE | 2018-05-19 06:33 | TEE ---
Patient: EBONY SINGH [facility] Rec#: [id number] : 1950 Date: 05/15/2018 Age: 68y Height: 170.18 cm / 67.0 in Weight: 146.06 kg / 321.9 lbs Sex: F BSA: 2.48 Room#: [facility] Type: Inpatient Referring: Kiel Nguyen MD Performing: Kiel Nguyen MD Reading: Kiel Nugyen MD Translator Interpreter: Lori Alvarez RDCS Nurse: OR nurse Transesophageal Echocardiogram Indication: Rheumatic Mitral valve stenosis with insufficiency BP: 131/90 HR: 75 Rhythm: A-Fib Findings History: Diastolic CHF, MVP, A-fib, RAJNI with CPAP, CKD, DM, morbid obesity, breast cancer with chemotherapy. Technical Comments: The study quality is good. Left Ventricle: The left ventricular chamber size is normal. There is global hypokinesis of the left ventricle with minor regional variation. There is mildly decreased left ventricular systolic function. The estimated ejection fraction is 45-50%. The assessment of diastolic function is non-diagnostic. Left Atrium: The left atrium is severely dilated. Spontaneous echo contrast is present in the left atrium cavity and appendage. The left atrial appendage velocity is moderately reduced. No thrombus is visualized within the left atrium. Unable to rule out a mass or thrombus in the left atrial appendage. Right Ventricle: The right ventricle is mildly dilated. The right ventricular global systolic function is moderately reduced. Right Atrium: The right atrial cavity size is severely dilated. Interatrial septum appears intact without evidence of shunting. A patent foramen ovale is not demonstrated by color Doppler. A bubble study with a negative result was performed during a prior exam, and was not repeated during this transesophageal echocardiogram. Aortic Valve: The aortic valve is trileaflet. The aortic valve leaflets are mildly thickened. There is no evidence of aortic regurgitation. There is no evidence of aortic stenosis. Mitral Valve: The mitral valve leaflets appear rheumatic. The mitral valve leaflets are mildly thickened. There is doming of the mitral valve leaflets. There is mild to moderate mitral regurgitation. There is mild mitral stenosis. The mean gradient across the mitral valve is 2.66 mmHg. The peak gradient across the mitral valve is 7.98 mmHg. The pressure half time of the mitral valve is 102.7 msec. The mitral valve area, by pressure half time, is calculated at 2.14 cm2. Tricuspid Valve: The tricuspid valve leaflets are normal. There is moderate tricuspid regurgitation. The right ventricular systolic pressure is estimated at 39 mmHg. There is evidence of mild pulmonary hypertension. There is no tricuspid stenosis. Pulmonic Valve: The pulmonic valve appears normal. There is no evidence of pulmonic regurgitation. There is no pulmonic stenosis. Pericardium: There is no significant pericardial effusion. Aorta: There is no dilatation of the ascending aorta. The aortic root is normal in size. Pulmonary Artery: The main pulmonary artery appears normal. Venous: The bicaval view was obtained and appears normal. The pulmonary veins appear normal. 3 of 4 visualized. The pulmonary veins appear normal in size. ISABELLA Procedures: All standard views were attempted within the limitations of patient tolerance and safety. History and physical as well as labs were reviewed. The patient was in a fasting state. Risks and benefits of the procedure, including alternatives, were discussed and written informed consent was obtained. The patient and/or their health care maintenance representative expressed understanding of the procedure, risks and benefits. Baseline and continuous monitoring of blood pressure, heart rate, pulse oximetry and heart rhythm was performed throughout the procedure. The appropriate time-out procedure was performed as per [facility] protocol. The patient was placed in the supine position. Sedation administered by the anesthesiologist in the operating room. Sedation was administered by anesthesiologist Dr. Manav Caruso, in operating room 6. Please see the anesthesiology report for dosages of medication used. The multiplane transesophageal echocardiogram probe was inserted through the posterior oropharynx and advanced into the esophagus without difficulty. Multiple 2D images were obtained of the heart and its related structures. Color flow Doppler was used for evaluation. Spectral Doppler was also used. The atrial septum was interrogated with color flow Doppler. At the conclusion of the procedure the probe was removed with continuous suction without complications. The patient tolerated the procedure with no apparent complications. Conclusions Patient in Atrial Fibrillation; Heart rate approximately 60's bpm during measurements. There is global hypokinesis of the left ventricle with minor regional variation. There is mildly decreased left ventricular systolic function. The estimated ejection fraction is 45-50%. The left atrium is severely dilated. Spontaneous echo contrast is present in the left atrium cavity and appendage. The right ventricle is mildly dilated. The right ventricular global systolic function is moderately reduced. The right atrial cavity size is severely dilated. The aortic valve leaflets are mildly thickened. The mitral valve leaflets appear rheumatic. The mitral valve leaflets are mildly thickened. There is doming of the mitral valve leaflets. There is mild to moderate mitral regurgitation. There is mild mitral stenosis. The mean gradient across the mitral valve is 2.66 mmHg. There is moderate tricuspid regurgitation. The right ventricular systolic pressure is estimated at 39 mmHg. There is evidence of mild pulmonary hypertension. Compared to the ISABELLA of 2014, the mean mitral gradient has decreased from 55% to 45-50%. The mitral gradient has decreased from 7 mmhg to 3 mmhg. The lower gradient might be related to the relatively low HR at the time of mean gradient measurement. [facility] followup pending. Measurements Name Value Normal Range Aortic Annulus 2.2 cm (1.4 - 2.6) Ao root diameter (2D) 3 cm (2.1 - 3.5) Ascending Ao 3.1 cm (2.1 - 3.4) Name Value Normal Range MV E-wave Vmax 1.16 m/sec - MV deceleration time 415.7 msec - Name Value Normal Range MV Vmax 1.41 m/sec - MV VTI 40.5 cm - MV peak gradient 7.98 mmHg - MV mean gradient 2.66 mmHg - MV PHT 102.7 msec - MVA (PHT) 2.14 cm2 - Name Value Normal Range TR Vmax 2.8 m/sec - TR peak gradient 31 mmHg - RAP 8 mmHg - RVSP 39 mmHg -
== END 2018-05-15 15:12 | disposition home or self-care (01) ==
LOC: OR 10:23
PROVIDERS: ATTEND Internal Medicine Cardiovascular Disease
DX: I05.2 Rheumatic mitral stenosis with insufficiency (principal); E66.9 Obesity, unspecified; G47.33 Obstructive sleep apnea (adult) (pediatric)
CPT/HCPCS: 93312; 93325; A9270-GY; J0330; J2001; J2704; J3010

== ENCOUNTER 2020-11-20 17:11 | Inpatient (IN) ==
[2020-11-20] MEDS ORDERED: NS 0.9% 1000 ml BAG 1,000 ML IV ONE (17:30)
[2020-11-20 17:47] LABS: ABS Basophils 0.1 10^3/ul (0-0.2); ABS Lymphocytes 1.4 10^3/ul (1.0-4.8); ABS Monocytes 0.5 10^3/ul (0-0.8); ABS Neutrophils 10.6 10^3/ul (1.5-7.7); Eosinophil % 0.3 %; Hematocrit 36 % (35-47); Hemoglobin 11.5 g/dL (12.0-16.0); Mean Corpuscular HGB Conc 32 g/dL (31-36); Mean Corpuscular Hemoglobin 29 pg (27-31); Mean Corpuscular Volume 89 fL (80-97); Mean Platelet Volume 8.5 fL (7.4-10.4); Platelet Count 230 10^3/uL (150-450); Red Blood Count 4.02 10^6 /uL (3.70-4.87); Red Cell Distribution Width 17 % (10-15); White Blood Count 12.6 10^3/uL (3.5-10.8)
[2020-11-20 18:05] LABS: Albumin 3.8 g/dL (3.2-5.2); Albumin/Globulin Ratio 1.4 (1-3); BUN/Creatinine Ratio 24.8 (8-20); Calcium 10.2 mg/dL (8.6-10.3); EGFR African American 53.1 (>60); EGFR Non-African American 43.9 (>60); Globulin 2.7 g/dL (2-4); HDL Cholesterol 33.9 mg/dL; Potassium 4.3 mmol/L (3.5-5.0); Total Bilirubin 0.4 mg/dL (0.2-1.0); Total Protein 6.5 g/dL (6.4-8.9)
[2020-11-20 18:06] LABS: INR 1.85 (0.82-1.09); Troponin I 0.01 ng/mL (<0.03)
[2020-11-20] MEDS ORDERED: Iodixanol (CONTRAST) 320 MG/ML 100 ML SDV IV ONE (18:16)
[2020-11-20 18:35] LABS: Activated Partial Thrombo Time >240.0 seconds (26.0-38.0)
[2020-11-20 19:12] LABS: Urine Appearance Cloudy; Urine Bilirubin Negative (Negative); Urine Blood Negative (Negative); Urine Color Yellow; Urine Glucose 3+(>=500 mg/dL) (Negative); Urine Ketones Negative (Negative); Urine Nitrite Positive (Negative); Urine Protein Negative (Negative); Urine Specific Gravity 1.016 (1.010-1.030); Urine Urobilinogen Negative (Negative)
[2020-11-20 19:19] LABS: Urine Bacteria 1+ (Absent); Urine Red Blood Cell 1+(3-5/hpf) (Absent); Urine Squamous Epithelial Cell Present (Absent); Urine White Blood Cell 3+(>20/hpf) (Absent)
[2020-11-20] MEDS ORDERED: Dextrose 50% Syringe 50 ml 25 GM/50 ML SYRINGE IV PUSH PRN (20:12)
[2020-11-20] MEDS ORDERED: Warfarin per PHARMACY **NOTE FOLLOW UP SCH (21:00)
[2020-11-20] MEDS ORDERED: Albuterol HFA INHALER 8 gm MDI INH PRN (22:14)
[2020-11-21 05:15] LABS: INR 1.86 (0.82-1.09)
[2020-11-21] MEDS: Cholecalciferol (VIT D3) 1,000 unit TAB PO SCH (08:02)
[2020-11-21] MEDS: Potassium Chlor 20 meq TAB.ER PO SCH (08:02)
[2020-11-21] MEDS: CMCS: Anastrozole 1 mg TAB (NF) PO SCH (08:04)
[2020-11-21] MEDS ORDERED: Insulin GLARGINE 100 un/ml 10 ml VIAL SUBCUT SCH (09:00)
[2020-11-21] MEDS ORDERED: oxyCODONE/Acetamin 5/325 mg TAB PO ONE (10:19)
[2020-11-21] MEDS ORDERED: Warfarin DAILY REMINDER **NOTE FOLLOW UP SCH (17:00)
[2020-11-21] MEDS: oxyCODONE/Acetamin 5/325 mg TAB PO PRN (21:28)
[2020-11-22 06:41] LABS: Hematocrit 37 % (35-47); Hemoglobin 12.1 g/dL (12.0-16.0); Mean Corpuscular HGB Conc 32 g/dL (31-36); Mean Corpuscular Hemoglobin 29 pg (27-31); Mean Corpuscular Volume 89 fL (80-97); Mean Platelet Volume 8.5 fL (7.4-10.4); Platelet Count 234 10^3/uL (150-450); Red Cell Distribution Width 16 % (10-15)
[2020-11-22 06:52] LABS: INR 2.69 (0.82-1.09)
[2020-11-22 07:02] LABS: BUN/Creatinine Ratio 15.5 (8-20); Calcium 10.4 mg/dL (8.6-10.3); EGFR African American 59.2 (>60); Potassium 4.2 mmol/L (3.5-5.0)
[2020-11-22] MEDS: Cholecalciferol (VIT D3) 1,000 unit TAB PO SCH (08:50)
[2020-11-22] MEDS: Potassium Chlor 20 meq TAB.ER PO SCH (08:50)
[2020-11-22] MEDS ORDERED: Insulin GLARGINE 100 un/ml 10 ml VIAL SUBCUT SCH (09:00)
[2020-11-22] MEDS ORDERED: Insulin GLARGINE 100 un/ml 10 ml VIAL ONE (09:07)
[2020-11-22] MEDS: CMCS: Anastrozole 1 mg TAB (NF) PO SCH (09:11)
[2020-11-22] MEDS: methylPREDNISolone 125 mg 250 MG in NS 0.9% 100 ml BAG 100 ML IV SCH ×2 (11:36→22:59)
[2020-11-22 11:43] LABS: C Reactive Protein 23.22 mg/L (<8.01)
[2020-11-22] MEDS ORDERED: Gadoteridol (CONTRAST) 279.3 MG/ML 10 ML IV ONE (14:16)
[2020-11-22] MEDS: oxyCODONE/Acetamin 5/325 mg TAB PO PRN ×2 (14:21→23:12)
[2020-11-23 06:48] LABS: Hematocrit 37 % (35-47); Hemoglobin 12.2 g/dL (12.0-16.0); Mean Corpuscular HGB Conc 33 g/dL (31-36); Mean Corpuscular Hemoglobin 29 pg (27-31); Mean Corpuscular Volume 88 fL (80-97); Platelet Count 219 10^3/uL (150-450); Red Blood Count 4.23 10^6 /uL (3.70-4.87); Red Cell Distribution Width 17 % (10-15); White Blood Count 13.3 10^3/uL (3.5-10.8)
[2020-11-23 06:56] LABS: INR 2.71 (0.82-1.09)
[2020-11-23 07:17] LABS: BUN/Creatinine Ratio 21.3 (8-20); Calcium 10.3 mg/dL (8.6-10.3); EGFR African American 50.2 (>60); EGFR Non-African American 41.5 (>60); Potassium 4.2 mmol/L (3.5-5.0); Uric Acid 5.7 mg/dL (2.3-6.6)
[2020-11-23] MEDS: Cholecalciferol (VIT D3) 1,000 unit TAB PO SCH (08:45)
[2020-11-23] MEDS: Potassium Chlor 20 meq TAB.ER PO SCH (08:50)
[2020-11-23] MEDS: Insulin GLARGINE 100 un/ml 10 ml VIAL SUBCUT SCH (08:52)
[2020-11-23] MEDS: CMCS: Anastrozole 1 mg TAB (NF) PO SCH (08:54)
[2020-11-23] MEDS: methylPREDNISolone 125 mg 250 MG in NS 0.9% 100 ml BAG 100 ML IV SCH ×2 (11:31→23:16)
[2020-11-23] MEDS ORDERED: Dextrose 50% Syringe 50 ml 25 GM/50 ML SYRINGE IV PUSH PRN (18:30)
[2020-11-24 06:05] LABS: ABS Lymphocytes 0.7 10^3/ul (1.0-4.8); ABS Monocytes 0.4 10^3/ul (0-0.8); ABS Neutrophils 15.9 10^3/ul (1.5-7.7); Hematocrit 37 % (35-47); Lymphocyte % 4.4 %; Mean Corpuscular HGB Conc 33 g/dL (31-36); Mean Corpuscular Hemoglobin 29 pg (27-31); Mean Corpuscular Volume 88 fL (80-97); Mean Platelet Volume 8.7 fL (7.4-10.4); Platelet Count 243 10^3/uL (150-450); Red Blood Count 4.19 10^6 /uL (3.70-4.87); Red Cell Distribution Width 17 % (10-15); White Blood Count 17.1 10^3/uL (3.5-10.8)
[2020-11-24 06:14] LABS: INR 2.18 (0.82-1.09)
[2020-11-24 06:26] LABS: BUN/Creatinine Ratio 30.8 (8-20); Calcium 10.3 mg/dL (8.6-10.3); EGFR African American 48.9 (>60); EGFR Non-African American 40.4 (>60); Magnesium 1.3 mg/dL (1.9-2.7); Potassium 3.9 mmol/L (3.5-5.0)
[2020-11-24] MEDS: Insulin GLARGINE 100 un/ml 10 ml VIAL SUBCUT SCH (10:00)
[2020-11-24] MEDS: Cholecalciferol (VIT D3) 1,000 unit TAB PO SCH (10:01)
[2020-11-24] MEDS: CMCS: Anastrozole 1 mg TAB (NF) PO SCH (10:02)
[2020-11-24] MEDS: Potassium Chlor 20 meq TAB.ER PO SCH (10:02)
[2020-11-24] MEDS ORDERED: Magnesium Sulf 4 GM/100 ML IV 4,000 MG/100 ML BAG IVPB ONE (10:14)
[2020-11-24] MEDS ORDERED: Potassium Chlor 20 meq TAB.ER PO ONE (10:16)
[2020-11-24] MEDS: methylPREDNISolone 125 mg 250 MG in NS 0.9% 100 ml BAG 100 ML IV SCH (11:41)
[2020-11-24] MEDS ORDERED: Warfarin per PHARMACY **NOTE FOLLOW UP SCH (12:00)
[2020-11-24] MEDS: Warfarin DAILY REMINDER **NOTE FOLLOW UP SCH (17:39)
[2020-11-24] MEDS: methylPREDNISolone 125 mg 2 ML VIAL IV SCH (21:01)
[2020-11-25 06:50] LABS: ABS Lymphocytes 0.6 10^3/ul (1.0-4.8); ABS Monocytes 0.3 10^3/ul (0-0.8); ABS Neutrophils 13.2 10^3/ul (1.5-7.7); Hematocrit 38 % (35-47); Hemoglobin 12.2 g/dL (12.0-16.0); Lymphocyte % 4.3 %; Mean Corpuscular HGB Conc 32 g/dL (31-36); Mean Corpuscular Hemoglobin 29 pg (27-31); Mean Corpuscular Volume 89 fL (80-97); Mean Platelet Volume 8.5 fL (7.4-10.4); Platelet Count 244 10^3/uL (150-450); Red Blood Count 4.25 10^6 /uL (3.70-4.87); Red Cell Distribution Width 17 % (10-15); White Blood Count 14.1 10^3/uL (3.5-10.8)
[2020-11-25 06:56] LABS: INR 3.12 (0.82-1.09)
[2020-11-25 07:08] LABS: Albumin 3.4 g/dL (3.2-5.2); Albumin/Globulin Ratio 1.2 (1-3); BUN/Creatinine Ratio 35.2 (8-20); Calcium 10.2 mg/dL (8.6-10.3); EGFR African American 49.7 (>60); EGFR Non-African American 41.1 (>60); Globulin 2.8 g/dL (2-4); Magnesium 1.7 mg/dL (1.9-2.7); Potassium 3.8 mmol/L (3.5-5.0); Total Bilirubin 0.5 mg/dL (0.2-1.0); Total Protein 6.2 g/dL (6.4-8.9)
[2020-11-25] MEDS: methylPREDNISolone 125 mg 2 ML VIAL IV SCH (08:33)
[2020-11-25] MEDS: CMCS: Anastrozole 1 mg TAB (NF) PO SCH (08:33)
[2020-11-25] MEDS: Cholecalciferol (VIT D3) 1,000 unit TAB PO SCH (08:34)
[2020-11-25] MEDS: Potassium Chlor 20 meq TAB.ER PO SCH (08:35)
[2020-11-25] MEDS ORDERED: Insulin GLARGINE 100 un/ml 10 ml VIAL SUBCUT SCH (09:00)
[2020-11-25] MEDS ORDERED: Magnesium Sulfate IV 3 GM in NS 0.9% 100 ml BAG 100 ML IVPB ONE (13:02)
[2020-11-25] MEDS ORDERED: Warfarin - No Order Today **NOTE FOLLOW UP ONE (17:00)
[2020-11-25] MEDS: Warfarin DAILY REMINDER **NOTE FOLLOW UP SCH (17:53)
[2020-11-26 07:12] LABS: Hematocrit 39 % (35-47); Hemoglobin 12.3 g/dL (12.0-16.0); Mean Corpuscular HGB Conc 32 g/dL (31-36); Mean Corpuscular Hemoglobin 29 pg (27-31); Mean Corpuscular Volume 90 fL (80-97); Mean Platelet Volume 8.9 fL (7.4-10.4); Platelet Count 238 10^3/uL (150-450); Red Cell Distribution Width 17 % (10-15); White Blood Count 14.4 10^3/uL (3.5-10.8)
[2020-11-26 07:31] LABS: Albumin 3.4 g/dL (3.2-5.2); Albumin/Globulin Ratio 1.3 (1-3); BUN/Creatinine Ratio 36.9 (8-20); Calcium 10.2 mg/dL (8.6-10.3); EGFR African American 52.6 (>60); EGFR Non-African American 43.4 (>60); Globulin 2.7 g/dL (2-4); Potassium 3.7 mmol/L (3.5-5.0); Total Bilirubin 0.6 mg/dL (0.2-1.0); Total Protein 6.1 g/dL (6.4-8.9)
[2020-11-26 08:57] VITALS: BP 134/51
[2020-11-26] MEDS ORDERED: Insulin GLARGINE 100 un/ml 10 ml VIAL SUBCUT SCH (09:00)
[2020-11-26] MEDS: CMCS: Anastrozole 1 mg TAB (NF) PO SCH (09:14)
[2020-11-26] MEDS: Cholecalciferol (VIT D3) 1,000 unit TAB PO SCH (09:14)
[2020-11-26] MEDS: Potassium Chlor 20 meq TAB.ER PO SCH (09:15)
[2020-11-26 10:22] LABS: INR 1.94 (0.82-1.09)
== END 2020-11-26 14:30 | disposition home health service (06) | DRG 74 ==
LOC: ED 17:11 → MEDTELE 17:11
PROVIDERS: ADMIT Student in an Organized Health Care Education/Training Program; ATTEND Internal Medicine

== ENCOUNTER 2021-11-24 11:37 | Observation (INO) ==
[2021-11-24 17:40] LABS: ABS Basophils 0.1 10^3/ul (0-0.2); ABS Eosinophils 0.1 10^3/ul (0-0.6); ABS Monocytes 1.2 10^3/ul (0-0.8); ABS Neutrophils 8.4 10^3/ul (1.5-7.7); Eosinophil % 0.8 %; Hematocrit 38 % (35-47); Hemoglobin 12.3 g/dL (12.0-16.0); Lymphocyte % 17.2 %; Mean Corpuscular HGB Conc 32 g/dL (31-36); Mean Corpuscular Hemoglobin 29 pg (27-31); Mean Corpuscular Volume 89 fL (80-97); Mean Platelet Volume 9.2 fL (7.4-10.4); Platelet Count 222 10^3/uL (150-450); Red Blood Count 4.27 10^6 /uL (3.70-4.87); Red Cell Distribution Width 18 % (10-15); White Blood Count 11.8 10^3/uL (3.5-10.8)
[2021-11-24 18:00] LABS: Albumin 3.9 g/dL (3.2-5.2); Albumin/Globulin Ratio 1.5 (1-3); C Reactive Protein 40.84 mg/L (<8.01); Calcium 9.2 mg/dL (8.6-10.3); Globulin 2.6 g/dL (2-4); Potassium 4.5 mmol/L (3.5-5.0); Total Bilirubin 0.7 mg/dL (0.2-1.0); Total Protein 6.5 g/dL (6.4-8.9)
[2021-11-24 21:13] LABS: INR 1.98 (0.86-1.15)
[2021-11-24 21:17] LABS: Magnesium 1.9 mg/dL (1.9-2.7)
[2021-11-24] MEDS ORDERED: Heparin 5000 UNITS/ML 1 mL VIAL IV SCH (22:00)
[2021-11-24 23:15] LABS: ABS Eosinophils 0.1 10^3/ul (0-0.6); ABS Lymphocytes 2.1 10^3/ul (1.0-4.8); ABS Monocytes 1.1 10^3/ul (0-0.8); ABS Neutrophils 8.1 10^3/ul (1.5-7.7); Eosinophil % 0.8 %; Hematocrit 37 % (35-47); Lymphocyte % 18.4 %; Mean Corpuscular HGB Conc 32 g/dL (31-36); Mean Corpuscular Hemoglobin 29 pg (27-31); Mean Corpuscular Volume 89 fL (80-97); Platelet Count 221 10^3/uL (150-450); Red Blood Count 4.18 10^6 /uL (3.70-4.87); Red Cell Distribution Width 18 % (10-15); White Blood Count 11.3 10^3/uL (3.5-10.8)
[2021-11-24 23:26] LABS: eGFR CKD-EPI 15.8 (>60)
[2021-11-25] MEDS: Heparin DRIP 25,000 UNITS BAG 25,000 UNITS/500 ML BAG IV SCH (01:46)
[2021-11-25] MEDS: NS 0.9% 1000 ml BAG 1,000 ML IV SCH ×2 (05:33→18:02)
[2021-11-25 06:13] LABS: ABS Eosinophils 0.1 10^3/ul (0-0.6); ABS Lymphocytes 2.1 10^3/ul (1.0-4.8); ABS Neutrophils 7.5 10^3/ul (1.5-7.7); Eosinophil % 0.7 %; Hematocrit 40 % (35-47); Hemoglobin 12.9 g/dL (12.0-16.0); Lymphocyte % 19.4 %; Mean Corpuscular HGB Conc 33 g/dL (31-36); Mean Corpuscular Hemoglobin 29 pg (27-31); Mean Corpuscular Volume 89 fL (80-97); Mean Platelet Volume 9.5 fL (7.4-10.4); Nucleated Red Blood Cells % 0.1; Platelet Count 231 10^3/uL (150-450); Red Blood Count 4.43 10^6 /uL (3.70-4.87); Red Cell Distribution Width 18 % (10-15); White Blood Count 10.7 10^3/uL (3.5-10.8)
[2021-11-25 06:31] LABS: Albumin 4.1 g/dL (3.2-5.2); Albumin/Globulin Ratio 1.5 (1-3); C Reactive Protein 30.5 mg/L (<8.01); Calcium 9.6 mg/dL (8.6-10.3); Globulin 2.8 g/dL (2-4); Potassium 4.5 mmol/L (3.5-5.0); Total Bilirubin 0.7 mg/dL (0.2-1.0); Total Protein 6.9 g/dL (6.4-8.9); eGFR CKD-EPI 16.5 (>60)
[2021-11-25] MEDS: Cholecalciferol (VIT D3) 1,000 unit TAB PO SCH (09:52)
[2021-11-25] MEDS: Potassium Chlor 20 meq TAB.ER PO SCH ×2 (09:52→20:41)
[2021-11-25] MEDS: MAGNESIUM CHLORIDE 71.5 MG PO SCH (09:59)
[2021-11-25 14:03] LABS: Urine Appearance Cloudy; Urine Bilirubin Negative (Negative); Urine Blood 1+ (Negative); Urine Color Amber; Urine Glucose Negative (Negative); Urine Ketones Negative (Negative); Urine Nitrite Negative (Negative); Urine Protein Negative (Negative); Urine Specific Gravity 1.017 (1.002-1.030); Urine Urobilinogen Negative (Negative)
[2021-11-25 14:36] LABS: Urine Bacteria 2+ (Absent); Urine Red Blood Cell Trace(0-2/hpf) (Absent); Urine Squamous Epithelial Cell Present (Absent); Urine White Blood Cell 3+(>20/hpf) (Absent)
[2021-11-26] MEDS: Heparin DRIP 25,000 UNITS BAG 25,000 UNITS/500 ML BAG IV SCH (00:27)
[2021-11-26 05:16] LABS: ABS Eosinophils 0.1 10^3/ul (0-0.6); ABS Lymphocytes 1.7 10^3/ul (1.0-4.8); ABS Monocytes 0.8 10^3/ul (0-0.8); ABS Neutrophils 5.2 10^3/ul (1.5-7.7); Eosinophil % 0.6 %; Hematocrit 36 % (35-47); Hemoglobin 11.5 g/dL (12.0-16.0); Lymphocyte % 22.2 %; Mean Corpuscular HGB Conc 32 g/dL (31-36); Mean Corpuscular Hemoglobin 29 pg (27-31); Mean Corpuscular Volume 90 fL (80-97); Mean Platelet Volume 8.8 fL (7.4-10.4); Platelet Count 201 10^3/uL (150-450); Red Blood Count 3.98 10^6 /uL (3.70-4.87); Red Cell Distribution Width 18 % (10-15); White Blood Count 7.9 10^3/uL (3.5-10.8)
[2021-11-26 05:33] LABS: Albumin 3.6 g/dL (3.2-5.2); Albumin/Globulin Ratio 1.6 (1-3); Calcium 8.9 mg/dL (8.6-10.3); Globulin 2.3 g/dL (2-4); Potassium 4.2 mmol/L (3.5-5.0); Total Bilirubin 0.5 mg/dL (0.2-1.0); Total Protein 5.9 g/dL (6.4-8.9)
[2021-11-26 06:57] LABS: Magnesium 1.8 mg/dL (1.9-2.7)
[2021-11-26] MEDS: NS 0.9% 1000 ml BAG 1,000 ML IV SCH (07:21)
[2021-11-26] MEDS: Potassium Chlor 20 meq TAB.ER PO SCH (09:08)
[2021-11-26] MEDS: Cholecalciferol (VIT D3) 1,000 unit TAB PO SCH (09:08)
[2021-11-26] MEDS: MAGNESIUM CHLORIDE 71.5 MG PO SCH (09:09)
[2021-11-26 11:50] VITALS: BP 121/77
== END 2021-11-26 16:00 | disposition home or self-care (01) ==
LOC: EDHOLD 11:37 → ED 11:37 → SUATTDRO 20:48 → SSU 23:13
PROVIDERS: ADMIT Student in an Organized Health Care Education/Training Program; ATTEND Internal Medicine

== ENCOUNTER 2023-10-21 12:56 | Inpatient (IN) ==
[2023-10-21] MEDS ORDERED: D5LR 1000 ml BAG 1,000 ML IV SCH (14:00)
[2023-10-21 14:25] LABS: Hematocrit 28.2 % (35-45); Hemoglobin 9.2 g/dL (11.5-14.3); Mean Corpuscular Hgb Conc 32.5 g/dL (31-36); Mean Corpuscular Volume 89.3 fL (80-97); Mean Platelet Volume 10.6 fL (7.5-11.2); Platelet Count 171 10^3/uL (150-450); Red Blood Count 3.16 10^6/uL (3.63-4.92); Red Cell Distribution Width 18.8 % (12-17); White Blood Count 5.3 10^3/uL (3.8-11.8)
[2023-10-21 14:29] LABS: Albumin 2.9 g/dL (3.2-5.2); Calcium 9.4 mg/dL (8.6-10.3); Creatinine, Serum 1.49 mg/dL (0.51-0.95); Globulin 2.8 g/dL (2-4); Magnesium 1.6 mg/dL (1.9-2.7); Potassium 4.1 mmol/L (3.5-5.0); Total Bilirubin 0.9 mg/dL (0.2-1.0); Total Protein 5.7 g/dL (6.4-8.9); eGFR CKD-EPI 36.6 (>60)
[2023-10-21 14:30] LABS: INR 2.24 (0.83-1.13)
[2023-10-21 14:49] LABS: TSH Ultra Thyroid Stim Horm 1.88 mcIU/mL (0.34-5.60)
[2023-10-21 15:25] LABS: ABS Lymphocytes 1.3 10^3/uL (1.0-4.8); ABS Monocytes 0.9 10^3/uL (0.0-0.9); ABS Neutrophils 2.9 10^3/uL (1.5-7.6); ABS Nucleated RBC 0.12 10^3/ul; Eosinophil % 0.8 %; Lymphocyte % 25.5 %; Nucleated Red Blood Cells % 2.2 %/100WBC (0.0-0.8)
[2023-10-21 15:26] LABS: RBC Morphology Normal (Normal)
[2023-10-21 15:32] LABS: High Sensitivity Troponin 1 Hr 18 pg/mL (<15)
[2023-10-21] MEDS ORDERED: Magnesium Sulf 4 GM/100 ML IV 4,000 MG/100 ML BAG IVPB ONE (15:44)
[2023-10-21] MEDS ORDERED: Albuterol HFA INHALER 8 gm MDI INH PRN (16:57)
[2023-10-21] MEDS ORDERED: Dextrose 50% Syringe 50 ml 25 GM/50 ML SYRINGE IV PUSH PRN (17:02)
[2023-10-21] MEDS: D5LR 1000 ml BAG 1,000 ML IV SCH (18:41)
[2023-10-21] MEDS: Magic MouthWash1-BEN/MAAL/LIDO 180 ML BTL SWISH SPIT SCH (21:04)
[2023-10-22] MEDS: D5LR 1000 ml BAG 1,000 ML IV SCH ×2 (04:56→15:13)
[2023-10-22 06:43] LABS: Urine Appearance Turbid; Urine Bilirubin Negative (Negative); Urine Blood 1+ (Negative); Urine Color Amber; Urine Glucose Negative (Negative); Urine Ketones Negative (Negative); Urine Nitrite Positive (Negative); Urine Protein 1+(30 mg/dL) (Negative); Urine Specific Gravity 1.017 (1.002-1.030); Urine Urobilinogen Negative (Negative)
[2023-10-22 07:02] LABS: Urine Bacteria 3+ (Absent); Urine Red Blood Cell Trace(0-2/hpf) (Absent); Urine Squamous Epithelial Cell Present (Absent); Urine White Blood Cell 3+(>20/hpf) (Absent)
[2023-10-22 07:20] LABS: Creatinine, Serum 1.36 mg/dL (0.51-0.95); Potassium 4.2 mmol/L (3.5-5.0); eGFR CKD-EPI 40.9 (>60)
[2023-10-22] MEDS: Ondansetron 4 mg VIAL 2 MG/ML 2 ml VIAL IV PRN ×2 (09:26→13:48)
[2023-10-22] MEDS: Magic MouthWash1-BEN/MAAL/LIDO 180 ML BTL SWISH SPIT SCH ×4 (09:27→22:02)
[2023-10-22 09:49] LABS: Hematocrit 25.3 % (35-45); Hemoglobin 8.3 g/dL (11.5-14.3); Mean Corpuscular Hemoglobin 29.2 pg (27-33); Mean Corpuscular Hgb Conc 32.8 g/dL (31-36); Platelet Count 159 10^3/uL (150-450); Red Blood Count 2.84 10^6/uL (3.63-4.92); White Blood Count 6.7 10^3/uL (3.8-11.8)
[2023-10-22 14:57] LABS: ABS Lymphocytes 1.5 10^3/uL (1.0-4.8); ABS Monocytes 1.2 10^3/uL (0.0-0.9); ABS Neutrophils 3.9 10^3/uL (1.5-7.6); ABS Nucleated RBC 0.14 10^3/ul; Eosinophil % 0.6 %; Lymphocyte % 22.8 %; Nucleated Red Blood Cells % 2.1 %/100WBC (0.0-0.8)
[2023-10-22 14:59] LABS: Basophilic Stippling 1+; Dohle Bodies Present; Microcytosis 1+; Polychromasia 1+; Toxic Granulation 2+
[2023-10-22] MEDS: Prochlorperazine 5 mg/ml 2 ml VIAL (10 mg) IV PRN (15:12)
[2023-10-23] MEDS: Ondansetron 4 mg VIAL 2 MG/ML 2 ml VIAL IV PRN ×2 (02:08→10:57)
[2023-10-23 07:25] LABS: Hematocrit 25.8 % (35-45); Hemoglobin 8.3 g/dL (11.5-14.3); Mean Corpuscular Hgb Conc 32.4 g/dL (31-36); Mean Corpuscular Volume 89.4 fL (80-97); Mean Platelet Volume 10.3 fL (7.5-11.2); Platelet Count 183 10^3/uL (150-450); Red Blood Count 2.88 10^6/uL (3.63-4.92); Red Cell Distribution Width 19.5 % (12-17); White Blood Count 10.7 10^3/uL (3.8-11.8)
[2023-10-23 07:43] LABS: Albumin 2.5 g/dL (3.2-5.2); Calcium 9.1 mg/dL (8.6-10.3); Creatinine, Serum 1.4 mg/dL (0.51-0.95); Globulin 2.5 g/dL (2-4); Magnesium 1.7 mg/dL (1.9-2.7); Potassium 4.1 mmol/L (3.5-5.0); Total Bilirubin 0.8 mg/dL (0.2-1.0); eGFR CKD-EPI 39.5 (>60)
[2023-10-23 08:38] LABS: ABS Lymphocytes 1.9 10^3/uL (1.0-4.8); ABS Monocytes 1.7 10^3/uL (0.0-0.9); ABS Nucleated RBC 0.12 10^3/ul; Anisocytosis 1+; Eosinophil % 0.3 %; Lymphocyte % 18.2 %; Nucleated Red Blood Cells % 1.2 %/100WBC (0.0-0.8); Polychromasia 1+
[2023-10-23] MEDS ORDERED: Famotidine IV 10 MG/ML 2 ml VIAL (20 mg) IV SLOW PU ONE (10:25)
[2023-10-23] MEDS ORDERED: Dexamethasone IV 4 MG/ML VIAL 1 ml VIAL IV SLOW PU ONE (10:25)
[2023-10-23] MEDS: Magic MouthWash1-BEN/MAAL/LIDO 180 ML BTL SWISH SPIT SCH ×4 (11:17→22:29)
[2023-10-23] MEDS: Dexamethasone 0.1 MG/ML ORALSYR SWISH SPIT SCH ×3 (15:03→22:29)
[2023-10-23] MEDS: Insulin GLARGINE 100 un/ml 10 ml VIAL SUBCUT SCH (21:38)
[2023-10-24] MEDS: Magic MouthWash1-BEN/MAAL/LIDO 180 ML BTL SWISH SPIT SCH ×5 (05:59→22:26)
[2023-10-24 06:38] LABS: Hematocrit 27.6 % (35-45); Hemoglobin 8.8 g/dL (11.5-14.3); Mean Corpuscular Hemoglobin 28.3 pg (27-33); Mean Corpuscular Hgb Conc 31.8 g/dL (31-36); Mean Platelet Volume 9.8 fL (7.5-11.2); Platelet Count 222 10^3/uL (150-450); Red Cell Distribution Width 19.1 % (12-17)
[2023-10-24 07:35] LABS: Calcium 9.2 mg/dL (8.6-10.3); Creatinine, Serum 1.52 mg/dL (0.51-0.95); Magnesium 1.8 mg/dL (1.9-2.7); Potassium 4.6 mmol/L (3.5-5.0); eGFR CKD-EPI 35.8 (>60)
[2023-10-24] MEDS: Dexamethasone 0.1 MG/ML ORALSYR SWISH SPIT SCH ×4 (08:01→22:25)
[2023-10-24 09:55] LABS: ABS Lymphocytes 1.8 10^3/uL (1.0-4.8); ABS Monocytes 2.6 10^3/uL (0.0-0.9); ABS Neutrophils 20.6 10^3/uL (1.5-7.6); ABS Nucleated RBC 0.15 10^3/ul; Anisocytosis 1+; Lymphocyte % 7.3 %; Nucleated Red Blood Cells % 0.6 %/100WBC (0.0-0.8); Polychromasia 1+
[2023-10-24] MEDS: Insulin GLARGINE 100 un/ml 10 ml VIAL SUBCUT SCH (22:25)
[2023-10-25 05:19] LABS: Hematocrit 28.7 % (35-45); Hemoglobin 9.1 g/dL (11.5-14.3); Mean Corpuscular Hemoglobin 28.4 pg (27-33); Mean Corpuscular Hgb Conc 31.8 g/dL (31-36); Mean Corpuscular Volume 89.3 fL (80-97); Mean Platelet Volume 10.2 fL (7.5-11.2); Platelet Count 252 10^3/uL (150-450); Red Blood Count 3.22 10^6/uL (3.63-4.92); Red Cell Distribution Width 19.2 % (12-17); White Blood Count 26.1 10^3/uL (3.8-11.8)
[2023-10-25 05:38] LABS: Calcium 9.4 mg/dL (8.6-10.3); Creatinine, Serum 1.62 mg/dL (0.51-0.95); Potassium 4.9 mmol/L (3.5-5.0); eGFR CKD-EPI 33.1 (>60)
[2023-10-25 06:10] LABS: Anisocytosis 3+; Hypochromasia 1+; Polychromasia 1+
[2023-10-25 06:11] LABS: ABS Basophils 0.1 10^3/uL (0.0-0.1); ABS Lymphocytes 1.8 10^3/uL (1.0-4.8); ABS Monocytes 2.7 10^3/uL (0.0-0.9); ABS Neutrophils 21.4 10^3/uL (1.5-7.6); Nucleated Red Blood Cells % 0.8 %/100WBC (0.0-0.8)
[2023-10-25] MEDS: Dexamethasone 0.1 MG/ML ORALSYR SWISH SPIT SCH ×4 (09:04→20:57)
[2023-10-25] MEDS: Magic MouthWash1-BEN/MAAL/LIDO 180 ML BTL SWISH SPIT SCH ×4 (09:04→20:53)
[2023-10-25] MEDS: Polyethyl Glycol/Propylene Gly OPHTH.SOLN BOTH EYES PRN ×2 (14:53→20:58)
[2023-10-25] MEDS: Insulin GLARGINE 100 un/ml 10 ml VIAL SUBCUT SCH (20:52)
[2023-10-25] MEDS ORDERED: Insulin GLARGINE 100 un/ml 10 ml VIAL SUBCUT SCH (21:00)
[2023-10-26 05:41] LABS: Hematocrit 27.6 % (35-45); Hemoglobin 8.8 g/dL (11.5-14.3); Mean Corpuscular Hemoglobin 28.6 pg (27-33); Mean Corpuscular Hgb Conc 31.9 g/dL (31-36); Mean Corpuscular Volume 89.8 fL (80-97); Mean Platelet Volume 9.5 fL (7.5-11.2); Platelet Count 243 10^3/uL (150-450); Red Blood Count 3.08 10^6/uL (3.63-4.92); Red Cell Distribution Width 19.1 % (12-17); White Blood Count 22.2 10^3/uL (3.8-11.8)
[2023-10-26 05:58] LABS: Calcium 9.4 mg/dL (8.6-10.3); Creatinine, Serum 1.58 mg/dL (0.51-0.95); Potassium 4.7 mmol/L (3.5-5.0); eGFR CKD-EPI 34.1 (>60)
[2023-10-26 06:19] LABS: ABS Basophils 0.1 10^3/uL (0.0-0.1); ABS Lymphocytes 1.4 10^3/uL (1.0-4.8); ABS Monocytes 1.8 10^3/uL (0.0-0.9); ABS Nucleated RBC 0.21 10^3/ul; Anisocytosis 2+; Eosinophil % 0.2 %; Hypochromasia 1+; Lymphocyte % 6.3 %; Polychromasia 1+
[2023-10-26] MEDS: Magic MouthWash1-BEN/MAAL/LIDO 180 ML BTL SWISH SPIT SCH ×4 (08:10→22:21)
[2023-10-26] MEDS: Dexamethasone 0.1 MG/ML ORALSYR SWISH SPIT SCH ×4 (08:10→22:22)
[2023-10-26] MEDS: Potassium Chlor 20 meq TAB.ER PO SCH (22:21)
[2023-10-26] MEDS: Insulin GLARGINE 100 un/ml 10 ml VIAL SUBCUT SCH (22:22)
[2023-10-27] MEDS ORDERED: Benzocaine/Menthol LOZ PO PRN (07:37)
[2023-10-27] MEDS ORDERED: Lactated Ringers 1000 ml BAG 1,000 ML IV ONE (08:49)
[2023-10-27] MEDS: Potassium Chlor 20 meq TAB.ER PO SCH ×2 (08:53→20:30)
[2023-10-27] MEDS: Magic MouthWash1-BEN/MAAL/LIDO 180 ML BTL SWISH SPIT SCH ×4 (08:54→20:29)
[2023-10-27] MEDS: Dexamethasone 0.1 MG/ML ORALSYR SWISH SPIT SCH ×4 (08:54→20:29)
[2023-10-27 09:21] LABS: Hematocrit 30.4 % (35-45); Hemoglobin 9.6 g/dL (11.5-14.3); Mean Corpuscular Hemoglobin 28.5 pg (27-33); Mean Corpuscular Hgb Conc 31.8 g/dL (31-36); Mean Corpuscular Volume 89.7 fL (80-97); Mean Platelet Volume 9.9 fL (7.5-11.2); Platelet Count 262 10^3/uL (150-450); Red Blood Count 3.39 10^6/uL (3.63-4.92); White Blood Count 20.8 10^3/uL (3.8-11.8)
[2023-10-27 09:57] LABS: Creatinine, Serum 1.8 mg/dL (0.51-0.95); Magnesium 1.4 mg/dL (1.9-2.7); Potassium 4.8 mmol/L (3.5-5.0); eGFR CKD-EPI 29.2 (>60)
[2023-10-27 10:35] LABS: ABS Basophils 0.1 10^3/uL (0.0-0.1); ABS Lymphocytes 1.8 10^3/uL (1.0-4.8); ABS Monocytes 2.6 10^3/uL (0.0-0.9); ABS Neutrophils 16.3 10^3/uL (1.5-7.6); ABS Nucleated RBC 0.19 10^3/ul; Anisocytosis 2+; Hypochromasia 1+; Lymphocyte % 8.5 %; Nucleated Red Blood Cells % 0.9 %/100WBC (0.0-0.8); Polychromasia 1+
[2023-10-27] MEDS: cefTRIAXone 1 gm/50 mL D5W 1 GM/50 ML BAG IV SCH (11:59)
[2023-10-27] MEDS ORDERED: Insulin GLARGINE 100 un/ml 10 ml VIAL SUBCUT SCH (21:00)
[2023-10-28 05:48] LABS: Hematocrit 25.6 % (35-45); Mean Corpuscular Hemoglobin 28.3 pg (27-33); Mean Corpuscular Hgb Conc 31.4 g/dL (31-36); Mean Corpuscular Volume 90.2 fL (80-97); Mean Platelet Volume 9.3 fL (7.5-11.2); Platelet Count 217 10^3/uL (150-450); Red Blood Count 2.83 10^6/uL (3.63-4.92); Red Cell Distribution Width 20.2 % (12-17); White Blood Count 25.4 10^3/uL (3.8-11.8)
[2023-10-28 06:07] LABS: Calcium 8.3 mg/dL (8.6-10.3); Creatinine, Serum 1.63 mg/dL (0.51-0.95); Magnesium 1.4 mg/dL (1.9-2.7); eGFR CKD-EPI 32.9 (>60)
[2023-10-28] MEDS: cefTRIAXone 1 gm/50 mL D5W 1 GM/50 ML BAG IV SCH (08:17)
[2023-10-28] MEDS: Dexamethasone 0.1 MG/ML ORALSYR SWISH SPIT SCH ×4 (08:21→21:10)
[2023-10-28] MEDS: Magic MouthWash1-BEN/MAAL/LIDO 180 ML BTL SWISH SPIT SCH ×4 (08:22→20:59)
[2023-10-28 08:26] LABS: ABS Basophils 0.1 10^3/uL (0.0-0.1); ABS Lymphocytes 1.7 10^3/uL (1.0-4.8); ABS Monocytes 3.6 10^3/uL (0.0-0.9); ABS Nucleated RBC 0.08 10^3/ul; Anisocytosis 2+; Lymphocyte % 6.5 %; Nucleated Red Blood Cells % 0.3 %/100WBC (0.0-0.8); Polychromasia 1+
[2023-10-28] MEDS: Potassium Chlor 20 meq TAB.ER PO SCH ×2 (08:30→20:58)
[2023-10-28] MEDS ORDERED: Magnesium Sulf 4 GM/100 ML IV 4,000 MG/100 ML BAG IVPB ONE (08:30)
[2023-10-28] MEDS ORDERED: Iodixanol (CONTRAST) 320 MG/ML 100 ML SDV IV ONE (14:34)
[2023-10-28] MEDS: Ondansetron 4 mg VIAL 2 MG/ML 2 ml VIAL IV PRN (21:10)
[2023-10-28] MEDS: Insulin GLARGINE 100 un/ml 10 ml VIAL SUBCUT SCH (22:21)
[2023-10-29 07:02] LABS: Hematocrit 24.9 % (35-45); Hemoglobin 8.1 g/dL (11.5-14.3); Mean Corpuscular Hemoglobin 28.9 pg (27-33); Mean Corpuscular Hgb Conc 32.4 g/dL (31-36); Mean Corpuscular Volume 89.2 fL (80-97); Mean Platelet Volume 9.8 fL (7.5-11.2); Platelet Count 217 10^3/uL (150-450); Red Blood Count 2.79 10^6/uL (3.63-4.92); Red Cell Distribution Width 19.9 % (12-17); White Blood Count 27.7 10^3/uL (3.8-11.8)
[2023-10-29] MEDS: Magic MouthWash1-BEN/MAAL/LIDO 180 ML BTL SWISH SPIT SCH ×4 (07:58→21:20)
[2023-10-29] MEDS: Dexamethasone 0.1 MG/ML ORALSYR SWISH SPIT SCH ×4 (07:59→21:21)
[2023-10-29 08:01] LABS: Calcium 9.2 mg/dL (8.6-10.3); Creatinine, Serum 1.36 mg/dL (0.51-0.95); Potassium 4.7 mmol/L (3.5-5.0); eGFR CKD-EPI 40.9 (>60)
[2023-10-29 08:48] LABS: ABS Lymphocytes 1.5 10^3/uL (1.0-4.8); ABS Monocytes 3.3 10^3/uL (0.0-0.9); ABS Neutrophils 22.3 10^3/uL (1.5-7.6); ABS Nucleated RBC 0.08 10^3/ul; Eosinophil % 0.1 %; Lymphocyte % 5.6 %; Nucleated Red Blood Cells % 0.3 %/100WBC (0.0-0.8)
[2023-10-29] MEDS: Ondansetron 4 mg VIAL 2 MG/ML 2 ml VIAL IV PRN (10:34)
[2023-10-29] MEDS: Potassium Chlor 20 meq TAB.ER PO SCH ×2 (10:35→21:17)
[2023-10-29] MEDS: cefTRIAXone 1 GM Q24H (ADVAN) IVPB SCH (10:38)
[2023-10-29] MEDS: Insulin GLARGINE 100 un/ml 10 ml VIAL SUBCUT SCH (21:13)
[2023-10-30] MEDS: Ondansetron 4 mg VIAL 2 MG/ML 2 ml VIAL IV PRN ×2 (07:54→17:08)
[2023-10-30] MEDS: Magic MouthWash1-BEN/MAAL/LIDO 180 ML BTL SWISH SPIT SCH ×4 (08:17→21:19)
[2023-10-30] MEDS: Dexamethasone 0.1 MG/ML ORALSYR SWISH SPIT SCH ×4 (08:19→21:20)
[2023-10-30] MEDS: Potassium Chlor 20 meq TAB.ER PO SCH ×2 (08:20→21:25)
[2023-10-30 08:58] LABS: Hematocrit 25.8 % (35-45); Hemoglobin 8.1 g/dL (11.5-14.3); Mean Corpuscular Hemoglobin 28.3 pg (27-33); Mean Corpuscular Hgb Conc 31.4 g/dL (31-36); Mean Platelet Volume 9.8 fL (7.5-11.2); Platelet Count 258 10^3/uL (150-450); Red Blood Count 2.87 10^6/uL (3.63-4.92); White Blood Count 21.7 10^3/uL (3.8-11.8)
[2023-10-30] MEDS: cefTRIAXone 1 GM Q24H (ADVAN) IVPB SCH (09:38)
[2023-10-30 09:55] LABS: ABS Basophils 0.1 10^3/uL (0.0-0.1); ABS Lymphocytes 1.5 10^3/uL (1.0-4.8); ABS Monocytes 2.1 10^3/uL (0.0-0.9); ABS Neutrophils 17.9 10^3/uL (1.5-7.6); ABS Nucleated RBC 0.04 10^3/ul; Anisocytosis 2+; Eosinophil % 0.1 %; Nucleated Red Blood Cells % 0.2 %/100WBC (0.0-0.8); Polychromasia 1+
[2023-10-30] MEDS: Lansoprazole SUSP ORALSYR 3 MG/ML PO SCH (10:45)
[2023-10-30] MEDS: Insulin GLARGINE 100 un/ml 10 ml VIAL SUBCUT SCH (21:18)
[2023-10-30] MEDS: Prochlorperazine 5 mg/ml 2 ml VIAL (10 mg) IV PRN (21:31)
[2023-10-31 06:14] LABS: Hemoglobin 7.9 g/dL (11.5-14.3); Mean Corpuscular Hemoglobin 28.5 pg (27-33); Mean Corpuscular Hgb Conc 31.8 g/dL (31-36); Mean Corpuscular Volume 89.6 fL (80-97); Platelet Count 244 10^3/uL (150-450); Red Blood Count 2.79 10^6/uL (3.63-4.92); Red Cell Distribution Width 20.6 % (12-17); White Blood Count 17.7 10^3/uL (3.8-11.8)
[2023-10-31 06:40] LABS: Albumin 2.5 g/dL (3.2-5.2); Albumin/Globulin Ratio 0.9 (1-3); Calcium 9.1 mg/dL (8.6-10.3); Creatinine, Serum 1.24 mg/dL (0.51-0.95); Globulin 2.7 g/dL (2-4); Magnesium 1.7 mg/dL (1.9-2.7); Potassium 4.5 mmol/L (3.5-5.0); Total Bilirubin 0.5 mg/dL (0.2-1.0); Total Protein 5.2 g/dL (6.4-8.9); eGFR CKD-EPI 45.7 (>60)
[2023-10-31 07:20] LABS: ABS Lymphocytes 1.6 10^3/uL (1.0-4.8); ABS Monocytes 2.3 10^3/uL (0.0-0.9); ABS Neutrophils 13.7 10^3/uL (1.5-7.6); ABS Nucleated RBC 0.09 10^3/ul; Anisocytosis 1+; Eosinophil % 0.1 %; Lymphocyte % 9.1 %; Nucleated Red Blood Cells % 0.5 %/100WBC (0.0-0.8); Polychromasia 1+
[2023-10-31] MEDS: cefTRIAXone 1 GM Q24H (ADVAN) IVPB SCH (08:37)
[2023-10-31] MEDS: Dexamethasone 0.1 MG/ML ORALSYR SWISH SPIT SCH ×4 (09:21→20:57)
[2023-10-31] MEDS: Magic MouthWash1-BEN/MAAL/LIDO 180 ML BTL SWISH SPIT SCH ×4 (09:21→20:57)
[2023-10-31] MEDS: Potassium Chlor 20 meq TAB.ER PO SCH ×2 (09:39→20:59)
[2023-10-31] MEDS: Lansoprazole SUSP ORALSYR 3 MG/ML PO SCH (09:40)
[2023-10-31] MEDS: Prochlorperazine 5 mg/ml 2 ml VIAL (10 mg) IV PRN (16:39)
[2023-10-31] MEDS: Insulin GLARGINE 100 un/ml 10 ml VIAL SUBCUT SCH (21:09)
[2023-11-01] MEDS ORDERED: CEFTRIAXONE IVPB SCH (08:00)
[2023-11-01] MEDS ORDERED: NS 0.9% IVPB SCH (08:00)
[2023-11-01] MEDS: Dexamethasone 0.1 MG/ML ORALSYR SWISH SPIT SCH ×4 (08:06→22:04)
[2023-11-01] MEDS: Lansoprazole SUSP ORALSYR 3 MG/ML PO SCH (08:07)
[2023-11-01] MEDS: Potassium Chlor 20 meq TAB.ER PO SCH ×2 (08:07→23:08)
[2023-11-01] MEDS: Magic MouthWash1-BEN/MAAL/LIDO 180 ML BTL SWISH SPIT SCH ×4 (08:07→22:05)
[2023-11-01] MEDS: Polyethyl Glycol/Propylene Gly OPHTH.SOLN BOTH EYES PRN (08:21)
[2023-11-01] MEDS: cefTRIAXone 2 GM ADDV.VIAL 2 GM in NS 0.9% 100 ml BAG 100 ML IV SCH (08:25)
[2023-11-01 10:22] LABS: Hematocrit 25.6 % (35-45); Hemoglobin 8.2 g/dL (11.5-14.3); Mean Corpuscular Hemoglobin 28.8 pg (27-33); Mean Corpuscular Volume 89.9 fL (80-97); Mean Platelet Volume 9.9 fL (7.5-11.2); Platelet Count 289 10^3/uL (150-450); Red Blood Count 2.85 10^6/uL (3.63-4.92); Red Cell Distribution Width 20.4 % (12-17); White Blood Count 18.1 10^3/uL (3.8-11.8)
[2023-11-01 10:23] LABS: Creatinine, Serum 1.38 mg/dL (0.51-0.95); Magnesium 1.5 mg/dL (1.9-2.7); Potassium 4.3 mmol/L (3.5-5.0); eGFR CKD-EPI 40.2 (>60)
[2023-11-01 11:13] LABS: ABS Basophils 0.1 10^3/uL (0.0-0.1); ABS Lymphocytes 1.9 10^3/uL (1.0-4.8); ABS Monocytes 1.7 10^3/uL (0.0-0.9); ABS Neutrophils 14.4 10^3/uL (1.5-7.6); ABS Nucleated RBC 0.04 10^3/ul; Eosinophil % 0.2 %; Lymphocyte % 10.3 %; Nucleated Red Blood Cells % 0.2 %/100WBC (0.0-0.8)
[2023-11-01 11:14] LABS: RBC Morphology Normal (Normal)
[2023-11-01] MEDS: Insulin GLARGINE 100 un/ml 10 ml VIAL SUBCUT SCH (22:05)
[2023-11-02] MEDS: Potassium Chlor 20 meq TAB.ER PO SCH ×2 (09:04→09:48)
[2023-11-02] MEDS: Dexamethasone 0.1 MG/ML ORALSYR SWISH SPIT SCH ×2 (09:05→13:04)
[2023-11-02] MEDS: Magic MouthWash1-BEN/MAAL/LIDO 180 ML BTL SWISH SPIT SCH ×2 (09:05→13:04)
[2023-11-02] MEDS: cefTRIAXone 2 GM ADDV.VIAL 2 GM in NS 0.9% 100 ml BAG 100 ML IV SCH (09:07)
[2023-11-02] MEDS ORDERED: Potassium Chloride LIQUID 20 MEQ/15 ML LIQUID PO SCH (09:30)
[2023-11-02] MEDS: Lansoprazole SUSP ORALSYR 3 MG/ML PO SCH (09:41)
[2023-11-02 14:27] VITALS: BP 109/72
== END 2023-11-02 14:55 | disposition home or self-care (01) | DRG 682 ==
LOC: EDHOLD 12:56 → ED 12:56 → MED 17:29 → SUATTDRO 10-22 15:00
PROVIDERS: ADMIT Internal Medicine; ATTEND Student in an Organized Health Care Education/Training Program

== ENCOUNTER 2024-03-28 22:31 | Inpatient (IN) ==
[2024-03-28 23:54] LABS: ABS Lymphocytes 0.3 10^3/uL (1.0-4.8); ABS Monocytes 0.1 10^3/uL (0.0-0.9); ABS Neutrophils 15.7 10^3/uL (1.5-7.6); ABS Nucleated RBC 0.01 10^3/ul; Eosinophil % 0.2 %; Hematocrit 26.5 % (35-45); Hemoglobin 8.4 g/dL (11.5-14.3); Lymphocyte % 1.8 %; Mean Corpuscular Hemoglobin 30.1 pg (27-33); Mean Corpuscular Hgb Conc 31.8 g/dL (31-36); Mean Corpuscular Volume 94.5 fL (80-97); Mean Platelet Volume 9.4 fL (7.5-11.2); Nucleated Red Blood Cells % 0.1 %/100WBC (0.0-0.8); Platelet Count 209 10^3/uL (150-450); Red Cell Distribution Width 24.3 % (12-17); White Blood Count 16.1 10^3/uL (3.8-11.8)
[2024-03-29] MEDS: NS 0.9% 1000 ml BAG 1,000 ML IV ONE ×2 (00:15→01:10)
[2024-03-29 00:19] LABS: High Sens Troponin Baseline 21 pg/mL (<15)
[2024-03-29 00:43] LABS: ALT 13 U/L (7-52); Albumin 3.3 g/dL (3.2-5.2); Albumin/Globulin Ratio 1.2 (1-3); Alkaline Phosphatase 77 U/L (35-149); Anion Gap 13 mmol/L (2-16); Blood Urea Nitrogen 52 mg/dL (6-24); C Reactive Protein 178.05 mg/L (<8.01); CO2 Carbon Dioxide 12 mmol/L (22-32); Calcium 9.3 mg/dL (8.6-10.3); Chloride 109 mmol/L (101-111); Creatine Kinase 42 U/L (10-223); Creatinine, Serum 1.93 mg/dL (0.51-0.95); Globulin 2.8 g/dL (2-4); Glucose 101 mg/dL (70-100); Sodium 134 mmol/L (135-145); Total Bilirubin 0.9 mg/dL (0.2-1.0); Total Protein 6.1 g/dL (6.4-8.9); eGFR CKD-EPI 26.7 (>60)
[2024-03-29 01:20] LABS: Venous Bicarbonate HCO3 13.8 mmol/L (24-28)
[2024-03-29 01:20] LABS: Activated Partial Thrombo Time 36.6 seconds (26.0-38.0); INR 1.93 (0.83-1.13)
[2024-03-29 01:53] LABS: Potassium Redraw 3.9 mmol/L (3.5-5.0)
[2024-03-29 01:56] LABS: Urine Appearance Extra Turbid; Urine Bilirubin Negative (Negative); Urine Blood 1+ (Negative); Urine Glucose Negative (Negative); Urine Ketones Negative (Negative); Urine Nitrite Negative (Negative); Urine Protein 1+ (>=30 mg/dL) (Negative); Urine Specific Gravity 1.013 (1.002-1.030); Urine Urobilinogen Negative (Negative); Urine pH 5.5 (5.0-8.0)
[2024-03-29 01:56] LABS: PCO2 Arterial 22 mmHg (35-45); PO2 Arterial 115 mmHg (80-100)
[2024-03-29 02:05] LABS: Urine Bacteria 3+ /HPF (Absent); Urine Red Blood Cell 3+(>10/hpf) /HPF (0-Trace); Urine White Blood Cell 3+(>20/hpf) /HPF (0-Trace)
[2024-03-29 02:23] LABS: Urine Color Yellow
[2024-03-29] MEDS: cefTRIAXone 1 gm/50 mL D5W 1 GM/50 ML BAG IV ONE (02:35)
[2024-03-29 03:08] LABS: Magnesium 1.6 mg/dL (1.9-2.7)
[2024-03-29] MEDS: Furosemide 40 mg/4 ml IV VIAL IV ONE (04:22)
[2024-03-29] MEDS ORDERED: Dextrose 50% Syringe 50 ml 25 GM/50 ML SYRINGE IV PUSH PRN (04:37)
[2024-03-29 04:48] LABS: Urine Potassium Concentration 38.4 mmol/L
[2024-03-29 04:59] LABS: Urine Benzodiazepine Screen None Detected (None Detect); Urine Cannabinoids Screen None Detected (None Detect); Urine Opiates Screen None Detected (None Detect)
[2024-03-29] MEDS ORDERED: Vancomycin 1,750 MG in NS 0.9% 500 ml BAG 500 ML IVPB SCH (05:00)
[2024-03-29] MEDS ORDERED: Vancomycin per Pharmacy 1 EA NOTE FOLLOW UP PRN (05:13)
[2024-03-29] MEDS: metroNIDAZOLE IV 500 MG/100ML 500 MG/100 ML BAG IVPB SCH ×2 (05:47→14:08)
[2024-03-29] MEDS: Vancomycin 2,000 MG in NS 0.9% 500 ml BAG 500 ML IVPB ONE (06:42)
[2024-03-29] MEDS ORDERED: Albuterol HFA INHALER 8 gm MDI INH PRN (07:09)
[2024-03-29] MEDS ORDERED: Fluticasone NASAL SPRAY 50MCG 16 gm SPRAY BTL INTRANASAL PRN (07:10)
[2024-03-29] MEDS ORDERED: Sulfur Hexaflouride MICROSPHR 25 MG VIAL ONE (09:02)
[2024-03-29] MEDS: Cholecalciferol (VIT D3) 1,000 unit TAB PO SCH (09:10)
[2024-03-29] MEDS: Furosemide 40 mg/4 ml IV VIAL IV SLOW PU ONE ×2 (09:44→17:44)
[2024-03-29] MEDS: Cefepime 1 GM in Dextrose 1 GM/50 ML BAG IV SCH ×2 (09:44→20:24)
[2024-03-29] MEDS: Magnesium Sulfate 2 gm BAG 2 GM/50 ML BAG IVPB ONE (09:44)
[2024-03-29 14:17] LABS: ABS Lymphocytes 0.3 10^3/uL (1.0-4.8); ABS Monocytes 0.1 10^3/uL (0.0-0.9); ABS Neutrophils 13.4 10^3/uL (1.5-7.6); ABS Nucleated RBC 0.01 10^3/ul; Eosinophil % 0.2 %; Hematocrit 21.3 % (35-45); Hemoglobin 6.8 g/dL (11.5-14.3); Lymphocyte % 2.2 %; Mean Corpuscular Hemoglobin 29.8 pg (27-33); Mean Corpuscular Hgb Conc 32.1 g/dL (31-36); Mean Corpuscular Volume 92.7 fL (80-97); Mean Platelet Volume 8.5 fL (7.5-11.2); Platelet Count 157 10^3/uL (150-450); Red Cell Distribution Width 24.1 % (12-17); White Blood Count 13.8 10^3/uL (3.8-11.8)
[2024-03-29 14:48] LABS: Calcium 9.2 mg/dL (8.6-10.3); Creatinine, Serum 1.74 mg/dL (0.51-0.95); Potassium 4.3 mmol/L (3.5-5.0); eGFR CKD-EPI 30.2 (>60)
[2024-03-29 17:50] LABS: Magnesium 2.1 mg/dL (1.9-2.7)
[2024-03-30] MEDS: Albuterol/Ipratropium NEB.SOL (2.5/0.5 MG) 3 ML NEB.SOLN INH ONE (00:50)
[2024-03-30] MEDS: metroNIDAZOLE IV 500 MG/100ML 500 MG/100 ML BAG IVPB SCH (03:29)
[2024-03-30 05:06] LABS: ABS Lymphocytes 0.3 10^3/uL (1.0-4.8); ABS Monocytes 0.1 10^3/uL (0.0-0.9); ABS Neutrophils 8.5 10^3/uL (1.5-7.6); Eosinophil % 0.5 %; Hematocrit 21.3 % (35-45); Hemoglobin 7.1 g/dL (11.5-14.3); Lymphocyte % 3.3 %; Mean Corpuscular Hemoglobin 30.5 pg (27-33); Mean Corpuscular Hgb Conc 33.2 g/dL (31-36); Mean Platelet Volume 8.6 fL (7.5-11.2); Platelet Count 138 10^3/uL (150-450); Red Blood Count 2.32 10^6/uL (3.63-4.92); Red Cell Distribution Width 22.2 % (12-17)
[2024-03-30 05:38] LABS: Calcium 8.9 mg/dL (8.6-10.3); Creatinine, Serum 1.73 mg/dL (0.51-0.95); Magnesium 1.9 mg/dL (1.9-2.7); Potassium 3.9 mmol/L (3.5-5.0); eGFR CKD-EPI 30.4 (>60)
[2024-03-30] MEDS: Furosemide 40 mg/4 ml IV VIAL IV ONE (12:37)
[2024-03-30 17:25] LABS: Hematocrit 23.2 % (35-45); Hemoglobin 7.6 g/dL (11.5-14.3); Mean Corpuscular Hemoglobin 30.2 pg (27-33); Mean Corpuscular Hgb Conc 32.9 g/dL (31-36); Mean Corpuscular Volume 91.8 fL (80-97); Mean Platelet Volume 8.3 fL (7.5-11.2); Platelet Count 125 10^3/uL (150-450); Red Blood Count 2.52 10^6/uL (3.63-4.92); Red Cell Distribution Width 23.2 % (12-17); White Blood Count 5.9 10^3/uL (3.8-11.8)
[2024-03-31 05:44] LABS: Hematocrit 20.5 % (35-45); Hemoglobin 6.9 g/dL (11.5-14.3); Mean Corpuscular Hemoglobin 30.5 pg (27-33); Mean Corpuscular Hgb Conc 33.5 g/dL (31-36); Mean Platelet Volume 8.2 fL (7.5-11.2); Platelet Count 114 10^3/uL (150-450); Red Blood Count 2.25 10^6/uL (3.63-4.92); Red Cell Distribution Width 22.9 % (12-17); White Blood Count 4.7 10^3/uL (3.8-11.8)
[2024-03-31 06:15] LABS: ABS Eosinophils 0.1 10^3/uL (0.0-0.5); ABS Lymphocytes 0.5 10^3/uL (1.0-4.8); ABS Monocytes 0.1 10^3/uL (0.0-0.9); Eosinophil % 1.1 %; Lymphocyte % 11.4 %
[2024-03-31 06:45] LABS: Creatinine, Serum 1.76 mg/dL (0.51-0.95); Magnesium 1.8 mg/dL (1.9-2.7); Potassium 3.7 mmol/L (3.5-5.0); eGFR CKD-EPI 29.8 (>60)
[2024-03-31] MEDS: Magnesium Sulfate 2 gm BAG 2 GM/50 ML BAG IVPB ONE (08:42)
[2024-03-31] MEDS: Nystatin TOP POWDER 15 GM BTL TOPICAL SCH (09:38)
[2024-03-31] MEDS: Potassium Chlor 20 meq TAB.ER PO SCH (09:39)
[2024-03-31] MEDS: Sodium Bicarb 650 mg (ANTACID) TAB PO SCH (11:34)
[2024-03-31] MEDS: Furosemide 20 mg/2 ml IV VIAL IV SLOW PU ONE ×2 (12:55→17:53)
[2024-03-31] MEDS: cefTRIAXone 1 gm/50 mL D5W 1 GM/50 ML BAG IV SCH (20:32)
[2024-03-31] MEDS: Vancomycin Random Level NOTE FOLLOW UP ONE (20:34)
[2024-04-01 06:18] LABS: Hematocrit 23.3 % (35-45); Hemoglobin 7.9 g/dL (11.5-14.3); Mean Corpuscular Hemoglobin 30.3 pg (27-33); Mean Corpuscular Hgb Conc 33.9 g/dL (31-36); Mean Corpuscular Volume 89.5 fL (80-97); Mean Platelet Volume 7.7 fL (7.5-11.2); Platelet Count 98 10^3/uL (150-450); Red Blood Count 2.61 10^6/uL (3.63-4.92); White Blood Count 7.1 10^3/uL (3.8-11.8)
[2024-04-01 06:37] LABS: Calcium 8.7 mg/dL (8.6-10.3); Creatinine, Serum 1.59 mg/dL (0.51-0.95); Magnesium 1.8 mg/dL (1.9-2.7); Potassium 3.8 mmol/L (3.5-5.0); eGFR CKD-EPI 33.7 (>60)
[2024-04-01] MEDS: Magnesium Sulfate 2 gm BAG 2 GM/50 ML BAG IVPB ONE (08:38)
[2024-04-01] MEDS: Furosemide 40 mg/4 ml IV VIAL IV SLOW PU ONE (08:56)
[2024-04-01] MEDS: Furosemide 40 mg/4 ml IV VIAL IV ONE (16:39)
[2024-04-02 06:45] LABS: Calcium 8.7 mg/dL (8.6-10.3); Creatinine, Serum 1.45 mg/dL (0.51-0.95); Magnesium 1.8 mg/dL (1.9-2.7); Potassium 3.8 mmol/L (3.5-5.0); eGFR CKD-EPI 37.6 (>60)
[2024-04-02 07:22] LABS: Hematocrit 24.6 % (35-45); Hemoglobin 8.3 g/dL (11.5-14.3); Mean Corpuscular Hemoglobin 30.1 pg (27-33); Mean Corpuscular Hgb Conc 33.8 g/dL (31-36); Mean Corpuscular Volume 89.3 fL (80-97); Mean Platelet Volume 8.6 fL (7.5-11.2); Platelet Count 99 10^3/uL (150-450); Red Blood Count 2.75 10^6/uL (3.63-4.92); Red Cell Distribution Width 22.2 % (12-17); White Blood Count 8.6 10^3/uL (3.8-11.8)
[2024-04-02 08:20] LABS: ABS Lymphocytes 1.2 10^3/uL (1.0-4.8); ABS Monocytes 0.5 10^3/uL (0.0-0.9); ABS Neutrophils 6.8 10^3/uL (1.5-7.6); ABS Nucleated RBC 0.04 10^3/ul; Eosinophil % 0.3 %; Lymphocyte % 13.9 %; Nucleated Red Blood Cells % 0.4 %/100WBC (0.0-0.8)
[2024-04-02] MEDS: Magnesium Sulfate 2 gm BAG 2 GM/50 ML BAG IVPB ONE (08:44)
[2024-04-03 06:19] LABS: Calcium 8.9 mg/dL (8.6-10.3); Creatinine, Serum 1.32 mg/dL (0.51-0.95); Magnesium 1.8 mg/dL (1.9-2.7); Potassium 3.7 mmol/L (3.5-5.0); eGFR CKD-EPI 42.1 (>60)
[2024-04-03 08:24] LABS: Hematocrit 24.8 % (35-45); Hemoglobin 8.3 g/dL (11.5-14.3); Mean Corpuscular Hemoglobin 29.9 pg (27-33); Mean Corpuscular Hgb Conc 33.6 g/dL (31-36); Mean Corpuscular Volume 89.2 fL (80-97); Mean Platelet Volume 9.2 fL (7.5-11.2); Platelet Count 110 10^3/uL (150-450); Red Blood Count 2.78 10^6/uL (3.63-4.92); Red Cell Distribution Width 21.3 % (12-17); White Blood Count 7.4 10^3/uL (3.8-11.8)
[2024-04-03 13:04] LABS: ABS Lymphocytes 1.5 10^3/uL (1.0-4.8); ABS Monocytes 0.9 10^3/uL (0.0-0.9); Eosinophil % 0.5 %; Lymphocyte % 20.2 %; Nucleated Red Blood Cells % 1.3 %/100WBC (0.0-0.8)
[2024-04-04 05:37] LABS: Calcium 8.9 mg/dL (8.6-10.3); Creatinine, Serum 1.27 mg/dL (0.51-0.95); Magnesium 1.5 mg/dL (1.9-2.7); Potassium 3.7 mmol/L (3.5-5.0); eGFR CKD-EPI 44.1 (>60)
[2024-04-04] MEDS: Magnesium Sulfate 2 gm BAG 2 GM/50 ML BAG IVPB ONE (09:41)
[2024-04-04 09:57] LABS: Hematocrit 26.7 % (35-45); Mean Corpuscular Hemoglobin 30.2 pg (27-33); Mean Corpuscular Hgb Conc 33.7 g/dL (31-36); Mean Corpuscular Volume 89.5 fL (80-97); Mean Platelet Volume 8.9 fL (7.5-11.2); Platelet Count 140 10^3/uL (150-450); Red Blood Count 2.98 10^6/uL (3.63-4.92); Red Cell Distribution Width 21.8 % (12-17); White Blood Count 9.5 10^3/uL (3.8-11.8)
[2024-04-04] MEDS ORDERED: Polyethylene Glycol 3350 17 GM PACKET PO PRN (10:55)
[2024-04-04 12:32] LABS: ABS Eosinophils 0.1 10^3/uL (0.0-0.5); ABS Lymphocytes 1.7 10^3/uL (1.0-4.8); ABS Monocytes 1.3 10^3/uL (0.0-0.9); ABS Neutrophils 6.5 10^3/uL (1.5-7.6); ABS Nucleated RBC 0.25 10^3/ul; Acanthocytes 1+; Anisocytosis 2+; Basophilic Stippling 2+; Eosinophil % 0.6 %; Large Platelets Present; Lymphocyte % 17.7 %; Microcytosis 1+; Nucleated Red Blood Cells % 2.7 %/100WBC (0.0-0.8); Polychromasia 1+
[2024-04-05 06:40] LABS: Calcium 9.2 mg/dL (8.6-10.3); Creatinine, Serum 1.29 mg/dL (0.51-0.95); Magnesium 1.5 mg/dL (1.9-2.7); Potassium 3.7 mmol/L (3.5-5.0); eGFR CKD-EPI 43.3 (>60)
[2024-04-05] MEDS: Magnesium Sulfate 2 gm BAG 2 GM/50 ML BAG IVPB ONE (07:52)
[2024-04-05] MEDS ORDERED: Albuterol HFA INHALER 8 gm MDI INH PRN (12:38)
[2024-04-05 13:00] LABS: Hematocrit 27.1 % (35-45); Hemoglobin 9.1 g/dL (11.5-14.3); Mean Corpuscular Hemoglobin 30.3 pg (27-33); Mean Corpuscular Hgb Conc 33.6 g/dL (31-36); Mean Platelet Volume 9.2 fL (7.5-11.2); Platelet Count 162 10^3/uL (150-450); Red Blood Count 3.01 10^6/uL (3.63-4.92); Red Cell Distribution Width 22.1 % (12-17); White Blood Count 9.6 10^3/uL (3.8-11.8)
[2024-04-05] MEDS: Sodium Bicarb 650 mg (ANTACID) TAB PO SCH (20:10)
[2024-04-06 06:58] LABS: Calcium 8.8 mg/dL (8.6-10.3); Creatinine, Serum 1.32 mg/dL (0.51-0.95); Magnesium 1.6 mg/dL (1.9-2.7); Potassium 3.9 mmol/L (3.5-5.0); eGFR CKD-EPI 42.1 (>60)
[2024-04-06 07:12] LABS: Hematocrit 24.6 % (35-45); Hemoglobin 8.3 g/dL (11.5-14.3); Mean Corpuscular Hemoglobin 30.3 pg (27-33); Mean Corpuscular Hgb Conc 33.9 g/dL (31-36); Mean Corpuscular Volume 89.5 fL (80-97); Mean Platelet Volume 8.8 fL (7.5-11.2); Platelet Count 159 10^3/uL (150-450); Red Blood Count 2.74 10^6/uL (3.63-4.92); White Blood Count 8.4 10^3/uL (3.8-11.8)
[2024-04-06] MEDS: Magnesium Sulfate 2 gm BAG 2 GM/50 ML BAG IVPB ONE (08:29)
[2024-04-06] MEDS: Collagenase 250 units/gm OINT 1 tube TOPICAL SCH (10:47)
[2024-04-07 06:54] LABS: Hematocrit 25.5 % (35-45); Hemoglobin 8.5 g/dL (11.5-14.3); Mean Corpuscular Hemoglobin 30.3 pg (27-33); Mean Corpuscular Hgb Conc 33.3 g/dL (31-36); Mean Corpuscular Volume 90.8 fL (80-97); Mean Platelet Volume 9.2 fL (7.5-11.2); Platelet Count 183 10^3/uL (150-450); Red Blood Count 2.81 10^6/uL (3.63-4.92); Red Cell Distribution Width 21.5 % (12-17); White Blood Count 8.3 10^3/uL (3.8-11.8)
[2024-04-07 07:16] LABS: Creatinine, Serum 1.38 mg/dL (0.51-0.95); Magnesium 1.6 mg/dL (1.9-2.7); Potassium 4.1 mmol/L (3.5-5.0); eGFR CKD-EPI 39.9 (>60)
[2024-04-07 07:54] LABS: ABS Lymphocytes 1.7 10^3/uL (1.0-4.8); ABS Monocytes 1.5 10^3/uL (0.0-0.9); ABS Neutrophils 5.2 10^3/uL (1.5-7.6); ABS Nucleated RBC 0.13 10^3/ul; Eosinophil % 0.2 %; Nucleated Red Blood Cells % 1.6 %/100WBC (0.0-0.8)
[2024-04-07] MEDS: Magnesium Sulfate 2 gm BAG 2 GM/50 ML BAG IVPB ONE (12:47)
[2024-04-07] MEDS: Ondansetron 4 mg VIAL 2 MG/ML 2 ml VIAL IV ONE (16:20)
[2024-04-08 05:26] LABS: Hematocrit 27.2 % (35-45); Hemoglobin 9.1 g/dL (11.5-14.3); Mean Corpuscular Hemoglobin 30.7 pg (27-33); Mean Corpuscular Hgb Conc 33.5 g/dL (31-36); Mean Corpuscular Volume 91.6 fL (80-97); Platelet Count 224 10^3/uL (150-450); Red Blood Count 2.97 10^6/uL (3.63-4.92); Red Cell Distribution Width 22.3 % (12-17); White Blood Count 7.7 10^3/uL (3.8-11.8)
[2024-04-08 05:59] LABS: Magnesium 1.8 mg/dL (1.9-2.7)
[2024-04-08 10:12] VITALS: BP 129/59
[2024-04-08 13:36] LABS: Calcium 9.1 mg/dL (8.6-10.3); Creatinine, Serum 1.48 mg/dL (0.51-0.95); Potassium 4.7 mmol/L (3.5-5.0); eGFR CKD-EPI 36.7 (>60)
[2024-04-08 20:02] LABS: ABS Lymphocytes 1.5 10^3/uL (1.0-4.8); ABS Monocytes 1.4 10^3/uL (0.0-0.9); ABS Neutrophils 4.8 10^3/uL (1.5-7.6); ABS Nucleated RBC 0.07 10^3/ul; Eosinophil % 0.3 %; Lymphocyte % 19.2 %
== END 2024-04-08 13:50 | disposition home health service (06) | DRG 291 ==
LOC: ED 22:31 → EDHOLD 22:31 → SUATTDRO 03-29 03:00 → MED 03-29 12:37 → SUATTDRO 03-31 14:22 → MEDTELE 04-01 00:49
PROVIDERS: ADMIT Student in an Organized Health Care Education/Training Program; ATTEND Internal Medicine

== ENCOUNTER 2024-04-20 10:12 | Inpatient (IN) ==
[2024-04-20] MEDS: NS 0.9% 500 ml BAG 500 ML IV ONE ×2 (11:20→14:16)
[2024-04-20 11:28] LABS: Hematocrit 24.9 % (35-45); Hemoglobin 8.4 g/dL (11.5-14.3); Mean Corpuscular Hemoglobin 31.4 pg (27-33); Mean Corpuscular Hgb Conc 33.7 g/dL (31-36); Mean Corpuscular Volume 93.2 fL (80-97); Mean Platelet Volume 9.8 fL (7.5-11.2); Platelet Count 202 10^3/uL (150-450); Red Blood Count 2.67 10^6/uL (3.63-4.92); Red Cell Distribution Width 23.8 % (12-17)
[2024-04-20 12:21] LABS: ABS Basophils 0.1 10^3/uL (0.0-0.1); ABS Lymphocytes 0.8 10^3/uL (1.0-4.8); ABS Monocytes 0.3 10^3/uL (0.0-0.9); ABS Neutrophils 10.8 10^3/uL (1.5-7.6); ABS Nucleated RBC 0.01 10^3/ul; Anisocytosis 2+; Eosinophil % 0.3 %; Nucleated Red Blood Cells % 0.1 %/100WBC (0.0-0.8)
[2024-04-20 12:38] LABS: High Sensitivity Troponin 1 Hr 45 pg/mL (<15)
[2024-04-20 12:52] LABS: Albumin 3.1 g/dL (3.2-5.2); Albumin/Globulin Ratio 1.2 (1-3); C Reactive Protein 248.19 mg/L (<8.01); Creatinine, Serum 1.92 mg/dL (0.51-0.95); Globulin 2.5 g/dL (2-4); Magnesium 1.7 mg/dL (1.9-2.7); Potassium 3.8 mmol/L (3.5-5.0); Total Protein 5.6 g/dL (6.4-8.9); eGFR CKD-EPI 26.9 (>60)
[2024-04-20] MEDS: Cefepime 2 GM in Dextrose 2 GM/50 ML BAG IV ONE (13:04)
[2024-04-20] MEDS: Magnesium Sulfate 2 gm BAG 2 GM/50 ML BAG IVPB ONE (14:16)
[2024-04-20] MEDS: Vancomycin 1,500 MG in NS 0.9% 250 ml 250 ML IVPB ONE (15:19)
[2024-04-20] MEDS ORDERED: Sulfur Hexaflouride MICROSPHR 25 MG VIAL ONE (15:37)
[2024-04-20 15:45] LABS: Urine Appearance Clear; Urine Bilirubin Negative (Negative); Urine Blood Negative (Negative); Urine Color Yellow; Urine Glucose Negative (Negative); Urine Ketones Negative (Negative); Urine Nitrite 2+ (Negative); Urine Protein Trace (Negative); Urine Specific Gravity 1.013 (1.002-1.030); Urine Urobilinogen Negative (Negative)
[2024-04-20 15:53] LABS: Urine Bacteria 2+ /HPF (Absent); Urine Red Blood Cell Trace(0-2/hpf) /HPF (0-Trace); Urine Squamous Epithelial Cell Present /HPF (Absent); Urine White Blood Cell 3+(>20/hpf) /HPF (0-Trace)
[2024-04-20] MEDS: Insulin GLARGINE 100 un/ml 10 ml VIAL SUBCUT SCH (18:17)
[2024-04-20] MEDS: Furosemide 40 mg/4 ml IV VIAL IV ONE (18:22)
[2024-04-21 05:02] LABS: ABS Basophils 0.1 10^3/uL (0.0-0.1); ABS Eosinophils 0.1 10^3/uL (0.0-0.5); ABS Lymphocytes 0.7 10^3/uL (1.0-4.8); ABS Monocytes 0.4 10^3/uL (0.0-0.9); ABS Neutrophils 11.6 10^3/uL (1.5-7.6); ABS Nucleated RBC 0.03 10^3/ul; Hemoglobin 8.4 g/dL (11.5-14.3); Lymphocyte % 5.5 %; Mean Corpuscular Hemoglobin 30.3 pg (27-33); Mean Corpuscular Hgb Conc 32.2 g/dL (31-36); Mean Platelet Volume 9.6 fL (7.5-11.2); Nucleated Red Blood Cells % 0.2 %/100WBC (0.0-0.8); Platelet Count 187 10^3/uL (150-450); Red Blood Count 2.76 10^6/uL (3.63-4.92); Red Cell Distribution Width 23.7 % (12-17); White Blood Count 12.8 10^3/uL (3.8-11.8)
[2024-04-21 05:24] LABS: Calcium 8.9 mg/dL (8.6-10.3); Creatinine, Serum 1.64 mg/dL (0.51-0.95); Magnesium 1.9 mg/dL (1.9-2.7); Potassium 3.8 mmol/L (3.5-5.0); eGFR CKD-EPI 32.4 (>60)
[2024-04-21] MEDS ORDERED: Albuterol HFA INHALER 8 gm MDI INH PRN (11:58)
[2024-04-22 06:52] LABS: Hematocrit 26.2 % (35-45); Hemoglobin 8.8 g/dL (11.5-14.3); Mean Corpuscular Hemoglobin 31.4 pg (27-33); Mean Corpuscular Hgb Conc 33.5 g/dL (31-36); Mean Corpuscular Volume 93.7 fL (80-97); Mean Platelet Volume 9.1 fL (7.5-11.2); Platelet Count 161 10^3/uL (150-450); Red Blood Count 2.79 10^6/uL (3.63-4.92); Red Cell Distribution Width 23.5 % (12-17); White Blood Count 13.2 10^3/uL (3.8-11.8)
[2024-04-22 07:18] LABS: ABS Basophils 0.1 10^3/uL (0.0-0.1); ABS Eosinophils 0.2 10^3/uL (0.0-0.5); ABS Lymphocytes 1.3 10^3/uL (1.0-4.8); ABS Monocytes 0.8 10^3/uL (0.0-0.9); ABS Neutrophils 10.8 10^3/uL (1.5-7.6); ABS Nucleated RBC 0.06 10^3/ul; Eosinophil % 1.2 %; Lymphocyte % 10.2 %; Nucleated Red Blood Cells % 0.4 %/100WBC (0.0-0.8)
[2024-04-22 07:36] LABS: Calcium 8.8 mg/dL (8.6-10.3); Creatinine, Serum 1.51 mg/dL (0.51-0.95); Magnesium 1.8 mg/dL (1.9-2.7); eGFR CKD-EPI 35.8 (>60)
[2024-04-22] MEDS: Insulin GLARGINE 100 un/ml 10 ml VIAL SUBCUT SCH (08:38)
[2024-04-22 21:47] LABS: Urine Appearance Clear; Urine Bilirubin Negative (Negative); Urine Blood Negative (Negative); Urine Color Light-Yellow; Urine Glucose Negative (Negative); Urine Ketones Negative (Negative); Urine Nitrite Negative (Negative); Urine Protein Negative (Negative); Urine Urobilinogen Negative (Negative)
[2024-04-22 21:57] LABS: Urine Bacteria Absent /HPF (Absent); Urine Red Blood Cell Trace(0-2/hpf) /HPF (0-Trace); Urine Squamous Epithelial Cell Present /HPF (Absent); Urine White Blood Cell 3+(>20/hpf) /HPF (0-Trace)
[2024-04-23 05:53] LABS: Hematocrit 25.5 % (35-45); Hemoglobin 8.5 g/dL (11.5-14.3); Mean Corpuscular Hemoglobin 31.1 pg (27-33); Mean Corpuscular Hgb Conc 33.3 g/dL (31-36); Mean Corpuscular Volume 93.3 fL (80-97); Mean Platelet Volume 9.5 fL (7.5-11.2); Platelet Count 172 10^3/uL (150-450); Red Blood Count 2.73 10^6/uL (3.63-4.92); Red Cell Distribution Width 24.1 % (12-17); White Blood Count 12.8 10^3/uL (3.8-11.8)
[2024-04-23 06:15] LABS: Calcium 8.3 mg/dL (8.6-10.3); Creatinine, Serum 1.58 mg/dL (0.51-0.95); Magnesium 1.5 mg/dL (1.9-2.7); eGFR CKD-EPI 33.9 (>60)
[2024-04-23 08:33] LABS: ABS Basophils 0.1 10^3/uL (0.0-0.1); ABS Eosinophils 0.1 10^3/uL (0.0-0.5); ABS Lymphocytes 1.5 10^3/uL (1.0-4.8); ABS Monocytes 1.1 10^3/uL (0.0-0.9); ABS Nucleated RBC 0.09 10^3/ul; Anisocytosis 3+; Eosinophil % 0.7 %; Nucleated Red Blood Cells % 0.7 %/100WBC (0.0-0.8); Polychromasia 2+; Tear Drop Cells 1+
[2024-04-23] MEDS: Ondansetron 4 mg VIAL 2 MG/ML 2 ml VIAL IV PRN (17:54)
[2024-04-24] MEDS: Collagenase 250 units/gm OINT 1 tube TOPICAL SCH (14:11)
[2024-04-25 13:41] VITALS: BP 120/72
[2024-04-26] MEDS ORDERED: Potassium Chlor 20 meq TAB.ER PO SCH (09:00)
== END 2024-04-25 16:25 | disposition home or self-care (01) | DRG 699 ==
LOC: ED 10:12 → SUATTDRO 15:53 → EDHOLD 15:53 → ICU 19:05 → MED 20:12
PROVIDERS: ADMIT Internal Medicine Critical Care Medicine; ATTEND Internal Medicine

== ENCOUNTER 2024-05-21 06:57 | Inpatient (IN) ==
[2024-05-21] MEDS ORDERED: Dextrose 50% Syringe 50 ml 25 GM/50 ML SYRINGE ONE (07:01)
[2024-05-21] MEDS ORDERED: Atropine 0.1 MG/ML 10 ml SYR (1 mg) ONE (07:02)
[2024-05-21] MEDS ORDERED: Dextrose 50% Syringe 50 ml 25 GM/50 ML SYRINGE IV PUSH PRN (07:48)
[2024-05-21 07:54] LABS: ABS Eosinophils 0.1 10^3/uL (0.0-0.5); ABS Lymphocytes 0.9 10^3/uL (1.0-4.8); ABS Monocytes 0.9 10^3/uL (0.0-0.9); ABS Neutrophils 6.1 10^3/uL (1.5-7.6); ABS Nucleated RBC 0.01 10^3/ul; Activated Partial Thrombo Time 29.6 seconds (26.0-38.0); Eosinophil % 0.7 %; Hematocrit 31.5 % (35-45); Hemoglobin 10.6 g/dL (11.5-14.3); INR 1.95 (0.83-1.13); Lymphocyte % 10.8 %; Mean Corpuscular Hemoglobin 31.9 pg (27-33); Mean Corpuscular Hgb Conc 33.7 g/dL (31-36); Mean Corpuscular Volume 94.7 fL (80-97); Mean Platelet Volume 9.2 fL (7.5-11.2); Nucleated Red Blood Cells % 0.1 %/100WBC (0.0-0.8); Platelet Count 125 10^3/uL (150-450); Red Blood Count 3.33 10^6/uL (3.63-4.92); Red Cell Distribution Width 21.8 % (12-17)
[2024-05-21] MEDS: Atropine 1 MG/ML INJ 1 ML VIAL IV PUSH PRN (08:15)
[2024-05-21 08:35] LABS: Albumin 2.8 g/dL (3.2-5.2); Albumin/Globulin Ratio 1.3 (1-3); C Reactive Protein 17.94 mg/L (<8.01); Calcium 8.8 mg/dL (8.6-10.3); Creatinine, Serum 1.16 mg/dL (0.51-0.95); Direct Bilirubin 0.2 mg/dL (0.03-0.18); Globulin 2.1 g/dL (2-4); HDL Cholesterol 39.6 mg/dL; Indirect Bilirubin 0.5 mg/dL (0.3-1.0); Potassium 4.7 mmol/L (3.5-5.0); Total Bilirubin 0.7 mg/dL (0.2-1.0); Total Protein 4.9 g/dL (6.4-8.9); eGFR CKD-EPI 49.2 (>60)
[2024-05-21] MEDS: Lactated Ringers 1000 ml BAG 1,000 ML IV ONE (08:48)
[2024-05-21 10:17] LABS: High Sensitivity Troponin 1 Hr 10 pg/mL (<15)
[2024-05-21] MEDS ORDERED: Albuterol HFA INHALER 8 gm MDI INH PRN (11:03)
[2024-05-22] MEDS: cefTRIAXone 2 gm/50 mL D5W 2 GM/50 ML BAG IV SCH (05:49)
[2024-05-22 05:56] LABS: ABS Eosinophils 0.1 10^3/uL (0.0-0.5); ABS Lymphocytes 1.2 10^3/uL (1.0-4.8); ABS Monocytes 1.1 10^3/uL (0.0-0.9); ABS Neutrophils 7.6 10^3/uL (1.5-7.6); ABS Nucleated RBC 0.01 10^3/ul; Eosinophil % 1.2 %; Hematocrit 33.9 % (35-45); Hemoglobin 11.4 g/dL (11.5-14.3); Lymphocyte % 11.7 %; Mean Corpuscular Hemoglobin 31.5 pg (27-33); Mean Corpuscular Hgb Conc 33.6 g/dL (31-36); Mean Corpuscular Volume 93.6 fL (80-97); Mean Platelet Volume 9.3 fL (7.5-11.2); Nucleated Red Blood Cells % 0.1 %/100WBC (0.0-0.8); Platelet Count 135 10^3/uL (150-450); Red Blood Count 3.62 10^6/uL (3.63-4.92); Red Cell Distribution Width 21.8 % (12-17)
[2024-05-22 07:22] LABS: Calcium 8.9 mg/dL (8.6-10.3); Creatinine, Serum 0.99 mg/dL (0.51-0.95); Magnesium 1.6 mg/dL (1.9-2.7); Phosphorus 2.9 mg/dL (2.5-5.0); Potassium 5.1 mmol/L (3.5-5.0); eGFR CKD-EPI 59.5 (>60)
[2024-05-22] MEDS: Magnesium Sulf 4 GM/100 ML IV 4,000 MG/100 ML BAG IVPB ONE (10:13)
[2024-05-22 18:16] LABS: Calcium 9.3 mg/dL (8.6-10.3); Creatinine, Serum 1.08 mg/dL (0.51-0.95); Potassium 5.1 mmol/L (3.5-5.0); eGFR CKD-EPI 53.6 (>60)
[2024-05-23 06:00] LABS: Hemoglobin 11.4 g/dL (11.5-14.3); Mean Corpuscular Hemoglobin 30.6 pg (27-33); Mean Corpuscular Hgb Conc 32.5 g/dL (31-36); Mean Corpuscular Volume 94.3 fL (80-97); Mean Platelet Volume 9.3 fL (7.5-11.2); Platelet Count 131 10^3/uL (150-450); Red Blood Count 3.71 10^6/uL (3.63-4.92)
[2024-05-23 06:57] LABS: Magnesium 1.7 mg/dL (1.9-2.7)
[2024-05-23 07:47] LABS: Calcium 8.9 mg/dL (8.6-10.3); Creatinine, Serum 1.04 mg/dL (0.51-0.95); Potassium 4.7 mmol/L (3.5-5.0)
[2024-05-23] MEDS: Iodixanol 320 (CONTRAST) 100 ML SDV IV ONE (08:55)
[2024-05-23] MEDS: Magnesium Sulfate 2 gm BAG 2 GM/50 ML BAG IVPB ONE (10:12)
[2024-05-23] MEDS: MAGNESIUM CHLORIDE 71.5 MG PO SCH (10:13)
[2024-05-23] MEDS: Magnesium Sulfate IV 1GM/100ML 1 GM/100 ML BAG IV ONE (11:32)
[2024-05-24 05:53] LABS: Calcium 9.1 mg/dL (8.6-10.3); Creatinine, Serum 1.08 mg/dL (0.51-0.95); Potassium 4.5 mmol/L (3.5-5.0); eGFR CKD-EPI 53.6 (>60)
[2024-05-24 10:16] VITALS: BP 133/70
[2024-05-24] MEDS ORDERED: Atropine 1% (ORAL/SL) 15 ML BTL SL PRN (13:43)
[2024-05-24] MEDS ORDERED: Polyethylene Glycol 3350 17 GM PACKET PO PRN (13:43)
[2024-05-24] MEDS: Morphine ORAL CONCENTRATE 5 MG/0.25 ML ORAL.SYRIN PO PRN (16:00)
[2024-05-26] MEDS ORDERED: HYDROmorphone 0.5 MG/0.5 ML SYRINGE IV SLOW PU PRN (16:22)
[2024-05-26] MEDS: Simethicone SUSP ORALSYR 66.66 MG/ML PO SCH (20:04)
[2024-05-27] MEDS ORDERED: Morphine ORAL CONCENTRATE 5 MG/0.25 ML ORAL.SYRIN SL PRN (07:16)
[2024-05-27] MEDS: Lidocaine PATCH 5% PATCH TRANSDERM SCH (12:31)
[2024-05-31] MEDS: Sulfur Hexaflouride MICROSPHR 25 MG VIAL IV ONE (08:40)
== END 2024-05-31 11:06 | disposition hospice, inpatient (51) | DRG 637 ==
LOC: EDHOLD 06:57 → ED 06:57 → SUATTDRO 10:10 → MEDTELE 11:10 → SUATTDRO 05-23 13:40
PROVIDERS: ADMIT Student in an Organized Health Care Education/Training Program; ATTEND Hospitalist